=== PATIENT | female | born 1985 | race Caucasian/White ===

== ENCOUNTER 2024-05-14 20:01 | Outpatient (REF) | payer OTHER, SELFPAY | END 2024-05-14 20:02 | disposition home or self-care (01) | LOC: LAB 20:01 | PROVIDERS: Visit Provider Physician Assistant | DX: Z01.419 Encounter for gynecological examination (general) (routine) without abnormal findings (principal) | CPT/HCPCS: 87624; 88175 ==

== ENCOUNTER 2024-12-02 14:59 | Outpatient (REF) | payer OTHER, SELFPAY ==
[2024-12-04 11:08] LABS: HPV Aptima Negative (Negative); Pap IG (Image Guided) Note (.)
== END 2024-12-02 15:00 | disposition home or self-care (01) ==
LOC: LAB 14:59
PROVIDERS: Visit Provider Obstetrics & Gynecology
DX: R87.622 Low grade squamous intraepithelial lesion on cytologic smear of vagina (LGSIL) (principal)
CPT/HCPCS: 87624; 88175

== ENCOUNTER 2024-12-09 13:02 | Outpatient (OUT) | payer OTHER, SELFPAY ==
--- NOTE | 2024-12-09 13:13 | MM_ITS ---
Patient Name: CHELITA PAEZ MR#: [id number] : 1985 Exam Date: 12/09/2024 Ordering Doctor: DR YANCI DE ANDA . RADIOLOGY REPORT PROCEDURE: MM TOMOSYNTHESIS SCREENING BI COMPARISON: None. INDICATIONS: breast cancer screening by mammogram Z12.31 Calculator Name NCI Breast Cancer Risk Assessment Tool 5 Year Breast Cancer Risk 0.80% Lifetime Breast Cancer Risk 13.60% Personal Breast Cancer No Personal Ovarian Cancer No Treatments None Family Cancers None LOCATION: [facility] BREAST COMPOSITION: The breasts are heterogeneously dense,which may obscure small masses. FINDINGS: DIAGNOSTIC CATEGORY 1--NEGATIVE. RIGHT BREAST: No significant suspicious finding. LEFT BREAST: No significant suspicious finding. RECOMMENDATIONS: ROUTINE MAMMOGRAM AND CLINICAL EVALUATION IN 12 MONTHS. PLEASE NOTE: A NORMAL MAMMOGRAM DOES NOT EXCLUDE THE POSSIBILITY OF BREAST CANCER. A CLINICALLY SUSPICIOUS PALPABLE LUMP SHOULD BE BIOPSIED. Dictated by: Addison Gee DO on 12/09/2024 at 14:36 Approved by: Addison Gee DO on 12/09/2024 at 14:42
== END 2024-12-09 13:03 | disposition home or self-care (01) ==
LOC: MAMMO 13:07
PROVIDERS: Visit Provider Obstetrics & Gynecology
DX: Z12.31 Encounter for screening mammogram for malignant neoplasm of breast (principal)
CPT/HCPCS: 77063; 77067

== ENCOUNTER 2025-06-09 12:10 | Outpatient (REF) | payer OTHER, SELFPAY ==
--- OUTSIDE RECORDS SUMMARY | 2025-06-09 09:00 | XMS_ITS | Encounter Summary ---
Demographics Address [address] [place] [address] Home Phone Mobile Phone Work Phone Email Address Preferred Language en Marital Status Unmarried Evangelical Affiliation Unknown Race White Ethnic Group Unknown Author Organization [facility] Address [address] [place] [address] Care Team Providers Care Chief Talent Officer Name Role Phone Mello López MD Primary Care Provider [phone] Daniel Sandoval MD Unavailable [phone] Reason for Visit * Reason Comments Gynecologic Exam Encounter Details Date Type Department Care Team ([facility] Contact Info) Description 06/09/2025 9:00 AM EDT Office Visit [facility] [address] [place] [phone] Guerrero Black DO [address] [place] [address] Well woman exam with routine gynecological exam; Encounter for screening mammogram for malignant neoplasm of breast Social History Tobacco Use Types Packs/Day Years Used Date Smoking Tobacco: Every Day Cigarettes Smokeless Tobacco: Never Comments:Vaping Comments Unknown Sex and Gender Information Value Date Recorded Sex Assigned at Not on file Legal Sex Female 8:34 PM EDT Gender Identity Not on file Sexual Orientation Not on file documented as of this encounter Last Filed Vital Signs Vital Sign Reading Time Taken Comments Blood Pressure 126/70 06/09/2025 9:12 AM EDT Pulse - - Temperature - - Respiratory Rate - - Oxygen Saturation - - Inhaled Oxygen Concentration - - Weight 53.5 kg (118 lb) 06/09/2025 9:12 AM EDT Height - - Body Mass Index 19.64 08/25/2024 9:26 AM EST documented in this encounter Progress Notes * Dannielle Durant, BUCKSHOT SWAGE OPERATOR - 06/09/2025 9:00 AM EDT Reason for Appointment: Patient ID: Radha Rocha is a 39 y.o. female who presents for Gynecologic Exam Patient presents today for Annual Exam. MEDICATIONS Current Outpatient Medications Medication Instructions cholecalciferol (Vitamin D-3) 1.25 MG (49843 UT) capsule Oral, Every 7 days hydrOXYzine HCl (ATARAX) 25 mg, Oral, Nightly PRN topiramate (TOPAMAX) 50 mg, Oral, Daily ALLERGIES Allergies Allergen Reactions Amitriptyline Other Reaction(s): Throat tightness Cephalexin Unknown Egg-Derived Products GI intolerance Latex Unknown Penicillin G Sodium Hives Penicillins Other Reaction(s): Hives Pollen Extract Other Reaction(s): Unknown Sulfa Antibiotics Unknown Sulfamethoxazole-Trimethoprim Unknown Sumatriptan Other Reaction(s): Sore throat symptom PROBLEMS Active Ambulatory Problems Diagnosis Date Noted Migraine 09/02/2020 Complicated migraine 09/02/2020 Facial numbness 10/21/2020 Cerebral embolism with transient symptoms 10/24/2020 Resolved Ambulatory Problems Diagnosis Date Noted No Resolved Ambulatory Problems Past Medical History: Diagnosis Date Anxiety Endometriosis ETD (Eustachian tube dysfunction), right Kidney stone Sinusitis, acute maxillary HISTORY PAST MEDICAL HISTORY SOCIAL HISTORY Past Medical History: Diagnosis Date Anxiety Endometriosis ETD (Eustachian tube dysfunction), right Kidney stone Sinusitis, acute maxillary Social History Tobacco Use Smoking status: Every Day Types: Cigarettes Smokeless tobacco: Never Tobacco comments: Vaping Substance Use Topics Alcohol use: Not on file Drug use: Not on file FAMILY HISTORY Family History Problem Relation Name Age of Onset Migraines Mother Hypertension Father Hypertension Maternal Grandmother Stroke Maternal Grandmother Hypertension Paternal Grandmother Stroke Paternal Grandmother SURGICAL HISTORY Past Surgical History: Procedure Laterality Date DILATION AND CURETTAGE OF UTERUS HYSTERECTOMY 2018 PELVIC LAPAROSCOPY x2 REVIEW OF SYSTEMS Review of Systems: Review of Systems Constitutional: Negative. HENT: Negative. Eyes: Negative. Respiratory: Negative. Cardiovascular: Negative. Gastrointestinal: Negative. Genitourinary: Negative. Musculoskeletal: Negative. Skin: Negative. Neurological: Negative. All other systems reviewed and are negative. Hematological: Negative. Endocrine: Negative. Allergic/Immunologic: Negative. OBJECTIVE Objective: Physical Exam Constitutional: Appearance: Normal appearance. She is well-developed. Genitourinary: Vulva normal. Vaginal cuff intact. Cervix is absent. Uterus is absent. Breasts: Breasts are soft. Right: Normal. Left: Normal. Cardiovascular: Rate and Rhythm: Normal rate and regular rhythm. Abdominal: General: Bowel sounds are normal. There is no distension. Palpations: Abdomen is soft. Tenderness: There is no abdominal tenderness. There is no guarding or rebound. Musculoskeletal: General: No swelling. Normal range of motion. Right lower leg: No edema. Left lower leg: No edema. Neurological: Mental Status: She is alert and oriented to person, place, and time. Skin: General: Skin is warm and dry. Psychiatric: Mood and Affect: Mood normal. Behavior: Behavior normal. Vitals and nursing note reviewed. Exam conducted with a line erector present. Vitals: Estimated body mass index is 19.64 kg/m?? as calculated from the following: Height as of 08/25/24: 5' 5 . Weight as of this encounter: 118 lb. BP: 126/70 No LMP recorded. Patient has had a hysterectomy. ASSESSMENT & PLAN ICD-10-CM 1. Well woman exam with routine gynecological exam Z01.419 Bilateral screening mammogram THIN PREP TIS PAP AND HR HPV DNA Bilateral screening mammogram 2. Encounter for screening mammogram for malignant neoplasm of breast Z12.31 Bilateral screening mammogram Bilateral screening mammogram Orders Placed This Encounter Procedures Bilateral screening mammogram Annual Wellness Exam (Post Hysterectomy): Patient presents today for routine annual exam. Patient states she has no current complaints. Patients vitals were reviewed and within normal limits. Growth and development is noted to be appropriate for age. Menstrual history is noted to be obsolete due to patients history of hysterectomy. No mental health concerns was expressed. Pap Smear: Speculum was inserted into the vagina and pap was obtained without difficulty. HPV testing was performed per guidelines. Patient was advised that pap results could take anywhere from 7 to 10 days to receive and our office will reach out to the patient with those once we have them. Patient can also view results via [employer]. I reinforced importance of condom use for STI prevention. Patient declined cultures to be performed with today's visit. Breast Exam: Upon examination, clinical breast exam was noted to be normal. Patient was counseled on breast self-awareness, including the importance of knowing what is normal for her own breasts and promptly reporting any changes such as new lumps, skin dimpling, nipple discharge, or pain. Screening mammogram recommended annually beginning at age 40 or earlier if risk factors are present. Discussed signs and symptoms of breast cancer and when to seek medical attention. Answered all patient questions. Follow Up: Patient is to return to our office in one year for annual exam unless needed otherwise. Documented by Dannielle Durant LPN on behalf of: Guerrero Black DO, Amy Ramey-PA-C documented in this encounter Plan of Treatment Upcoming Encounters Date Type Department Care Team (Late st Contact Info) Description 06/15/2026 9:00 AM EDT Procedure Visit [facility] [address] [place] [phone] Guerrero Black DO [address] [place] [address] Scheduled Orders Name Type Priority Associated Diagnoses Orde r Schedule Bilateral screening mammogram Imaging Routine Well woman exam with routine gynecological exam Encounter for screening mammogram for malignant neoplasm of breast Expected: 06/09/2025 (Approximate), Expires: 08/09/2026 THIN PREP TIS PAP AND HR HPV DNA Pathology and Cytology Routine Well woman exam with routine gynecological exam Ordered: 06/09/2025 documented as of this encounter Visit Diagnoses Diagnosis Well woman exam with routine gynecological exam Routine gynecological examination Encounter for screening mammogram for malignant neoplasm of breast documented in this encounter Care Teams Chief Talent Officer Relationship Specialty Start Date End Date Mello López MD [address] [place] [address] PCP - General Family Medicine 01/28/24 Daniel Sandoval MD [address] [place] [address] Referring Physician Neurology 08/25/24 documented as of this encounter
--- OUTSIDE RECORDS SUMMARY | 2025-06-09 12:13 | XMS_ITS | Encounter Summary ---
Demographics Address [address] [place] [address] Home Phone Mobile Phone Work Phone Email Address Preferred Language en Marital Status Unmarried Pentecostal Affiliation Unknown Race White Ethnic Group Unknown Author Organization [facility] Address [address] [place] [address] Care Team Providers Care Interactive Multimedia Designer Name Role Phone Mello López MD Primary Care Provider Daniel Sandoval MD Unavailable [phone] Encounter Details Date Type Department Care Team (Late Contact Info) Description 06/03/2024 Abstract [facility] [address] [place] [phone] Guerrero Black DO [address] [place], [facility] Social History Tobacco Use Types Packs/Day Years Used Date Smoking Tobacco: Every Day Cigarettes Smokeless Tobacco: Never Comments Unknown Sex and Gender Information Value Date Recorded Sex Assigned at Not on file Legal Sex Female 8:34 PM EDT Gender Identity Not on file Sexual Orientation Not on file documented as of this encounter Plan of Treatment Upcoming Encounters Date Type Department Care Team (Late Contact Info) Description 06/15/2026 9:00 AM EDT Procedure Visit [facility] [place] [phone] Guerrero Black DO [address] [place], [place] [id number] documented as of this encounter Visit Diagnoses Not on filedocumented in this encounter Care Teams Interactive Multimedia Designer Relationship Specialty Start Date End Date Mello López MD [address] [place] [address] PCP - General Family Medicine 01/28/24 Daniel Sandoval MD [address] [place] [address] Referring Physician Neurology 08/25/24 documented as of this encounter
--- OUTSIDE RECORDS SUMMARY | 2025-06-09 12:13 | XMS_ITS | Encounter Summary ---
Demographics Address [address] [place] [address] Home Phone Mobile Phone Work Phone Email Address Preferred Language en Marital Status Unmarried Jew Affiliation Unknown Race White Ethnic Group Unknown Author Organization [facility] Address [address] [place] [address] Care Team Providers Care Tie Presser Name Role Phone eMllo López MD Primary Care Provider [phone] Daniel Sandoval MD Unavailable [phone] Encounter Details Date Type Department Care Team (Late Contact Info) Description 05/26/2024 Orders Only [facility] [address] [place] [phone] Melissa Dominguez LPN [facility] [place] [address] Social History Tobacco Use Types Packs/Day Years [...] 9:00 AM EDT Procedure Visit [facility] [address] [facility] [place] [phone] Guerrero Black DO [address] [facility] [place] [address] documented as of this encounter Procedures Procedure Name Priority Date/Time Associated Diagnosis Comments PAP SMEAR Routine 05/14/2024 12:00 AM EDT documented in this encounter Results * Pap Smear (05/14/2024 12:00 AM EDT) Swab Cervical swab / Unknown Sofia [facility] LAB CYTOLOGY ORDERABLES Final Result EXTERNAL LAB documented in this encounter Visit Diagnoses Not on filedocumented in this encounter Care Teams Tie Presser Relationship Specialty Start Date End Date Mello López MD [address] [place] [address] PCP - General Family Medicine 01/28/24 Daniel Sandoval MD [address] [place] [address] Referring Physician Neurology 08/25/24 documented as of this encounter
--- OUTSIDE RECORDS SUMMARY | 2025-06-09 12:13 | XMS_ITS | Clinical Summary ---
Demographics Address [address] [place] [address] Home Phone Mobile Phone Work Phone Email Address Preferred Language en Marital Status Unmarried Baptism Affiliation Unknown Race White Ethnic Group Unknown Author Organization [facility] Address [address] [place] [address] Care Team Providers Care Offset Press Operator Name Role Phone Mello López MD Primary Care Provider [phone] Daniel Sandoval MD Unavailable [phone] Allergies Active Allergy Reactions Criticality Noted Date Comments Amitriptyline 05/14/2024 Other Reaction(s): Throat tightness Cephalexin Unknown 06/09/2025 Egg-Derived Products GI intolerance 02/27/2024 Latex Unknown 02/27/2024 Penicillin G Sodium Hives 02/27/2024 Penicillins 05/14/2024 Other Reaction(s): Hives Pollen Extract 05/14/2024 Other Reaction(s): Unknown Sulfa Antibiotics Unknown 02/27/2024 Sulfamethoxazole-Trimethop rim Unknown 02/27/2024 Sumatriptan 05/14/2024 Other Reaction(s): Sore throat symptom Medications hydrOXYzine HCl (Atarax) 25 MG tablet Take 25 mg by mouth as needed at bedtime for anxiety 12/10/2023 Active cholecalciferol (Vitamin D-3) 1.25 MG (35974 UT) capsule Take by mouth every 7 (seven) days Active topiramate (Topamax) 50 MG tabletIndication s:Migraine without aura and without status migrainosus, not intractable Take 50 mg by mouth Daily 90 tablet 4 08/25/2024 Active Active Problems Problem Noted Date Diagnosed Date Cerebral embolism with transient symptoms 2020 Facial numbness 10/21/2020 Migraine 09/02/2020 Assessment & Plan (02/27/2024 11:29 AM EDT): *08/22/2023 Ana Luisa Leos Headaches that have been occurring since she was a teenager, with recent worsening in duration and frequency, with her most recent headaches associated with numbness in the face and neck on the left side most consistent with a complicated migraine headache. The patient does have history of migraine headache without aura. The patient does have difficulty with maintaining sleep, does not feel rested in the mornings, and is fatigued throughout the day making the possibility of a sleep disorder contributing to her headaches a consideration. Given the complicated component to her headaches TCD and carotid 10/01/20 were normal. She has failed Imitrex in the past. She did not tolerate Zanaflex or amitriptyline due to side effects. She has responded well to Trileptal but is having increase in anxiety which improved after this was stopped. Cambia aborts her migraines. MRI of the brain without contrast (she did not tolerate length of study for contrast portion) 04/17/22 was negative. She trialed to lower Topamax but had increase in symptoms and is stable after returning to 50mg PO QHS dosing. She is doing well. Complicated migraine 09/02/2020 Encounters Date Type Department Care Team Description 06/09/2025 9:00 AM EDT Office Visit [facility] [address] [place] [address] Yanci Black, Well woman exam with routine gynecological exam; Encounter for screening mammogram for malignant neoplasm of breast 06/09/2025 Bamboo flowsheet [facility] [address] [place] [address] Yanci Black DO 06/03/2025 Travel from Last 3 Months Immunizations Immunization Administration Dates Next Due Tdap 06/19/2019 Family History Medical History Relation Name Comments Hypertension Father Hypertension Maternal Grandmother Stroke Maternal Grandmother Migraines Mother Hypertension Paternal Grandmother Stroke Paternal Grandmother Relation Name Status Comments Father Alive Maternal Grandmother Mother Alive Paternal Grandmother Social History Tobacco Use Types Packs/Day Years Used Date Smoking Tobacco: Every Day Cigarettes Smokeless Tobacco: Never Tobacco Cessation:Ready to Q uit: Not Asked; Counseling Given: Not Answered Comments:Vaping Comments Unknown Sex and Gender Information Value Date Recorded Sex Assigned at Not on file Legal Sex Female 8:34 PM EDT Gender Identity Not on file Sexual Orientation Not on file Last Filed Vital Signs Vital Sign Reading Time Taken Comments Blood Pressure 126/70 06/09/2025 9:12 AM EDT Pulse - - Temperature - - Respiratory Rate - - Oxygen Saturation - - Inhaled Oxygen Concentration - - Weight 53.5 kg (118 lb) 06/09/2025 9:12 AM EDT Height 165.1 cm (5' 5 ) 08/25/2024 9:26 AM EST Body Mass Index 19.64 08/25/2024 9:26 AM EST Plan of Treatment Upcoming Encounters Date Type Department Care Team (Late st Contact Info) Description 06/15/2026 9:00 AM EDT Procedure Visit [facility] [address] [place] [phone] Yanci Black DO [address] [place] [address] Health Maintenance Due Date Last Done Comments HPV/Cotest 2014 Influenza Vaccine (#1) 2025 Mammogram 12/09/2025 12/09/2024 Cervical Cancer Screening 12/03/2027 Pap Smear 12/03/2027 12/02/2024, 05/14/2024, 11/16 Procedures Procedure Name Priority Date/Time Associated Diagnosis Comments MM TOMOSYNTHESIS SCREENING BI 12/09/2024 2:42 PM EDT PAP SMEAR Routine 12/02/2024 12:00 AM EDT from Last 3 Months or Most Recently Relevant to Health Maintenance Results * MM TOMOSYNTHESIS SCREENING BI (12/09/2024 2:42 PM EDT) Anatomical Region Laterality Modality Other 12/09/2024 2:42 PM EDT Narrative 12/09/2024 2:43 PM EDT The [address] [address] Mammography Report Signed Patient: RADHA PAEZ MR#: [id number] : 1985 Acct:[id number] Age/Sex: 39 / F ADM Date: 12/09/24 Loc: MAMMO Attending Dr: Yanci Black D.O. Ordering Physician: Yanci Black D.O. Results: Date of Service: 12/09/24 Follow Up: Procedure(s): MM tomosynthesis screening BI Accession Number(s): [id number] cc: Yanci Black D.O.; Physician,Non-Staff Lon Patient Name: RADHA PAEZ MR#: [id number] : 1985 Exam Date: 12/09/2024 Ordering Doctor: DR YANCI BLACK . RADIOLOGY REPORT PROCEDURE: MM TOMOSYNTHESIS SCREENING BI COMPARISON: None. INDICATIONS: breast cancer screening by mammogram Z12.31 Calculator Name NCI Breast Cancer Risk Assessment Tool 5 Year Breast Cancer Risk 0.80% Lifetime Breast Cancer Risk 13.60% Personal Breast Cancer No Personal Ovarian Cancer No Treatments None Family Cancers None LOCATION: The [facility] BREAST COMPOSITION: The breasts are heterogeneously dense,which may obscure small masses. FINDINGS: DIAGNOSTIC CATEGORY 1--NEGATIVE. RIGHT BREAST: No significant suspicious finding. LEFT BREAST: No significant suspicious finding. RECOMMENDATIONS: ROUTINE MAMMOGRAM AND CLINICAL EVALUATION IN 12 MONTHS. PLEASE NOTE: A NORMAL MAMMOGRAM DOES NOT EXCLUDE THE POSSIBILITY OF BREAST CANCER. A CLINICALLY SUSPICIOUS PALPABLE LUMP SHOULD BE BIOPSIED. Dictated by: Addison Gee DO on 12/09/2024 at 14:36 Approved by: Addison Gee DO on 12/09/2024 at 14:42 Dictated By: Addison Gee D.O. Signed By: 12/09/24 1443 DD/ 1442 TD/TT: Casting Sorter: Procedure Note Radiology, Radiologist, MD - 12/09/[address] [address] Mammography Report Signed Patient: RADHA PAEZ EMR#: [id number] : 1985Acct:[id number] Age/Sex: 39 / FADM Date: 12/09/24 Loc: MAMMO Attending Dr: Yanci Black D.O. Ordering Physician: Yanci Black D.O.Results: Date of Service: 12/09/24Follow Up: Procedure(s): MM tomosynthesis screening BI Accession Number(s): [id number] cc: Yanci Black D.O.; Physician,Non-Staff M.Alfredo Patient Name: RADHA PAEZ MR#: [id number] : 1985 Exam Date: 12/09/2024 Ordering Doctor: DR YANCI BLACK . RADIOLOGY REPORT PROCEDURE: MM TOMOSYNTHESIS SCREENING BI COMPARISON: None. INDICATIONS: breast cancer screening by mammogram Z12.31 Calculator Name NCI Breast Cancer Risk Assessment Tool 5 Year Breast Cancer Risk 0.80% Lifetime Breast Cancer Risk 13.60% Personal Breast Cancer No Personal Ovarian Cancer No Treatments None Family Cancers None LOCATION: [facility] BREAST COMPOSITION: The breasts are heterogeneously dense,which may obscure small masses. FINDINGS: DIAGNOSTIC CATEGORY 1--NEGATIVE. RIGHT BREAST: No significant suspicious finding. LEFT BREAST: No significant suspicious finding. RECOMMENDATIONS: ROUTINE MAMMOGRAM AND CLINICAL EVALUATION IN 12 MONTHS. PLEASE NOTE: A NORMAL MAMMOGRAM DOES NOT EXCLUDE THE POSSIBILITY OFBREAST CANCER. A CLINICALLY SUSPICIOUS PALPABLE LUMP SHOULD BE BIOPSIED. Dictated by: Addison Gee DO on 12/09/2024 at 14:36 Approved by: Addison Gee DO on 12/09/2024 at 14:42 Dictated By: Addison Gee D.O. Signed By:12/09/24 1443 DD/ 1442 TD/TT: Casting Sorter: us Yanci Black DO [facility] Final Result * Pap Smear (12/02/2024 12:00 AM EDT) Swab Cervical swab / Unknown us Yanci Black DO LAB CYTOLOGY ORDERABLES Final Re sult EXTERNAL LAB from Last 3 Months or Most Recently Relevant to Health Maintenance Insurance * Guarantor: Radha Paez Account Type Relation to Patient Date of Phone Billing Address Personal/Family Self 1985 [address] [place] [address] [employer] Care Teams Offset Press Operator Relationship Specialty Start Date End Date Mello López MD [address] [place] [address] PCP - General Family Medicine 01/28/24 Daniel Sandoval MD [address] [place] [address] Referring Physician Neurology 08/25/24
--- OUTSIDE RECORDS SUMMARY | 2025-06-09 12:13 | XMS_ITS | Encounter Summary ---
Demographics Address [address] [place] [address] Home Phone Mobile Phone Work Phone Email Address Preferred Language en Marital Status Unmarried Jainism Affiliation Unknown Race White Ethnic Group Unknown Author Organization [facility] Address [address] [place] [address] Care Team Providers Care Can Vacuum Tester Name Role Phone Mello López MD Primary Care Provider [phone] Daniel Sandoval MD Unavailable Encounter Details Date Type Department Care Team (Late Contact Info) Description 06/09/2025 Bamboo flowsheet [facility] [place] [phone] Guerrero Black DO [address] [place], [facility] Social History Tobacco Use Types Packs/Day [...] Visit [facility] [place] [address] Guerrero Black DO [address] [place], [place] [phone] documented as of this encounter Visit Diagnoses Not on filedocumented in this encounter Care Teams Can Vacuum Tester Relationship Specialty Start Date End Date Mello López MD [address] [place] [address] PCP - General Family Medicine 01/28/24 Daniel Sandoval MD [address] [place] [address] Referring Physician Neurology 08/25/24 documented as of this encounter
--- OUTSIDE RECORDS SUMMARY | 2025-06-09 12:14 | XMS_ITS | Clinical Summary ---
Author Organization [facility] Address [address] [place] [address] Phone Care Team Providers Care Podiatric Aide Name Role Phone Unavailable Primary Care Provider Unavailabl e Encounters Date Type Department Care Team Description 04/26/2025 Orders Only [facility] [address] [place] [address] Joe Ross DO from Last 3 Months Social History Tobacco Use Types Packs/Day Years Used Date Smoking Tobacco: Never Assessed Comments Unknown Sex and Gender Information Value Date Recorded Sex Assigned at Not on file Legal Sex Female 4:36 AM EST Gender Identity Not on file Sexual Orientation Not on file Plan of Treatment Not on file Procedures Procedure Name Priority Date/Time Associated Diagnosis Comments NON-[facility] HIE C URINE Routine 04/26/2025 5: 10 PM EDT [facility] UA WITH CULT RFLX Routine 04/26/2025 5:10 PM EDT NON-[facility] HIE U BETAHCG QUAL Routine 04/26/2025 5:10 PM EDT from Last 3 Months Results * (ABNORMAL) [facility] UA WITH CULT RFLX (04/26/2025 5:10 PM EDT) [facility] H[facility] UA Spec Desc Clean Catch [facility] NON-[facility] HIE UA Color Light-Yellow Yellow [facility] Comment:Microscopic readings are only performed on those samples that meet specific criteria set forth by [facility]. NON-[facility] HIE UA Clarity Turbid(A) Clear [facility] NON-[facility] HIE UA Spec Grav 1.017 1.005 - 1.[address] [facility] NON-[facility] HIE UA pH 7.5 5.0 - 9.0 [facility] NON-[facility] HIE UA Protein 1+(A) Negative mg/dL [facility] NON-[facility] HIE UA Glucose Negative Negative mg/dL [facility] NON-[facility] HIE UA Ketones Negative Negative mg/dL [facility] NON-[facility] HIE UA Bili Negative Negative mg/dL [facility] NON-[facility] HIE UA Blood Trace(A) Negative mg/dL [facility] NON-[facility] HIE UA Nitrite Negative Negative mg/dL [facility] NON-[facility] HIE UA Urobilinogen Negative Negative mg/dL [facility] NON-[facility] HIE UA Leuk Est 500 Andrew/uL(A) Negative CD:[id number] [facility] NON-[facility] HIE UA WBC >75(A) 0 - 5 CD:[id number] [address] [facility] NON-[facility] HIE UA RBC 31-75(A) 0 - 3 CD:[id number] [address] [facility] NON-[facility] HIE UA Squam Epithelial 0-2 CD:[id number] [address] [facility] NON-[facility] HIE UA Bacteria Trace Trace /HPF [facility] NON-[facility] HIE UA MUCOUS Negative Negative CD:[id number] [address] [facility] Lab- Urine 04/26/2025 5 :10 PM EDT [facility]OD ORDER[facility]LES Final Result Performing Organization Address City/[facility]/ZIP Co de Phone Number [facility] [address] [place] [address], [place] * NON-[facility] HIE U BetaHcg Qual (04/26/2025 5:10 PM EDT) [facility] HIE U BETA HCG QL Negative [facility] Lab- Urine 04/26/2025 5 :10 PM EDT Joe [facility] BLOOD ORDERABLES Final Result Performing Organization Address City/[facility]/ZIP Co de Phone Number [facility] [address] [place] [address], [place] * NON-[facility] HIE C Urine (04/26/2025 5:10 PM EDT) [facility] U CleanCatch 04/26/2025 5:10 PM EDT us Joe Ross DO LAB BLOOD ORDERABLES Final Result [facility] [address] [place] [address], [place] from Last 3 Months
--- OUTSIDE RECORDS SUMMARY | 2025-06-09 12:14 | XMS_ITS | Encounter Summary ---
Demographics Address [address] [place] [address] Home Phone Mobile Phone Work Phone Email Address Preferred Language en Marital Status Unmarried Uatsdin Affiliation Unknown Race White Ethnic Group Unknown Author Organization [facility] Address [address] [place] [address] Care Team Providers Care Auto Clutch Specialist Name Role Phone Mello López MD Primary Care Provider [phone] Daniel Sandoval MD Unavailable [phone] Encounter Details Date Type Department Care Team (Latest Contact Info) Description 06/03/2025 Travel Social History Tobacco Use Types Packs/Day Years [...] 06/15/2026 9:00 AM EDT Procedure Visit [facility] [address] [place] [address] Guerrero Black DO [address] [place] [address] documented as of this encounter Visit Diagnoses Not on filedocumented in this encounter Care Teams Auto Clutch Specialist Relationship Specialty Start Date End Date Mello López MD [address] [place] [address] PCP - General Family Medicine 01/28/24 Daniel Sandoval MD [address] [place] [address] Referring Physician Neurology 08/25/24 documented as of this encounter
--- OUTSIDE RECORDS SUMMARY | 2025-06-09 12:14 | XMS_ITS | Encounter Summary ---
Demographics Address [address] [place] [address] Home Phone Mobile Phone Work Phone Email Address Preferred Language en Marital Status Unmarried Latter-Day Affiliation Unknown Race White Ethnic Group Unknown Author Organization [facility] Address [address] [place] [address] Care Team Providers Care Industrial Engineering Technologist Name Role Phone Mello López MD Primary Care Provider [phone] Daniel Sandoval MD Unavailable [phone] Encounter Details Date Type Department Care Team (Late Contact Info) Description 05/07/2024 Orders Only [facility] [address] [place] [phone] Melissa Dominguez LPN [address] [facility] [address] [place] [address] Social History Tobacco Use Types Packs/Day Years [...] EDT Procedure Visit [facility] [address] [place] [phone] Guerrero Black DO [address] [facility] [place] [address] documented as of this encounter Procedures Procedure Name Priority Date/Time Associated Diagnosis Comments PAP SMEAR Routine 12/05/2022 12:00 AM EDT documented in this encounter Results * Pap Smear (12/05/2022 12:00 AM EDT) Swab Cervical swab / Unknown Sofia [facility] LAB CYTOLOGY ORDERABLES Final Result EXTERNAL LAB documented in this encounter Visit Diagnoses Not on filedocumented in this encounter Care Teams Industrial Engineering Technologist Relationship Specialty Start Date End Date Mello López MD [address] [place] [address] PCP - General Family Medicine 01/28/24 Daniel Sandoval MD [address] [place] [address] Referring Physician Neurology 08/25/24 documented as of this encounter
--- OUTSIDE RECORDS SUMMARY | 2025-06-09 12:14 | XMS_ITS | Encounter Summary ---
Demographics Address [address] [place] [address] Home Phone Mobile Phone Work Phone Email Address Preferred Language en Marital Status Unmarried Mandaeism Affiliation Unknown Race White Ethnic Group Unknown Author Organization [facility] Address [address] [place] [address] Care Team Providers Care Base Brander Name Role Phone Mello López MD Primary Care Provider Daniel Sandoval MD Unavailable Encounter Details Date Type Department Care Team (Late Contact Info) Description 12/18/2024 Orders Only [facility] [address] [place] [phone] Francia Garcia LPN [address] [place] [id number] Social History Tobacco Use Types Packs/Day Years [...] Description 06/15/2026 9:00 AM EDT Procedure Visit [facility] [address] [place] [phone] Guerrero Black DO [address] [place], [place] [id number] documented as of this encounter Procedures Procedure Name Priority Date/Time Associated Diagnosis Comments PAP SMEAR Routine 12/02/2024 12:00 AM EDT documented in this encounter Results * Pap Smear (12/02/2024 12:00 AM EDT) Swab Cervical swab / Unknown us Guerrero Sofia DO LAB CYTOLOGY ORDERABLES Final Re sult EXTERNAL LAB documented in this encounter Visit Diagnoses Not on filedocumented in this encounter Care Teams Base Brander Relationship Specialty Start Date End Date Mello López MD [address] [place] [address] PCP - General Family Medicine 01/28/24 Daniel Sandoval MD [address] [place] [address] Referring Physician Neurology 08/25/24 documented as of this encounter
--- OUTSIDE RECORDS SUMMARY | 2025-06-09 12:16 | XMS_ITS | CCD ---
Author Organization [facility] Care Team Providers Care Sales Representative Leather Goods Name Role Phone Mello LÓPEZ Primary Care Physician LEW ., DR AGUIRRE Attending Unavailabl e LEW ., DR AGUIRRE Consulting Unavailabl e LEW Varela, DR AGUIRRE Admitting Unavailabl ALBERTINA Barker Primary Care Unavailable Candice Lee Primary Care Physician Mello López MD Primary Care Provider Daniel Sandoval MD Unavailable [phone] Heather Hammer Attending Unavailable Heather Hammer Admitting Unavailable Heather Hammer Attending Unavailable Mello LÓPEZ Admitting Unavailable Mello LÓPEZ Attending Unavailable RAUL GUEVARA Admitting Unavailabl RAUL Dubose Attending UnavailRAUL Padilla Attending UnavailCandice Matson Admitting Unavailab Candice Tamez Attending Unavailab Mello Edwards Admitting Unavailable Mello LÓPEZ Attending Unavailable Kiesha Tomlin Attending Unavailable Ruth Chaparro Attending Unavailable Mello LÓPEZ Attending Unavailable Candice Lee Attending Unavailab Candice Tamez Attending Unavailab Mello Edwards Attending Unavailable Mello LÓPEZ Admitting Unavailable GUERRERO LBACK Attending Unavailable ANA LUISA LEOS Attending Unavailable JANA RICHARDSON Attending Unavailable GUERRERO BLACK Attending Unavailable ANA LUISA LEOS Attending Unavailable Joe Ross Attending Unavailabl e Mikayla Astrit H Attending Unavailable Mikayla Brody H Attending Unavailable Ruth Chaparro Attending Unavailable Nannette Bell Attending Unavailable JesusVIKTORIYA Attending Renata vailable JesusVIKTORIYA Admitting Renata vailable Jesus, VIKTORIYA Donaldson Attending Renata vailable RAUL GUEVARA Admitting Unavailabl e CIERSEZRICKIE, RAUL R Attending Unavailabl e RAUL GUEVARA R Referring Unavailabl e CIERSEZKELLIEKIRAUL R Admitting Unavailabl e CIERSRAUL DAN Attending Unavailabl e RAUL GUEVARA R Referring Unavailabl e Renetta Nam Admitting Unavailable Renetta Nam Attending Unavailable Renetta Nam Attending Unavailable Nannette Bell Attending Unavailable Nannette Bell Referring Unavailable Nannette Bell Admitting Unavailable Candice Lee Admitting Unavailab le Candice packer Attending Unavailab le Nannette Bell Attending Unavailable Candice packer Attending Unavailab le Nannette Bell Attending Unavailable Nannette Bell ANichole Referring Unavailable Nannette Bell Admitting Unavailable Kael Main Attending Unavailable Ruth Chaparro Attending Unavailable Ruth Chaparro Admitting Unavailable Ruth Chaparro Attending Unavailable Daniel Sandoval MD Unavailable [phone] Allergies Allergy Classification Reported Allergen(s) Allergy Type Date of Onset Reaction(s) Facility (20 sources) Amitriptyline; Translations: [amitriptyline] Drug Allergy 05-14-20 24 Tightness in throat (finding) [facility] (20 sources) Penicillins; Translations: [penicillins] Drug allergy 05-14-20 24 Weal (disorder) [facility] (20 sources) Sulfonamides (Antibiotic); Translations: [sulfa drugs] Drug allergy [facility] (20 sources) SUMAtriptan; Translations: [sumatriptan] Drug Allergy 05-14-20 24 Sore throat symptom (finding) [facility] (1 source) Penicillin Drug Allergy 09-17-18 86 [facility] Rep[facility] (1 source) Sulfonamides (Antibiotic) Drug allergy (disorder) 09-17-19 10 [facility] Repository (11 sources) Latex Allergy to substance 02-27-20 24 Unknown [facility] (11 sources) Penicillin G sodium Allergy to substance 02-27-20 24 Hives [facility] (10 sources) Pollen Allergy to substance 05-14-20 24 [facility] (11 sources) Sulfamethoxazole / Trimethoprim Drug Allergy 02-27-20 24 Unknown [facility] (11 sources) Sulfonamides (Antibiotic) Drug Allergy 02-27-20 24 Unknown [facility] (11 sources) Egg-Derived Products Drug Allergy 02-27-20 24 GI intolerance [facility] (12 sources) Cephalexin; Translations: [cephalexin] Drug Allergy 06-09-20 25 Unknown (qualifier value), Unknown [facility] Repository Medications Current Medications Medication Drug Class(es) Dates Sig (Normalized) Sig (Original) Capmist DM 15 mg-400 mg-60 mg oral tablet (1 source) Start: 12-11-2022 End: 12-18-2022 Capmist DM 15 mg-400 mg-60 mg oral tablet 1 tab(s), Oral, QID Cough and Congestion for 7 day(s), 28 tab(s), Refill(s) 0, [facility] #[id number], 165, cm, 12/11/22 15:52:00 EDT, Height/Length Dosing, 52, kg, 12/11/22 15:52:00 EDT, Weight Dosing Start Date: 12/11/22 Stop Date: 12/18/22 Status: Ordered cholecalciferol 1.25 mg oral capsule (20 sources) Vitamin D Start: 04-10-2024 cholecalciferol 50,000 intl units oral capsule 1,250 mcg = 1 cap(s), Oral, q7day, # 12 cap(s), Refills(s) 1, Pharmacy: [facility], 165, cm, 05/27/25 11:25:00 EDT, Height/Length Dosing, 54.5, kg, 05/27/25 11:25:00 EDT, Weight Dosing Start Date: 05/27/25 Status: Ordered Quantity: 12.0 Unit: cap(s) Repeat number: 2 Indications: Vitamin D deficiency, unspecified; Other fatigue; ciprofloxacin 500 mg oral tablet (1 source) Quinolone Antimicrobial Start: 05-01-2025 take 1 tablet by mouth twice daily ciprofloxacin 500 mg Tab 500 mg = 1 tab(s), Oral, BID, # 20 tab(s), Refills(s) 0, Pharmacy: [facility], 165, cm, 05/01/25 16:07:00 EDT, Height/Length Dosing, 54.1, kg, 05/01/25 16:07:00 EDT, Weight Dosing Start Date: 05/01/25 Status: Ordered Quantity: 20.0 Unit: tab(s) Repeat number: 1 ciprofloxacin 3 mg/ml / dexamethasone 1 mg/ml otic suspension (1 source) Corticosteroid, Quinolone Antimicrobial Start: 10-03-2022 End: 10-10-2022 Ciprodex 0.3%-0.1% Susp-Otic 4 drop(s), Otic, BID for 7 day(s), 7.5 mL, Refill(s) 0, [facility] #[id number], 165, cm, 10/03/22 10:26:00 EST, Height/Length Dosing, 50.1, kg, 10/03/22 10:26:00 EST, Weight Dosing Start Date: 10/03/22 Stop Date: 10/10/22 Status: Ordered citalopram 20 mg oral tablet (2 sources) Serotonin Reuptake Inhibitor Start: 01-23-2023 take 1 tablet by mouth once daily citalopram 20 mg Tab 20 mg = 1 tab(s), Oral, Daily, # 30 tab(s), Refills(s) 1, Pharmacy: [facility] #[id number], 165, cm, 01/10/23 16:19:00 EDT, Height/Length Dosing, 55.8, kg, 01/10/23 16:19:00 EDT, Weight Dosing Start Date: 01/23/23 Status: Ordered diclofenac potassium 50 mg powder for oral solution (10 sources) Nonsteroidal Anti-inflammatory Drug Start: 07-12-2021 Cambia 50 mg oral powder for reconstitution = 1 packet(s), Oral, Once, PRN for migraine headache, # 9 EA, Refills(s) 0 Start Date: 07/12/21 Status: Ordered Diclofenac [place] sium,Migraine, (Cambia) 50 MG pack Take by mouth Active famotidine 20 mg oral tablet (2 sources) Histamine-2 Receptor Antagonist Start: 01-03-2023 take 1 tablet by mouth twice daily Pepcid 20 mg Tab 20 mg = 1 tab(s), Oral, BID, # 30 tab(s), Refills(s) 0, Pharmacy: [facility] #[id number], 165, cm, 01/03/23 9:28:00 EDT, Height/Length Dosing, 54, kg, 01/03/23 9:28:00 EDT, Weight Dosing Start Date: 01/03/23 Status: Ordered fluconazole 150 mg oral tablet (7 sources) Azole Antifungal Start: 05-01-2025 take 1 tablet by mouth once fluconazole 150 mg Tab 150 mg = 1 tab(s), Oral, Once, # 2 tab(s), Refills(s) 0, Pharmacy: [facility], 165, cm, 05/01/25 16:07:00 EDT, Height/Length Dosing, 54.1, kg, 05/01/25 16:07:00 EDT, Weight Dosing Start Date: 05/01/25 Status: Ordered Quantity: 2.0 Unit: tab(s) Repeat number: 1 Start: 07-14-2024 fluconazole 15 0 mg Tab See Instructions, Take one now, take 2nd tab in 72 hours of symptoms persist, # 2 tab(s), Refills(s) 0, Pharmacy: [facility], 165, cm, 07/14/24 8:52:00 EDT, Height/Length Dosing, 52.8, kg, 07/14/24 9:02:00 EDT, Weight Dosing Start Date: 07/14/24 Status: Ordered fluticasone propionate 0.05 mg/actuat metered dose nasal spray (20 sources) Corticosteroid Start: 05-27-2025 Flonase 0.05 m g/inh [place] 2 spray(s), Nasal, Daily, 16 gram, Refill(s) 1, each nostril, [facility], 165, cm, 05/27/25 11:25:00 EDT, Height/Length Dosing, 54.5, kg, 05/27/25 11:25:00 EDT, Weight Dosing Start Date: 05/27/25 Status: Ordered Quantity: 16.0 Unit: g Repeat number: 2 Indications: Other seasonal allergic rhinitis; Start: 04-10-2024 Flonase 0.05 m g/inh [place] 2 spray(s), Nasal, Daily, 16 gram, Refill(s) 0, each nostril, [facility] #[id number], 165, cm, 04/10/24 7:07:00 EDT, Height/Length Dosing, 53.1, kg, 04/10/24 7:07:00 EDT, Weight Dosing Start Date: 04/10/24 Status: Ordered Quantity: 16.0 Unit: g Repeat number: 1 Indications: Other seasonal allergic rhinitis; Start: 06-25-2023 Flonase 0.05 m g/inh [place] 2 spray(s), Nasal, Daily, 16 gram, Refill(s) 0, each nostril, [facility] #[id number], 165, cm, 06/25/23 9:49:00 EDT, Height/Length Dosing, 57.2, kg, 06/25/23 9:49:00 EDT, Weight Dosing Start Date: 06/25/23 Status: Ordered hydrocortisone acetate 25 mg rectal suppository (5 sources) Corticosteroid Start: 05-27-2025 hydrocortisone 25 mg Supp = 1 supp, Rectal, BID, Refills(s) 0 Start Date: 05/27/25 Status: Ordered Repeat number: 1 Start: 05-19-2025 hydrocortisone 25 mg Supp = 1 supp, Rectal, BID, Refills(s) 0 Start Date: 05/19/25 Status: Ordered Repeat number: 1 Start: 05-01-2025 End: 05-11-2025 take 25 mg rectal route twice daily hydrocortisone 25 mg Supp 25 mg = 1 supp, Rectal, BID, X 10 day(s), # 20 supp, Refills(s) 0, Pharmacy: [facility], 165, cm, 05/01/25 16:07:00 EDT, Height/Length Dosing, 54.1, kg, 05/01/25 16:07:00 EDT, Weight Dosing Start Date: 05/01/25 Stop Date: 05/11/25 Status: Ordered Quantity: 20.0 Unit: supp Repeat number: 1 hydrOXYzine hydrochloride 25 mg oral tablet (20 sources) Antihistamine Start: 12-10-2023 hydrOXYzine HC l (Atarax) 25 MG tablet Take 25 mg by mouth as needed at bedtime for anxiety 12/10/2023 Active Start: 06-11-2023 hydrOXYzine hy drochloride 25 mg Tab 25 mg = 1 tab(s), Oral, QID, PRN for anxiety, Can cut tab in half if needed., # 40 tab(s), Refills(s) 3, Pharmacy: [facility] #[id number], 165, cm, 06/11/23 10:43:00 EDT, Height/Length Dosing, 58.2, kg, 06/11/23 10:43:00 EDT, Weight Dosing Start Date: 06/11/23 Status: Ordered Start: 03-16-2023 hydrOXYzine hy drochloride 25 mg Tab 25 mg = 1 tab(s), Oral, QID, PRN for anxiety, Can cut tab in half if needed., # 40 tab(s), Refills(s) 3, Pharmacy: [facility] #[id number], 165, cm, 03/16/23 16:43:00 EDT, Height/Length Dosing, 57.1, kg, 03/16/23 16:43:00 EDT, Weight Dosing Start Date: 03/16/23 Status: Ordered Start: 01-10-2023 End: 02-09-2023 take 3 tablets by mouth once daily as needed hydrOXYzine hydrochloride 25 mg Tab 25 mg = 1 tab(s), Oral, TID, PRN for anxiety, Start by taking 1 tab at bedtime. Can take up to 3 tabs per day as needed., X 30 day(s), # 90 tab(s), Refills(s) 0, Pharmacy: [facility] #[id number], 165, cm, 01/10/23 16:19:00 EDT, Height/Length Dosing, 55.8, k... Start Date: 01/10/23 Stop Date: 02/09/23 Status: Ordered loratadine 10 mg oral tablet (7 sources) loratadine (Claritin) 10 MG tablet 1 (one) time each day at the same time Active metroNIDAZOLE 500 mg oral tablet (1 source) Nitroimidazole Antimicrobial Start: 05-01-20 take 1 tablet by mouth every twelve hours MetroNIDAZOLE 500 mg Tab 500 mg = 1 tab(s), Oral, q12hr, # 20 tab(s), Refills(s) 0, Pharmacy: [facility], 165, cm, 05/01/25 16:07:00 EDT, Height/Length Dosing, 54.1, kg, 05/01/25 16:07:00 EDT, Weight Dosing Start Date: 05/01/25 Status: Ordered Quantity: 20.0 Unit: tab(s) Repeat number: 1 montelukast 10 mg oral tablet (3 sources) Leukotriene Receptor Antagonist Start: 05-27-20 take 1 tablet by mouth once daily in the evening montelukast 10 mg Tab 10 mg = 1 tab(s), Oral, qPM, # 30 tab(s), Refills(s) 3, Pharmacy: [facility], 165, cm, 05/27/25 11:25:00 EDT, Height/Length Dosing, 54.5, kg, 05/27/25 11:25:00 EDT, Weight Dosing Start Date: 05/27/25 Status: Ordered Quantity: 30.0 Unit: tab(s) Repeat number: 4 Indications: Other seasonal allergic rhinitis; nitrofurantoin, macrocrystals 25 mg / nitrofurantoin, monohydrate 75 mg oral capsule (6 sources) Nitrofuran Antibacterial Start: 05-31-20 End: 06-05-20 take 1 capsule by mouth every twelve hours Macrobid 100 mg Cap 100 mg = 1 cap(s), Oral, q12hr, X 5 day(s), # 10 cap(s), Refills(s) 0, Pharmacy: [facility], 165, cm, 05/31/25 10:34:00 EDT, Height/Length Dosing, 54.5, kg, 05/31/25 10:34:00 EDT, Weight Dosing Start Date: 05/31/25 Stop Date: 06/05/25 Status: Ordered Quantity: 10.0 Unit: cap(s) Repeat number: 1 Start: 10-29-2024 End: 11-03-2024 take 1 capsule by mouth twice daily at mealtime Macrobid 100 mg Cap 100 mg = 1 cap(s), Oral, BID, with food, X 5 day(s), # 10 cap(s), Refills(s) 0, Pharmacy: [facility], 165, cm, 10/29/24 10:20:00 EST, Height/Length Dosing, 53, kg, 10/29/24 10:20:00 EST, Weight Dosing Start Date: 10/29/24 Stop Date: 11/03/24 Status: Ordered Start: 08-04-2024 End: 08-11-2024 take 1 capsule by mouth twice daily Macrobid 100 mg Cap 100 mg = 1 cap(s), Oral, BID, X 7 day(s), # 14 cap(s), Refills(s) 0, Pharmacy: [facility], 165, cm, 08/04/24 17:38:00 EST, Height/Length Dosing, 52, kg, 08/04/24 17:38:00 EST, Weight Dosing Start Date: 08/04/24 Stop Date: 08/11/24 Status: Ordered pantoprazole 40 mg delayed release oral tablet (3 sources) Proton Pump Inhibitor Start: 05-26-2025 take 1 tablet by mouth once daily Pantoprazole [address] Tab 40 mg = 1 tab(s), Oral, Daily, # 90 tab(s), Refills(s) 0, Pharmacy: [facility], 165, cm, 05/19/25 10:19:00 EDT, Height/Length Dosing, 54.5, kg, 05/19/25 10:19:00 EDT, Weight Dosing Start Date: 05/26/25 Status: Ordered Quantity: 90.0 Unit: tab(s) Repeat number: 1 phenazopyridine hydrochloride 200 mg oral tablet (3 sources) Start: 05-31-2025 End: 06-03-2025 take 1 tablet by mouth three times daily Pyridium 200 mg Tab 200 mg = 1 tab(s), Oral, TID, X 3 day(s), # 9 tab(s), Refills(s) 0, Pharmacy: [facility], 165, cm, 05/31/25 10:34:00 EDT, Height/Length Dosing, 54.5, kg, 05/31/25 10:34:00 EDT, Weight Dosing Start Date: 05/31/25 Stop Date: 06/03/25 Status: Ordered Quantity: 9.0 Unit: tab(s) Repeat number: 1 Start: 10-29-2024 End: 10-31-2024 take 1 tablet by mouth at mealtime phenazopyridine 200 mg Tab 200 mg = 1 tab(s), Oral, TIDPC, with food, X 2 day(s), # 6 tab(s), Refills(s) 0, Pharmacy: [facility], 165, cm, 10/29/24 10:20:00 EST, Height/Length Dosing, 53, kg, 10/29/24 10:20:00 EST, Weight Dosing Start Date: 10/29/24 Stop Date: 10/31/24 Status: Ordered topiramate 50 mg oral tablet (20 sources) Start: 04-10-2024 End: 11-23-2024 take 1 tablet by mouth once daily topiramate (Topamax) 50 MG tablet Indications: Migraine without aura and without status migrainosus, not intractable Take 50 mg by mouth Daily 90 tablet 4 08/25/2024 Active Start: 06-23-2022 take 1 tablet by ricky th once daily topiramate 50 mg Tab 50 mg = 1 tab(s), Oral, Daily, # 180 tab(s), Refills(s) 0 Start Date: 06/23/22 Status: Ordered Start: 08-22-2021 take 1 tablet by ricky th twice daily Topamax 25 mg Tab 25 mg = 1 tab(s), Oral, BID, Refills(s) 0 Start Date: 08/22/21 Status: Ordered Completed/Discontinued Medications Medication Drug Class(es) Dates Sig (Normalized) Sig (Original) polyethylene glycol 3350 850773 mg / potassium chloride 1480 mg / sodium bicarbonate 5720 mg / sodium chloride 57195 mg powder for oral solution (1 source) Osmotic Laxative Start: 05-19-2025 take 1 dose by mouth once NuLYTELY [place] oral powder for reconstitution See Instructions, 1 EA, Refill(s) 0, Per physician instructions, prior to colonoscopy., [facility] #[facility], 165, cm, 05/19/25 10:19:00 EDT, Height/Length Dosing, 54.5, kg, 05/19/25 10:19:00 EDT, Weight Dosing Start Date: 05/19/25 Status: Ordered Quantity: 1.0 Unit: EA Repeat number: 1 Problems Active Problems Problem Classification Problem Date Documented Da te Episodic/Chronic Abdominal pain (7 sources) Abdominal pain; Translations: [Unspecified abdominal pain] Onset: 4 Episodic Acute bronchitis (20 sources) Acute infective bronchitis; Translations: [Viral bronchitis] 07-12-2021 Episodic Acute cerebrovascular disease (11 sources) Cerebral embolism; Translations: [Occlusion and stenosis of unspecified cerebral artery] Onset: 1 02-27-2024 Chronic Anxiety disorders (20 sources) Generalized anxiety disorder; Translations: [Generalized anxiety disorder] Onset: 3 Chronic Bacterial infection; unspecified site (2 sources) Infection due to Escherichia coli; Translations: [Unspecified Escherichia coli [E. coli] as the cause of diseases classified elsewhere] Onset: 5 Episodic Biliary tract disease (2 sources) Cholelithiasis without obstruction; Translations: [Calculus of gallbladder without cholecystitis without obstruction] Onset: 5 Episodic Cancer of other female genital organs (1 source) Low grade squamous intraepithelial lesion on vaginal Papanicolaou smear; Translations: [Low grade squamous intraepithelial lesion on cytologic smear of vagina (LGSIL)] 06-03-2024 Episodic Endometriosis (20 sources) Endometriosis of cervix 05-10-2021 Chronic Gastrointestinal hemorrhage (7 sources) Melena; Translations: [Melena] Onset: 5 Episodic Genitourinary symptoms and ill-defined conditions (2 sources) Genitourinary tract problem; Translations: [Unspecified symptoms and signs involving the genitourinary system] Onset: 4 Episodic Headache; including migraine (20 sources) Migraine without aura, not refractory ; Translations: [Migraine without aura, not intractable, without status migrainosus] Onset: 0 Chronic Hemorrhoids (6 sources) Hemorrhoids; Translations: [Other hemorrhoids] Onset: 5 Episodic Immunizations and screening for infectious disease (1 source) Encounter for screening for human papillomavirus (HPV); Translations: [ENC SCREENING HUMAN PAPILLOMAVIRUS] Onset: 3 Episodic Inflammation; infection of eye (except that caused by tuberculosis or sexually transmitteddisease) (20 sources) Hordeolum externum of lower eyelid; Translations: [Internal hordeolum of right lower eyelid] 05-10-2021 Episodic Malaise and fatigue (14 sources) Fatigue; Translations: [Other fatigue] Onset: 4 Episodic Nonspecific chest pain (9 sources) Chest pain; Translations: [Chest pain, unspecified] Onset: 3 Episodic Nutritional deficiencies (20 sources) Vitamin D deficiency; Translations: [Vitamin D deficiency, unspecified] Onset: 4 Chronic Other disorders of stomach and duodenum (4 sources) Indigestion 05-19-2025 Episodic Other ear and sense organ disorders (6 sources) Otitis externa; Translations: [Unspecified otitis externa, unspecified ear] Onset: 3 Chronic Other ear and sense organ disorders (1 source) Otalgia, left ear; Translations: [Otalgia of left ear] Onset: 3 Episodic Other female genital disorders (1 source) Disorder of female genital organs; Translations: [Other specified conditions associated with female genital organs and menstrual cycle] Onset: 4 Episodic Other female genital disorders (5 sources) History of gynecological disorder 05-01-2025 Episodic Other gastrointestinal disorders (7 sources) Diarrhea; Translations: [Diarrhea, unspecified] Onset: 5 Episodic Other gastrointestinal disorders (1 source) H/O: gastrointestinal disease; Translations: [Personal history of other diseases of the digestive system] Onset: 5 Episodic Other infections; including parasitic (1 source) H/O: infectious disease; Translations: [Personal history of other infectious and parasitic diseases] Onset: 5 Episodic Other lower respiratory disease (20 sources) H/O: respiratory disease 05-10-2021 Episodic Other lower respiratory disease (3 sources) Dyspnea; Translations: [Shortness of breath] Onset: 3 Episodic Other nervous system disorders (1 source) Impaired cognition; Translations: [Attention and concentration deficit] Onset: 3 Chronic Other nervous system disorders (20 sources) Disturbance of attention 06-11-2023 Chronic Other nutritional; endocrine; and metabolic disorders (2 sources) Abnormal weight loss; Translations: [Abnormal weight loss] Onset: 2 Episodic Other nutritional; endocrine; and metabolic disorders (4 sources) Body mass index less than 20; Translations: [Body mass index (BMI) 19.9 or less, adult] Onset: 2 Episodic Other nutritional; endocrine; and metabolic disorders (8 sources) Weight loss 04-06-2022 Episodic Other screening for suspected conditions (not mental disorders or infectious disease) (4 sources) Encounter for screening for malignant neoplasm of cervix; Translations: [ENC SCREENING MALIG NEOPLASM CERV] Onset: 3 Episodic Other upper respiratory disease (8 sources) Allergy to pollen 04-25-2019 Chronic Other upper respiratory disease (20 sources) Seasonal allergic rhinitis; Translations: [Other seasonal allergic rhinitis] Onset: 3 05-10-2021 Chronic Other upper respiratory disease (1 source) Disorder of the nose; Translations: [Other specified disorders of nose and nasal sinuses] Onset: 5 Episodic Other upper respiratory infections (20 sources) Acute maxillary sinusitis; Translations: [Acute sinusitis] Resolved: 9 06-19-2019 Episodic Otitis media and related conditions (20 sources) Dysfunction of eustachian tube; Translations: [Obstruction of Eustachian tube] Resolved: 9 05-10-2021 Episodic Residual codes; unclassified (3 sources) Patient encounter status; Translations: [Other specified health status] Onset: 2 Episodic Residual codes; unclassified (5 sources) Body mass index 20-24 - normal; Translations: [Body mass index (BMI) 20.0-20.9, adult] Onset: 3 Episodic Residual codes; unclassified (4 sources) Tobacco user; Translations: [Tobacco use] Onset: 3 Episodic Residual codes; unclassified (1 source) FH: Gastrointestinal disease; Translations: [Family history of other diseases of the digestive system] Onset: 5 Episodic Residual codes; unclassified (5 sources) Family history of diverticulitis of colon 05-01-2025 Episodic Residual codes; unclassified (1 source) Problem situation; Translations: [Other problems related to lifestyle] Onset: 5 Episodic Residual codes; unclassified (3 sources) Electronic cigarette user 05-27-2025 Episodic Screening and history of mental health and substance abuse codes (20 sources) Tobacco use and exposure - finding; Translations: [Tobacco smoking behavior - finding] 06-11-2023 Chronic Screening and history of mental health and substance abuse codes (7 sources) H/O: Disorder; Translations: [Personal history of nicotine dependence] Onset: 3 Episodic Spontaneous (20 sources) Complete miscarriage 04-14-2015 Episodic Sprains and strains (20 sources) Strain of neck muscle 05-10-2021 Episodic Substance-related disorders (20 sources) Nicotine dependence; Translations: [Nicotine dependence, cigarettes, with other nicotine-induced disorders] Onset: 2 Chronic Comment on above: Added secondary to d ocumentation in Social History. Substance-related disorders (8 sources) Caffeine user 05-10-2021 Episodic Unclassified (20 sources) History of SARS-CoV-2; Translations: [Personal history of COVID-19] Onset: 2 Unclassified (20 sources) Body mass index 20-24 - normal 04-06-2022 Unclassified (20 sources) Patient encounter status 06-19-2019 Unclassified (5 sources) Otalgia of left ear 10-03-2022 Unclassified (3 sources) Nasal sinus pressure sensation 10-07-2024 Urinary tract infections (11 sources) Acute hemorrhagic cystitis; Translations: [Acute cystitis with hematuria] Onset: 5 Episodic Past or Other Problems Problem Classification Problem Date Documented Da te Episodic/Chronic Other nervous system disorders (11 sources) Numbness of face; Translations: [Anesthesia of skin] Onset: 10-21-2020 02-27-2024 Episodic Unclassified (20 sources) Termination of 04-13-2015 Unclassified (20 sources) Decreased body mass index 07-14-2020 Viral infection (1 source) Disease caused by 2019-nCoV; Translations: [COVID-19] Onset: 12-11-2022 Results Test Name Value Interpretation Reference Range Facility C Urineon 06-04-2025 Bacteria identified Cx Nom (U) Microbiology PROCEDURE: Urine Culture [R1] SOURCE: U CleanCatch BODY SITE: COLLECTED DATE/TIME: 05/31/2025 10:40 EDT RECEIVED DATE/TIME: 06/01/2025 10:55 EDT START DATE/TIME: 06/01/2025 10:55 EDT FREE TEXT SOURCE: Ruth Huffman, Ruth Costa FINAL REPORTS Final Report [] Verified Date/Time: 06/04/2025 10:38 EDT >100,000 cfu/ml Escherichia coli 50,000 cfu/ml Escherichia coli #2 Different Biotype SUSCEPTIBILITY RESULTS __ LEGEND: S=Susceptible, N/R=Not Reported, Blank=Data not available, or drug not advisable or tested, I=Intermediate, ESBL=Extended spectrum beta-lactamase, R=Resistant, TFG=Thymidine-dependent strain, BENITO=Beta-lactamase positive, BHUMIKA=mcg/m;(mg/L), S*=Predicted susceptible interp, R*=Predicted resistant interp EC EC #2 Antibiotic BHUMIKA Dilutn BHUMIKA Interp BHUMIKA Dilutn BHUMIKA Interp Ampicillin >16 R >16 R Ampicillin/ >16/8 R >16/8 R Sulbactam Cefazolin 8 S 4 S Cefepime <=2 S <=2 S Ceftazidime/ <=8 S <=8 S Avibactam Ceftriaxone <=1 S <=1 S Cefuroxime 8 S 8 S Ciprofloxacin >2 R >2 R Ertapenem <=0.5 S <=0.5 S Gentamicin <=2 S <=2 S Levofloxacin >4 R >4 R Meropenem <=1 S <=1 S Nitrofurantoin <=32 S <=32 S Piperacillin/ <=8 S <=8 S Tazobactam Tetracycline <=4 S <=4 S Tobramycin <=2 S <=2 S Trimethoprim/ <=2/38 S <=2/38 S Sulfa Performing Locations R1: This test was performed at: [facility], [address] [place] [address], [facility] , , [facility] Comment on above: Performed By: #### [id number] #### [facility] [address] [place] [address] Ambulatory Visit Summaryon 0 05-31-2025 Ambulatory Visit Summary Ambulatory Visit Summary RADHA PAEZ :1985 Visit Date:05/31/2025 Ambulatory Visit Instructions Your Diagnosis UTI (urinary tract infection) Your Care Team Attending Physician - Ruth Huffman Primary Care Physician - Jesus SADLER, Candice Donaldson This Is Your Medications List cholecalciferol (cholecalciferol 50,000 intl units oral capsule) fluticasone nasal (Flonase 0.05 mg/inh [place]) hydrOXYzine (hydrOXYzine hydrochloride 25 mg Tab) hydrocortisone topical (hydrocortisone 25 mg Supp) montelukast (montelukast 10 mg Tab) nitrofurantoin (Macrobid 100 mg Cap) pantoprazole (Pantoprazole [address] Tab) phenazopyridine (Pyridium 200 mg Tab) topiramate (topiramate 50 mg Tab) Procedures Performed Colonoscopy (05/26/2025), Hysterectomy (2018), d and c, endometriosis surgery, Laparoscopy, Laparoscopy. Discharge Vitals Temperature (Tympanic) 36.7 ???C Heart Rate (Peripheral) 78 Blood Pressure 118/74 Height 165 cm Height 65 in Weight 54.5 kg Weight 120.152 lb BMI 20.02 What to do next Scheduled Follow-Up Appointments Sunday 2:15 PM EDT With: Arabella OTOOLE, Nannette Pichardo Where: [facility] [address] [facility] [address] [place] [address]- Sunday2025 11:00 AM EDT With: Jesus SADLER, Candice Donaldson Where: [facility] Primary [facility] [address] [facility], [place] [address]- Medications What How Much When Why Instructions New nitrofurantoin (Macrobid 100 mg Cap) 1 Capsules By Mouth Every 12 hours Duration: 5 Days Pickup at [facility] New phenazopyridine (Pyridium 200 mg Tab) 1 Tablets By Mouth 3 times a day Duration: 3 Days Pickup at [facility] Unchanged cholecalciferol (cholecalciferol 50,000 intl units oral capsule) 1 Capsules By Mouth Every 7 days Vitamin D deficiency Fatigue Unchanged fluticasone nasal (Flonase 0.05 mg/ inh [place]) 2 Sprays Nasal Inhalation Every day Allergic rhinitis, seasonal each nostril Unchanged hydrocortisone topical (hydrocortisone 25 mg Supp) 1 Suppositories By rectum 2 times a day Unchanged hydrOXYzine (hydrOXYzine hydrochloride 25 mg Tab) 1 Tablets By Mouth 4 times a day as needed for for anxiety Generalized anxiety disorder Can cut tab in half if needed. Unchanged montelukast (montelukast 10 mg Tab) 1 Tablets By Mouth Once a day (in the evening) Allergic rhinitis, seasonal Unchanged pantoprazole (Pantoprazole [address] Tab) 1 Tablets By Mouth Every day Unchanged topiramate (topiramate 50 mg Tab) 1 Tablets By Mouth Every day Pharmacy Information [facility]: [address] [place] [id number] [phone] Allergies Imitrex (Sore throat symptom) amitriptyline (Throat tightness) cephalexin (Unknown) penicillins (Hives) sulfa drugs Problems Ongoing - Any problem that you are currently receiving treatment for. Allergic rhinitis, seasonal Atypical migraine Blood in stool BMI 20.0-20.9, adult Concentration deficit Current every day vaping Diabetes mellitus screening Diarrhea Dyspepsia E. coli UTI (urinary tract infection) Family history of diverticulitis of colon Generalized abdominal pain Generalized anxiety disorder Hx of candidal vulvovaginitis Internal hemorrhoid Routine adult health maintenance Smoker Tobacco use UTI (urinary tract infection) Vitamin D deficiency Historical - Any problem that you are no longer receiving treatment for. Acute bronchitis due to other specified organisms Acute sinusitis Blocked eustachian tube Body mass index (BMI) 19.9 or less, adult Cervical endometriosis Cervical strain Cigarette smoker Common migraine Complete miscarriage Dysfunction of right eustachian tube Hx of allergic rhinitis Internal hordeolum Left otitis media Migraine headache Sinusitis, acute, maxillary Stye Subacute maxillary sinusitis Viral bronchitis Viral URI Patient Survey You may receive a survey via text or e-mail asking about your office visit. Please share your experience with us by completing your survey. We appreciate your feedback and thank you for choosing us for your care. Patient Portal You may access all of your results and other medical record information on our secure patient portal. If you are not signed up for this yet, please contact [employer] at [phone] to get signed up today. Language Information Language assistance services are available as needed. [facility] Family Medicine Office/Clini c Noteon 05-31-2025 Family Medicine Office/Clinic Note Family Medicine Office/Clinic Note Chief Complaint dysuria HPI Staff 39 year old female presents with uti symptoms for the past 2 days dysuria lower abdominal pressure/pain increased urgency/frequency History of Present Illness -I have reviewed and discussed the HPI (staff) with the patient today. -Information was verified and is correct. -Additional information provided if needed. RECENTLT UNDERWENT COLONOSCOPY - caused diarrhea- may have triggered a UTI Pt presents today for possible UTI Symptoms started: 2 days Pt reports: dysuria, suprapubic/abd pain, burning with urination, increased urinary frequency, urgency, hesitancy., + foul odor Pt denies fever, v/d, discharge, pruritus, hematuria Pt denies excessive intake of spicy foods, soft drinks, caffeine, douching, recent use of steroids or being immunocompromised at this time. Sexually active: YES NAUSEA+ RECENTLY TOOK A DIFLUCAN Contraceptives: POST Hysterectomy STD concerns: no Remedies trialed: AZO DAILY SUPPLEMENT Hx UTIs/kidney stones/BPH: no ATBs within last 30 days: no Review of Systems PHQ Score Initial Depression Screen Score: 0 SCORE Physical Exam Vitals & Measurements T: 36.7 ???C(Tympanic) HR: 78(Peripheral) BP: 118/74 SpO2: 100% HT: 165 cm HT: 65 in WT: 54.5 kg WT: 120.152 lb BMI: 20.02 General: alert, no acute distress, well appearing, _pleasant, middle aged female room 4 Skin: warm, dry, intact Head: no trauma, normocephalic Neck: Trachea midline, no adenopathy, no tenderness Eye: normal conjunctiva, sclera clear, _PERRLA ENMT: , oral mucosa moist, normal dentition Cardiovascular: regular rate and rhythm, normal peripheral perfusion, no edema Respiratory: Lungs CTA, respirations non labored Chest wall: no deformity, non tender Gastrointestinal: soft, non distended, no tenderness, no guarding. NEG CVA tenderness Back: No tenderness, Normal ROM, Normal alignment. Extremities: no deformity, no trauma Neurological: oriented x 4, LOC appropriate for age, CN II-XII intact, motor strength equal & normal bilaterally, sensation equal & normal bilaterally, speech normal Psychiatric: cooperative? , affect appropriate for age? , normal? judgement, normal? psychiatric thoughts. Assessment/Plan UA results show: + leuks, negative other components Based on these results and patient complaints, will start on antimicrobial: MACROBID 100 mg BID x 5 days Advised to take ATB as ordered, along with a probiotic. Will send urine for culture to confirm and will call with results in 3-4 days. Ensure adequate hydration. Reviewed appropriate hygiene practices. Recommended close follow up with PCP. Instructed to go to ER for worsening flank pain, uncontrolled fever, or vomiting, etc. Patient verbalized understanding of instructions. Macrobid- take with food To prevent UTIs, wipe front to back to prevent contamination, wear cotton underwear, avoid tight-fitting pants, avoid bubble baths/soaps with fragerance. After swimming, change into dry clothes. Avoid soft drinks, caffeinated drink, and chocolate, as can irritate the bladder. Recommend drinking cranberry juice as a home remedy for UTIs, as makes urine more acidic and prevent bacteria from spreading. Increase water intake to flush out the bladder. 1. UTI (urinary tract infection), (N39.0: Urinary tract infection, site not specified)E. coli UTI (urinary tract infection) Unspecified Escherichia coli [E. coli] as the cause of diseases classified elsewhere (B96.20: Unspecified Escherichia coli [E. coli] as the cause of diseases classified elsewhere) Orders: nitrofurantoin, 100 mg = 1 cap(s), Oral, q12hr, X 5 day(s), # 10 cap(s), Refills(s) 0, Pharmacy: [facility], 165, cm, 05/31/25 10:34:00 EDT, Height/Length Dosing, 54.5, kg, 05/31/25 10:34:00 EDT, Weight Dosing phenazopyridine, 200 mg = 1 tab(s), Oral, TID, X 3 day(s), # 9 tab(s), Refills(s) 0, Pharmacy: [facility], 165, cm, 05/31/25 10:34:00 EDT, Height/Length Dosing, 54.5, kg, 05/31/25 10:34:00 EDT, Weight Dosing Urine Culture Urnls Dip Stick Auto w/o Microscopy POC 42012 Total time spent preparing the chart, conducting of the encounter with the patient and family and time spent documenting, reviewing, and ordering tests was 25 minutes. Portions of this record may have been created with voice recognition artificial intelligence software, specifically [employer], [employer] and or [employer]. Substitutions may have occurred due to the inherent limitations of voice recognition and artificial intelligence software. Follow-up With When Contact Information Jesus SADLER, Candice Donaldson [address] [place] [address], [place] [address]- Additional Instructions: Patient Education E. Coli Infection Urinary Tract Infection, Adult Problem List/Past Medical History Ongoing Allergic rhinitis, seasonal Atypical migraine Blood in stool BMI 20.0-20.9, a (more content not included)... Normal [facility] Comment on above: Result Comment: Elec tronically Signed By: Ruth Huffman\.chandler\Date and Time Signed: 05/31/25 10:59 EDT US Abdomen, Limitedon 2024 US Abdomen, Limited Exam Date/Time: 05/28/2025 07:54 EDT Reason for Exam: Hemorrhage of anus and rectum;Abdominal pain Report IMPRESSION: CHOLELITHIASIS. CLINICAL HISTORY: Abdominal pain, Hemorrhage of anus and rectum COMPARISON: NONE. FINDINGS: Liver is normal in size, shape, and echogenicity. No intrahepatic, and no extrahepatic ductal dilatation. Common duct measures 2 mm. Color-flow without anomaly. Gallbladder contains shadowing echogenic mobile calculus within the gallbladder lumen. No pericholecystic fluid. No gallbladder wall thickening pancreas obscured by overlying bowel gas. Technical Comments: Ordering Provider: Nannette Bell FINAL REPORT Dictated: 05/29/2025 3:23 pm Farooq Santana MD Signed (Electronic Signature): 05/29/2025 3:23 pm Signed by: Farooq Santana MD Transcribed by: JOBY Technologist: RASTA [facility] Surgical Pathology Reporton 05-28-2025 Surgical Pathology Report [address] [address]- Surgical Pathology Report Collected Date/Time: 05/26/2025 10:28 EDT Pathologist: Sandra Fermin MD Received Date/Time: 05/26/2025 12:26 EDT Nannette Bell MD, MD, Mohamad A. 07 Surgical Pathology Report - 05/28/2025 17:27 EDT - Auth (Verified) Final Diagnosis COLON, RANDOM BIOPSY: -Colonic mucosa with lymphoid aggregates; no significant pathologic changes (Electronic Signature) Myrlande. Zander MD 05/28/2025 17:27 Clinical Information Rectal bleeding, diarrhea, hx diverticulitis Pre-Op Diagnosis: Rectal bleeding, diarrhea, hx diverticulitis Procedure: Colonoscopy Post-Op Diagnosis: 1. Lax anal tone 2. Internal hemorrhoids 3. Diverticulosis Specimen(s) Received Random colon biopsy Gross Description Received in formalin labeled with patient name, number, and random colon biopsy are multiple fragments of snell/pink tissue ranging from less than 0.1 cm up to 0.3 cm in greatest dimension. Specimen is entirely submitted in one cassette. (DC) DC:[facility] Microscopic Description Microscopic examination performed unless gross only specified. Quality was accessed and acceptable. This report was transcribed using voice recognition technology and might contain unintended computerized senior payroll specialist errors. [facility] Comment on above: Performed By: #### [id number] #### [facility] [address] [place] [address] Ambulatory Visit Summaryon 0 05-27-2025 Ambulatory Visit Summary Ambulatory Visit Summary RADHA PAEZ :1985 Visit Date:05/27/2025 Ambulatory Visit Instructions Your Diagnosis Routine adult health maintenance Breast cancer screening by mammogram Generalized anxiety disorder Vitamin D deficiency Tobacco use BMI 20.0-20.9, adult Current every day vaping Allergic rhinitis, seasonal Fatigue Your Care Team Attending Physician - Candice Kim Primary Care Physician - Candice Kim This Is Your Medications List cholecalciferol (cholecalciferol 50,000 intl units oral capsule) fluticasone nasal (Flonase 0.05 mg/inh [place]) hydrOXYzine (hydrOXYzine hydrochloride 25 mg Tab) hydrocortisone topical (hydrocortisone 25 mg Supp) montelukast (montelukast 10 mg Tab) pantoprazole (Pantoprazole [address] Tab) topiramate (topiramate 50 mg Tab) Procedures Performed Colonoscopy (05/26/2025), Hysterectomy (2017), d and c, endometriosis surgery, Laparoscopy, Laparoscopy. Discharge Vitals Heart Rate (Peripheral) 76 Blood Pressure 96/68 Height 165.0 cm Height 65 in Weight 54.5 kg Weight 120.152 lb BMI 20.02 What to do next Scheduled Follow-Up Appointments 2024 7:30 AM EDT Where: [facility] You Need to Schedule the Following Appointments Follow Up with Candice Kim When: In 1 year Comments: annual wellness Where: [address], [place] [address]- Medications What How Much When Why Instructions New hydrocortisone topical (hydrocortisone 25 mg Supp) 1 Suppositories By rectum 2 times a day New montelukast (montelukast 10 mg Tab) 1 Tablets By Mouth Once a day (in the evening) Allergic rhinitis, seasonal Refills: 3 Pickup at [facility] Unchanged cholecalciferol (cholecalciferol 50,000 intl units oral capsule) 1 Capsules By Mouth Every 7 days Vitamin D deficiency Fatigue Pickup at [facility] Unchanged fluticasone nasal (Flonase 0.05 mg/ inh [place]) 2 Sprays Nasal Inhalation Every day Allergic rhinitis, seasonal each nostril Pickup at [facility] Unchanged hydrOXYzine (hydrOXYzine hydrochloride 25 mg Tab) 1 Tablets By Mouth 4 times a day as needed for for anxiety Generalized anxiety disorder Can cut tab in half if needed. Unchanged pantoprazole (Pantoprazole [address] Tab) 1 Tablets By Mouth Every day Unchanged topiramate (topiramate 50 mg Tab) 1 Tablets By Mouth Every day Pharmacy Information [facility]: [address] [place], [place] [phone] Allergies Imitrex (Sore throat symptom) amitriptyline (Throat tightness) cephalexin (Unknown) penicillins (Hives) sulfa drugs Problems Ongoing - Any problem that you are currently receiving treatment for. Allergic rhinitis, seasonal Atypical migraine Blood in stool BMI 20.0-20.9, adult Breast cancer screening by mammogram Concentration deficit Current every day vaping Diabetes mellitus screening Diarrhea Dyspepsia E. coli UTI (urinary tract infection) Family history of diverticulitis of colon Generalized abdominal pain Generalized anxiety disorder Hx of candidal vulvovaginitis Internal hemorrhoid Routine adult health maintenance Smoker Tobacco use Vitamin D deficiency Historical - Any problem that you are no longer receiving treatment for. Acute bronchitis due to other specified organisms Acute sinusitis Blocked eustachian tube Body mass index (BMI) 19.9 or less, adult Cervical endometriosis Cervical strain Cigarette smoker Common migraine Complete miscarriage Dysfunction of right eustachian tube Hx of allergic rhinitis Internal hordeolum Left otitis media Migraine headache Sinusitis, acute, maxillary Stye Subacute maxillary sinusitis Viral bronchitis Viral URI Patient Survey You may receive a survey via text or e-mail asking about your office visit. Please share your experience with us by completing your survey. We appreciate your feedback and thank you for choosing us for your care. Education Materials Managing Anxiety, Adult After being diagnosed with anxiety, you may be relieved to know why you have felt or behaved a certain way. You may also feel overwhelmed about the treatment ahead and what it will mean for your life. With care and support, you can manage your anxiety. How to manage lifestyle changes Understanding the difference between stress and anxiety Although stress can play a role in anxiety, it is not the same as anxiety. Stress is your body's reaction to life changes and events, both good and bad. Stress is often caused by something external, such as a deadline, test, or competition. It normally goes away after the event has ended and will last just a few hours. But, stress can be ongoing and can lead to more than just stress. Anxiety is caused by something internal, such as imagining (more content not included)... [facility] Family Medicine Office/Clini c Noteon 05-27-2025 Family Medicine Office/Clinic Note Family Medicine Office/Clinic Note Chief Complaint Yearly HPI Staff Yearly GAD7 - Prev - 1 Today - 3 Refills - Vit D and Flonase Mamm - Managed by Dr. Black Pap -3.18.25 Neg/Neg Last routine labs - 8.8.25 History of Present Illness Radha is a 39 yo female presenting today for annual wellness Patient has concern of worsening seasonal allergies with fall temperature changes. Patient states migraines have been well-controlled but would like PCP to continue topiramate moving forward so she does not have to continue seeing neurology. Denies any recent changes in frequency or presentation of migraines. Well-controlled on topiramate Negative ROS review of labs 05/25/25: CBC - WNL CMP - WNL A1c - 5.2% WNL FLP - WNL TSH - 3.23 WNL Pt has anxiety (DWAYNE) Current medications: hydroxyzine 25mg QID PRN Was in therapy with Kiesha Tomlin at [facility] but stopped. Feels up and down with anxiety Biggest c/o is lack of focus/drive to study for an upcoming test and lack of motivation. Pt denies racing thoughts, insomnia, agitation, increased worrying, rapid heart rate, SOB at this time. Stress/DWAYNE related to caring for two sons with ADHD Patient reports she is not a very good and supportive relationship. Her boyfriend helps her a lot with her anxiety [facility] results showed Cymbalta and Pristiq were good options but pt declined to use these with her Topamax. Patient has chronic history of migraines Controlled with: Topamax as prescribed by [facility] but pt asked us to continue prescribing Patient denies any medication side effects. has flare-ups with the seasonal change during Fall. Flonase helps but she is out Concentration deficit Discussed option of Strattera, pt will hold off for right now but if changes mind can consider starting to help with concentration difficulty and DWAYNE. Review of Systems PHQ Score Initial Depression Screen Score: 0 SCORE Physical Exam Vitals & Measurements HR: 76(Peripheral) BP: 96/68 SpO2: 98% HT: 165.0 cm HT: 65 in WT: 54.5 kg WT: 120.152 lb BMI: 20.02 General: Well developed, well nourished, in no acute distress Eyes: Bilateral PERRLA, conjunctivae and sclerae wnl, EOMs intact, lids without stye, chalazion, ect/extropion, ptosis, xanthelasma, blepharitis. No discharge to inner canthi.Negative for corneal abrasion or foreign bodies. Ears: grossly normal hearing Nose: No deformity, discharge, inflammation, or lesions. No congestion, no erythema; pink & moist turbinates; clear rhinorrhea. Mouth: mucous membranes pink, moist and intact. [place] posterior oropharynx, no palatal inflammation, uvula midline, no cobble-stoning, no enlarged tonsils, no tonsillar exudate, no ulcers, no active post nasal drip. tongue midline and wnl. Good dentition. Neck: Neck supple. No lymphadenopathy. Trachea midline. No thyroid, masses, tenderness, or enlargement noted. No bruit. Lungs: Normal respiratory effort and clear to auscultation Cardio: Regular rate and rhythm, normal S1 and S2, no murmur, no rub Abdomen: not assessed Musculoskeletal: No deformity or scoliosis noted. No vertebral tenderness. Normal range of motion. No vertebral point tenderness. Joints normal. No erythema, edema, effusion, crepitus, or ecchymosis. Straight leg raise negative Extremity: No clubbing, cyanosis, edema, or deformity. Normal ROM with upper and lower extremities, bilaterally. Neurologic: Cranial nerves II-XII grossly intact. motor strength equal & normal bilaterally, sensation equal & normal bilaterally. Gait normal. Skin: No rashes, ulcerations, or suspicious lesions Mental Status: Alert and oriented x3. Normal mood and affect Assessment/Plan 1. Routine adult health maintenance (Z00.00: Encounter for general adult medical examination without abnormal findings) counseled pt on diet/exercise and staying UTD on routine screenings and vaccines - pt verbalized understanding complete routine labs - completed 05/25/25 - WN repeat annual skin cancer screening repeat vision exam every 2 years maintain regular dental appts 2. Allergic rhinitis, seasonal (J30.2: Other seasonal allergic rhinitis) Restart Flonase daily and will start montelukast 10 mg once daily to help with seasonal allergies. If no improvement patient may be candidate for Kenalog injection. The following were recommended for symptom management: - Identifying things that trigger your allergies, avoid them. - Avoid opening windows (house/vehicle) during pollen season, especially on dry/windy days when pollen counts are the highest. Shower after coming indoors. - common seasonal allergies: Tree pollen - early spring/November-January. Grass pollen - late spring/early summer/January-March. Dust - always. - Keep the house clean and dry to reduce dust mites and mold. - Avoid having pets and indoor plants/fitzgerald. It can take up to 20 weeks for dander to be gone once pet removed from house with vigorous cleaning. - Use hypoallergenic covers, wash sheets in hot water often (more content not included)... [facility] Comment on above: Result Comment: Elec tronically Signed By: Jesus SADLER, Candice Donaldson\.br\Date and Time Signed: 05/27/25 12:00 EDT Main OR Intraoperative Recor don 05-27-2025 Main OR Intraoperative Record Main OR Intraoperative Record IntraOp Document Type FT Summary Primary Physician: Nannette Bell MD Finalized Date/Time: 05/27/25 14:30:41 Pt. Name: RADHA PAEZ/Sex: 1985 Female Med Rec #: [id number] Physician: Nannette Bell MD Financial #: [id number] Pt. Type: O Room/Bed: / Admit/Disch: 05/26/25 08:55:59 - 05/26/25 23:59:59 Institution: Case Times FT Entry 1 Patient Times In Room 05/26/25 10:19:00 Out Room 05/26/25 10:38:00 Procedure Times Start 05/26/25 10:23:00 Stop 05/26/25 10:35:00 Anesthesia Times Start 05/26/25 10:19:00 Stop 05/26/25 10:38:00 Time at [facility] 05/26/25 10:28:00 Last Modified By: Luz Maria SHEPHERD, Nga Graham 05/26/25 10:38:44 Case Attendance FT Entry 1 Entry 2 Entry 3 Case Attendee Trudi DE DIOS, Kael Loera RN, Nga Goodman TRANSFER OPERATOR, Gissel Elizondo Role Performed Anesthesiologist Lead Printer - Primary Scrub - Primary Variety Lathe Operator Time In 05/26/25 10:19:00 05/26/25 10:19:00 05/26/25 10:19:00 Time Out 05/26/25 10:38:00 05/26/25 10:38:00 05/26/25 10:38:00 Procedure COLONOSCOPY(.) COLONOSCOPY(.) COLONOSCOPY(.) Comments Dr. Carter supervising procedure. Last Modified By: Luz Maria RN, Nga Loera RN, Nga Loera RN, Nga Graham 05/26/25 10:38:45 05/26/25 10:38:45 05/26/25 10:38:45 Entry 4 Case Attendee Arabella OTOOLE, Nannette Pichardo Role Performed Surgeon - Primary Time In 05/26/25 10:19:00 Time Out 05/26/25 10:38:00 Procedure COLONOSCOPY(.) Comments Last Modified By: Luz Maria SHEPHERD, Nga Graham 05/26/25 10:38:45 Perioperative Protocols FT Pre-Care Text: Implements protective measures prior to operative or invasive procedure, confirms identity before the operative or invasive procedure, verifies operative procedure, surgical site, and laterality Entry 1 Procedure(s) COLONOSCOPY(.) Patient Identity Birthday, ID Band Verified (select at Check, Patient least 2): Participation Consents / H and P Anesthesia Consent, Operative Site N/A Verified H&P, Surgery/Procedure Marking Verified Consent Surgical Site No Laterality Verified n/a Verified Procedure Verified Yes Correct Patient Yes Position Verified Availability Equipment, Medication Prep Dry n/a Verified (If Applicable) PreOp Antibiotic No Time Out Kael Cary, Given Participants Nga Loera RN, Maxine MACIAS, Arabella Aguilera MD, Nannette Pichardo Time Out Complete 05/26/25 10:21:00 Outcomes Met? Yes Last Modified By: Nga Loera RN 05/26/25 10:22:59 Post-Care Text: The patient is free from signs and symptoms of injury caused by extraneous objects Allergy Information FT Pre-Care Text: Verifies allergies Entry 1 Allergies Reviewed? Yes Allergies Reviewed Self/Patient With Outcomes Met? Yes Last Modified By: Nga Loera RN 05/26/25 10:22:27 Post-Care Text: The patient received appropriate medication(s) safely administered during the perioperative period Surgical Procedures FT Entry 1 Procedure Description Procedure COLONOSCOPY Modifiers . Surgeon Description Colonoscopy with random colon biopsy. Primary Procedure Yes Primary Surgeon Arabella OTOOLE, Nannette Pichardo Start 05/26/25 10:23:00 Stop 05/26/25 10:35:00 Anesthesia Type General Surgical Service Gastroenterology Wound Class 2 - Clean-Contaminated Last Modified By: Nga Loera RN 05/26/25 10:35:46 General Case Data FT Pre-Care Text: Classifies surgical wound, implements aseptic technique, initiates traffic control Entry 1 Case Information OR ENDO 1 FT Case Level Level 2 Wound Class 2 - Clean-Contaminated Specialty Gastroenterology ASA Class 2 Preop Diagnosis RECTAL BLEEDING, Postop Same As Preop No DIARRHEA, HX OF DIVERTICULITIS Postop Diagnosis Diverticulosis, Outcomes Met? Yes redundant colon and internal hemorrhoids Last Modified By: Nga Loera RN 05/26/25 10:35:56 Post-Care Text: The patient is free from signs and symptoms of infection Skin Assessment (Pre Procedure) FT Pre-Care Text: Implements protective measures to prevent skin/ tissue injury due to thermal or mechanical sources Evaluates for signs and symptoms of physical injury to skin and tissue Entry 1 Skin Integrity Intact, [place], Warm, & Skin Abnormality No Dry Outcomes Met? Yes Last Modified By: Nga Loera RN 05/26/25 10:23:31 Post-Care Text: The patient is free from signs and symptoms of injury caused by extraneous objects Patient Positioning FT Pre-Care Text: Identifies physical alterations that require additional precautions for procedure-specific positioning, verifies presence of prosthetics or corrective devices, positions the patient, evaluates the patient for signs and symptoms of injury as a result of positioning Entry 1 Procedure COLONOSCOPY(.) Body Position Lateral, right side up Feet Uncrossed? Yes Left Arm Position Resting at Side Right Arm Position Resting at Side Left Leg Position Extended Right Leg P (more content not included)... [facility] Discharge Instructionson Discharge Instructions Discharge Instructions RADHA PAEZ E :1985 Visit Date:05/26/2025 Inpatient Discharge Instructions Your Care Team Admitting Physician - Nannette Bell MD Referring Physician - Nannette Blel MD Reason for Your Visit RECTAL BLEEDING, DIARRHEA, HX OF DIVERTICULITIS, DYSPEPSIA Your Diagnosis Diverticulosis Hemorrhoids, internal Tests Performed Pathology Tissue Exam -- Results Pending -- Please visit your patient portal for your results or contact your primary care physician. This Is Your Medications List cholecalciferol (cholecalciferol 50,000 intl units oral capsule) fluticasone nasal (Flonase 0.05 mg/inh [place]) hydrOXYzine (hydrOXYzine hydrochloride 25 mg Tab) hydrocortisone topical (hydrocortisone 25 mg Supp) pantoprazole (Pantoprazole [address] Tab) topiramate (topiramate 50 mg Tab) Procedure History Colonoscopy (05/26/2025), Hysterectomy (2018), d and c, endometriosis surgery, Laparoscopy, Laparoscopy. Discharge Vitals Temperature (Temporal Artery) 36.7 ???C Heart Rate (Monitored) 58 Respiratory Rate 24 Respiratory Rate 15 Blood Pressure 131/86 Height 165 cm Weight 54.5 kg BMI 20.02 What to do next Instructions From Your Doctor No qualifying data available. Previously Scheduled Follow-Up Appointments Sunday 11:20 AM EDT With: Candice Kim Where: [facility] [address] [address] [address], [place] [address] 7:30 AM EDT With: Where: [facility] New Follow Up Appointments after Discharge Follow Up with Arabella OTOOLE, SOLANGE King, MED When: Comments: Call office for Date and Time of Follow-up Appt if needed. Where: [address], [address] [place] [phone] Medications What How Much When Why Instructions Next Dose Unchanged cholecalciferol (cholecalciferol 50,000 intl units oral capsule) 1 Capsules By Mouth Every 7 days Vitamin D deficiency Fatigue Unchanged fluticasone nasal (Flonase 0.05 mg/ inh [place]) 2 Sprays Nasal Inhalation Every day Allergic rhinitis, seasonal each nostril Unchanged hydrocortisone topical (hydrocortisone 25 mg Supp) 1 Suppositories By rectum 2 times a day Unchanged hydrOXYzine (hydrOXYzine hydrochloride 25 mg Tab) 1 Tablets By Mouth 4 times a day as needed for for anxiety Generalized anxiety disorder Can cut tab in half if needed. Unchanged pantoprazole (Pantoprazole [address] Tab) 1 Tablets By Mouth Every day Unchanged topiramate (topiramate 50 mg Tab) 1 Tablets By Mouth Every day Test Results No qualifying data available. Allergies Imitrex (Sore throat symptom) amitriptyline (Throat tightness) cephalexin (Unknown) penicillins (Hives) sulfa drugs Problems Ongoing - Any problem that you are currently receiving treatment for. Allergic rhinitis, seasonal Atypical migraine Blood in stool Breast cancer screening by mammogram Concentration deficit Diabetes mellitus screening Diarrhea Dyspepsia E. coli UTI (urinary tract infection) Family history of diverticulitis of colon Generalized abdominal pain Generalized anxiety disorder Hx of candidal vulvovaginitis Internal hemorrhoid Routine adult health maintenance Smoker Tobacco use Vitamin D deficiency Historical - Any problem that you are no longer receiving treatment for. Acute bronchitis due to other specified organisms Acute sinusitis Blocked eustachian tube BMI 20.0-20.9, adult Body mass index (BMI) 19.9 or less, adult Cervical endometriosis Cervical strain Cigarette smoker Common migraine Complete miscarriage Dysfunction of right eustachian tube Hx of allergic rhinitis Internal hordeolum Left otitis media Migraine headache Sinusitis, acute, maxillary Stye Subacute maxillary sinusitis Viral bronchitis Viral URI Education Materials Colonoscopy Care After Surgery Please read the instructions outlined below and refer to this sheet in the next few weeks. These discharge instructions provide you with general information on caring for yourself after you leave the hospital. Your doctor may also give you specific instructions. While your treatment has been planned according to the most current medical practices available, unavoidable complications occasionally occur. If you have any problems or questions after discharge, please call your doctor. ACTIVITY You may resume your regular activity, but move at a slower pace for the next 24 hours. Take frequent rest periods for the next 24 hours. Walking will help get rid of the air and reduce the bloated feeling in your abdomen (belly). No driving for 24 hours (because of the anesthesia (medicine) used during the test). You may shower. Do not sign any important legal documents or operate any machinery for 24 hours (because of the anesthesia used during the test). N (more content not included)... [facility] Comment on above: Result Comment: Elec tronically Signed By: Shakira SHEPHERD, Jing\.br\Date and Time Signed: 05/26/25 10:46 EDT H&P Updateon 05-26-2025 H&P Update H&P Update Patient: RADHA PAEZ Age: 39 years Sex: Female : 1985 Associated Diagnoses: None Author: Arabella OTOOLE, Nannette Pichardo Preoperative Information Chief compliant/Indication for procedure: Diarrhea Chief Complaint as above Review of Systems All systems reviewed, negative except as mentioned above Health Status Allergies: Allergic Reactions (Selected) Severity Not Documented Amitriptyline- Throat tightness. Cephalexin- Unknown. Imitrex- Sore throat symptom. Penicillins- Hives. Sulfa drugs- No reactions were documented. Current medications: (Selected) Inpatient Medications Ordered Lactated Ringers IV Analilia 1000 mL 1,000 mL: 1,000 mL, IV, 100 mL/hr, Routine, Start date 05/26/25 9:28:00 EDT, 10 hour(s), Total volume (mL): 1,000, 54.5 kg, 1.58, m2 Sodium Chloride 0.9% IV Analilia 1000 mL 1,000 mL: 1,000 mL, IV, 20 mL/hr, Routine, Start date 05/26/25 6:45:00 EDT, 50 hour(s), Total volume (mL): 1,000, 54.5 kg, 1.58, m2 Zofran 4 mg/2 mL Injection: 4 mg = 2 mL, Injection, IV Push, Once PRN Nausea/Vomiting, Routine, Start date 05/26/25 9:28:00 EDT, 05/26/25 9:28:00 EDT Prescriptions Prescribed Flonase 0.05 mg/inh [place]: 2 spray(s), Nasal, Daily, 16 gram, Refill(s) 0, each nostril, [facility] #[id number], 165, cm, 04/10/24 7:07:00 EDT, Height/Length Dosing, 53.1, kg, 04/10/24 7:07:00 EDT, Weight Dosing Pantoprazole [address] Tab: 40 mg = 1 tab(s), Oral, Daily, # 90 tab(s), Refills(s) 0, Pharmacy: [facility], 165, cm, 05/19/25 10:19:00 EDT, Height/Length Dosing, 54.5, kg, 05/19/25 10:19:00 EDT, Weight Dosing cholecalciferol 50,000 intl units oral capsule: 1,250 mcg = 1 cap(s), Oral, q7day, # 12 cap(s), Refills(s) 0, Pharmacy: [facility] #[id number], 165, cm, 04/10/24 7:07:00 EDT, Height/Length Dosing, 53.1, kg, 04/10/24 7:07:00 EDT, Weight Dosing hydrOXYzine hydrochloride 25 mg Tab: 25 mg = 1 tab(s), Oral, QID, PRN for anxiety, Can cut tab in half if needed., # 40 tab(s), Refills(s) 3, Pharmacy: [facility], 165, cm, 05/01/25 16:07:00 EDT, Height/Length Dosing, 54.1, kg, 05/01/25 16:07:00 EDT, Weight Dosing topiramate 50 mg Tab: 50 mg = 1 tab(s), Oral, Daily, # 90 tab(s), Refills(s) 3, Pharmacy: [facility] #[id number], 165, cm, 04/10/24 7:07:00 EDT, Height/Length Dosing, 53.1, kg, 04/10/24 7:07:00 EDT, Weight Dosing Documented Medications Documented hydrocortisone 25 mg Supp: = 1 supp, Rectal, BID, Refills(s) 0 Problem list: All Problems Allergic rhinitis, seasonal / SNOMED CT 536968552 / Confirmed Atypical migraine / SNOMED CT 60970148 / Confirmed Blood in stool / SNOMED CT 2106381563 / Confirmed Breast cancer screening by mammogram / SNOMED CT 967593600 / Confirmed Concentration deficit / SNOMED CT 568164048 / Confirmed Diabetes mellitus screening / SNOMED CT 369024002 / Confirmed Diarrhea / SNOMED CT 641646055 / Confirmed Dyspepsia / SNOMED CT 484802872 / Confirmed E. coli UTI (urinary tract infection) / SNOMED CT 1113580149 / Confirmed Family history of diverticulitis of colon / SNOMED CT 9871232554 / Confirmed Generalized abdominal pain / SNOMED CT 412665235 / Confirmed Generalized anxiety disorder / SNOMED CT 56384013 / Confirmed Hx of candidal vulvovaginitis / SNOMED CT 5779883015 / Confirmed Internal hemorrhoid / SNOMED CT 212720393 / Confirmed Routine adult health maintenance / SNOMED CT 069518425 / Confirmed Smoker / SNOMED CT 269573252 / Confirmed Added secondary to documentation in Social History. Tobacco use / SNOMED CT 0493741904 / Confirmed Vitamin D deficiency / SNOMED CT 65748802 / Confirmed Resolved: / SNOMED CT 9284176795 Resolved: Acute bronchitis due to other specified organisms / SNOMED CT 002948815 Resolved: Acute sinusitis / SNOMED CT 34487807 Resolved: Blocked eustachian tube / SNOMED CT 399811783 Resolved: BMI 20.0-20.9, adult / SNOMED CT 6116960375 Resolved: Body mass index (BMI) 19.9 or less, adult / SNOMED CT 86184403 Resolved: Cervical endometriosis / SNOMED CT [id number] Resolved: Cervical strain / SNOMED CT 845338103 Resolved: Cigarette smoker / SNOMED CT 258104826 Resolved: Common migraine / SNOMED CT 92424319 Resolved: Complete miscarriage / SNOMED CT 246956223 Resolved: Dysfunction of right eustachian tube / SNOMED CT 14993489 Resolved: Hx of allergic rhinitis / SNOMED CT 744325287 Resolved: Internal hordeolum / SNOMED CT 9245248543 Resolved: Left otitis media / SNOMED CT 918472580 Resolved: Migraine headache / SNOMED CT 35597142 Resolved: Sinusitis, acute, maxillary / SNOMED CT 529396732 Resolved: Stye / SNOMED CT 5236951692 Resolved: Subacute maxillary sinusitis / SNOMED CT 975496272 Resolved: Viral bronchitis / SNOMED CT 96474420 Resolved: Viral URI / SNOMED CT 986395770 Canceled: Allergy to pollen / SNOMED CT 800374170 Canceled: BMI 20.0-20.9, adult / SNOMED CT 3717998880 Canceled: BMI 21.0-21.9, adul (more content not included)... [facility] Comment on above: Result Comment: Elec tronically Signed By: Nannette Bell MD\.br\Date and Time Signed: 05/26/25 10:19 EDT Main OR PACU I Recordon Main OR PACU I Record Main OR PACU I Record PACU Phase I Document Type FT Summary Primary Physician: Nannette Bell MD Finalized Date/Time: 05/26/25 12:47:07 Pt. Name: RADHA PAEZ/Sex: 1985 Female Med Rec #: [id number] Physician: Nannette Bell MD Financial #: [id number] Pt. Type: O Room/Bed: / Admit/Disch: 05/26/25 08:55:59 - Institution: Case Times PACU I FT Pre-Care Text: Identifies barriers to communication and implements measures to provide psychological support Develops individualized plan of care, and ensures continuity of care Maintains patient's dignity and privacy, and maintains patient confidentiality Identifies and reports philosophical, cultural, and spiritual beliefs and values Identifies individual values and wishes concerning care Implements aseptic technique, and administers prescribed antibiotic therapy and immunizing agents as ordered Evaluates postoperative tissue perfusion Implements thermoregulation measures, and monitors body temperature Evaluates postoperative respiratory status Evaluates postoperative cardiac status Evaluates postoperative neurological status Assesses pain control, collaborated in initiating patient-controlled analgesia and implements alternative methods of pain control Verifies allergies, administers prescribed medications and solutions, evaluates response to medications Entry 1 In PACU I 05/26/25 10:42:00 Discharge from PACU 05/26/25 11:22:00 I Outcomes Met? Yes Last Modified By: Jing Rosenberg RN 05/26/25 12:46:54 Post-Care Text: The patient demonstrates knowledge of the expected response to the operative or invasive procedure The patient's care is consistent with the individualized perioperative plan of care The patient's right to privacy is maintained The patient's value system, lifestyle, ethnicity, and culture are considered, respected, and incorporated into the perioperative plan of care The patient participates in decisions affecting his or her perioperative plan of care The patient is free from signs and symptoms of infection The patient has wound/tissue perfusion consistent with or improved from baseline levels established preoperatively The patient is at or returning to normothermia at the conclusion of the immediate postoperative period The patient's respiratory function is consistent with or improved from baseline levels established preoperatively The patient's cardiovascular status is consistent with or improved from baseline levels established preoperatively The patient's cardiovascular status is consistent with or improved from baseline levels established preoperatively The patient demonstrates and/or reports adequate pain control throughout the perioperative period The patient received appropriate medication(s), safely administered during the perioperative period Acuity Level PACU I FT Entry 1 Start Time 05/26/25 10:42:00 Stop Time 05/26/25 11:22:00 Acuity Level Acuity Level I Last Modified By: Jing Rosenberg RN 05/26/25 12:47:05 Finalized By: Jing Rosenberg RN Document Signatures Signed By: Jing Rosenberg RN 05/26/25 12:47 [facility] Main OR Preoperative Recordo n 05-26-2025 Main OR Preoperative Record Main OR Preoperative Record Holding Area Document Type FT Summary Primary Physician: Nannette Bell MD Finalized Date/Time: 05/26/25 09:13:47 Pt. Name: RADHA PAEZ/Sex: 1985 Female Med Rec #: [id number] Physician: Nannette Bell MD Financial #: [id number] Pt. Type: O Room/Bed: / Admit/Disch: 05/26/25 08:55:59 - Institution: Case Times Holding FT Pre-Care Text: Verifies consent for planned procedure, identifies individual values and wishes concerning care, includes family members in perioperative teaching Secures patient's records' belongings, and valuables, maintains patient's dignity and privacy, and maintains patient confidentiality Entry 1 In Holding 05/26/25 09:05:00 Outcomes Met? Yes Last Modified By: Shaniqua Garcia RN 05/26/25 09:12:31 Post-Care Text: The patient participates in decisions affecting his or her perioperative plan of care The patient's right to privacy is maintained Surgery Checklist FT Entry 1 Patient Birthday, ID Band Procedure History and Physical, Identification: Check, Patient Verification: Surgical Consent, With Participation Patient NPO after Midnight: Yes Date/Time: 05/26/25 06:00:00 Personal Items: Glasses, Jewelry Personal Items glasses, clothes, Comment: shoes, earrings, belly button ring Limitations: n/a Complaints of Pain: No Pain Comment: denies Operative Site n/a Marking: Marked By: n/a Availability Equipment Verified: Does Patient Smoke Yes If Yes to Smoking. vapes Cigars or Cigarettes. How much per day? Patient states Yes Comment - Adult Guerrero postop adult Supervision supervision available Case Cancelled in No Holding Area see comments below for reason Last Modified By: Shaniqua Garcia RN 05/26/25 09:13:45 General Comments: Pt finished colon prep at 0600, states stool is clear liquid yellow, has been NPO since. Alina colon prep . /,RN Finalized By: Shaniqua Garcia RN Document Signatures Signed By: Shaniqua Garcia RN 05/26/25 09:13 [facility] Operative Reporton Operative Report Operative Report Patient: RADHA PAEZ Age: 39 years Sex: Female : 1985 Associated Diagnoses: None Author: Nannette Bell MD Pre-Procedure Procedure Date 05/26/2025 10:37:00 . Procedure Type: Colonoscopy with biopsy. Procedure provider Performed by Nannette Bell MD. Current history and physical Documented on chart. Hysterectomy (710224923) in 2018 at 32 Years. Laparoscopy. endometriosis surgery. d and c. Laparoscopy (919037055).. Past Medical History Resolved Cervical endometriosis ([id number]): Resolved. (1167085251): Resolved. Complete miscarriage (962509313): Resolved. Acute sinusitis (24847589): Resolved on 04/16/2019 at 33 years. Left otitis media (009053323): Resolved. Sinusitis, acute, maxillary (211136760): Resolved on 04/25/2019 at 33 years. Cigarette smoker (017364740): Resolved. Blocked eustachian tube (605611339): Resolved on 06/19/2019 at 33 years. Dysfunction of right eustachian tube (01454989): Resolved. Body mass index (BMI) 19.9 or less, adult (99587895): Resolved. Subacute maxillary sinusitis (844197665): Resolved. Migraine headache (31282324): Resolved. Common migraine (36748337): Resolved. Cervical strain (951262431): Resolved. Stye (3602950568): Resolved. Internal hordeolum (4239881871): Resolved. Viral URI (610019632): Resolved. Viral bronchitis (37570729): Resolved. Hx of allergic rhinitis (446382443): Resolved. Acute bronchitis due to other specified organisms (163206914): Resolved. BMI 20.0-20.9, adult (7322580280): Resolved.. Family History Hypertension Father . Procedure History Hysterectomy (090062111) in 2018 at 32 Years. Laparoscopy. endometriosis surgery. d and c. Laparoscopy (099737685).. Colorectal neoplasm risk assessment Average risk. Informed Consent After discussing the rationale, risks and benefits, and alternatives to this procedure, the patient provided signed consent for the procedure. Pre-procedure diagnosis: Diarrhea, clinically significant. Medications (Selected) Inpatient Medications Ordered Lactated Ringers IV Analilia 1000 mL 1,000 mL: 1,000 mL, IV, 100 mL/hr, Routine, Start date 05/26/25 9:28:00 EDT, 10 hour(s), Total volume (mL): 1,000, 54.5 kg, 1.58, m2 Sodium Chloride 0.9% IV Analilia 1000 mL 1,000 mL: 1,000 mL, IV, 20 mL/hr, Routine, Start date 05/26/25 6:45:00 EDT, 50 hour(s), Total volume (mL): 1,000, 54.5 kg, 1.58, m2 Zofran 4 mg/2 mL Injection: 4 mg = 2 mL, Injection, IV Push, Once PRN Nausea/Vomiting, Routine, Start date 05/26/25 9:28:00 EDT, 05/26/25 9:28:00 EDT Prescriptions Prescribed Flonase 0.05 mg/inh [place]: 2 spray(s), Nasal, Daily, 16 gram, Refill(s) 0, each nostril, [facility] #[id number], 165, cm, 04/10/24 7:07:00 EDT, Height/Length Dosing, 53.1, kg, 04/10/24 7:07:00 EDT, Weight Dosing Pantoprazole [address] Tab: 40 mg = 1 tab(s), Oral, Daily, # 90 tab(s), Refills(s) 0, Pharmacy: [facility], 165, cm, 05/19/25 10:19:00 EDT, Height/Length Dosing, 54.5, kg, 05/19/25 10:19:00 EDT, Weight Dosing cholecalciferol 50,000 intl units oral capsule: 1,250 mcg = 1 cap(s), Oral, q7day, # 12 cap(s), Refills(s) 0, Pharmacy: [facility] #[id number], 165, cm, 04/10/24 7:07:00 EDT, Height/Length Dosing, 53.1, kg, 04/10/24 7:07:00 EDT, Weight Dosing hydrOXYzine hydrochloride 25 mg Tab: 25 mg = 1 tab(s), Oral, QID, PRN for anxiety, Can cut tab in half if needed., # 40 tab(s), Refills(s) 3, Pharmacy: [facility], 165, cm, 05/01/25 16:07:00 EDT, Height/Length Dosing, 54.1, kg, 05/01/25 16:07:00 EDT, Weight Dosing topiramate 50 mg Tab: 50 mg = 1 tab(s), Oral, Daily, # 90 tab(s), Refills(s) 3, Pharmacy: [facility] #[id number], 165, cm, 04/10/24 7:07:00 EDT, Height/Length Dosing, 53.1, kg, 04/10/24 7:07:00 EDT, Weight Dosing Documented Medications Documented hydrocortisone 25 mg Supp: = 1 supp, Rectal, BID, Refills(s) 0 ASA Classification: Class II. . Monitoring: See anesthesia record. . Procedure The procedure was performed in the hospital. See anesthesia record for sedation given during procedure. The patient was positioned starting in the left lateral decubitus position. Endoscope type used was a pediatric-size. The endoscope was lubricated then introduced through the anus. The scope was advanced to the terminal ileum. No difficulties encountered during the procedure. The bowel preparation quality was good and was adequate (see polyps greater than or equal to 6 millimeters). The patient tolerated the procedure well. Last colonoscopy NA Time to cecum: 5 min Time of withdrawal:7 min Findings 1. Lax anal tone. Small internal hemorrhoids seen on retroflexion 2. Mild diverticulosis throughout the whole colon. Otherwise, normal colon, random biopsies were obtained to rule out microscopic colitis. Internal hemorrhoids 3. Normal Terminal ileum Images Procedure images: (Inserted Image. Unable (more content not included)... [facility] Comment on above: Result Comment: Elec tronically Signed By: Arabella OTOOLE, Nannette Pichardo\.br\Date and Time Signed: 05/26/25 10:39 EDT Other Comment: Kira [employer] Attachment - attachment storage system not supported [id number] Can be viewed in source system Missing Attachment - attachment storage system not supported [id number] Can be viewed in source system Missing Attachment - attachment storage system not supported [id number] Can be viewed in source system Missing Attachment - attachment storage system not supported [id number] Can be viewed in source system Missing Attachment - attachment storage system not supported [id number] Can be viewed in source system Missing Attachment - attachment storage system not supported [id number] Can be viewed in source system Missing Attachment - attachment storage system not supported [id number] Can be viewed in source system CBC w/ Auto Diffon 5 Basophil Absolute 0.1 E9/L Normal 0.0-0.2 [facility] Comment on above: Performed By: #### 2 [id number] #### [facility] [address] [place] [address] Basophils/100 WBC (Bld) 1.2 % Normal 0.0-2.0 [facility] Comment on above: Performed By: #### 2 [id number] #### [facility] [address] [place] [address] Eos Absolute 0.4 E9/L Normal 0.0-0.5 [facility] Comment on above: Performed By: #### 2 [id number] #### [facility] [address] [place] [address] Eosinophils/100 WBC (Bld) 9.3 % High 0.0-8.0 [facility] Comment on above: Performed By: #### 2 [id number] #### [facility] [address] [place] [address] Erythrocyte distribution width (RBC) [Ratio] 13.2 % Normal 10.9-14.2 [facility] Comment on above: Performed By: #### 2 [id number] #### [facility] [address] [place] [address] Hematocrit (Bld) [Volume fraction] 38.9 % Normal 34.0-46.0 [facility] Comment on above: Performed By: #### 2 [id number] #### [facility] [address] [place] [address] Hemoglobin (Bld) [Mass/Vol] 13.7 g/dL Normal 12.0-16.0 [facility] Comment on above: Performed By: #### 2 801259 #### [facility] [address] [place] [address] Lymph Absolute 1.2 E9/L Normal 1.0-4.0 [facility] Comment on above: Performed By: #### 2 474178 #### [facility] [address] [place] [address] Lymphocytes/100 WBC (Bld) 24.6 % Normal 14.0-50.0 [facility] Comment on above: Performed By: #### 2 [id number] #### [facility] [address] [place] [address] MCH (RBC) [Entitic mass] 30.7 pg Normal 27.0-34.0 [facility] Comment on above: Performed By: #### 2 608776 #### [facility] [address] [place] [address] MCHC (RBC) [Mass/Vol] 35.2 g/dL Normal 31.4-36.0 [facility] Comment on above: Performed By: #### 2 [id number] #### [facility] [address] [place] [address] MCV (RBC) [Entitic vol] 87.2 fL Normal 80.0-100.0 [facility] Comment on above: Performed By: #### 2 790924 #### [facility] [address] [place] [address] [place] Absolute 0.5 E9/L Normal 0.2-1.0 [facility] Comment on above: Performed By: #### 2 [id number] #### [facility] [address] [place] [address] Monocytes/100 WBC (Bld) 10.5 % Normal 4.0-14.0 [facility] Comment on above: Performed By: #### 2 599190 #### [facility] [address] [place] [address] Neutro Absolute 2.6 E9/L Normal 2.0-7.5 [facility] Comment on above: Performed By: #### 2 993668 #### [facility] [address] [place] [address] Neutro Auto 54.4 % Normal 36.0-75.0 [facility] Comment on above: Performed By: #### 2 992484 #### [facility] [address] [place] [address] Platelet 225.0 E9/L Normal 150.0-500.0 [facility] Comment on above: Performed By: #### 2 [id number] #### [facility] [address] [place] [address] Platelet mean volume (Bld) [Entitic vol] 8.0 fL Normal 6.4-10.8 [facility] Comment on above: Performed By: #### 2 751007 #### [facility] [address] [place] [address] RBC 4.5 E12/L Normal 4.3-5.9 [facility] Comment on above: Performed By: #### 2 650173 #### [facility] [address] [place] [address] WBC 4.7 E9/L Normal 4.0-11.0 [facility] Comment on above: Performed By: #### 2 488078 #### [facility] [address] [place] [address] CMPon 05-25-2025 Albumin [Mass/Vol] 4.6 g/dL Normal 3.3-5.0 [facility] Comment on above: Performed By: #### 2 885273 #### [facility] [address] [place] [address] Albumin/Globulin [Mass ratio] 1.6 {ratio} Normal 1.1-2.2 [facility] Comment on above: Performed By: #### 2 573301 #### [facility] [address] [place] [address] Alk Phos 52 Int._Unit/L Normal 21-98 [facility] Comment on above: Performed By: #### 2 [id number] #### [facility] [address] [place] [address] ALT 40 Int._Unit/L Normal 6-46 [facility] Comment on above: Performed By: #### 2 878693 #### [facility] [address] [place] [address] Anion gap [Moles/Vol] 10 mmol/L Normal 6-16 [facility] Comment on above: Performed By: #### 2 953708 #### [facility] [address] [place] [address] AST 26 Int._Unit/L Normal 5-43 [facility] Comment on above: Performed By: #### 2 [id number] #### [facility] [address] [place] [address] Bili Total 0.7 mg/dL Normal 0.0-1.1 [facility] Comment on above: Performed By: #### 2 642877 #### [facility] [address] [place] [address] BUN/Creat Ratio 16 No Units Normal 10-20 [facility] Comment on above: Performed By: #### 2 295960 #### [facility] [address] [place] [address] Calcium [Mass/Vol] 9.3 mg/dL Normal 8.9-11.1 [facility] Comment on above: Performed By: #### 2 568582 #### [facility] [address] [place] [address] Chloride [Moles/Vol] 106 mmol/L Normal 101-111 [facility] Comment on above: Performed By: #### 2 374301 #### [facility] [address] [place] [address] CO2 [Moles/Vol] 26 mmol/L Normal 21-31 [facility] Comment on above: Performed By: #### 2 082932 #### [facility] [address] [place] [address] Creatinine [Mass/Vol] 0.9 mg/dL Normal 0.5-1.3 [facility] Comment on above: Performed By: #### 2 734993 #### [facility] [address] [place] [address] Globulin (S) [Mass/Vol] 2.8 g/dL Normal 1.4-4.0 [facility] Comment on above: Performed By: #### 2 649721 #### [facility] [address] [place] [address] Glucose [Mass/Vol] 87 mg/dL Normal 55-199 [facility] Comment on above: Performed By: #### 2 006663 #### [facility] [address] [place] [address] Potassium [Moles/Vol] 3.8 mmol/L Normal 3.5-5.3 [facility] Comment on above: Performed By: #### 2 003429 #### [facility] [address] [place] [address] Protein [Mass/Vol] 7.4 g/dL Normal 6.0-7.8 [facility] Comment on above: Performed By: #### 2 497279 #### [facility] [address] [place] [address] Sodium [Moles/Vol] 138 mmol/L Normal 135-145 [facility] Comment on above: Performed By: #### 2 587226 #### [facility] [address] [place] [address] Urea nitrogen [Mass/Vol] 14 mg/dL Normal 5-21 [facility] Comment on above: Performed By: #### 2 322604 #### [facility] [address] [place] [address] [id number] 05-25-2025 HbA1c (Bld) [Mass fraction] 5.2 % Normal <=5.9 [facility] Comment on above: Performed By: #### 7 [id number] #### [facility] [address] [place] [address] Lipid Panelon 05-25-2025 Cholesterol [Mass/Vol] 155 mg/dL Normal 120-200 [facility] Comment on above: Performed By: #### 2 307416 #### [facility] [address] [place] [address] Cholesterol in HDL [Mass/Vol] 53 mg/dL Invalid Interpretation Code [facility] Comment on above: Result Comment: '>= 60 LOW RISK' '<= 40 HIGH RISK' Performed By: #### 2 479349 #### [facility] [address] [place] [address] Cholesterol in LDL [Mass/Vol] 99 mg/dL Normal <=129 [facility] Comment on above: Performed By: #### 2 653582 #### [facility] [address] [place] [address] Cholesterol in VLDL [Mass/Vol] 14 mg/dL Normal 7-40 [facility] Comment on above: Performed By: #### 2 532395 #### [facility] [address] [place] [address] Triglyceride [Mass/Vol] 68 mg/dL Normal <=149 [facility] Comment on above: Performed By: #### 2 238554 #### [facility] [address] [place] [address] TSH With T4fr Reflexon 05-25 TSH Qn 3.23 m[IU]/L Normal 0.34-5.60 [facility] Comment on above: Performed By: #### 1 [id number] #### [facility] [address] [place] [address] Vitamin D 25 Hydroxyon 05-25 Vitamin D 25 Hydroxy 30.8 ng/mL Normal 30.0-100.0 [facility] Comment on above: Performed By: #### 5 [id number] #### [facility] [address] [place] [address] eGFRon 05-25-2025 eGFR 83 mL/min/1.73 m2 Normal >=59 [facility] Comment on above: Performed By: #### 1 [id number] #### [facility] [address] [place] [address] Ambulatory Visit Summaryon 0 05-19-2025 Ambulatory Visit Summary Ambulatory Visit Summary RADHA PAEZ :1985 Visit Date:05/19/2025 Ambulatory Visit Instructions Your Diagnosis Rectal bleeding Diarrhea History of diverticulitis Dyspepsia Generalized abdominal pain Your Care Team Attending Physician - Arabella OTOOLE, Nannette Pichardo Primary Care Physician - Candice Kim This Is Your Medications List Contact prescribing physician if questions or concerns cholecalciferol (cholecalciferol 50,000 intl units oral capsule) fluticasone nasal (Flonase 0.05 mg/inh [place]) hydrOXYzine (hydrOXYzine hydrochloride 25 mg Tab) hydrocortisone topical (hydrocortisone 25 mg Supp) topiramate (topiramate 50 mg Tab) Procedures Performed Hysterectomy (2017), d and c, endometriosis surgery, Laparoscopy, Laparoscopy. Discharge Vitals Respiratory Rate 12 Blood Pressure 109/77 Height 165 cm Height 65 in Weight 54.5 kg Weight 120.152 lb BMI 20.02 What to do next Scheduled Follow-Up Appointments Sunday 11:20 AM EDT With: Candice Kim Where: [facility] Primary Care [address] [facility], [place] [address]- You Need to Complete the Following US Abdomen, Limited, 05/19/25, Routine, Order for future visit, Transport Mode: Cart, Reason: Abdominal pain, No, Rectal bleeding Diarrhea History of diverticulitis Dyspepsia, [facility] Medications What How Much When Why Instructions Unchanged cholecalciferol (cholecalciferol 50,000 intl units oral capsule) 1 Capsules By Mouth Every 7 days Vitamin D deficiency Fatigue Contact prescribing physician if questions or concerns Unchanged fluticasone nasal (Flonase 0.05 mg/ inh [place]) 2 Sprays Nasal Inhalation Every day Allergic rhinitis, seasonal each nostril Contact prescribing physician if questions or concerns Unchanged hydrocortisone topical (hydrocortisone 25 mg Supp) 1 Suppositories By rectum 2 times a day Contact prescribing physician if questions or concerns Unchanged hydrOXYzine (hydrOXYzine hydrochloride 25 mg Tab) 1 Tablets By Mouth 4 times a day as needed for for anxiety Generalized anxiety disorder Can cut tab in half if needed. Contact prescribing physician if questions or concerns Unchanged topiramate (topiramate 50 mg Tab) 1 Tablets By Mouth Every day Contact prescribing physician if questions or concerns Allergies Imitrex (Sore throat symptom) amitriptyline (Throat tightness) cephalexin (Unknown) penicillins (Hives) sulfa drugs Problems Ongoing - Any problem that you are currently receiving treatment for. Allergic rhinitis, seasonal Atypical migraine Blood in stool Breast cancer screening by mammogram Concentration deficit Diabetes mellitus screening Diarrhea Dyspepsia E. coli UTI (urinary tract infection) Family history of diverticulitis of colon Generalized abdominal pain Generalized anxiety disorder Hx of candidal vulvovaginitis Internal hemorrhoid Routine adult health maintenance Smoker Tobacco use Vitamin D deficiency Historical - Any problem that you are no longer receiving treatment for. Acute bronchitis due to other specified organisms Acute sinusitis Blocked eustachian tube BMI 20.0-20.9, adult Body mass index (BMI) 19.9 or less, adult Cervical endometriosis Cervical strain Cigarette smoker Common migraine Complete miscarriage Dysfunction of right eustachian tube Hx of allergic rhinitis Internal hordeolum Left otitis media Migraine headache Sinusitis, acute, maxillary Stye Subacute maxillary sinusitis Viral bronchitis Viral URI Patient Survey You may receive a survey via text or e-mail asking about your office visit. Please share your experience with us by completing your survey. We appreciate your feedback and thank you for choosing us for your care. Patient Portal You may access all of your results and other medical record information on our secure patient portal. If you are not signed up for this yet, please contact [employer] at [phone] to get signed up today. Language Information Language assistance services are available as needed. Normal [facility] Gastroenterology Office/Clin ic Noteon 05-19-2025 Gastroenterology Office/Clinic Note Gastroenterology Office/Clinic Note Chief Complaint blood in stool and diarrhea HPI Staff NEW, 39 year old female who presents today for a referral by Shankar for complaints of blood in stools and diarrhea. Denies Blood Thinners Denies GLP-1 Agonists Denies any family history of colon cancer/polyps or IBD Denies Dysphagia, abdominal pain or constipation Denies any previous EGD/Colonoscopy Denies any recent imaging Rectal bleeding: given a course of Cipro/Flagyl for diverticulitis. Onset of symptoms: About 3 weeks Bright red or dark red? BRBPR Every BM or less often? Lasted for a few days Hx hemorrhoids? yes, given hydrocortisone suppositories Associated symptoms: none Improving/worsening factors: hydrocortisone supp helped Diarrhea: describes episodes of diarrhea following a hard stool How many BM a day (normal <4): once when having the diarrhea, loose stools When did it start: chronic Constant? Or alternate with normal BM or constipation: C/o constipation Laboratory Results CBC CMP PT PTT Basophil Absolute: 0 E9/L (04/29/25) A/G Ratio: 1.6 (06/19/24) INR: 0.95 (04/29/25) PTT: 34.4 second(s) (04/29/25) Basophil Auto: 0.2 % (04/29/25) AGAP: 10 mEq/L (04/29/25) PT: 10.6 second(s) (04/29/25) Eos Absolute: 0.3 E9/L (04/29/25) Albumin Lvl: 4.4 gm/dL (06/19/24) Eos Auto: 6.5 % (04/29/25) Alk Phos: 53 Int._Unit/L (06/19/24) Hct: 40.3 % (04/29/25) ALT: 9 Int._Unit/L (06/19/24) HGB: 13.8 gm/dL (04/29/25) AST: 12 Int._Unit/L (06/19/24) Lymph Absolute: 0.5 E9/L Low (04/29/25) Bili Total: 0.8 mg/dL (06/19/24) Lymph Auto: 10.6 % Low (04/29/25) BUN: 11 mg/dL (04/29/25) MCH: 29.6 pg (04/29/25) BUN/Creat Ratio: 12 (04/29/25) MCHC: 34.3 gm/dL (04/29/25) Calcium Lvl: 9.3 mg/dL (04/29/25) MCV: 86.4 fL (04/29/25) Chloride: 107 mmol/L (04/29/25) [place] Absolute: 0.5 E9/L (04/29/25) CO2: 26 mmol/L (04/29/25) [place] Auto: 11.2 % (04/29/25) Creatinine: 0.9 mg/dL (04/29/25) MPV: 8.4 fL (04/29/25) Globulin: 2.7 gm/dL (06/19/24) Neutro Absolute: 3.2 E9/L (04/29/25) Glucose Lvl: 104 mg/dL (04/29/25) Neutro Auto: 71.5 % (04/29/25) Potassium Lvl: 3.8 mmol/L (04/29/25) Platelet: 201 E9/L (04/29/25) Sodium Lvl: 139 mmol/L (04/29/25) RBC: 4.7 E12/L (04/29/25) Total Protein: 7.1 gm/dL (06/19/24) RDW: 13.2 % (04/29/25) WBC: 4.5 E9/L (04/29/25) Liver Studies Iron: 96 mcg/dL (12/14/23) TIBC: 330 mcg/dL (12/14/23) History of Present Illness I have reviewed HPI staff note, most recent labs and imaging, I agree with the above documentation with the following additions/exceptions : Pt with diarrhea and blood in stool blood started 3 weeks ago diarrhea described as loose and frequent stool pt with hemorrhoids and recent treatment for diverticulitis blood in stool resolved pt with solid stool followed by diarrhea no pain in the abd acid reflux that comes and goes was given suppositories for hemorrhoids never had a colonoscopy some discomfort to certain food such as eggs Review of Systems PHQ Score Initial Depression Screen Score: 0 SCORE All systems reviewed, negative except as mentioned above Physical Exam Vitals & Measurements RR: 12 BP: 109/77 HT: 65 in HT: 165 cm WT: 54.5 kg WT: 120.152 lb BMI: 20.02 General: alert, no acute distress HEENT: atraumatic normocephalic Cardiovascular: regular rate and rhythm, normal peripheral perfusion Respiratory: Lungs CTA, respirations non labored Extremities: no deformity, no trauma Abdomen: Benign, soft, tender (worse in the right upper quadrant) , nondistended Assessment/Plan 1. Rectal bleeding (K62.5: Hemorrhage of anus and rectum) Ordered: Colonoscopy (Hospital Procedure) EGD Endoscopy (Hospital Procedure) US Abdomen, Limited 2. Diarrhea (R19.7: Diarrhea, unspecified) Ordered: Colonoscopy (Hospital Procedure) EGD Endoscopy (Hospital Procedure) US Abdomen, Limited 3. History of diverticulitis (Z87.19: Personal history of other diseases of the digestive system) Ordered: Colonoscopy (Hospital Procedure) EGD Endoscopy (Hospital Procedure) US Abdomen, Limited 4. Dyspepsia (R10.13: Epigastric pain) Ordered: Colonoscopy (Hospital Procedure) EGD Endoscopy (Hospital Procedure) US Abdomen, Limited 5. Generalized abdominal pain (R10.84: Generalized abdominal pain) Schedule upper endoscopy small bowel biopsies and possible stomach biopsies to evaluate abdominal pain and diarrhea Schedule colonoscopy with random colon biopsies and TI evaluation to rule out Crohn's disease or ulcerative colitis Obtain right upper quadrant ultrasound to rule out gallbladder disease Follow-up No qualifying data available Problem List/Past Medical History Ongoing Allergic rhinitis, seasonal Atypical migraine Blood in stool Breast cancer screening by mammogram Concentration deficit Diabetes mellitus screening Diarrhea Dyspepsia E. coli UTI (urinary tract infection) Fam (more content not included)... Normal [facility] Comment on above: Result Comment: Elec tronically Signed By: Arabella OTOOLE, Nannette Pichardo\.br\Date and Time Signed: 05/19/25 10:39 EDT Ambulatory Visit Summaryon 0 05-01-2025 Ambulatory Visit Summary Ambulatory Visit Summary RADHA PAEZ :1985 Visit Date:05/01/2025 Ambulatory Visit Instructions Your Diagnosis Blood in stool Family history of diverticulitis of colon Diarrhea E. coli UTI (urinary tract infection) Hx of candidal vulvovaginitis Internal hemorrhoid Unspecified Escherichia coli [E. coli] as the cause of diseases classified elsewhere Your Care Team Attending Physician - Ruth Huffman Primary Care Physician - Jesus SADLER, Candice Donaldson This Is Your Medications List cholecalciferol (cholecalciferol 50,000 intl units oral capsule) ciprofloxacin (ciprofloxacin 500 mg Tab) fluconazole (fluconazole 150 mg Tab) fluticasone nasal (Flonase 0.05 mg/inh [place]) hydrOXYzine (hydrOXYzine hydrochloride 25 mg Tab) hydrocortisone topical (hydrocortisone 25 mg Supp) metronidazole (MetroNIDAZOLE 500 mg Tab) topiramate (topiramate 50 mg Tab) Procedures Performed Hysterectomy (2018), d and c, endometriosis surgery, Laparoscopy, Laparoscopy. Discharge Vitals Temperature (Tympanic) 36.7 ???C Heart Rate (Peripheral) 84 Blood Pressure 108/70 Height 165 cm Height 65 in Weight 54.1 kg Weight 119.27 lb BMI 19.87 What to do next Scheduled Follow-Up Appointments Sunday 11:20 AM EDT With: Candice Kim Where: [facility] Primary Care [address], [facility] [place] [address]- You Need to Schedule the Following Appointments Follow Up with Candice Kim When: Where: [address], [facility] [place], [place] [id number]- Medications What How Much When Why Instructions New ciprofloxacin (ciprofloxacin 500 mg Tab) 1 Tablets By Mouth 2 times a day Pickup at [facility] New fluconazole (fluconazole 150 mg Tab) 1 Tablets By Mouth Once Pickup at [facility] New hydrocortisone topical (hydrocortisone 25 mg Supp) 1 Suppositories By rectum 2 times a day Duration: 10 Days Pickup at [facility] New metronidazole (MetroNIDAZOLE 500 mg Tab) 1 Tablets By Mouth Every 12 hours Pickup at [facility] Unchanged cholecalciferol (cholecalciferol 50,000 intl units oral capsule) 1 Capsules By Mouth Every 7 days Vitamin D deficiency Fatigue Unchanged fluticasone nasal (Flonase 0.05 mg/ inh [place]) 2 Sprays Nasal Inhalation Every day Allergic rhinitis, seasonal each nostril Unchanged hydrOXYzine (hydrOXYzine hydrochloride 25 mg Tab) 1 Tablets By Mouth 4 times a day as needed for for anxiety Generalized anxiety disorder Can cut tab in half if needed. Unchanged topiramate (topiramate 50 mg Tab) 1 Tablets By Mouth Every day Pharmacy Information [facility]: [address] [place], [place] [id number] [phone] Allergies Imitrex (Sore throat symptom) amitriptyline (Throat tightness) cephalexin (Unknown) penicillins (Hives) sulfa drugs Problems Ongoing - Any problem that you are currently receiving treatment for. Allergic rhinitis, seasonal Atypical migraine Blood in stool Breast cancer screening by mammogram Concentration deficit Diarrhea E. coli UTI (urinary tract infection) Family history of diverticulitis of colon Generalized anxiety disorder Hx of candidal vulvovaginitis Internal hemorrhoid Routine adult health maintenance Smoker Tobacco use Vitamin D deficiency Historical - Any problem that you are no longer receiving treatment for. Acute bronchitis due to other specified organisms Acute sinusitis Blocked eustachian tube BMI 20.0-20.9, adult Body mass index (BMI) 19.9 or less, adult Cervical endometriosis Cervical strain Cigarette smoker Common migraine Complete miscarriage Dysfunction of right eustachian tube Hx of allergic rhinitis Internal hordeolum Left otitis media Migraine headache Sinusitis, acute, maxillary Stye Subacute maxillary sinusitis Viral bronchitis Viral URI Patient Survey You may receive a survey via text or e-mail asking about your office visit. Please share your experience with us by completing your survey. We appreciate your feedback and thank you for choosing us for your care. Education Materials E. Coli Infection E. coli (Escherichia coli) are bacteria that can cause an infection in different parts of your body, including your intestines. E. coli bacteria normally live in the intestines of people and animals. Most types of E. coli do not cause infections, but some produce a poison (toxin) that can cause diarrhea. Depending on the toxin, this can cause mild or severe diarrhea. This condition is contagious. This means that it can spread from person to person. It can also spread from animals to humans. Most cases of E. coli infection come from cows (cattle). In some cases, this infection can cause a dangerous complication called hemolytic uremic syndrome (HUS). HUS lead (more content not included)... Normal [facility] Family Medicine Office/Clini c Noteon 05-01-2025 Family Medicine Office/Clinic Note Family Medicine Office/Clinic Note Chief Complaint bloody stools The patient presents with blood in stool and diarrhea. HPI Staff 39 year old female presents with diarrhea and bright red blood in stools since yesterday prescribed Macrobid on Sunday, stopped taking yesterday per ER advisement last bm 5pm yesterday History of Present Illness - The patient is a 39-year-old female presenting with blood in stool and diarrhea. - Blood in stool: The patient reports noticing blood in her stool, which was bright red and mixed with diarrhea. She has not experienced this before and is concerned about the cause. - Diarrhea: The patient describes episodes of diarrhea following a hard stool, with the last bowel movement occurring the previous evening. She does not have daily bowel movements typically. - E. coli UTI: The patient had a urinary tract infection confirmed by culture, treated initially with Macrobid due to an allergy to Keflex. Symptoms have improved but not completely resolved. - Internal hemorrhoid: A small internal hemorrhoid was identified during the examination, which may contribute to the blood in the stool. - Family history of diverticulitis: The patient reports a family history of diverticulitis, which may be relevant to her current symptoms. - Hx of candidal vulvovaginitis: The patient has a history of candidal vulvovaginitis, which she initially suspected at the onset of her symptoms. Review of Systems PHQ Score Initial Depression Screen Score: 0 SCORE - Gastrointestinal: Reports blood in stool, diarrhea, and occasional cramping. Denies abdominal pain. - Genitourinary: Reports urinary symptoms associated with UTI. Denies blood in urine. - Constitutional: Reports feeling hot without fever. Denies nausea or vomiting. Physical Exam Vitals & Measurements T: 36.7 ???C(Tympanic) HR: 84(Peripheral) BP: 108/70 SpO2: 99% HT: 165 cm HT: 65 in WT: 54.1 kg WT: 119.27 lb BMI: 19.87 General: alert, no acute distress, well appearing, pleasant Skin: warm, dry, intact Head: no trauma, normocephalic Neck: Trachea midline, no adenopathy, no tenderness Eye: normal conjunctiva, sclera clear, PERRLA Ear, Nose, Mouth, Throat: , oral mucosa moist, normal dentition Cardiovascular: regular rate and rhythm, normal peripheral perfusion, no edema Respiratory: Lungs CTA, respirations non labored Chest wall: no deformity, non tender Gastrointestinal: soft, non distended, no tenderness, no guarding, pressure over bladder noted, neg CVA tendernerss Back: No tenderness, Normal range of motion, Normal alignment, slight soreness in lower back Neurological: oriented x 4, LOC appropriate for age, Cranial nerves 2-12 intact, motor strength equal and normal bilaterally, sensation equal & normal bilaterally, speech normal Psychiatric: cooperative, affect appropriate for age, normal judgement, normal psychiatric thoughts Assessment/Plan 1. Blood in stool (K92.1: Melena) - Plan to treat with Cipro and Flagyl for 10 days, which covers potential diverticulitis and UTI. - Referral to Digestive Health team for possible colonoscopy due to family history of diverticulitis. Ordered: [facility] Internal Ambulatory Referral 2. Family history of diverticulitis of colon (Z83.79: Family history of other diseases of the digestive system) - Referral for colonoscopy due to family history and current symptoms. Ordered: [facility] Internal Ambulatory Referral 3. Diarrhea (R19.7: Diarrhea, unspecified) - Advised BRAT diet to manage diarrhea symptoms. - Recommended stool softeners to avoid constipation. Ordered: [facility] Internal Ambulatory Referral 4. E. coli UTI (urinary tract infection) (N39.0: Urinary tract infection, site not specified) - Treatment with ciprofloxacin and metronidazole to address UTI and potential gut infection. 5. Hx of candidal vulvovaginitis (Z86.19: Personal history of other infectious and parasitic diseases) - Provided Diflucan to prevent potential yeast infection during antibiotic treatment. 6. Internal hemorrhoid (K64.8: Other hemorrhoids) - Prescribed hydrocortisone suppository to reduce inflammation. Keep stool soft consistency, avoid straining Unspecified Escherichia coli [E. coli] as the cause of diseases classified elsewhere (B96.20: Unspecified Escherichia coli [E. coli] as the cause of diseases classified elsewhere) Orders: ciprofloxacin, 500 mg = 1 tab(s), Oral, BID, # 20 tab(s), Refills(s) 0, Pharmacy: [facility], 165, cm, 05/01/25 16:07:00 EDT, Height/Length Dosing, 54.1, kg, 05/01/25 16:07:00 EDT, Weight Dosing fluconazole, 150 mg = 1 tab(s), Oral, Once, # 2 tab(s), Refills(s) 0, Pharmacy: [facility], 165, cm, 05/01/25 16:07:00 EDT, Height/Length Dosing, 54.1, kg, 05/01/25 16:07:00 EDT, Weight Dosing hydrocortisone topical, 25 mg = 1 supp, Rectal, BID, X 10 day(s), # 20 supp, Refills(s) 0, Pharmacy: [facility], 165, cm, 05/01/25 16:07:00 EDT, Height/Le (more content not included)... Normal [facility] Comment on above: Result Comment: Elec tronically Signed By: Ruth Huffman\grabiel\Date and Time Signed: 05/01/25 17:05 EDT BMPon 04-29-2025 Anion gap [Moles/Vol] 10 mmol/L Normal 6-16 [facility] Comment on above: Performed By: #### 2 [id number] #### [facility] [address] [place] [address] BUN/Creat Ratio 12 No Units Normal 10-20 [facility] Comment on above: Performed By: #### 2 [id number] #### [facility] [address] [place] [address] Calcium [Mass/Vol] 9.3 mg/dL Normal 8.9-11.1 [facility] Comment on above: Performed By: #### 2 [id number] #### [facility] [address] [place] [address] Chloride [Moles/Vol] 107 mmol/L Normal 101-111 [facility] Comment on above: Performed By: #### 2 [id number] #### [facility] [address] [place] [address] CO2 [Moles/Vol] 26 mmol/L Normal 21-31 [facility] Comment on above: Performed By: #### 2 [id number] #### [facility] [address] [place] [address] Creatinine [Mass/Vol] 0.9 mg/dL Normal 0.5-1.3 [facility] Comment on above: Performed By: #### 2 [id number] #### [facility] [address] [place] [address] Glucose [Mass/Vol] 104 mg/dL Normal 55-199 [facility] Comment on above: Performed By: #### 2 [id number] #### [facility] [address] [place] [address] Potassium [Moles/Vol] 3.8 mmol/L Normal 3.5-5.3 [facility] Comment on above: Performed By: #### 2 [id number] #### [facility] [address] [place] [address] Sodium [Moles/Vol] 139 mmol/L Normal 135-145 [facility] Comment on above: Performed By: #### 2 [id number] #### [facility] [address] [place] [address] Urea nitrogen [Mass/Vol] 11 mg/dL Normal 5-21 [facility] Comment on above: Performed By: #### 2 [id number] #### [facility] [address] [place] [address] CBC w/ Auto Diffon 5 Basophil Absolute 0.0 E9/L Normal 0.0-0.2 [facility] Comment on above: Performed By: #### 2 [id number] #### [facility] [address] [place] [address] Basophils/100 WBC (Bld) 0.2 % Normal 0.0-2.0 [facility] Comment on above: Performed By: #### 2 [id number] #### [facility] [address] [place] [address] Eos Absolute 0.3 E9/L Normal 0.0-0.5 [facility] Comment on above: Performed By: #### 2 [id number] #### [facility] [address] [place] [address] Eosinophils/100 WBC (Bld) 6.5 % Normal 0.0-8.0 [facility] Comment on above: Performed By: #### 2 [id number] #### [facility] [address] [place] [address] Erythrocyte distribution width (RBC) [Ratio] 13.2 % Normal 10.9-14.2 [facility] Comment on above: Performed By: #### 2 [id number] #### [facility] [address] [place] [address] [place] [address] Hematocrit (Bld) [Volume fraction] 40.3 % Normal 34.0-46.0 [facility] Comment on above: Performed By: #### 2 [id number] #### [facility] [address] [place] [address] Hemoglobin (Bld) [Mass/Vol] 13.8 g/dL Normal 12.0-16.0 [facility] Comment on above: Performed By: #### 2 [id number] #### [facility] [address] [place] [address] Lymph Absolute 0.5 E9/L Low 1.0-4.0 [facility] Comment on above: Performed By: #### 2 [id number] #### [facility] [address] [place] [address] Lymphocytes/100 WBC (Bld) 10.6 % Low 14.0-50.0 [facility] Comment on above: Performed By: #### 2 [id number] #### [facility] [address] [place] [address] MCH (RBC) [Entitic mass] 29.6 pg Normal 27.0-34.0 [facility] Comment on above: Performed By: #### 2 239016 #### [facility] [address] [place] [address] MCHC (RBC) [Mass/Vol] 34.3 g/dL Normal 31.4-36.0 [facility] Comment on above: Performed By: #### 2 575243 #### [facility] [address] [place] [address] MCV (RBC) [Entitic vol] 86.4 fL Normal 80.0-100.0 [facility] Comment on above: Performed By: #### 2 277426 #### [facility] [address] [place] [address] [place] Absolute 0.5 E9/L Normal 0.2-1.0 [facility] Comment on above: Performed By: #### 2 [id number] #### [facility] [address] [place] [address] Monocytes/100 WBC (Bld) 11.2 % Normal 4.0-14.0 [facility] Comment on above: Performed By: #### 2 [id number] #### [facility] [address] [place] [address] Neutro Absolute 3.2 E9/L Normal 2.0-7.5 [facility] Comment on above: Performed By: #### 2 [id number] #### [facility] [address] [place] [address] Neutro Auto 71.5 % Normal 36.0-75.0 [facility] Comment on above: Performed By: #### 2 [id number] #### [facility] [address] [place] [address] Platelet 201.0 E9/L Normal 150.0-500.0 [facility] Comment on above: Performed By: #### 2 415608 #### [facility] [address] [place] [address] Platelet mean volume (Bld) [Entitic vol] 8.4 fL Normal 6.4-10.8 [facility] Comment on above: Performed By: #### 2 [id number] #### [facility] [address] [place] [address] RBC 4.7 E12/L Normal 4.3-5.9 [facility] Comment on above: Performed By: #### 2 [id number] #### [facility] [address] [place] [address] WBC 4.5 E9/L Normal 4.0-11.0 [facility] Comment on above: Performed By: #### 2 [id number] #### [facility] [address] [place] [address] ED Clinical Summaryon 2024 ED Clinical Summary ED Clinical Summary [address] [address] ED Clinical Summary Person Information Name: PAPAI, RADHA E [place] Age: 39 Years : 1985 Sex: Female Language: Angolan PCP: Candice Kim Marital Status: Single Phone: [phone] Visit Id: Visit Reason: Arm pain-swelling; Headache; Jaw pain; Anxiety; CHEST PAINS MEKHI UP TO JAWS Speciality: Acuity: 3 Enc Type: Emergency Med Service: Emergency Arrival: 04/29/2025 08:38:40 Discharge: 04/29/2025 10:06:24 LOS: 000 01:28 Checkin: 04/29/2025 08:38:40 Checkout: 04/29/2025 10:06:24 Dispo Type: Home (Routine DC) EVENTS: Event Name Event Status Request Date/Time Start Date/Time Complete Date/Time Arrive Complete 04/29/2025 08:38:40 04/29/2025 08:38:40 04/29/2025 08:38:40 Document Home Meds Request 04/29/2025 08:38:40 Triage Complete 04/29/2025 08:38:40 04/29/2025 08:45:03 04/29/2025 08:45:03 Bed Assign Complete 04/29/2025 08:41:39 04/29/2025 08:41:39 04/29/2025 08:41:39 Dr Exam Complete 04/29/2025 08:41:39 04/29/2025 08:42:16 04/29/2025 08:42:16 RN Exam Complete 04/29/2025 08:41:39 04/29/2025 08:55:14 04/29/2025 08:55:14 Registration Complete 04/29/2025 08:42:16 04/29/2025 08:43:17 04/29/2025 08:43:17 Dr Exam Complete 04/29/2025 08:42:36 04/29/2025 08:42:36 04/29/2025 08:42:36 EKG Complete 04/29/2025 08:42:38 04/29/2025 08:47:42 Reg Complete Request 04/29/2025 08:43:17 Reg Bed Request Complete 04/29/2025 08:43:17 04/29/2025 08:43:17 04/29/2025 08:43:17 Meds Admin Complete 04/29/2025 08:56:46 04/29/2025 09:02:41 Pending Labs Complete 04/29/2025 08:56:46 04/29/2025 09:23:42 Lab Complete 04/29/2025 08:56:46 04/29/2025 09:14:49 Patient Care Request 04/29/2025 08:56:46 X-Ray Complete 04/29/2025 08:56:46 04/29/2025 09:07:14 04/29/2025 09:23:17 Pending Labs Complete 04/29/2025 08:58:03 04/29/2025 08:58:03 04/29/2025 09:14:49 Lab Complete 04/29/2025 08:58:03 04/29/2025 08:58:03 04/29/2025 09:14:49 Wet Read Request 04/29/2025 09:23:17 Meds Admin Complete 04/29/2025 09:23:42 04/29/2025 09:27:08 Pending Labs Complete 04/29/2025 09:46:54 04/29/2025 09:46:54 04/29/2025 09:46:54 Discharge Complete 04/29/2025 10:02:44 04/29/2025 10:06:28 04/29/2025 10:06:28 Transfer Complete 04/29/2025 10:06:28 04/29/2025 10:06:28 04/29/2025 10:06:28 ADDRESS: [address] [facility] [phone] PHYS DOC NOTES: MEDICAL INFORMATION: Prescriptions Given: Medications to Continue with No Changes Other Medications cephalexin (Keflex 500 mg Cap) 1 Capsules By Mouth every 6 hours for 7 Days. Refills: 0. cholecalciferol (cholecalciferol 50,000 intl units oral capsule) 1 Capsules By Mouth every 7 days. Refills: 0. fluticasone nasal (Flonase 0.05 mg/inh [place]) 2 Sprays Nasal Inhalation every day. each nostril. Refills: 0. hydrOXYzine (hydrOXYzine hydrochloride 25 mg Tab) 1 Tablets By Mouth 4 times a day as needed for anxiety. Can cut tab in half if needed.. Refills: 3. topiramate (topiramate 50 mg Tab) 1 Tablets By Mouth every day. Refills: 3. PATIENT EDUCATION INFORMATION: Instructions: Nonspecific Chest Pain, Adult, [id number] Follow up: With: Address: When: Candice Monk [facility], [place] [address] [employer] In 3 days 05/02/2025 Comments: Call Dr for diagnosis based follow up DIAGNOSIS: Non-cardiac chest pain Normal [facility] ED Note-Physicianon 04-29-20 ED Note-Physician ED Note-Physician Basic Information Time Seen: Jacinto NAPOLES, Brenden Johnson 04/29/2025 08:42 Chief Complaint pt states hedache, jaw pain, arm pain and a pressure in her chest. has hx of anxiety attacks. History of Present Illness 39-year-old female reports to the emergency department with concerns of some chest tightness, jaw pain, radiation to her shoulders. Reports that she does have a history of anxiety attacks but this feels somewhat different. She reports no shortness of breath. Reports no fevers or cough. Reports headache with this as well. She reports that she did not take her anxiety medication today. She reports no cardiac history for herself. Reports only on Topamax as well as antibiotic for UTI. Reports that is improving. Denies any fevers. Review of Systems No other aggravating or relieving factors no other associated symptoms no other prior treatments or complaints. Family: Reviewed and noncontributory Social: lives at home Review of systems negative unless otherwise specified in the HPI. Physical Exam Vitals & Measurements T: 37 ???C(Tympanic) HR: 83(Peripheral) RR: 14 BP: 125/96 SpO2: 99% HT: 165 cm WT: 53.5 kg BMI: 19.65 General: The patient appears well and in no apparent distress. Patient is resting comfortably on bed. Afebrile. Skin: Warm, dry, no pallor noted. Head: Normocephalic, atraumatic Neck: No JVD Eye: PERRLA, EOMI ENT: Moist mucus membranes Cardiovascular: Regular rate. normal peripheral perfusion. Radial pulses +2 bilaterally Respiratory: No respiratory distress. no accessory muscle use. no obvious audible wheezing. Lung sounds clear to auscultation Chest Wall: no deformity. Mild wall chest wall tenderness on palpation. Musculoskeletal: normal ROM, no deformity, no swelling GI: No obvious distention Neurological: A&O. moves all extremities equal strength and symmetry Psychiatric: Cooperative and appropriate Medical Decision Making Heart Score for Major Cardiac Event History: Example factors for history - pattern of chest pain, onset, duration, relation with exercise, stress or cold, localization, concominant symptoms. reaction to sublingual nitrates, [] Highly suspicious +2 [] Moderately suspicious +1 [x] Slightly suspicious 0 EKG: [] Significant ST-Depression +2 [] Non specific repolarization disturbance +1 [x] Normal 0 Age: [] >= 65 +2 [] 45-65 + 1 [x] <45 0 Risk Factors: (HLD, HTN, DM, Cigarette Smoking, Pos Family Hx, Obesity) [] >3 risk factors or hx of atheroslerotic disease + 2 [x] 1-2 risk factors + 1 [] No risk factors known 0 Troponin: [] >= 3X normal + 2 [] 1-3X normal + 1 [x] <= Normal 0 -------- [x] 0-3 Points 0.9 - 1.7% risk of major adverse cardiac event in 6 weeks [] 4-6 Points 12-16.6% risk of major adverse cardiac event in 6 weeks [] 7-10 Points 50-65% risk of major adverse cardiac event in 6 weeks 39-year-old female reports to the ED with concerns of some chest tightness, radiation up into her arms and neck region, with headache. Reports that this started this morning. She states no cardiac history. Reports history of anxiety but this feels slightly different. She reports is not taking any of her medications for anxiety today. She denies any shortness of breath. No fevers or cough. No cardiac history. Due to concerns, we did do a cardiac workup on the patient. Cardiac workup was benign. The patient was PERC negative and PE/DVT was essentially ruled out at this low risk patient. Initial troponin was negative. Chest x-ray negative as well. EKG reviewed noted with no ST changes. Patient had a heart score of 1 with negative troponin. Does not appear to be any acute cardiac cause. She did have a reasonable chest plan as well. Discussed alternate causes of chest tightness to the patient. She was understanding. Follow-up with your primary care provider in 3 to 5 days. If symptoms worsen, do not improve, or new symptoms arise please report back to emergency department for further evaluation. The patient was understanding and agreeable to plan moving forward. Assessment/Plan Non-cardiac chest pain (R07.89: Other chest pain) Orders: ketorolac, 30 mg = 1 mL, Injection, IV Push, Once, Stop date 04/29/25 9:23:00 EDT, STAT, Start date 04/29/25 9:23:00 EDT, 04/29/25 9:23:00 EDT Sodium Chloride 0.9% intravenous solution, 1,000 mL, Soln-IV, IV, Once, Stop date 04/29/25 8:56:00 EDT, STAT, Start date 04/29/25 8:56:00 EDT, Infuse over 61, minute(s) Basic Metabolic Panel CBC w/ Auto Diff ECG 12 Lead Adult ED Cardiac Monitoring eGFR Extra SST Tube Oxygen Saturation PT & PTT Saline Lock Insert Troponin 0 Hr. XR Chest Single View Medications Administered Given ketorolac 30 mg/mL Inj 1 mL, 30 mg, IV Push NS 1000 ml Bolus, 1000 mL, IV Disposition Plan Patient Discharge Condition stable Discharge Disposition to home Discharge Prescription List Prescriptions No active prescri (more content not included)... Normal [facility] Comment on above: Result Comment: Elec tronically Signed By: Brenden Casey PA-C\.br\Date and Time Signed: 04/29/25 10:11 EDT\.br\Electronically Co-Signed By: Brody Degroot M.D.\.br\Date and Time Co-Signed: 04/29/25 10:39 EDT ED Patient Summaryon 025 ED Patient Summary ED Patient Summary [place] [address] Patient Discharge Instructions Person Information Name: RADHA PAEZ Age: 39 Years Arrival Date: 04/29/2025 08:38:40 Discharge Diagnosis: Non-cardiac chest pain Primary Care Physician: Jesus SADLER, Candice Donaldson Provider Information Primary Provider: Brody Degroot M.D. [facility] Supervisor:Brenden Casey PA-C The exam and treatment you received in the Emergency Department were for an urgent problem and are not intended as complete care. It is important that you follow up with a doctor, nurse practitioner, or physician???s dietary assistant for ongoing care. If your symptoms become worse or you do not improve as expected and you are unable to reach your usual health care provider, you should return to the Emergency Department. We are available 24 hours a day. RADHA PAEZ has been given the following list of patient education materials, prescriptions and follow-up instructions: Follow-up Instructions: With: Address: When: Candice Lee [address] [place] [address], [address] [place] [phone] Business (1) In 3 days 05/02/2025 Comments: Call Dr for diagnosis based follow up In the event that this physician does not participate in your insurance network, please consult with your insurance company to find a nearby participating provider. Patient Education Materials: Nonspecific Chest Pain, Adult, Pioz-oh-Lpsz A MESSAGE TO ALL PATIENTS REGARDING OPIOIDS PRESCRIPTION OPIOIDS: WHAT YOU NEED TO KNOW Prescription opioids can be used to help relieve pzjndzjm-wn-pcwtxi pain and are often prescribed following a surgery or injury, or for certain health conditions. These medications can be an important part of the treatment but also come with serious risks. It is important to work with your healthcare provider to make sure you are getting the safest, most effective care. WHAT ARE THE RISKS AND SIDE EFFECTS OF OPIOID USE? Prescription opioids carry serious risks of addiction and overdose, especially with prolonged use. An opioid overdose, often marked by slowed breathing, can cause sudden . The use of prescription opioids can have a number of side effects as well, even when taken as directed: ??? Tolerance???meaning you might need to take more of the medication for the same pain relief ??? Physical dependence???meaning you have symptoms of withdrawal when a medication is stopped ??? Increased sensitivity to pain ??? Constipation ??? Nausea, vomiting, and dry mouth ??? Sleepiness and dizziness ??? Confusion ??? Depression ??? Low levels of testosterone that can result in lower sex drive, energy, and strength ??? Itching and sweating RISKS ARE GREATER WITH: ??? History of drug misuse, substance use disorder, or overdose ??? Mental health conditions (such as depression or anxiety) ??? Sleep apnea ??? Older age (65 years and older) ??? Avoid alcohol while taking prescription opioids. Also, unless specifically advised by your health care provider, medications to avoid include: ??? Benzodiazepines (such as Xanax or Valium) ??? Muscle relaxants (such as Soma or Flexeril) ??? Hypnotics (such as Ambien or Lunesta) ??? Other prescription opioids KNOW YOUR OPTIONS Talk to your health care provider about ways to manage your pain that don???t involve prescription opioids. Some of these options may actually work better and have fewer risks and side effects. Options may include: ??? Pain relievers such as acetaminophen, ibuprofen, and naproxen ??? Some medication that are also used for depression or seizures ??? Physical therapy and exercise ??? Cognitive behavioral therapy, a psychological, goal-directed approach, in which patients learn how to modify physical, behavioral, and emotional triggers of pain and stress. IF YOU ARE PRESCRIBED OPIOIDS FOR PAIN: ??? Never take opioids in greater amounts or more often than prescribed. ??? Follow up with your primary health care provider. o Work together to create a plan on how to manage your pain. o Talk about ways to help manage your pain that don???t involve prescription opioids. o Talk about any and all concerns and side effects. ??? Help prevent misuse and abuse o Never sell or share prescription opioids. o Never use another person???s prescription opioids. ??? Store prescription opioids in a secure place and out of reach of others (this may include visitors, children, friends, and family). ??? Safely dispose of unused prescription opioids: Find your community drug take-back program or your pharmacy mail-back program, or flush them down the toilet, following guidance from the Food and Drug Administration (www.fda.gov/Drugs/Resour cesForYou). ??? Visit www.cdc.gov/drugoverdose to learn about the risks of opioids abuse and overdose. (more content not included)... Normal [facility] PT & PTTon 04-29-2025 INR Coag (PPP) [Relative time] 0.95 {INR} Invalid Interpretation Code [facility] Comment on above: Result Comment: INR results are specifically intended to assess patients stabilized on long-term Anticoagulation therapy suggested INR???s ???Less Intensive Anticoagulation??? 2.0 ??? 3.0 Conventional Range 3.0 ??? 4.5 Performed By: #### 1 [id number] #### [facility] Laboratory [address] [place] [address] PT 10.6 second(s) Normal 9.4-12.5 [facility] Comment on above: Result Comment: 15 d ays - 4 weeks 1 - 5 months 6 -11 months 1- 5 years 6-10 years 11 -17 years Mean: 11.2 (9.5-12.6) Mean: 11.0 (9.7-12.8) Mean: 11.0 (9.8-13.0) Mean: 11.3 (9.9-13.4) Mean: 11.7 (10.0-14.6) Mean: 11.8 (10.0 - 14.1) Pediatric Reference ranges were obtained from a study by Shawn Araujo et al. prepared from 1437 samples obtained at 7 different centers using the same coagulation reagent and instrumentation as [facility]. Currently there are no coagulation studies available worldwide for children to 14 days, and no normal ranges. Performed By: #### 1 [id number] #### [facility] [address] [place] [address] PTT 34.4 second(s) Normal 25.1-36.5 [facility] Comment on above: Result Comment: Para meter 15 days - 4 weeks 1 - 5 months 6 - 11 months 1 - 5 years 6 - 10 years 11 - 17 years PTT Mean: 35.4 (27.6-45.6) Mean: 33.5 (24.8-40.7) Mean: 32.4 (25.1-40.7) Mean: 31.6 (24.0-39.2) Mean: 31.6 (26.9-38.7) Mean: 31.0 (24.6-38.4) Pediatric Reference ranges were obtained from a study by Shawn Araujo et al. prepared from 1437 samples obtained at 7 different centers using the same coagulation reagent and instrumentation as [facility]. Currently there are no coagulation studies available worldwide for children to 14 days, and no normal ranges. Heparin therapeutic range (represented by Anti-Factor Xa activity of 0.2 - 0.4 U/mL) corresponds to PTT of 56.6 - 109.0 sec. Performed By: #### 1 [id number] #### [facility] [address] [place] [address] Troponin 0 Hr.on 04-29-2025 Troponin HS 2.90 pg/mL Low 10.10-27.10 [facility] Comment on above: Result Comment: The 95% CI (Confidence Interval) PPV (Positive Predictive Value) for myocardial infarction in females is 38 pg/mL, in males 51 pg/mL. The results should be used in conjunction with clinical conditions of myocardial infarction. (Access High Sensitivity Troponin I Instructions For Use, Nikhil Swati, April 2018) Performed By: #### 1 [id number] #### [facility] [address] [place] [address] XR Chest Single Viewon 04-29 XR Chest Single View Exam Date/Time: 04/29/2025 09:23 EDT Reason for Exam: Chest pain Report IMPRESSION: No acute findings by portable radiography. EXAMINATION/TECHNIQUE: XR Chest Single View HISTORY: Chest pain. COMPARISON: 01/03/2023. RESULT: No consolidation. Hyperinflated lungs. No pleural effusion. No pneumothorax. Normal cardiomediastinal silhouette. No acute osseous findings. Ordering Provider: Brenden Casey FINAL REPORT Dictated: 04/29/2025 9:28 am Kevin Griffiths MD Signed (Electronic Signature): 04/29/2025 9:28 am Signed by: Kevin Griffiths MD Transcribed by: JOBY Technologist: POLI Echols [facility] eGFRon 04-29-2025 eGFR 83 mL/min/1.73 m2 Normal >=59 [facility] Comment on above: Performed By: #### 1 [id number] #### [facility] [address] [place] [address] C Urineon 04-28-2025 Bacteria identified Cx Nom (U) Microbiology PROCEDURE: Urine Culture [R1] SOURCE: U CleanCatch BODY SITE: COLLECTED DATE/TIME: 04/26/2025 17:10 EDT RECEIVED DATE/TIME: 04/26/2025 22:27 EDT START DATE/TIME: 04/26/2025 22:27 EDT FREE TEXT SOURCE: Vandana BRAND, Joe Ross DO, Joe Bilss FINAL REPORTS Final Report [] Verified Date/Time: 04/28/2025 08:11 EDT >100,000 cfu/ml Escherichia coli SUSCEPTIBILITY RESULTS __ LEGEND: S=Susceptible, N/R=Not Reported, Blank=Data not available, or drug not advisable or tested, I=Intermediate, ESBL=Extended spectrum beta-lactamase, R=Resistant, TFG=Thymidine-dependent strain, BENITO=Beta-lactamase positive, BHUMIKA=mcg/m;(mg/L), S*=Predicted susceptible interp, R*=Predicted resistant interp EC Antibiotic BHUMIKA Dilutn BHUMIKA Interp Ampicillin >16 R Ampicillin/ >16/8 R Sulbactam Cefazolin <=2 S Cefepime <=2 S Ceftazidime/ <=8 S Avibactam Ceftriaxone <=1 S Cefuroxime <=4 S Ciprofloxacin <=0.25 S Ertapenem <=0.5 S Gentamicin <=2 S Levofloxacin <=0.5 S Meropenem <=1 S Nitrofurantoin <=32 S Piperacillin/ <=8 S Tazobactam Tetracycline <=4 S Tobramycin <=2 S Trimethoprim/ <=2/38 S Sulfa Performing Locations R1: This test was performed at: [facility], [address] [place] [address], [id number] , , Normal [facility] Comment on above: Performed By: #### 2 [id number] #### [facility] [address] [place] [id number] ED Note-Physicianon 04-27-20 ED Note-Physician ED Note-Physician Basic Information Time Seen: Joe Ross DO 04/26/2025 17:09 Chief Complaint pt reports she has had pain with urination/bladder pain since sunday. concern for uti. states took azos and did not get better. History of Present Illness HPI: The patient is a 39-year-old female who presents to the emergency department with herself for 2 days of suprapubic discomfort as well as dysuria. She denies any flank pain fevers chills nausea or vomiting. She has had urinary tract infections in the past and this does feel quite similar. She denies any vaginal discharge or bleeding. Denies any concern for . Has been taking Azo at home with some symptomatic relief. Due to persistent symptoms she is presenting today for further evaluation. Review of Systems Review of systems: CONSTITUTIONAL: Denies fever, sweats, chills. NEURO: Denies difficulty walking, numbness, weakness, tingling, headache. HEENT: Denies sore throat, rhinorrhea, changes in vision. CARDIO: Denies chest pain, palpitations. PULM: Denies shortness of breath, cough. GI: Denies abdominal pain, nausea, vomiting, diarrhea, constipation, melena, hematochezia. : Endorses dysuria. Denies frequency, hematuria. MSK: Denies recent trauma. SKIN: Denies rash, lesions. ENDOCRINE: Denies unexpected weight-loss. HEME: Denies bleeding disorder. Physical Exam Vitals & Measurements T: 36.9 ???C(Oral) HR: 94(Peripheral) RR: 17 BP: 132/85 SpO2: 99% HT: 165 cm WT: 53 kg BMI: 19.47 Physical exam: VS: As documented in the triage note from today's date and EMR flowsheet were reviewed. Gen: Well developed. No acute distress. Seated in bed. Appears nontoxic. Skin: Warm. Dry. Intact. No rashes or lesions. Eyes: Pupils equally round and reactive to light. Clear sclera. HENT: Atraumatic appearance. Mucosal membranes moist. No oral lesions, uvula midline, airway patent. CV: Regular rate and regular rhythm. S1, S2. No pedal edema. Warm extremities. Resp: Nonlabored breathing Clear to auscultation bilaterally. No increased work of breathing. GI: Soft and nontender. No rebound or guarding. Bowel sounds x4 present. Magaña sign McBurney's point tenderness is negative no CVA tenderness. MSK: Symmetric muscle bulk. No joint swelling in the extremities. Compartments are soft. Neurovascularly intact x4 extremities. Radial pulses +2 equal bilaterally. Neuro: Alert. Speech fluent. Moving all extremities. No focal deficits. Gait normal. Psych: Appropriate. [place]. Medical Decision Making Hospital Course / Medical Decision Making: I reviewed the patient's triage vitals and they are hypertensive recommend follow-up with primary physician for repeat checks. Due to the above findings the following was ordered urinalysis and test. Patient is not . Urinalysis consistent with UTI. Patient shows no signs of pyelonephritis at this time she is overall well-appearing she is agreeable with discharge with ongoing oral antibiotics. She was prescribed initially Keflex as she did not report a cephalosporin allergy. She was agreeable to this plan and appreciative of care. She is agreeable with close outpatient follow-up. Discharged with ongoing Keflex prescription. She later did call back from the pharmacy stating that she did have a Keflex allergy. Antibiotic was subsequently changed to Macrobid as she has had good effective treatment in the past with this medication. This was changed to 100 mg twice daily 5 days. The patient was counseled regarding labs, imaging, likely diagnosis, and plan. All questions were answered. Information provided by the patient Past medical history complicating workup recurrent UTIs Considered CT imaging although medication at this time based on clinical presentation and history Shared medical decision making patient agreeable with close outpatient follow-up and home-going oral antibiotic. Assessment/Plan Urinary tract infection (N39.0: Urinary tract infection, site not specified) Orders: cephalexin, 500 mg = 1 cap(s), Oral, q6hr, X 7 day(s), # 28 cap(s), Refills(s) 0, Pharmacy: [facility], 165, cm, 04/26/25 17:04:00 EDT, Height/Length Dosing, 53, kg, 04/26/25 17:04:00 EDT, Weight Dosing U Beta Hcg Qual UA with Cult Rflx Urine Culture Disposition Plan Patient Discharge Condition Stable Discharge Disposition Discharge home Discharge Prescription List Prescriptions Keflex 500 mg Cap, 500 mg= 1 cap(s), Oral, q6hr Follow-up With When Contact Information Candice Lee In 3 days 04/29/[address] [facility], [place] [address] Business (1) Additional Instructions: You were diagnosed with a urinary tract infection please take the antibiotics as directed until completion should you been experiencing pain out of proportion fevers chills symptoms conc (more content not included)... Normal [facility] Comment on above: Result Comment: Elec tronically Signed By: Joe Ross DO.br\Date and Time Signed: 04/27/25 00:22 EDT ED Clinical Summaryon 2024 ED Clinical Summary ED Clinical Summary [address] [address] ED Clinical Summary Person Information Name: RADHA PAEZ/New_Bryan Age: 39 Years : 1985 Sex: Female Language: Angolan PCP: Candice Kim Marital Status: Single Phone: [phone] Visit Id: Visit Reason: Medical problem - minor; Dysuria; Genitourinary problem; UTI SYMPTOMS Speciality: Acuity: 4 Enc Type: Emergency Med Service: Emergency Arrival: 04/26/2025 17:00:12 Discharge: 04/26/2025 17:34:55 LOS: 000 00:34 Checkin: 04/26/2025 17:00:12 Checkout: 04/26/2025 17:34:55 Dispo Type: Home (Routine DC) EVENTS: Event Name Event Status Request Date/Time Start Date/Time Complete Date/Time Arrive Complete 04/26/2025 17:00:12 04/26/2025 17:00:12 04/26/2025 17:00:12 Document Home Meds Request 04/26/2025 17:00:12 Triage Complete 04/26/2025 17:00:12 04/26/2025 17:04:31 04/26/2025 17:04:31 Bed Assign Complete 04/26/2025 17:02:11 04/26/2025 17:02:11 04/26/2025 17:02:11 Dr Exam Complete 04/26/2025 17:02:11 04/26/2025 17:09:26 04/26/2025 17:09:26 RN Exam Complete 04/26/2025 17:02:11 04/26/2025 17:06:16 04/26/2025 17:06:16 Pending Labs Complete 04/26/2025 17:09:06 04/26/2025 17:24:39 Lab Complete 04/26/2025 17:09:06 04/26/2025 17:21:47 Urine Collect Complete 04/26/2025 17:09:06 04/26/2025 17:21:47 Registration Complete 04/26/2025 17:09:26 04/26/2025 17:25:05 04/26/2025 17:25:05 Pending Labs Collected 04/26/2025 17:24:40 04/26/2025 17:24:40 Lab Collected 04/26/2025 17:24:40 04/26/2025 17:24:40 Reg Complete Request 04/26/2025 17:25:05 Reg Bed Request Complete 04/26/2025 17:25:05 04/26/2025 17:25:05 04/26/2025 17:25:05 Discharge Complete 04/26/2025 17:32:58 04/26/2025 17:35:00 04/26/2025 17:35:00 Transfer Complete 04/26/2025 17:35:00 04/26/2025 17:35:00 04/26/2025 17:35:00 ADDRESS: [address]/18 [facility] [id number] PHYS DOC NOTES: MEDICAL INFORMATION: Prescriptions Given: New Medications [facility], [address] [place], [place] [id number], [phone] cephalexin (Keflex 500 mg Cap) 1 Capsules By Mouth every 6 hours for 7 Days. Refills: 0. Medications to Continue with No Changes Other Medications cholecalciferol (cholecalciferol 50,000 intl units oral capsule) 1 Capsules By Mouth every 7 days. Refills: 0. fluticasone nasal (Flonase 0.05 mg/inh [place]) 2 Sprays Nasal Inhalation every day. each nostril. Refills: 0. hydrOXYzine (hydrOXYzine hydrochloride 25 mg Tab) 1 Tablets By Mouth 4 times a day as needed for anxiety. Can cut tab in half if needed.. Refills: 3. topiramate (topiramate 50 mg Tab) 1 Tablets By Mouth every day. Refills: 3. PATIENT EDUCATION INFORMATION: Instructions: Urinary Tract Infection, Adult Follow up: With: Address: When: Candice Lee [address] [place] [address], [facility] [place] [address] Business (1) In 3 days 04/29/2025 Comments: You were diagnosed with a urinary tract infection please take the antibiotics as directed until completion should you been experiencing pain out of proportion fevers chills symptoms concerning to call 911 or return to the nearest emergency department immediately otherwise follow-up with your primary provider in the coming days for repeat evaluation. DIAGNOSIS: Urinary tract infection Normal [facility] ED Patient Summaryon 025 ED Patient Summary ED Patient Summary [address] [address] Patient Discharge Instructions Person Information Name: RADHA PAEZ Age: 39 Years Arrival Date: 04/26/2025 17:00:12 Discharge Diagnosis: Urinary tract infection Primary Care Physician: Candice Kim Provider Information Primary Provider: Joe Ross DO Advanced Medical Transcription Supervisor:None The exam and treatment you received in the Emergency Department were for an urgent problem and are not intended as complete care. It is important that you follow up with a doctor, nurse practitioner, or physician???s dietary assistant for ongoing care. If your symptoms become worse or you do not improve as expected and you are unable to reach your usual health care provider, you should return to the Emergency Department. We are available 24 hours a day. RADHA PAEZ has been given the following list of patient education materials, prescriptions and follow-up instructions: Follow-up Instructions: With: Address: When: Candice Lee [address] [place] [address] [place] [address] [facility] (1) In 3 days 04/29/2025 Comments: You were diagnosed with a urinary tract infection please take the antibiotics as directed until completion should you been experiencing pain out of proportion fevers chills symptoms concerning to call 911 or return to the nearest emergency department immediately otherwise follow-up with your primary provider in the coming days for repeat evaluation. In the event that this physician does not participate in your insurance network, please consult with your insurance company to find a nearby participating provider. Patient Education Materials: Urinary Tract Infection, Adult A MESSAGE TO ALL PATIENTS REGARDING OPIOIDS PRESCRIPTION OPIOIDS: WHAT YOU NEED TO KNOW Prescription opioids can be used to help relieve phxgkdzj-vq-wbekpy pain and are often prescribed following a surgery or injury, or for certain health conditions. These medications can be an important part of the treatment but also come with serious risks. It is important to work with your healthcare provider to make sure you are getting the safest, most effective care. WHAT ARE THE RISKS AND SIDE EFFECTS OF OPIOID USE? Prescription opioids carry serious risks of addiction and overdose, especially with prolonged use. An opioid overdose, often marked by slowed breathing, can cause sudden . The use of prescription opioids can have a number of side effects as well, even when taken as directed: ??? Tolerance???meaning you might need to take more of the medication for the same pain relief ??? Physical dependence???meaning you have symptoms of withdrawal when a medication is stopped ??? Increased sensitivity to pain ??? Constipation ??? Nausea, vomiting, and dry mouth ??? Sleepiness and dizziness ??? Confusion ??? Depression ??? Low levels of testosterone that can result in lower sex drive, energy, and strength ??? Itching and sweating RISKS ARE GREATER WITH: ??? History of drug misuse, substance use disorder, or overdose ??? Mental health conditions (such as depression or anxiety) ??? Sleep apnea ??? Older age (65 years and older) ??? Avoid alcohol while taking prescription opioids. Also, unless specifically advised by your health care provider, medications to avoid include: ??? Benzodiazepines (such as Xanax or Valium) ??? Muscle relaxants (such as Soma or Flexeril) ??? Hypnotics (such as Ambien or Lunesta) ??? Other prescription opioids KNOW YOUR OPTIONS Talk to your health care provider about ways to manage your pain that don???t involve prescription opioids. Some of these options may actually work better and have fewer risks and side effects. Options may include: ??? Pain relievers such as acetaminophen, ibuprofen, and naproxen ??? Some medication that are also used for depression or seizures ??? Physical therapy and exercise ??? Cognitive behavioral therapy, a psychological, goal-directed approach, in which patients learn how to modify physical, behavioral, and emotional triggers of pain and stress. IF YOU ARE PRESCRIBED OPIOIDS FOR PAIN: ??? Never take opioids in greater amounts or more often than prescribed. ??? Follow up with your primary health care provider. o Work together to create a plan on how to manage your pain. o Talk about ways to help manage your pain that don???t involve prescription opioids. o Talk about any and all concerns and side effects. ??? Help prevent misuse and abuse o Never sell or share prescription opioids. o Never use another person???s prescription opioids. ??? Store prescription opioids in a secure place and out of reach of others (this may include visitors, children, friends, and family). ??? Safely dispose of unused prescription opioids: Find your (more content not included)... Normal [facility] U BetaHcg Qualon 04-26-2025 U beta hCG Ql Negative Normal [facility] Comment on above: Performed By: #### 2 [id number] #### [facility] [address] [place] [address] UA with Cult Rflxon 04-26-20 25 Color (U) Light-Yellow Normal Yellow [facility] Comment on above: Result Comment: Micr oscopic readings are only performed on those samples that meet specific criteria set forth by [facility]. Performed By: #### 4 [id number] #### [facility] [address] [place] [address] Glucose (U) [Mass/Vol] Negative Normal Negative [facility] Comment on above: Performed By: #### 4 [id number] #### [facility] [address] [place] [address] Ketones Ql (U) Negative Normal Negative [facility] Comment on above: Performed By: #### 4 [id number] #### [facility] [address] [place] [address] UA Blood Trace Abnormal Negative [facility] Comment on above: Performed By: #### 4 [id number] #### [facility] [address] [place] [address] UA Bacteria Trace Normal Trace [facility] Comment on above: Performed By: #### 4 [id number] #### [facility] [address] [place] [address] UA Clarity Turbid Abnormal Clear [facility] Comment on above: Performed By: #### 4 [id number] #### [facility] [address] [place] [address] UA Leuk Est 500 Andrew/uL Abnormal Negative [facility] Comment on above: Performed By: #### 4 [id number] #### [facility] [address] [place] [address] UA Mucous Negative Normal Negative [facility] Comment on above: Performed By: #### 4 [id number] #### [facility] [address] [place] [address] UA Nitrite Negative Normal Negative [facility] Comment on above: Performed By: #### 4 [id number] #### [facility] [address] [place] [address] UA pH 7.5 Invalid Interpretation Code 5.0-9.0 [facility] Comment on above: Performed By: #### 4 [id number] #### [facility] [address] [place] [address] UA Protein 1+ mg/dL Abnormal Negative [facility] Comment on above: Performed By: #### 4 [id number] #### [facility] [address] [place] [address] UA RBC 31-75 Abnormal 0-3 [facility] Comment on above: Performed By: #### 4 [id number] #### [facility] [address] [place] [address] UA Spec Grav 1.017 Invalid Interpretation Code 1.005-1.030 [facility] Comment on above: Performed By: #### 4 [id number] #### [facility] [address] [place] [address] UA Squam Epithelial 0-2 Invalid Interpretation Code [facility] Comment on above: Performed By: #### 4 [id number] #### [facility] [address] [place] [address] UA Urobilinogen Negative Normal Negative [facility] Comment on above: Performed By: #### 4 [id number] #### [facility] [address] [facility] [place] [address] UA WBC >75 Abnormal 0-5 [facility] Comment on above: Performed By: #### 4 [id number] #### [facility] [address] [facility] [place] [address] Urobilinogen (U) [Mass/Vol] Negative Normal Negative [facility] Comment on above: Performed By: #### 4 [id number] #### [facility] [address] [facility] [place] [address] UA Spec Desc Clean Catch Normal [facility] Comment on above: Performed By: #### 4 [id number] #### [facility] [address] [facility] [place] [address] C Urineon 10-31-2024 Bacteria identified Cx Nom (U) Microbiology PROCEDURE: Urine Culture [R1] SOURCE: U CleanCatch BODY SITE: COLLECTED DATE/TIME: 10/29/2024 10:29 EST RECEIVED DATE/TIME: 10/29/2024 16:04 EST START DATE/TIME: 10/29/2024 16:04 EST FREE TEXT SOURCE: Marylin Chung, Marylin FINAL REPORTS Final Report [] Verified Date/Time: 10/31/2024 08:44 EST 70,000 cfu/ml Escherichia coli SUSCEPTIBILITY RESULTS __ LEGEND: S=Susceptible, N/R=Not Reported, Blank=Data not available, or drug not advisable or tested, I=Intermediate, ESBL=Extended spectrum beta-lactamase, R=Resistant, TFG=Thymidine-dependent strain, BENITO=Beta-lactamase positive, BHUMIKA=mcg/m;(mg/L), S*=Predicted susceptible interp, R*=Predicted resistant interp EC Antibiotic BHUMIKA Dilutn BHUMIKA Interp Ampicillin >16 R Ampicillin/ 16/8 I Sulbactam Aztreonam <=4 S Cefazolin 4 S Cefepime <=2 S Ceftazidime <=1 S Ceftazidime/ <=8 S Avibactam Ceftriaxone <=1 S Cefuroxime <=4 S Ciprofloxacin <=0.25 S Ertapenem <=0.5 S Gentamicin <=2 S Levofloxacin <=0.5 S Meropenem <=1 S Nitrofurantoin <=32 S Piperacillin/ <=8 S Tazobactam Tetracycline <=4 S Tobramycin <=2 S Trimethoprim/ <=2/38 S Sulfa Performing Locations R1: This test was performed at: [facility], [address] [place] [address], [facility]- , , [facility] Comment on above: Performed By: #### 2 [id number] #### [facility] [address] [place] [address] Ambulatory Visit Summaryon 0 10-29-2024 Ambulatory Visit Summary Ambulatory Visit Summary RADHA PAEZ :1985 Visit Date:10/29/2024 Ambulatory Visit Instructions Your Diagnosis Dysuria Acute cystitis with hematuria Your Care Team Attending Physician - Viv SADLER, Marylin Primary Care Physician - Jesus SADLER, Candice Donaldson This Is Your Medications List cholecalciferol (cholecalciferol 50,000 intl units oral capsule) fluticasone nasal (Flonase 0.05 mg/inh [place]) hydrOXYzine (hydrOXYzine hydrochloride 25 mg Tab) nitrofurantoin (Macrobid 100 mg Cap) phenazopyridine (phenazopyridine 200 mg Tab) topiramate (topiramate 50 mg Tab) Procedures Performed Hysterectomy (2018), d and c, endometriosis surgery, Laparoscopy, Laparoscopy. Discharge Vitals Temperature (Oral) 36.4 ???C Blood Pressure 112/74 Height 165 cm Height 65 in Weight 53 kg Weight 116.845 lb BMI 19.47 What to do next Scheduled Follow-Up Appointments Sunday 8:00 AM EDT With: Jesus SADLER, Candice Donaldson Where: [facility] Primary Care [address] [facility], [place] [address]- Medications What How Much When Why Instructions New nitrofurantoin (Macrobid 100 mg Cap) 1 Capsules By Mouth 2 times a day Dysuria Acute cystitis with hematuria Duration: 5 Days with food Pickup at [facility] New phenazopyridine (phenazopyridine 200 mg Tab) 1 Tablets By Mouth After meals Dysuria Acute cystitis with hematuria Duration: 2 Days with food Pickup at [facility] Unchanged cholecalciferol (cholecalciferol 50,000 intl units oral capsule) 1 Capsules By Mouth Every 7 days Vitamin D deficiency Fatigue Unchanged fluticasone nasal (Flonase 0.05 mg/ inh [place]) 2 Sprays Nasal Inhalation Every day Allergic rhinitis, seasonal each nostril Unchanged hydrOXYzine (hydrOXYzine hydrochloride 25 mg Tab) 1 Tablets By Mouth 4 times a day as needed for for anxiety Generalized anxiety disorder Can cut tab in half if needed. Unchanged topiramate (topiramate 50 mg Tab) 1 Tablets By Mouth Every day Pharmacy Information [facility]: [address] [place], [place] [id number] [phone] Medications and Immunizations Administered Not Given influenza virus vaccine, inactivated, Patient Refuses Allergies Imitrex (Sore throat symptom) amitriptyline (Throat tightness) penicillins (Hives) sulfa drugs Problems Ongoing - Any problem that you are currently receiving treatment for. Allergic rhinitis, seasonal Atypical migraine Concentration deficit Generalized anxiety disorder Sinus pressure Tobacco use Vitamin D deficiency Historical - Any problem that you are no longer receiving treatment for. Acute bronchitis due to other specified organisms Acute sinusitis Blocked eustachian tube BMI 20.0-20.9, adult Body mass index (BMI) 19.9 or less, adult Cervical endometriosis Cervical strain Cigarette smoker Common migraine Complete miscarriage Dysfunction of right eustachian tube Hx of allergic rhinitis Internal hordeolum Left otitis media Migraine headache Sinusitis, acute, maxillary Stye Subacute maxillary sinusitis Viral bronchitis Viral URI Patient Survey You may receive a survey via text or e-mail asking about your office visit. Please share your experience with us by completing your survey. We appreciate your feedback and thank you for choosing us for your care. Normal [facility] Family Medicine Office/Clini c Noteon 10-29-2024 Family Medicine Office/Clinic Note Family Medicine Office/Clinic Note Chief Complaint uti HPI Staff 38 year old female presents for uti symptoms for a few days lower abdominal pain Frequency- yes Urgency- yes Small volume void- yes Dysuria- yes Pressure- denies Back pain- denies Nocturia- yes Fever/chills- denies Nausea/vomiting- denies UTI or other reason for antbx's last 30 days- denies unable to get HR and O2 due to pt's nails History of Present Illness I have reviewed and verified the staff HPI to be accurate for this encounter. Portions of this record have been created with voice recognition software. Occasional wrong-word or ???[id number]??? substitutions may have occurred due to the inherent limitations of voice recognition software. 38-year-old female presents with 2 days complaint of lower abdominal discomfort, frequency, urgency burning with urination. Patient states she has had UTIs in the past but is been few years. She denies any fever or chills. She denies any nausea vomiting. No flank pain. Patient has had kidney stones in the past but it has been a while back like she thinks in her 20s. Patient has been using Azo for her symptoms and trying to drink more water. Review of Systems PHQ Score Initial Depression Screen Score: 0 SCORE ROS negative unless otherwise stated in HPI. Physical Exam Vitals & Measurements T: 36.4 ???C(Oral) BP: 112/74 HT: 65 in HT: 165 cm WT: 53 kg WT: 116.845 lb BMI: 19.47 General: Well developed, well nourished, in no acute distress Eyes: not assessed Ears: not assessed Nose: not addressed Mouth: not assessed Neck: not assessed Lungs: clear to auscultation throughout, no wheezing, no rales. No respiratory distress respiratory rate 14 Cardio: regular rate and rhythm, no murmur heart rate 78 Abdomen: Suprapubic tenderness Musculoskeletal: No flank pain Extremity: not assessed Neurologic: Grossly normal Skin: not assessed Mental Status: Alert and oriented x3. Normal mood and affect Assessment/Plan Urinalysis completed and does show trace blood in the urine moderate leukocytes cloudy and yellow in appearance. Based on these findings we will treat her cystitis with Macrobid 100 mg twice daily for 5 days we will send urine for culture and call her with those results when available. She is to complete her course of antibiotics unless we call until her otherwise. 1. Acute cystitis with hematuria (N30.01: Acute cystitis with hematuria) UA with trace blood and leukocytes. Will treat with COVID 100 mg twice daily x 5 days. Pyridium 200 mg 3 times a day with food for the next 2 days for bladder discomfort. Medication may stay in urine. Finish course of ATB. Fluids/rest. Will cx urine and notify of results in 3-5 days. Fu with PCP if not improving over next 3-4 days with ATB or worsening. Patient and/or parent verbalized understanding of tx plan. Ordered: nitrofurantoin, 100 mg = 1 cap(s), Oral, BID, with food, X 5 day(s), # 10 cap(s), Refills(s) 0, Pharmacy: [facility], 165, cm, 10/29/24 10:20:00 EST, Height/Length Dosing, 53, kg, 10/29/24 10:20:00 EST, Weight Dosing phenazopyridine, 200 mg = 1 tab(s), Oral, TIDPC, with food, X 2 day(s), # 6 tab(s), Refills(s) 0, Pharmacy: [facility], 165, cm, 10/29/24 10:20:00 EST, Height/Length Dosing, 53, kg, 10/29/24 10:20:00 EST, Weight Dosing Dysuria (R30.0: Dysuria) Ordered: nitrofurantoin, 100 mg = 1 cap(s), Oral, BID, with food, X 5 day(s), # 10 cap(s), Refills(s) 0, Pharmacy: [facility], 165, cm, 10/29/24 10:20:00 EST, Height/Length Dosing, 53, kg, 10/29/24 10:20:00 EST, Weight Dosing phenazopyridine, 200 mg = 1 tab(s), Oral, TIDPC, with food, X 2 day(s), # 6 tab(s), Refills(s) 0, Pharmacy: [facility], 165, cm, 10/29/24 10:20:00 EST, Height/Length Dosing, 53, kg, 10/29/24 10:20:00 EST, Weight Dosing Urine Culture Urnls Dip Stick Auto w/o Microscopy POC [id number] Follow-up With When Contact Information Jesus SADLER, Candice Donaldson [address] [place] [address], [place] [address]- Additional Instructions: Patient Education Urinary Tract Infection, Adult Problem List/Past Medical History Ongoing Allergic rhinitis, seasonal Atypical migraine Concentration deficit Generalized anxiety disorder Sinus pressure Tobacco use Vitamin D deficiency Historical Acute bronchitis due to other specified organisms Acute sinusitis Blocked eustachian tube BMI 20.0-20.9, adult Body mass index (BMI) 19.9 or less, adult Cervical endometriosis Cervical strain Cigarette smoker Common migraine Complete miscarriage Dysfunction of right eustachian tube Hx of allergic rhinitis Internal hordeolum Left otitis media Migraine headache Sinusitis, acute, maxillary Stye Subacute maxillary sinusitis Viral bronchitis Viral URI Procedure/Surgical History Hysterectomy (2018), d and c, endometriosis surgery, Laparoscopy, Laparoscopy. (more content not included)... Normal [facility] Comment on above: Result Comment: Elec tronically Signed By: Marylin Chung\.br\Date and Time Signed: 10/29/24 22:39 EST Ambulatory Visit Summaryon 0 10-07-2024 Ambulatory Visit Summary Ambulatory Visit Summary RADHA PAEZ :1985 Visit Date:10/07/2024 Ambulatory Visit Instructions Your Diagnosis Sinus pressure Generalized anxiety disorder Vitamin D deficiency Tobacco use Your Care Team Attending Physician - Candice Kim Primary Care Physician - Candice Kim This Is Your Medications List cholecalciferol (cholecalciferol 50,000 intl units oral capsule) fluticasone nasal (Flonase 0.05 mg/inh [place]) hydrOXYzine (hydrOXYzine hydrochloride 25 mg Tab) topiramate (topiramate 50 mg Tab) Procedures Performed Hysterectomy (2017), d and c, endometriosis surgery, Laparoscopy, Laparoscopy. Discharge Vitals Temperature (Oral) 36.1 ???C Heart Rate (Peripheral) 66 Blood Pressure 112/60 Height 165 cm Height 65 in Weight 55.0 kg Weight 121.254 lb BMI 20.2 What to do next Scheduled Follow-Up Appointments Sunday 8:00 AM EDT With: Candice Kim Where: [facility] [email or web address], [place] [address]- You Need to Schedule the Following Appointments Follow Up with Candice Kim When: In 1 year Comments: annual wellness Where: [address], [place] [address]- You Need to Complete the Following Vitamin D 25 Hydroxy, Blood, Routine collect, 10/07/24, Order for future visit, Lab Collect, Vitamin D deficiency, Print Label By Order Location Medications What How Much When Why Instructions Unchanged cholecalciferol (cholecalciferol 50,000 intl units oral capsule) 1 Capsules By Mouth Every 7 days Vitamin D deficiency Fatigue Unchanged fluticasone nasal (Flonase 0.05 mg/ inh [place]) 2 Sprays Nasal Inhalation Every day Allergic rhinitis, seasonal each nostril Unchanged hydrOXYzine (hydrOXYzine hydrochloride 25 mg Tab) 1 Tablets By Mouth 4 times a day as needed for for anxiety Generalized anxiety disorder Can cut tab in half if needed. Unchanged topiramate (topiramate 50 mg Tab) 1 Tablets By Mouth Every day Allergies Imitrex (Sore throat symptom) amitriptyline (Throat tightness) penicillins (Hives) sulfa drugs Problems Ongoing - Any problem that you are currently receiving treatment for. Allergic rhinitis, seasonal Atypical migraine Concentration deficit Generalized anxiety disorder Sinus pressure Tobacco use Vitamin D deficiency Historical - Any problem that you are no longer receiving treatment for. Acute bronchitis due to other specified organisms Acute sinusitis Blocked eustachian tube BMI 20.0-20.9, adult Body mass index (BMI) 19.9 or less, adult Cervical endometriosis Cervical strain Cigarette smoker Common migraine Complete miscarriage Dysfunction of right eustachian tube Hx of allergic rhinitis Internal hordeolum Left otitis media Migraine headache Sinusitis, acute, maxillary Stye Subacute maxillary sinusitis Viral bronchitis Viral URI Patient Survey You may receive a survey via text or e-mail asking about your office visit. Please share your experience with us by completing your survey. We appreciate your feedback and thank you for choosing us for your care. Education Materials Managing Anxiety, Adult After being diagnosed with anxiety, you may be relieved to know why you have felt or behaved a certain way. You may also feel overwhelmed about the treatment ahead and what it will mean for your life. With care and support, you can manage your anxiety. How to manage lifestyle changes Understanding the difference between stress and anxiety Although stress can play a role in anxiety, it is not the same as anxiety. Stress is your body's reaction to life changes and events, both good and bad. Stress is often caused by something external, such as a deadline, test, or competition. It normally goes away after the event has ended and will last just a few hours. But, stress can be ongoing and can lead to more than just stress. Anxiety is caused by something internal, such as imagining a terrible outcome or worrying that something will go wrong that will greatly upset you. Anxiety often does not go away even after the event is over, and it can become a long-term (chronic) worry. Lowering stress and anxiety Talk with your health care provider or a counselor to learn more about lowering anxiety and stress. They may suggest tension-reduction techniques, such as: ??? Music. Spend time creating or listening to music that you enjoy and that inspires you. ??? Mindfulness-based meditation. Practice being aware of your normal breaths while not trying to control your breathing. It can be done while sitting or walking. ??? Centering prayer. Focus on a word, phrase, or sacred image that means something to you and brings you peace. ??? Deep breathing. Expand your stomach and inhale slowly through (more content not included)... Normal [facility] Family Medicine Office/Clini c Noteon 10-07-2024 Family Medicine Office/Clinic Note Family Medicine Office/Clinic Note Chief Complaint pt here for 6 month f/u HPI Staff Last routine labs: 06/19/24 smoker status: 10 or more flu vaccine status: due dwayne- 1 last- 0 History of Present Illness Radha is a 38 yo female presenting today for [facility] Pt reports having a migraine right now d/t sinus pressure and ear pain bilaterally. She reports her sinus-associated headaches always start with this. In the past her fluticasone spray helps after 3 days but right now it's not doing much. Pt denies CP, SOB, wheezing, chest tightness, fever, chills, body aches, cough, congestion, runny nose, sinus pressure, sore throat, changes in taste/smell/appetite, n/v/d, abd pain, GENTILE, fatigue, urinary changes, or dizziness at this time. Pt has anxiety (DWAYNE) Current medications: hydroxyzine 25mg QID PRN In therapy at [facility] Pt reports feeling well controlled and denies racing thoughts, insomnia, agitation, increased worrying, rapid heart rate, SOB at this time. Stress/DWAYNE related to caring for two sons with ADHD and recent bad relationship genesight results showed Cymbalta and Pristiq were good options but pt declined to use these with her topamax. Last DWAYNE score: 0 Patient has chronic history of migraines Controlled with: Topamax followed by Neurology Patient denies any medication side effects. Review of Systems PHQ Score Initial Depression Screen Score: 0 SCORE Physical Exam Vitals & Measurements T: 36.1 ???C(Oral) HR: 66(Peripheral) BP: 112/60 SpO2: 99% HT: 65 in HT: 165 cm WT: 55.0 kg WT: 121.254 lb BMI: 20.2 General: Well developed, well nourished, in no acute distress Eyes: Bilateral PERRLA, conjunctivae and sclerae wnl, EOMs intact, lids without stye, chalazion, ect/extropion, ptosis, xanthelasma, blepharitis. No discharge to inner canthi.Negative for corneal abrasion or foreign bodies. Ears: grossly normal hearing Nose: No deformity, discharge, inflammation, or lesions. No congestion, no erythema; pink & moist turbinates; clear rhinorrhea. Mouth: mucous membranes pink, moist and intact. [place] posterior oropharynx, no palatal inflammation, uvula midline, no cobble-stoning, no enlarged tonsils, no tonsillar exudate, no ulcers, no active post nasal drip. tongue midline and wnl. Good dentition. Neck: Neck supple. No lymphadenopathy. Trachea midline. No thyroid, masses, tenderness, or enlargement noted. No bruit. Lungs: Normal respiratory effort and clear to auscultation Cardio: Regular rate and rhythm, normal S1 and S2, no murmur, no rub Abdomen: not assessed Musculoskeletal: No deformity or scoliosis noted. No vertebral tenderness. Normal range of motion. No vertebral point tenderness. Joints normal. No erythema, edema, effusion, crepitus, or ecchymosis. Straight leg raise negative Extremity: No clubbing, cyanosis, edema, or deformity. Normal ROM with upper and lower extremities, bilaterally. Neurologic: Cranial nerves II-XII grossly intact. motor strength equal & normal bilaterally, sensation equal & normal bilaterally. Gait normal. Skin: No rashes, ulcerations, or suspicious lesions Mental Status: Alert and oriented x3. Normal mood and affect Assessment/Plan 1. Sinus pressure (J34.89: Other specified disorders of nose and nasal sinuses) PE WNL - length of sx too short to warrant antibiotic at this time likely d/t recent weather changes pt given NS lavage kit to use once daily x 1 week at home use OTC sudafed prn for sx and NSAID OTC PRN continue flonase and topiramate as prescribed Discussed red flags/when to report to ED - pt verbalized understanding 2. Generalized anxiety disorder (F41.1: Generalized anxiety disorder) DWAYNE score: 1 - stable continue hydroxyzine 25mg QID PRN Discussed red flags/when to seek emergency care and mental health support hotlines. Pt verbalized understanding of resources and when to seek emergency care and denies SI/HI at this time. f/u anually and PRN 3. Vitamin D deficiency (E55.9: Vitamin D deficiency, unspecified) Vitamin D 25 Hydroxy: 17.5 ng/mL Low (12/14/23 07:45:00) recheck level continue D3 50,000iu/week Ordered: Vitamin D 25 Hydroxy 4. Tobacco use (Z72.0: Tobacco use) Strongly recommended tobacco cessation. Tobacco use in any form harms nearly every organ of the body, causes many diseases, and reduces the health of smokers in general. Quitting tobacco lowers your risk for smoking-related diseases and can add years to your life. Visit www.smokefree.gov for helpful resources including free telephone support. If you decide on prescription treatment to help you quit, we would be happy to provide these. Follow-up With When Contact Information Candice Kim In [address] [facility], [place] [address]- Additional Instructions: annual wellness Patient Education Managing Anxiety, Adult Health Risks of Smoking Problem List/Past Medical History Ongoing Allergic rhinitis, seasonal Atypical migra (more content not included)... Normal [facility] Comment on above: Result Comment: Elec tronically Signed By: Candice Kim\.br\Date and Time Signed: 10/07/24 13:[address] Abdomen/Pelvis w/ Contras ton 08-20-2024 CT Abdomen/Pelvis w/ Contrast Exam Date/Time: 08/18/2024 15:14 EST Reason for Exam: R10.9;Pain Report IMPRESSION: NO EVIDENCE OF ACUTE ABDOMINAL OR PELVIC PATHOLOGY. CHOLELITHIASIS. RIGHT PERINEAL CYSTIC STRUCTURE. CLINICAL HISTORY: Pain, R10.9. COMMENT: Images were obtained following the administration of oral and intravenous contrast. There is a 7 mm calcified gallstone in the dependent portion of the gallbladder. The gallbladder is otherwise unremarkable, and no gallbladder wall thickening nor pericholecystic inflammatory reaction is evident. There is no biliary ductal dilatation. The liver is elongated, with Deborah's lobe like configuration. The liver is otherwise unremarkable. No focal liver lesion is evident. The spleen, pancreas, adrenal glands, and kidneys are normal in appearance. The renal collecting systems are not dilated. No retroperitoneal lymphadenopathy is evident. Venous structures are contrast opacified and unremarkable in appearance. The abdominal aorta is normal. No aneurysm is noted. There is orally administered contrast in stomach, much of the small bowel, and in the colon, scattered from the cecum to the rectum. The bowel loops are not dilated, and there is no evidence of bowel obstruction. The appendix is normal. Fecal material in the colon limits evaluation. There is no evidence of diverticulitis. No abdominal inflammatory complex nor free air nor free fluid is noted. The patient has had prior hysterectomy. The urinary bladder is unremarkable. No pelvic mass nor pelvic lymphadenopathy is evident. There is an ovoid low-attenuation noncontrast enhancing structure, with greatest diameter of 1.8 cm, in the right perineal area, and the appearance is consistent with a cystic structure. Bony structures are unremarkable. All CT scans at this facility use dose modulation, iterative reconstruction, and/or weight based dosing when appropriate to reduce radiation dose to as low as reasonably achievable. Unless otherwise stated, incidental findings identified in this report do not require routine follow-up imaging. Report Ordering Provider: RAUL GUEVARA FINAL REPORT Dictated: 08/20/2024 4:50 pm Дмитрий Fuller M.D. Signed (Electronic Signature): 08/20/2024 4:50 pm Signed by: Дмитрйи Fuller M.D. Transcribed by: JOBY Technologist: GISELLE Technical Comments GFR (mL/min/1/73m2) . Contrast: Isovue 300 Contrast amount in ml's: 100 Rectal Contrast Given? No Oral contrast amount in ml's: 900 Normal [facility] US Bladderon 08-12-2024 US Bladder Exam Date/Time: 08/07/2024 13:42 EST Reason for Exam: R10.9;Pain Report IMPRESSION: SMALL POSTVOID RESIDUAL URINARY BLADDER VOLUME. OTHERWISE, NEGATIVE BLADDER ULTRASOUND. EXAM: US Bladder DATE: 08/07/2024 12:58 PM CLINICAL HISTORY: Pain, R10.9. COMPARISON: [facility] 07/14/2024. TECHNIQUE: Transabdominal ultrasound of the urinary bladder was performed. FINDINGS: The urinary bladder is unremarkable in appearance containing approximately 180 mL of urine, with an approximately 45 mL postvoid residual volume (25%). Both ureteral jets are identified on color Doppler analysis. The uterus has been removed. Neither ovary is confidently identified. There are no abnormal masses, free fluid, or other findings of concern identified. Ordering Provider: RAUL GUEVARA FINAL REPORT Dictated: 08/12/2024 12:15 pm Rafael Brito MD Signed (Electronic Signature): 08/12/2024 12:15 pm Signed by: Rafael Brito MD Transcribed by: JOBY Technologist: PRETTY Normal [facility] Chlamydia/Gonococcus, NAAon 08-07-2024 C. trachomatis rRNA FREDDY+probe Ql (Unsp spec) Negative Invalid Interpretation Code Negative [facility] Comment on above: Performed By: #### 1 [id number] #### [facility] [address] [place] [address] N. gonorrhoeae rRNA FREDDY+probe Ql (Unsp spec) Negative Invalid Interpretation Code Negative [facility] Comment on above: Result Comment: Perf ormed at: =G [facility] [address] [id number] MD Danette Baca Performed By: #### 1 [id number] #### [facility] [address] [place] [address] Ambulatory Visit Summaryon 1 10-04-2023 Ambulatory Visit Summary Ambulatory Visit Summary RADHA PAEZ :1985 Visit Date:08/04/2024 Ambulatory Visit Instructions Your Diagnosis Abdominal pain UTI (urinary tract infection) Your Care Team Attending Physician - PINEDA NEWELL Primary Care Physician - Candice Kim This Is Your Medications List cholecalciferol (cholecalciferol 50,000 intl units oral capsule) fluconazole (fluconazole 150 mg Tab) fluticasone nasal (Flonase 0.05 mg/inh [place]) hydrOXYzine (hydrOXYzine hydrochloride 25 mg Tab) nitrofurantoin (Macrobid 100 mg Cap) topiramate (topiramate 50 mg Tab) Procedures Performed Hysterectomy (2018), d and c, endometriosis surgery, Laparoscopy, Laparoscopy. Discharge Vitals Heart Rate (Peripheral) 74 Respiratory Rate 16 Blood Pressure 102/62 Height 165 cm Height 65 in Weight 52 kg Weight 114.64 lb BMI 19.1 What to do next Scheduled Follow-Up Appointments Sunday 1:00 PM EST With: Candice Kim Where: [facility] [address], [place] [address]- You Need to Complete the Following Chlamydia trachomatis, FREDDY, Urine, Routine collect, 08/04/24, Order for future visit, Nurse collect, Abdominal pain, Print Label By Order Location Chlamydia/Gonococcus, FREDDY, Urine, Routine collect, 08/04/24, Order for future visit, Nurse collect, Abdominal pain, Print Label By Order Location Neisseria gonorrhoeae, FREDDY, Urine, Routine collect, 08/04/24, Order for future visit, Nurse collect, Abdominal pain, Print Label By Order Location CT Abdomen/Pelvis w/ Contrast, 08/04/24, Routine, Order for future visit, Transport Mode: Cart, Reason: Pain, No, No, Abdominal pain, pp_set_radiology_subspeci maty [facility] US Bladder, 08/04/24, Routine, Order for future visit, Transport Mode: Cart, Reason: Pain, No, Abdominal pain, pp_set_radiology_subspeci maty, [facility] Medications What How Much When Why Instructions New nitrofurantoin (Macrobid 100 mg Cap) 1 Capsules By Mouth 2 times a day UTI (urinary tract infection) Duration: 7 Days Pickup at [facility] Unchanged cholecalciferol (cholecalciferol 50,000 intl units oral capsule) 1 Capsules By Mouth Every 7 days Vitamin D deficiency Fatigue Unchanged fluconazole (fluconazole 150 mg Tab) See instructions Vaginal burning Take one now, take 2nd tab in 72 hours of symptoms persist Unchanged fluticasone nasal (Flonase 0.05 mg/ inh [place]) 2 Sprays Nasal Inhalation Every day Allergic rhinitis, seasonal each nostril Unchanged hydrOXYzine (hydrOXYzine hydrochloride 25 mg Tab) 1 Tablets By Mouth 4 times a day as needed for for anxiety Generalized anxiety disorder Can cut tab in half if needed. Unchanged topiramate (topiramate 50 mg Tab) 1 Tablets By Mouth Every day Pharmacy Information [facility]: [address] [place], [place] [id number] [phone] Allergies Imitrex (Sore throat symptom) amitriptyline (Throat tightness) penicillins (Hives) sulfa drugs Problems Ongoing - Any problem that you are currently receiving treatment for. Allergic rhinitis, seasonal Atypical migraine Concentration deficit Continuous dependence on cigarette smoking Fatigue Generalized anxiety disorder History of COVID-19 Tobacco use Vitamin D deficiency Well adult health check Historical - Any problem that you are no longer receiving treatment for. Acute bronchitis due to other specified organisms Acute sinusitis Blocked eustachian tube BMI 20.0-20.9, adult Body mass index (BMI) 19.9 or less, adult Cervical endometriosis Cervical strain Cigarette smoker Common migraine Complete miscarriage Dysfunction of right eustachian tube Hx of allergic rhinitis Internal hordeolum Left otitis media Migraine headache Sinusitis, acute, maxillary Stye Subacute maxillary sinusitis Viral bronchitis Viral URI Patient Survey You may receive a survey via text or e-mail asking about your office visit. Please share your experience with us by completing your survey. We appreciate your feedback and thank you for choosing us for your care. [facility] Family Medicine Office/Clini c Noteon 08-04-2024 Family Medicine Office/Clinic Note Family Medicine Office/Clinic Note HPI Staff complaints of _ lower center abdominal pain vaginal oh feel like they are Burning Onset: past 2 week no consistent Characteristics: sharp, pressure OTC tried: nothing FLU: decline History of Present Illness Radha is a 38 year old female who presents for an acute visit. She has been experiencing lower abdominal pain for a few weeks at this point. She has a history of a hysterectomy and they left the ovaries. I did review notes from an appointment she had a few weeks ago. Her recent testing was negative as well. However, she reports this pain is constant, in her low abdomen/pelvis area, and it's quite bothersome. I am going to continue the work up process, we did a UA in office which was + blood and leuks. I am going to treat for UTI, send for culture and STI's, and get some imaging. Staff HPI reviewed and accurate. Review of Systems PHQ Score Initial Depression Screen Score: 0 SCORE Physical Exam Vitals & Measurements HR: 74(Peripheral) RR: 16 BP: 102/62 SpO2: 97% HT: 65 in HT: 165 cm WT: 52 kg WT: 114.64 lb BMI: 19.1 midline lower abdomen: pain with palpation. no mass palpated Assessment/Plan 1. Abdominal pain (R10.9: Unspecified abdominal pain) UA CS STI testing CT abd US bladder Ordered: Chlamydia trachomatis, FREDDY Chlamydia/Gonococcus, FREDDY CT Abdomen/Pelvis w/ Contrast Neisseria gonorrhoeae, FREDDY Urnls Dip Stick Auto w/o Microscopy POC 08193 US Bladder UTI (urinary tract infection) (N39.0: Urinary tract infection, site not specified) Ordered: nitrofurantoin, 100 mg = 1 cap(s), Oral, BID, X 7 day(s), # 14 cap(s), Refills(s) 0, Pharmacy: [facility], 165, cm, 08/04/24 17:38:00 EST, Height/Length Dosing, 52, kg, 08/04/24 17:38:00 EST, Weight Dosing Follow-up No qualifying data available Problem List/Past Medical History Ongoing Allergic rhinitis, seasonal Atypical migraine Concentration deficit Continuous dependence on cigarette smoking Fatigue Generalized anxiety disorder History of COVID-19 Tobacco use Vitamin D deficiency Well adult health check Historical Acute bronchitis due to other specified organisms Acute sinusitis Blocked eustachian tube BMI 20.0-20.9, adult Body mass index (BMI) 19.9 or less, adult Cervical endometriosis Cervical strain Cigarette smoker Common migraine Complete miscarriage Dysfunction of right eustachian tube Hx of allergic rhinitis Internal hordeolum Left otitis media Migraine headache Sinusitis, acute, maxillary Stye Subacute maxillary sinusitis Viral bronchitis Viral URI Procedure/Surgical History Hysterectomy (2018), d and c, endometriosis surgery, Laparoscopy, Laparoscopy. Medications cholecalciferol 50,000 intl units oral capsule, 1250 mcg= 1 cap(s), Oral, q7day Flonase 0.05 mg/inh [place], 2 spray(s), Nasal, Daily fluconazole 150 mg Tab, See Instructions hydrOXYzine hydrochloride 25 mg Tab, 25 mg= 1 tab(s), Oral, QID, PRN, 3 refills Macrobid 100 mg Cap, 100 mg= 1 cap(s), Oral, BID topiramate 50 mg Tab, 50 mg= 1 tab(s), Oral, Daily, 3 refills Allergies Imitrex (Sore throat symptom) amitriptyline (Throat tightness) penicillins (Hives) sulfa drugs Social History Alcohol - Denies Alcohol Use, 04/16/2019 Never., 07/14/2024 Substance Abuse - Denies Substance Abuse, 04/16/2019 Never., 07/14/2024 Tobacco - High Risk, 04/16/2019 10 or more cigarettes (1/2 pack or more)/day in last 30 days Tobacco Use:. Cigarettes, Started age 16.0 Years. Previous treatment: None. Ready to change: Yes. Household tobacco concerns: No. Yes, 08/04/2024 Family History Hypertension: Father. Immunizations Vaccine Date Status Comments influenza virus vaccine, inactivated - Not Given Patient Refuses influenza virus vaccine, inactivated - Not Given Patient Refuses SARS-CoV-2 (COVID-19) mRNA BNT-162b2 vax 11/26/2021 Recorded SARS-CoV-2 (COVID-19) mRNA BNT-162b2 vax 11/05/2021 Recorded influenza virus vaccine, inactivated - Not Given Patient Refuses SARS-CoV-2 (COVID-19) Ad26 vaccine - Not Given Postpone due to refusal influenza virus vaccine, inactivated - Not Given Patient Refuses influenza virus vaccine, inactivated - Not Given Patient Refuses influenza virus vaccine, live, trivalent - Not Given Patient Refuses diphtheria/pertussis, acel/tetanus adult 06/19/2019 Given Lab Results Ambulatory Point of Care Results Bilirubin Urine Dipstick: Negative (08/04/24 17:51:00) Blood Urine Dipstick: Trace-intact (08/04/24 17:51:00) Glucose Urine Dipstick: Negative (08/04/24 17:51:00) Ketones Urine Dipstick: Negative (08/04/24 17:51:00) Leukocytes Urine Dipstick: Trace (08/04/24 17:51:00) Nitrite Urine Dipstick: Negative (08/04/24 17:51:00) Protein Urine Dipstick: Negative (08/04/24 17:51:00) Specific [place] Urine Dipstick: 1.015 (08/04/24 17:51:00) Urine Appearance Urine Dipstick: Clear (08/04/24 17:51:00) Urine Color (more content not included)... [facility] Comment on above: Result Comment: Elec tronically Signed By: PINEDA NEWELL\.br\Date and Time Signed: 08/04/24 18:08 EST XR Abdomen 1 Viewon 10-30-20 24 XR Abdomen 1 View Exam Date/Time: 07/14/2024 11:43 EDT Reason for Exam: KUB Report IMPRESSION: NONOBSTRUCTIVE BOWEL GAS PATTERN. NO URINARY TRACT CALCULI IDENTIFIED BY RADIOGRAPHY. EXAMINATION: XR Abdomen 1 View HISTORY: Pelvic pain TECHNIQUE: Frontal view of the abdomen and pelvis COMPARISON: Radiographs 02/23/2016 FINDINGS: No calcifications identified over the bilateral renal shadows or expected course of the ureters. Nonobstructive bowel gas pattern. No evidence of free air. No acute osseous abnormality. Ordering Provider: Heather Hammer FINAL REPORT Dictated: 07/16/2024 3:18 pm Hilario Duron DO Signed (Electronic Signature): 07/16/2024 3:18 pm Signed by: Hilario Duron DO Transcribed by: JOBY Technologist: DOROTHY Technical Comments Radiation Dose: Ka,r in mGy = 0 DAP = 0 [facility] Ambulatory Visit Summaryon 1 Ambulatory Visit Summary Ambulatory Visit Summary RADHA PAEZ :1985 Visit Date:07/14/2024 Ambulatory Visit Instructions Your Diagnosis UTI symptoms Vaginal burning Your Care Team Attending Physician - Heather Anderson Primary Care Physician - Candice Kim This Is Your Medications List cholecalciferol (cholecalciferol 50,000 intl units oral capsule) fluconazole (fluconazole 150 mg Tab) fluticasone nasal (Flonase 0.05 mg/inh [place]) hydrOXYzine (hydrOXYzine hydrochloride 25 mg Tab) topiramate (topiramate 50 mg Tab) Procedures Performed Hysterectomy (2017), d and c, endometriosis surgery, Laparoscopy, Laparoscopy. Discharge Vitals Temperature (Oral) 36.5 ???C Heart Rate (Peripheral) 62 Blood Pressure 116/70 Height 165 cm Height 65 in Weight 52.8 kg Weight 116.16 lb BMI 19.39 What to do next Scheduled Follow-Up Appointments Sunday 1:00 PM EST With: Candice Kim Where: [facility] [address] [place] [address], [place] [address]- You Need to Complete the Following XR Abdomen 1 View, 07/14/24, Routine, Order for future visit, Transport Mode: Cart, Reason: Abdominal pain, No, UTI symptoms, [email or web address]_subspeci Elijah rutledge [facility] Medications What How Much When Why Instructions New fluconazole (fluconazole 150 mg Tab) See instructions Vaginal burning Take one now, take 2nd tab in 72 hours of symptoms persist Pickup at [facility] Unchanged cholecalciferol (cholecalciferol 50,000 intl units oral capsule) 1 Capsules By Mouth Every 7 days Vitamin D deficiency Fatigue Unchanged fluticasone nasal (Flonase 0.05 mg/ inh [place]) 2 Sprays Nasal Inhalation Every day Allergic rhinitis, seasonal each nostril Unchanged hydrOXYzine (hydrOXYzine hydrochloride 25 mg Tab) 1 Tablets By Mouth 4 times a day as needed for for anxiety Generalized anxiety disorder Can cut tab in half if needed. Unchanged topiramate (topiramate 50 mg Tab) 1 Tablets By Mouth Every day Pharmacy Information [facility]: [address] [phone] Allergies Imitrex (Sore throat symptom) amitriptyline (Throat tightness) penicillins (Hives) sulfa drugs Problems Ongoing - Any problem that you are currently receiving treatment for. Allergic rhinitis, seasonal Atypical migraine Concentration deficit Continuous dependence on cigarette smoking Fatigue Generalized anxiety disorder History of COVID-19 Tobacco use Vitamin D deficiency Well adult health check Historical - Any problem that you are no longer receiving treatment for. Acute bronchitis due to other specified organisms Acute sinusitis Blocked eustachian tube BMI 20.0-20.9, adult Body mass index (BMI) 19.9 or less, adult Cervical endometriosis Cervical strain Cigarette smoker Common migraine Complete miscarriage Dysfunction of right eustachian tube Hx of allergic rhinitis Internal hordeolum Left otitis media Migraine headache Sinusitis, acute, maxillary Stye Subacute maxillary sinusitis Viral bronchitis Viral URI Patient Survey You may receive a survey via text or e-mail asking about your office visit. Please share your experience with us by completing your survey. We appreciate your feedback and thank you for choosing us for your care. [facility] Family Medicine Office/Clini c Noteon 10-28-2024 Family Medicine Office/Clinic Note Family Medicine Office/Clinic Note Chief Complaint UTI symptoms HPI Staff Patient here today with complaints of UTI sx. Had diarrhea a few days ago and then started having abdominal pain and radiating up back area. States she did pass a mucous bloody thing Frequency - no Urgency - no Small volume -no Dysuria -no Pressure -yes Back pain -yes Nocturia -no Fever/chills -no N&V -no UTI or other reason for atb the last 30 days -no History of Present Illness I have reviewed and discussed the HPI (staff) with the patient today. Information was verified and is correct. Additional information provided if needed. Pt of Candice [facility], reports to office today for acute visit with concern for burning and pain with urination along with lower abdominal pain. States she has had diarrhea since Sunday--multiple episodes of diarrhea sunday and sunday, has slowed down since then, no BM today. Pain in lower abdomen has been going on since Sunday. She feels that she passed a some mucus/blood in her urine last night but that it only occurred one time, nothing on tissue when wiping. She states she has been drinking plenty of water. She wonders if it could be a kidney stone as she thinks she has had those in the past. She denies concern for STI at this time, is sexually active. Is unsure whether it could be a yeast infection as she does have vaginal burning and always has vaginal discharge. Has had yeast infections in the past. Denies vaginal bleeding, reports hx hysterectomy. Declines pelvic exam today. She denies fever/chills, body aches, shortness of breath, chest pain, dizziness, headaches, heart palpitations. UA negative in office Review of Systems PHQ Score Initial Depression Screen Score: 0 SCORE ROS negative unless otherwise stated in HPI. Physical Exam Vitals & Measurements T: 36.5 ???C(Oral) HR: 62(Peripheral) BP: 116/70 SpO2: 100% HT: 65 in HT: 165 cm WT: 52.8 kg WT: 116.16 lb BMI: 19.39 PHYSICAL EXAM General: Well developed, well nourished, no apparent distress Head:Normocephalic, atraumatic Eyes:EOMI, sclera clear Mouth:Mucosa moist. Neck:No bruit, symmetric Lungs:Lungs clear to auscultation Cardio:Regular rate and rhythm with no murmur Pulses:Pulses present in all four extremities Abdomen:Normal bowel sounds, non tender, no masses : not evaluated Musculoskeletal:Normal ROM of extremities, self ambulating Neuro:grossly normal Mental Status: Alert and cooperative with appropriate mood and affect Assessment/Plan 1. UTI symptoms (R39.9: Unspecified symptoms and signs involving the genitourinary system) Acute, UA negative in office today. Will order KUB to assess for stone due to pt report of lower abd/pelvic pain. Encourage pt to stay well hydrated. Pt aware of red flags/when to seek emergency medical evaluation. Pt to follow up with pcp if symptoms persist or worsen. We will call with results. Ordered: Urnls Dip Stick Auto w/o Microscopy POC 00330 XR Abdomen 1 View 2. Vaginal burning (N94.89: Other specified conditions associated with female genital organs and menstrual cycle) See #1. Will order fluconazole for treatment of vaginal yeast infection per pt reported symptoms. Medication education provided. Pt to follow up if symptoms persist or worsen. Ordered: fluconazole, See Instructions, Take one now, take 2nd tab in 72 hours of symptoms persist, # 2 tab(s), Refills(s) 0, Pharmacy: [facility], 165, cm, 07/14/24 8:52:00 EDT, Height/Length Dosing, 52.8, kg, 07/14/24 9:02:00 EDT, Weight Dosing Follow-up With When Contact Information Jesus SADLER, Candice Donaldson [address] [facility], [place] [address]- Additional Instructions: Problem List/Past Medical History Ongoing Allergic rhinitis, seasonal Atypical migraine Concentration deficit Continuous dependence on cigarette smoking Fatigue Generalized anxiety disorder History of COVID-19 Tobacco use Vitamin D deficiency Well adult health check Historical Acute bronchitis due to other specified organisms Acute sinusitis Blocked eustachian tube BMI 20.0-20.9, adult Body mass index (BMI) 19.9 or less, adult Cervical endometriosis Cervical strain Cigarette smoker Common migraine Complete miscarriage Dysfunction of right eustachian tube Hx of allergic rhinitis Internal hordeolum Left otitis media Migraine headache Sinusitis, acute, maxillary Stye Subacute maxillary sinusitis Viral bronchitis Viral URI Procedure/Surgical History Hysterectomy (2018), d and c, endometriosis surgery, Laparoscopy, Laparoscopy. Medications cholecalciferol 50,000 intl units oral capsule, 1250 mcg= 1 cap(s), Oral, q7day Flonase 0.05 mg/inh [place], 2 spray(s), Nasal, Daily fluconazole 150 mg Tab, See Instructions hydrOXYzine hydrochloride 25 mg Tab, 25 mg= 1 tab(s), Oral, QID, PRN, 3 refills topiramate 50 mg Tab, 50 mg= 1 tab(s), Oral, Daily, 3 refills Al (more content not included)... [facility] Comment on above: Result Comment: Elec tronically Signed By: Harman MATT, Heather Booker\.br\Date and Time Signed: 07/14/24 10:45 EDT Provider Letteron 07-14-2024 Provider Letter Provider Letter July 14, 2024 RADHA PHILIPPE [facility] [place] [address] : 1985 To Whom It May Concern, Please excuse above patient from work. Date of Illness: From: 07/14/2024 To: 07/14/2024 May Return to Work On: 07/15/2024 Restrictions: None Comments: Any questions contact the office number listed below. Sincerely, [facility] [address] [place] [address], [facility] [place] [id number] [facility] Ambulatory Visit Summaryon 1 Ambulatory Visit Summary Ambulatory Visit Summary RADHA PAEZ :1985 Visit Date:06/23/2024 Ambulatory Visit Instructions Your Diagnosis Well adult health check Body mass index (BMI) of 19.0 to 19.9 in adult Your Care Team Attending Physician - Mello LÓPEZ DO, FAAFP Primary Care Physician - Jesus SADLER, Candice Donaldson This Is Your Medications List cholecalciferol (cholecalciferol 50,000 intl units oral capsule) fluticasone nasal (Flonase 0.05 mg/inh [place]) hydrOXYzine (hydrOXYzine hydrochloride 25 mg Tab) topiramate (topiramate 50 mg Tab) Procedures Performed Hysterectomy (2018), d and c, endometriosis surgery, Laparoscopy, Laparoscopy. Discharge Vitals Temperature (Oral) 36.5 ?C Heart Rate (Peripheral) 79 Respiratory Rate 16 Blood Pressure 110/68 Height 165 cm Height 65 in Weight 52.3 kg Weight 115.06 lb BMI 19.21 What to do next Scheduled Follow-Up Appointments Sunday 1:00 PM EST With: Jesus SADLER, Candice Donaldson Where: [facility] [address], [place] [address]- You Need to Schedule the Following Appointments Follow Up with DUGLAS BRAND FAAFP, EMMA Rodgers, PED When: In 2 months Where: [address], [place] [address]- You Need to Complete the Following HCV Antibody RFX to Quant PCR, Blood, Routine collect, 06/23/24, Order for future visit, Lab Collect, Well adult health check, Print Label By Order Location HCV Antibody RFX to Quant PCR, Blood, Routine collect, 06/23/24, Order for future visit, Lab Collect, Well adult health check, Print Label By Order Location HIV Screen 4th Generation wRfx, Blood, Routine collect, 06/23/24, Order for future visit, Lab Collect, [facility] adult health check, Print Label By Order Location Medications What How Much When Why Instructions Unchanged cholecalciferol (cholecalciferol 50,000 intl units oral capsule) 1 Capsules By Mouth Every 7 days Vitamin D deficiency Fatigue Unchanged fluticasone nasal (Flonase 0.05 mg/ inh [place]) 2 Sprays Nasal Inhalation Every day Allergic rhinitis, seasonal each nostril Unchanged hydrOXYzine (hydrOXYzine hydrochloride 25 mg Tab) 1 Tablets By Mouth 4 times a day as needed for for anxiety Generalized anxiety disorder Can cut tab in half if needed. Unchanged topiramate (topiramate 50 mg Tab) 1 Tablets By Mouth Every day Allergies Imitrex (Sore throat symptom) amitriptyline (Throat tightness) penicillins (Hives) sulfa drugs Problems Ongoing - Any problem that you are currently receiving treatment for. Allergic rhinitis, seasonal Atypical migraine Concentration deficit Continuous dependence on cigarette smoking Fatigue Generalized anxiety disorder History of COVID-19 Tobacco use Vitamin D deficiency Well adult health check Historical - Any problem that you are no longer receiving treatment for. Acute bronchitis due to other specified organisms Acute sinusitis Blocked eustachian tube BMI 20.0-20.9, adult Body mass index (BMI) 19.9 or less, adult Cervical endometriosis Cervical strain Cigarette smoker Common migraine Complete miscarriage Dysfunction of right eustachian tube Hx of allergic rhinitis Internal hordeolum Left otitis media Migraine headache Sinusitis, acute, maxillary Stye Subacute maxillary sinusitis Viral bronchitis Viral URI Patient Survey You may receive a survey via text or e-mail asking about your office visit. Please share your experience with us by completing your survey. We appreciate your feedback and thank you for choosing us for your care. Education Materials Health Maintenance, Female Adopting a healthy lifestyle and getting preventive care are important in promoting health and wellness. Ask your health care provider about: ? The right schedule for you to have regular tests and exams. ? Things you can do on your own to prevent diseases and keep yourself healthy. What should I know about diet, weight, and exercise? Eat a healthy diet ? Eat a diet that includes plenty of vegetables, fruits, low-fat dairy products, and lean protein. ? Do not eat a lot of foods that are high in solid fats, added sugars, or sodium. Maintain a healthy weight Body mass index (BMI) is used to identify weight problems. It estimates body fat based on height and weight. Your health care provider can help determine your BMI and help you achieve or maintain a healthy weight. Get regular exercise Get regular exercise. This is one of the most important things you can do for your health. Most adults should: ? Exercise for at least 150 minutes each week. The exercise should increase your heart rate and make you sweat (moderate-intensity exercise). ? Do strengthening exercises at least twice a week. This is in addition to the moderate-intensity exercise. ? Spend less time sitting (more content not included)... [facility] Family Medicine Office/Clini c Noteon 06-23-2024 Family Medicine Office/Clinic Note Family Medicine Office/Clinic Note Chief Complaint Wellness Visit. Had blood work done. History of Present Illness Here for follow up Have you had any ER visits or any hospitalizations since last visit? no Are you compliant with your medications and no difficulty affording your medications? yes Do you have side effects from the medication? no Are you compliant with your diet? yes Do you exercise? yes Do you have any of the following symptoms? Chest pain? no Palpitations? no MATTSON/SOB? no Orthopnea? no PND? no Edema? no Have you had any recent cardiopulmonary testing? no Wellness Visit. Had blood work done. Review of Systems PHQ Score Initial Depression Screen Score: 0 SCORE ROS - Provider Constitutional: no fever, no chills, no sweats, no weakness. Skin: no Jaundice, no rash, no lesions, no petechiae. ENMT: no ear pain, no sore throat, no congestion, no hoarseness. Respiratory: no shortness of breath, no cough, no orthopnea, no wheezing. Cardiovascular: no chest pain, no palpitations, no edema. Gastrointestinal: no nausea, no vomiting, no diarrhea, no GI bleeding.no constipationnoheartburn Genitourinary: no dysuria, no hematuria, no discharge, no pain.nofreq/urgency Musculoskeletal: no back pain, no trauma.nojoint pain Neurologic: no headache, no dizziness, no numbness, no weakness. Psychiatric: no sleeping problems, no irritability, no mood swings/depression. Heme/Lymph: no bleeding tendency, no bruising tendency, no petechiae, no swollen lymph nodes no Allergy/Imunology no seasonal allergies, no food allergies, no recurrent infections, no impaired immunity. Additional ROS info: Except as noted in the above Review of Systems and in the History of Present Illness all other systems have been reviewed and are negative or noncontributory. Physical Exam Vitals & Measurements T: 36.5 ?C(Oral) HR: 79(Peripheral) RR: 16 BP: 110/68 SpO2: 99% HT: 65 in HT: 165 cm WT: 52.3 kg WT: 115.06 lb BMI: 19.21 General: Well developed, well nourished, in no acute distress Mouth: Mucous membranes moist. Normal oropharynx, and posterior pharynx without lesions or exudates. Tongue normal Neck: Neck supple. No masses or palpable cervical nodes. Trachea midline. Thyroid without nodules, masses, tenderness, or enlargement Lungs: Normal respiratory effort and clear to auscultation Cardio: Regular rate and rhythm, normal S1 and S2, no murmur, no rub Abdomen: Soft, non-distended, non-tender. no G/R/S/Masses Musculoskeletal: No deformity or scoliosis noted. Normal range of motion. Joints normal. No erythema, edema, effusion, or ecchymosis Extremity: No clubbing, cyanosis, edema, or deformity, with normal ROM in both upper and lower bilateral extremities Neurologic: Grossly normal Skin: No rashes, ulcerations, or suspicious lesions Mental Status: Alert and oriented x3. Normal mood and affect Assessment/Plan 1. Well adult health check (Z00.00: Encounter for general adult medical examination without abnormal findings) reviewed lab Ordered: HCV Antibody RFX to Quant PCR HCV Antibody RFX to Quant PCR HIV Screen 4th Generation wRfx New Preventive 18 to 39 years [address] 2. Body mass index (BMI) of 19.0 to 19.9 in adult (Z68.1: Body mass index [BMI] 19.9 or less, adult) The standard range for ages 18 and older is >=18.5 and < 25 kg/m2. Your BMI today was above this range, this falls in the overweight to obese category and there are medical benefits to weight loss. We can offer counselling, referral, and/or medical support in addressing this problem. Your BMI and weight management will be followed at subsequent visits. Ordered: New Preventive 18 to 39 years [address] Follow-up With When Contact Information DUGLAS BRAND FAAFP, Mello Quezada, EMMA, PED In [address] [facility], [place] [address]- Additional Instructions: Patient Education Health Maintenance, Female Problem List/Past Medical History Ongoing Allergic rhinitis, seasonal Atypical migraine Concentration deficit Continuous dependence on cigarette smoking Fatigue Generalized anxiety disorder History of COVID-19 Tobacco use Vitamin D deficiency Well adult health check Historical Acute bronchitis due to other specified organisms Acute sinusitis Blocked eustachian tube BMI 20.0-20.9, adult Body mass index (BMI) 19.9 or less, adult Cervical endometriosis Cervical strain Cigarette smoker Common migraine Complete miscarriage Dysfunction of right eustachian tube Hx of allergic rhinitis Internal hordeolum Left otitis media Migraine headache Sinusitis, acute, maxillary Stye Subacute maxillary sinusitis Viral bronchitis Viral URI Procedure/Surgical History Hysterectomy (2018), d and c, endometriosis surgery, Laparoscopy, Laparoscopy. Medications cholecalciferol 50,000 intl units oral capsule, 1250 mcg= 1 cap(s), Oral, q7day Flonase 0.05 mg/inh [place], 2 spray(s), N (more content not included)... Normal [facility] Comment on above: Result Comment: Elec tronically Signed By: DUGLAS BRAND FAAFP, Mello Quezada\grabiel\Date and Time Signed: 06/23/24 16:03 EDT BMPon 06-19-2024 Anion gap [Moles/Vol] 9 mmol/L Normal 6-16 [facility] Comment on above: Performed By: #### 2 [id number] #### [facility] [address] [place] [address] Calcium [Mass/Vol] 9.2 mg/dL Normal 8.9-11.1 [facility] Comment on above: Performed By: #### 2 [id number] #### [facility] [address] [place] [address] Chloride [Moles/Vol] 108 mmol/L Normal 101-111 [facility] Comment on above: Performed By: #### 2 [id number] #### [facility] [address] [place] [address] CO2 [Moles/Vol] 24 mmol/L Normal 21-31 [facility] Comment on above: Performed By: #### 2 150852 #### [facility] [address] [place] [address] Creatinine [Mass/Vol] 0.8 mg/dL Normal 0.5-1.3 [facility] Comment on above: Performed By: #### 2 654228 #### [facility] [address] [place] [address] Glucose [Mass/Vol] 82 mg/dL Normal 55-199 [facility] Comment on above: Performed By: #### 2 107016 #### [facility] [address] [place] [address] Potassium [Moles/Vol] 4.1 mmol/L Normal 3.5-5.3 [facility] Comment on above: Performed By: #### 2 717295 #### [facility] [address] [place] [address] Sodium [Moles/Vol] 137 mmol/L Normal 135-145 [facility] Comment on above: Performed By: #### 2 364596 #### [facility] [address] [place] [address] Urea nitrogen [Mass/Vol] 8 mg/dL Normal 5-21 [facility] Comment on above: Performed By: #### 2 497837 #### [facility] [address] [place] [address] Urea nitrogen/Creatinine [Mass ratio] 10 No Units Normal 10-20 [facility] Comment on above: Performed By: #### 2 664420 #### [facility] [address] [place] [address] CBC w/ Auto Diffon 4 Basophils/100 WBC (Bld) 1.4 % Normal 0.0-2.0 [facility] Comment on above: Performed By: #### 2 027340 #### [facility] [address] [place] [address] Basophils/Leukocytes Auto (Bld) [Pure # fraction] 0.1 E9/L Normal 0.0-0.2 [facility] Comment on above: Performed By: #### 2 726502 #### [facility] [address] [place] [address] Eosinophils (Bld) [#/Vol] 0.2 E9/L Normal 0.0-0.5 [facility] Comment on above: Performed By: #### 2 670988 #### [facility] [address] [place] [address] Eosinophils/100 WBC (Bld) 2.3 % Normal 0.0-8.0 [facility] Comment on above: Performed By: #### 2 617041 #### [facility] [address] [place] [address] Erythrocyte distribution width (RBC) [Ratio] 13.3 % Normal 10.9-14.2 [facility] Comment on above: Performed By: #### 2 043443 #### [facility] [address] [place] [address] Hematocrit (Bld) [Volume fraction] 41.9 % Normal 34.0-46.0 [facility] Comment on above: Performed By: #### 2 577909 #### [facility] [address] [place] [address] Hemoglobin (Bld) [Mass/Vol] 14.2 g/dL Normal 12.0-16.0 [facility] Comment on above: Performed By: #### 2 531600 #### [facility] [address] [place] [address] Lymphocytes (Bld) [#/Vol] 0.8 E9/L Low 1.0-4.0 [facility] Comment on above: Performed By: #### 2 526803 #### [facility] [address] [place] [address] Lymphocytes/100 WBC (Bld) 10.5 % Low 14.0-50.0 [facility] Comment on above: Performed By: #### 2 864866 #### [facility] [address] [place] [address] MCH (RBC) [Entitic mass] 29.6 pg Normal 27.0-34.0 [facility] Comment on above: Performed By: #### 2 499086 #### [facility] [address] [place] [address] MCHC (RBC) [Mass/Vol] 33.8 g/dL Normal 31.4-36.0 [facility] Comment on above: Performed By: #### 2 190237 #### [facility] [address] [place] [address] MCV (RBC) [Entitic vol] 87.5 fL Normal 80.0-100.0 [facility] Comment on above: Performed By: #### 2 124280 #### [facility] [address] [place] [address] Monocytes (Bld) [#/Vol] 0.6 E9/L Normal 0.2-1.0 [facility] Comment on above: Performed By: #### 2 497791 #### [facility] [address] [place] [address] Neutrophils (Bld) [#/Vol] 5.9 E9/L Normal 2.0-7.5 [facility] Comment on above: Performed By: #### 2 900947 #### [facility] [address] [place] [address] Neutrophils/100 WBC (Bld) 77.6 % High 36.0-75.0 [facility] Comment on above: Performed By: #### 2 205988 #### [facility] [address] [place] [address] Platelet mean volume (Bld) [Entitic vol] 9.0 fL Normal 6.4-10.8 [facility] Comment on above: Performed By: #### 2 024128 #### [facility] [address] [place] [address] Platelets (Bld) [#/Vol] 207.0 E9/L Normal 150.0-500.0 [facility] Comment on above: Performed By: #### 2 649763 #### [facility] [address] [place] [address] RBC (Bld) [#/Vol] 4.8 E12/L Normal 4.3-5.9 [facility] Comment on above: Performed By: #### 2 140131 #### [facility] [address] [place] [address] WBC corrected for nucl RBC Auto (Bld) [#/Vol] 7.6 E9/L Normal 4.0-11.0 [facility] Comment on above: Performed By: #### 2 842098 #### [facility] [address] [place] [address] CHEMISTRYOrdered By: SYSTEM SYSTEM on 06-19-2024 Albumin [Mass/Vol] 4.4 g/dL Normal 3.3 - 5.0 gm/dL [facility] Albumin/Globulin [Mass ratio] 1.6 {ratio} Normal 1.1 - 2.2 [facility] ALP [Catalytic activity/Vol] 53 [iU]/d Normal 21 - 98 Int._Unit/L [facility] ALT No additional P-5'-P [Catalytic activity/Vol] 9 [iU]/d Normal 6 - 46 Int._Unit/L [facility] Anion gap [Moles/Vol] 9 mmol/L Normal 6 - 16 mEq/L [facility] AST [Catalytic activity/Vol] 12 [iU]/d Normal 5 - 43 Int._Unit/L [facility] Bilirubin [Mass/Vol] 0.8 mg/dL Normal 0.0 - 1 .1 mg/dL [facility] Bilirubin.direct [Mass/Vol] 0.1 mg/dL Normal 0.0 - 0.4 mg/dL [facility] Bilirubin.indirect [Mass or moles/Vol] 0.7 mg/dL Normal 0.1 - 0.9 mg/dL [facility] Calcium [Mass/Vol] 9.2 mg/dL Normal 8.9 - 11. 1 mg/dL [facility] Chloride [Moles/Vol] 108 mmol/L Normal 101 - 1 11 mmol/L [facility] Cholesterol [Mass/Vol] 131 mg/dL Normal 120 - 200 mg/dL [facility] Cholesterol in HDL [Mass/Vol] 43 mg/dL Invalid Interpretation Code [facility] Comment on above: Result Comment: '>= 60 LOW RISK' '<= 40 HIGH RISK' Cholesterol in LDL [Mass/Vol] 87 mg/dL Normal <=129mg/dL [facility] Cholesterol in VLDL [Mass/Vol] 15 mg/dL Normal 7 - 40 mg/dL [facility] CO2 [Moles/Vol] 24 mmol/L Normal 21 - 31 mmol/L [facility] Creatinine [Mass/Vol] 0.8 mg/dL Normal 0.5 - 1.3 mg/dL [facility] eGFR 96 mL/min/1.73 m2 Normal >=59mL/min /1.7 3 m2 [facility] Globulin (S) [Mass/Vol] 2.7 g/dL Normal 1.4 - 4.0 gm/dL [facility] Glucose [Mass/Vol] 82 mg/dL Normal 55 - 199 mg/dL Re mis[facility] Chem Potassium [Moles/Vol] 4.1 mmol/L Normal 3.5 - 5.3 mmol/L [facility] Protein [Mass/Vol] 7.1 g/dL Normal 6.0 - 7.8 gm/dL [facility] Sodium [Moles/Vol] 137 mmol/L Normal 135 - 145 mmol/L [facility] Triglyceride [Mass/Vol] 74 mg/dL Normal <=149mg/dL [facility] TSH Qn 1.77 m[IU]/L Normal 0.34 - 5.60 mcIU/mL [facility] Urea nitrogen [Mass/Vol] 8 mg/dL Normal 5 - 21 mg/dL [facility] Urea nitrogen/Creatinine [Mass ratio] 10 mg/mg Normal 10 - 20 [facility] HEMATOLOGYOrdered By: SYSTEM SYSTEM on 06-19-2024 Basophils/100 WBC (Bld) 1.4 % Normal 0.0 - 2.0 % [facility] Basophils/Leukocytes Auto (Bld) [Pure # fraction] 0.1 E9/L Normal 0.0 - 0.2 E9/L [facility] Eosinophils (Bld) [#/Vol] 0.2 E9/L Normal 0.0 - 0.5 E9/L [facility] Eosinophils/100 WBC (Bld) 2.3 % Normal 0.0 - 8.0 % [facility] Erythrocyte distribution width (RBC) [Ratio] 13.3 % Normal 10.9 - 14.2 % [facility] Hematocrit (Bld) [Volume fraction] 41.9 % Normal 34.0 - 46.0 % [facility] Hemoglobin (Bld) [Mass/Vol] 14.2 g/dL Normal 12.0 - 16.0 gm/dL [facility] Lymphocytes (Bld) [#/Vol] 0.8 E9/L Low 1.0 - 4.0 E9/L [facility] Lymphocytes/100 WBC (Bld) 10.5 % Low 14.0 - 50.0 % [facility] MCH (RBC) [Entitic mass] 29.6 pg Normal 27.0 - 34.0 pg [facility] MCHC (RBC) [Mass/Vol] 33.8 g/dL Normal 31.4 - 36.0 gm/dL [facility] MCV (RBC) [Entitic vol] 87.5 fL Normal 80.0 - 100.0 fL [facility] Monocytes (Bld) [#/Vol] 0.6 E9/L Normal 0.2 - 1.0 E9/L [facility] Monocytes/100 WBC (Bld) 8.2 % Normal 4.0 - 14.0 % [facility] Neutrophils (Bld) [#/Vol] 5.9 E9/L Normal 2.0 - 7.5 E9/L [facility] Neutrophils/100 WBC (Bld) 77.6 % High 36.0 - 75.0 % [facility] Platelet mean volume (Bld) [Entitic vol] 9.0 fL Normal 6.4 - 10.8 fL [facility] Platelets (Bld) [#/Vol] 207.0 E9/L Normal 150.0 - 500.0 E9/L [facility] RBC (Bld) [#/Vol] 4.8 E12/L Normal 4.3 - 5.9 E12/L [facility] WBC corrected for nucl RBC Auto (Bld) [#/Vol] 7.6 E9/L Normal 4.0 - 11.0 E9/L [facility] Hep Func Panelon 06-19-2024 Albumin [Mass/Vol] 4.4 g/dL Normal 3.3-5.0 [facility] Comment on above: Performed By: #### 2 [id number] #### [facility] [address] [place] [address] Albumin/Globulin (S) [Mass conc ratio] 1.6 Normal 1.1-2.2 [facility] Comment on above: Performed By: #### 2 937210 #### [facility] [address] [place] [address] ALP [Catalytic activity/Vol] 53 Int._Unit/L Normal 21-98 [facility] Comment on above: Performed By: #### 2 892855 #### [facility] [address] [place] [address] ALT No additional P-5'-P [Catalytic activity/Vol] 9 Int._Unit/L Normal 6-46 [facility] Comment on above: Performed By: #### 2 873522 #### [facility] [address] [place] [address] AST [Catalytic activity/Vol] 12 Int._Unit/L Normal 5-43 [facility] Comment on above: Performed By: #### 2 670286 #### [facility] [address] [place] [address] Bilirubin [Mass/Vol] 0.8 mg/dL Normal 0.0-1.1 [facility] Comment on above: Performed By: #### 2 278497 #### [facility] [address] [place] [address] Bilirubin.direct [Mass/Vol] 0.1 mg/dL Normal 0.0-0.4 [facility] Comment on above: Performed By: #### 2 858114 #### [facility] [address] [place] [address] Bilirubin.indirect [Mass or moles/Vol] 0.7 mg/dL Normal 0.1-0.9 [facility] Comment on above: Performed By: #### 2 779527 #### [facility] [address] [place] [address] Globulin (S) [Mass/Vol] 2.7 g/dL Normal 1.4-4.0 [facility] Comment on above: Performed By: #### 2 781000 #### [facility] [address] [place] [address] Protein [Mass/Vol] 7.1 g/dL Normal 6.0-7.8 [facility] Comment on above: Performed By: #### 2 430431 #### [facility] [address] [place] [address] Lipid Panelon 06-19-2024 Cholesterol [Mass/Vol] 131 mg/dL Normal 120-200 [facility] Comment on above: Performed By: #### 2 601317 #### [facility] [address] [place] [address] Cholesterol in HDL [Mass/Vol] 43 mg/dL Invalid Interpretation Code [facility] Comment on above: Result Comment: '>= 60 LOW RISK' '<= 40 HIGH RISK' Performed By: #### 2 735462 #### [facility] [address] [place] [address] Cholesterol in LDL [Mass/Vol] 87 mg/dL Normal <=129 [facility] Comment on above: Performed By: #### 2 746315 #### [facility] [address] [place] [address] Cholesterol in VLDL [Mass/Vol] 15 mg/dL Normal 7-40 [facility] Comment on above: Performed By: #### 2 624767 #### [facility] [address] [place] [address] Triglyceride [Mass/Vol] 74 mg/dL Normal <=149 [facility] Comment on above: Performed By: #### 2 684770 #### [facility] [address] [place] [address] TSHon 06-19-2024 TSH Qn 1.77 m[IU]/L Normal 0.34-5.60 [facility] Comment on above: Performed By: #### 2 450650 #### [facility] [address] [place] [address] eGFRon 06-19-2024 eGFR 96 mL/min/1.73 m2 Normal >=59 [facility] Comment on above: Performed By: #### 1 [id number] #### [facility] [address] [place] [address] IGP,APTIMA HPV,AGE GDLNon AGE GDLN ACOG TESTING Note . [facility] Comment on above: TESTS RESULT FLAG UN ITS REF RANGE LAB Clinician Provided Cytology Information Source.............Vagina No. of containers..01 ThinPrep Vial Age Algo ACOG Maki... 30-65 01 FLAG LEGEND: L-Low Normal,H-High Normal,LL-Alert Low,HH-Alert High <-Panic Low,>-Panic High,A-Abnormal,AA-Critical Abnormal Performed at: 01 =[address] [address] Phuong Samaniego MD, HPV APTIMA Positive Abnormal Negative [facility] Comment on above: This nucleic acid am plification test detects fourteen high- risk HPV types (16,18,31,33,35,39,45,51,52,56,58,59,66,68) without differentiation. Performed at: =[address] [id number] Cook Fry: Phuong Samaniego MD, Phone: [phone] Performed at: [facility] [address] [address], [place], [place] [id number] Cook Fry: Deysi Green MD, Phone: [phone] IGP, APTIMA HPV, RFX 16/18,45 Note Abnormal . [facility] Comment on above: TESTS RESULT FLAG UN ITS REF RANGE LAB DIAGNOSIS: [A] 02 EPITHELIAL CELL ABNORMALITY. LOW-GRADE SQUAMOUS INTRAEPITHELIAL LESION (LGSIL); MILD DYSPLASIA IS PRESENT (VAGINAL). Specimen adequacy: 02 Satisfactory for evaluation. No endocervical cells are present. This is consistent with a history of hysterectomy. Performed by: Cheikh Bourgeois, Holiday Detector Operator (ASCP) Electronically si... 02 Audra Hand MD, Pathologist . 02 Pathologist ICD10: 02 R87.622 Note: Note 03 The Pap smear is a screening test designed to aid in the detection of premalignant and malignant conditions of the uterine cervix. It is not a diagnostic procedure and should not be used as the sole means of detecting cervical cancer. Both false-positive and false-negative reports do occur. Test Methodology: Note 03 This liquid based ThinPrep(R) pap test was screened with the use of an image guided system. HPV Genotype Reflex Note 02 Criteria not met, HPV Genotype not performed. FLAG LEGEND: L-Low Normal,H-High Normal,LL-Alert Low,HH-Alert High <-Panic Low,>-Panic High,A-Abnormal,AA-Critical Abnormal Performed at: 02 [facility] [place] [address] [address], [place] [address] Deysi Green MD, [address] [facility] [address] [address] Phuong Samaniego MD, Interpretation and review of laboratory results Abnormal [facility] Family Medicine Office/Clini c Noteon 04-14-2024 Family Medicine Office/Clinic Note Family Medicine Office/Clinic Note Chief Complaint 4 month follow up-Anxiety, blood work, and quit smoking HPI Staff Reason for visit: 4 month follow up-[facility] PCP: Dr. López Acute: Discuss anxiety, labs, and smoking cessation Mental Health Personal History: Anxiety Substance Use: Tobacco Signs and Symptoms Sleeping Pattern: 6 hours a night Currently Enrolled in Therapy? No Patient states she has not seen therapist in a while but was seeing Kiesha Tomlin Mood Swings: No Feelings of Guilt: No Energy Level: Normal Concentration: Poor Sometimes when working/on a computer Racing Thoughts: Yes No more than normal Appetite: N/A Visual Hallucinations:No Auditory Hallucinations:No Suicidal Ideation:No Homicidal Ideation: No Medication Adherence: Yes, takes medication as prescribed DWAYNE Score: 0 PHQ9 Score: 1 History of Present Illness I have reviewed and discussed the HPI (staff) with the patient today. Information was verified and is correct. Additional information provided if needed. Radha Paez is a 38-year-old female who presents today for follow-up. Vital signs have been reviewed today. Home medication list has been reviewed today. Labs have been reviewed from 12/14/2023. The patient did have a vitamin D deficiency, not sure if she finished that medicine or not. It is not on her home med list anymore. Actually, Candice Lee APRN, saw the patient on 12/10/2023. DWAYNE score was 2 at the last visit. The patient is on hydroxyzine for anxiety 4 times a day as needed. She did have some [employer] testing done, showing Cymbalta and Pristiq might be good options. The patient has been taking about 2 doses of [id number] vitamin D3 5000 IU with K2 per week on an as-needed basis for few years now, but she occasionally forgets to take it. She also takes Topamax 150 mg daily at night for migraine headaches. She complained of fatigue on her last visit with Candice Lee APRN. The patient continues to experience fatigue, which is particularly worse after half day's work and it causes her to fall asleep and remain asleep at work. In general, she denies snoring or tossing and turning during sleep. She has a normal sleep pattern of 6 to 8 hours per day and cannot ascertain the cause of her fatigue. She is a mother of 3 children, ages 8, 15, and 17 years. She experiences significant stressor raising her children as well as on account of her eldest son having few issues with police in the last 2 years. She is not . Despite all these, she remains busy with her daily routines and her mental health scores are quite impressive. One of her sons is having anxiety and depression with regard to the issues pertaining to his father. Her 8-year-old child undergoes counseling every week. Her 15-year-old daughter undergoes counseling every month. The patient wants her 17-year-old son to undergo counseling as well on account of the issues faced by him in the last 2 years. The patient has required counseling in the past, but reports to be in a better state of mind than previously. Her work schedule is from 7:00 AM to 3:30 PM during the summer and 8:00 AM to 4:30 PM during the winter. She denies falling asleep while driving. She is not currently taking any B12 supplements. She underwent a hysterectomy, but retains her ovaries. She very much likes working at her job. She is not currently undergoing counseling. The patient's migraines are well-managed. She usually takes ibuprofen and sleeps for the breakthrough migraines, which provides adequate relief. The onset of migraine is associated with ear pain. With the onset of the ear pain, she experiences one-sided migraine headache for 1 week which is followed by one-sided migraine headache on the contralateral side. She experiences nausea and vomiting with her migraines. She feels she cannot drink coffee in the morning when she is about to get a migraine headache. She denies any loss of appetite. She denies any difficulty with bowel or bladder function. She denies any palpitations. The patient requires a refill of her Flonase as well as Topamax prescriptions. She occasionally uses hydroxyzine. She smokes ultra light cigarettes. She smokes half-a-pack a day, but occasionally more than that as well. She has been smoking since she was 15 years old. Review of Systems PHQ Score Initial Depression Screen Score: 0 SCORE The pertinent positive and negative findings are as noted in the HPI. Physical Exam Vitals & Measurements T: 36.5 ?C(Temporal Artery) HR: 100(Peripheral) RR: 16 BP: 116/80 SpO2: 99% HT: 65 in HT: 165 cm WT: 53.1 kg WT: 116.82 lb BMI: 19.5 General: alert, no acute distress, _well appearing, _pleasant ENMT: External auditory canal is unremarkable. Canal is normal. No edema. TMs are normal bilaterally. Moist mucous membranes. Good dentition and posterior oropharynx is normal with a uvula that is midline. No tonsils are present on exam. Cardiovascular: regular rate and rhythm, normal periph (more content not included)... Normal [facility] Comment on above: Result Comment: Elec tronically Signed By: Ruth Huffman\.br\Date and Time Signed: 04/14/24 07:35 EDT\.br\Electronically Co-Signed By: Claire Romero\.br\Date and Time Co-Signed: 04/10/24 11:11 EDT Ambulatory Visit Summaryon 0 04-10-2024 Ambulatory Visit Summary Ambulatory Visit Summary RADHA PAEZ :1985 Visit Date:04/10/2024 Ambulatory Visit Instructions Your Diagnosis Generalized anxiety disorder Atypical migraine Fatigue Vitamin D deficiency Continuous dependence on cigarette smoking Your Care Team Attending Physician - Ruth Huffman Primary Care Physician - Mello LÓPEZ DO, FAAFP This Is Your Medications List cholecalciferol (cholecalciferol 50,000 intl units oral capsule) fluticasone nasal (Flonase 0.05 mg/inh [place]) hydrOXYzine (hydrOXYzine hydrochloride 25 mg Tab) topiramate (topiramate 50 mg Tab) Procedures Performed Hysterectomy (2018), d and c, endometriosis surgery, Laparoscopy, Laparoscopy. Discharge Vitals Temperature (Temporal Artery) 36.5 ?C Heart Rate (Peripheral) 100 Respiratory Rate 16 Blood Pressure 116/80 Height 165 cm Height 65 in Weight 53.1 kg Weight 116.82 lb BMI 19.5 What to do next Scheduled Follow-Up Appointments Sunday 3:20 PM EDT With: Mello LÓPEZ DO, FAAFP Where: [facility] [address] [place] [address]- You Need to Schedule the Following Appointments Follow Up with Ruth Huffman, [facility], MED When: In 6 months 11/21/2023 EST Comments: for f/u Where: [address], [address] [facility] [address] [place] [address]- Business (1) Medications What How Much When Why Instructions New cholecalciferol (cholecalciferol 50,000 intl units oral capsule) 1 Capsules By Mouth Every 7 days Vitamin D deficiency Fatigue Pickup at [email or web address] #[id number] Unchanged fluticasone nasal (Flonase 0.05 mg/ inh [place]) 2 Sprays Nasal Inhalation Every day Allergic rhinitis, seasonal each nostril [id number] Unchanged hydrOXYzine (hydrOXYzine hydrochloride 25 mg Tab) 1 Tablets By Mouth 4 times a day as needed for for anxiety Generalized anxiety disorder Can cut tab in half if needed. Unchanged topiramate (topiramate 50 mg Tab) 1 Tablets By Mouth Every day [id number] Pharmacy Information [facility] #[id number]: [address] [place], [place] [id number] [phone] Allergies Imitrex (Sore throat symptom) amitriptyline (Throat tightness) penicillins (Hives) sulfa drugs Problems Ongoing - Any problem that you are currently receiving treatment for. Allergic rhinitis, seasonal Atypical migraine BMI 20.0-20.9, adult Concentration deficit Continuous dependence on cigarette smoking Fatigue Generalized anxiety disorder History of COVID-19 Tobacco use Vitamin D deficiency Well adult health check Historical - Any problem that you are no longer receiving treatment for. Acute bronchitis due to other specified organisms Acute sinusitis Blocked eustachian tube Body mass index (BMI) 19.9 or less, adult Cervical endometriosis Cervical strain Cigarette smoker Common migraine Complete miscarriage Dysfunction of right eustachian tube Hx of allergic rhinitis Internal hordeolum Left otitis media Migraine headache Sinusitis, acute, maxillary Stye Subacute maxillary sinusitis Viral bronchitis Viral URI Patient Survey You may receive a survey via text or e-mail asking about your office visit. Please share your experience with us by completing your survey. We appreciate your feedback and thank you for choosing us for your care. Education Materials Health Risks of Smoking Smoking tobacco is very bad for your health. Tobacco smoke contains many toxic chemicals that can damage every part of your body. Secondhand smoke can be harmful to those around you. Tobacco or nicotine use can cause many long-term (chronic) diseases. Smoking is difficult to quit because a chemical in tobacco, called nicotine, causes addiction or dependence. When you smoke and inhale, nicotine is absorbed quickly into your bloodstream through your lungs. Both inhaled and non-inhaled nicotine may be addictive. How can quitting affect me? There are health benefits of quitting smoking. Some benefits happen right away and others take time. Benefits may include: ? Blood flow, blood pressure, heart rate, and lung capacity may begin to improve. However, any lung damage that has already occurred cannot be repaired. ? Respiratory symptoms from smoking, such as nasal congestion and cough, may improve over time. ? Your risk of heart disease, stroke, and cancer is reduced. ? The overall quality of your health may improve. ? You may save money, as you will not spend money on tobacco products and may spend less money on smoking-related health issues. What can increase my risk? Smoking harms nearly every organ in the body. People who smoke tobacco have a shorter life expectancy and an increased risk of many serious medical problems. These include: ? More respiratory in (more content not included)... Normal [facility] T3 Freeon 12-15-2023 Free T3 [Mass/Vol] 3.3 pg/mL Invalid Interpretation Code 2.0-4.4 [facility] Comment on above: Result Comment: Perf ormed at: [facility] [address] [id number] PhD Sandy Cerda Performed By: #### 2 513888, 9144889, [id number], 2883237, 9452239, 3255931, 9684402, 3386548 ####[facility] [address] [place] [address] BMPon 12-14-2023 Anion gap [Moles/Vol] 10 mmol/L Normal 6-16 [facility] Comment on above: Performed By: #### 2 955205, 5549619, 3643862, 84685021, 2790069 ####[facility] [address] [place] [address] Calcium [Mass/Vol] 9.1 mg/dL Normal 8.9-11.1 [facility] Comment on above: Performed By: #### 2 568785, 5739057, 0808685, 57600356, 8345142 ####[facility] [address] [place] [address] Chloride [Moles/Vol] 108 mmol/L Normal 101-111 [facility] Comment on above: Performed By: #### 2 901496, 7874058, 2432627, 39687401, 3049387 ####[facility] [address] [place] [address] CO2 [Moles/Vol] 25 mmol/L Normal 21-31 [facility] Comment on above: Performed By: #### 2 857109, 6002648, 8651636, 50236589, 7463663 ####[facility] [address] [place] [address] Creatinine [Mass/Vol] 0.9 mg/dL Normal 0.5-1.3 [facility] Comment on above: Performed By: #### 2 124757, 7858383, 7904373, 51680530, 9878950 ####[facility] [address] [place] [address] Glucose [Mass/Vol] 85 mg/dL Normal 55-199 [facility] Comment on above: Performed By: #### 2 165663, 5260841, 9451054, 67923434, 2355756 ####[facility] [address] [place] [address] Potassium [Moles/Vol] 3.5 mmol/L Normal 3.5-5.3 [facility] Comment on above: Performed By: #### 2 385173, 9766158, 9373802, 16327766, 8711944 ####[facility] [address] [place] [address] Sodium [Moles/Vol] 139 mmol/L Normal 135-145 [facility] Comment on above: Performed By: #### 2 238658, 1237215, 3835079, 87883288, 5673941 ####[facility] [address] [place] [address] Urea nitrogen [Mass/Vol] 10 mg/dL Normal 5-21 [facility] Comment on above: Performed By: #### 2 669206, 9871797, 6676847, 80618884, 7421895 ####[facility] [address] [place] [address] Urea nitrogen/Creatinine [Mass ratio] 11 No Units Normal 10-20 [facility] Comment on above: Performed By: #### 2 012992, 5574614, 5815673, 03420442, 0810688 ####[address] [address] CBC w/ Auto Diffon 4 Basophils/100 WBC (Bld) 0.6 % Normal 0.0-2.0 [facility] Comment on above: Performed By: #### 2 130088, 5560427, 3251321, 96001045, 6939364 ####[address] [address] Basophils/Leukocytes Auto (Bld) [Pure # fraction] 0.0 E9/L Normal 0.0-0.2 [facility] Comment on above: Performed By: #### 2 908296, 3005033, 3174372, 39654277, 8666065 ####[address] [address] Eosinophils (Bld) [#/Vol] 0.1 E9/L Normal 0.0-0.5 [facility] Comment on above: Performed By: #### 2 639672, 7517255, 1258574, 29219433, 4686992 ####[address] [address] Eosinophils/100 WBC (Bld) 1.3 % Normal 0.0-8.0 [facility] Comment on above: Performed By: #### 2 185954, 4875579, 0193078, 24609306, 3036416 ####[address] [address] Erythrocyte distribution width (RBC) [Ratio] 13.8 % Normal 10.9-14.2 [facility] Comment on above: Performed By: #### 2 346727, 4263223, 0184876, 56497212, 7034636 ####[facility] [address] [place] [address] Hematocrit (Bld) [Volume fraction] 41.6 % Normal 34.0-46.0 [facility] Comment on above: Performed By: #### 2 222690, 4692085, 9356597, 88806626, 9888761 ####[place] [place] [address] Hemoglobin (Bld) [Mass/Vol] 13.8 g/dL Normal 12.0-16.0 [facility] Comment on above: Performed By: #### 2 380379, 3293377, 8780355, 44666779, 0486783 ####[address] [address] Lymphocytes (Bld) [#/Vol] 1.5 E9/L Normal 1.0-4.0 [facility] Comment on above: Performed By: #### 2 807312, 7463584, 1632750, 52360109, 7183862 ####[address] [address] Lymphocytes/100 WBC (Bld) 19.7 % Normal 14.0-50.0 [facility] Comment on above: Performed By: #### 2 901499, 5774074, 2782893, 32432444, 0734420 ####[address] [address] MCH (RBC) [Entitic mass] 29.1 pg Normal 27.0-34.0 [facility] Comment on above: Performed By: #### 2 482921, 1010633, 0591703, 24740408, 5152468 ####[address] [address] MCHC (RBC) [Mass/Vol] 33.2 g/dL Normal 31.4-36.0 [facility] Comment on above: Performed By: #### 2 936942, 4504273, 7760473, 24082633, 9815695 ####[address] [place] [address] MCV (RBC) [Entitic vol] 87.7 fL Normal 80.0-100.0 [facility] Comment on above: Performed By: #### 2 819668, 9066536, 1071992, 12432037, 5882131 ####[address] [address] Monocytes (Bld) [#/Vol] 0.5 E9/L Normal 0.2-1.0 [facility] Comment on above: Performed By: #### 2 857116, 4861998, 9992809, 33029928, 9457392 ####[address] [address] Neutrophils (Bld) [#/Vol] 5.5 E9/L Normal 2.0-7.5 [facility] Comment on above: Performed By: #### 2 609875, 3228130, 2210482, 43795752, 8873238 ####[address] [address] Neutrophils/100 WBC (Bld) 71.4 % Normal 36.0-75.0 [facility] Comment on above: Performed By: #### 2 456965, 8741890, 7220300, 63541683, 8414334 ####[address] [address] Platelet 213.0 E9/L Normal 150.0-500.0 [facility] Comment on above: Performed By: #### 2 932821, 9698283, 6051190, 39271437, 1763380 ####[address] [address] Platelet mean volume (Bld) [Entitic vol] 8.6 fL Normal 6.4-10.8 [facility] Comment on above: Performed By: #### 2 231858, 9679273, 9347127, 91322658, 5869671 ####[address] [place] [address] RBC (Bld) [#/Vol] 4.7 E12/L Normal 4.3-5.9 [facility] Comment on above: Performed By: #### 2 346993, 9822272, 4290026, 53796017, 8176348 ####[facility] [address] [place] [address] WBC corrected for nucl RBC Auto (Bld) [#/Vol] 7.7 E9/L Normal 4.0-11.0 [facility] Comment on above: Performed By: #### 2 792975, 3407095, 0602774, 00437658, 9328359 ####[facility] [address] [place] [address] CHEMISTRYOrdered By: SYSTEM SYSTEM on 12-14-2023 25-hydroxyvitamin D3 [Mass/Vol] 17.5 ng/mL Low 30.0 - 100.0 ng/mL [facility] Albumin [Mass/Vol] 4.5 g/dL Normal 3.3 - 5.0 gm/dL [facility] Albumin/Globulin [Mass ratio] 1.6 {ratio} Normal 1.1 - 2.2 [facility] ALP [Catalytic activity/Vol] 51 [iU]/d Normal 21 - 98 Int._Unit/L [facility] ALT No additional P-5'-P [Catalytic activity/Vol] 10 [iU]/d Normal 6 - 46 Int._Unit/L [facility] Anion gap [Moles/Vol] 10 mmol/L Normal 6 - 16 mEq/L [facility] AST [Catalytic activity/Vol] 15 [iU]/d Normal 5 - 43 Int._Unit/L [facility] Bilirubin [Mass/Vol] 0.4 mg/dL Normal 0.0 - 1 .1 mg/dL [facility] Bilirubin.direct [Mass/Vol] 0.1 mg/dL Normal 0.0 - 0.4 mg/dL [facility] Bilirubin.indirect [Mass or moles/Vol] 0.3 mg/dL Normal 0.1 - 0.9 mg/dL [facility] Calcium [Mass/Vol] 9.1 mg/dL Normal 8.9 - 11. 1 mg/dL [facility] Chloride [Moles/Vol] 108 mmol/L Normal 101 - 1 11 mmol/L [facility] Cholesterol [Mass/Vol] 136 mg/dL Normal 120 - 200 mg/dL [facility] Cholesterol in HDL [Mass/Vol] 44 mg/dL Invalid Interpretation Code [facility] Comment on above: Result Comment: '>= 60 LOW RISK' '<= 40 HIGH RISK' Cholesterol in LDL [Mass/Vol] 87 mg/dL Normal <=129mg/dL [facility] Cholesterol in VLDL [Mass/Vol] 14 mg/dL Normal 7 - 40 mg/dL [facility] CO2 [Moles/Vol] 25 mmol/L Normal 21 - 31 mmol/L [facility] Cobalamin (Vitamin B12) [Mass/Vol] 249 pg/mL Normal 50 - 1500 pg/mL [facility] Creatinine [Mass/Vol] 0.9 mg/dL Normal 0.5 - 1.3 mg/dL [facility] eGFR 83 mL/min/1.73 m2 Normal >=59mL/min /1.7 3 m2 [facility] Free T4 [Mass/Vol] 0.62 ng/dL Normal 0.58 - 1. 64 ng/dL [facility] Globulin (S) [Mass/Vol] 2.8 g/dL Normal 1.4 - 4.0 gm/dL [facility] Glucose [Mass/Vol] 85 mg/dL Normal 55 - 199 mg/dL Re mis[facility] Chem Iron [Mass/Vol] 96 ug/dL Normal 35 - 153 mcg/dL [facility] Iron binding capacity [Mass/Vol] 330 ug/dL Normal 250 - 400 mcg/dL [facility] Iron saturation [Mass fraction] 29 % Normal 20 - 50 % [facility] Potassium [Moles/Vol] 3.5 mmol/L Normal 3.5 - 5.3 mmol/L [facility] Protein [Mass/Vol] 7.3 g/dL Normal 6.0 - 7.8 gm/dL [facility] Sodium [Moles/Vol] 139 mmol/L Normal 135 - 145 mmol/L [facility] Transferrin [Mass/Vol] 236 mg/dL Normal 200 - 370 mg/dL [facility] Triglyceride [Mass/Vol] 69 mg/dL Normal <=149mg/dL [facility] TSH Qn 1.96 m[IU]/L Normal 0.34 - 5.60 mcIU/mL [facility] Urea nitrogen [Mass/Vol] 10 mg/dL Normal 5 - 21 mg/dL [facility] Urea nitrogen/Creatinine [Mass ratio] 11 mg/mg Normal 10 - 20 [facility] Consent for Treatmenton 11-16 Consent for Treatment [id number]#1.00TIFF Normal [facility] Consent for Treatment [id number]#1.00TIFF Normal [facility] Free T4on 12-14-2023 Free T4 [Mass/Vol] 0.62 ng/dL Normal 0.58-1.64 [facility] Comment on above: Performed By: #### 2 625825, 9581285, 340811929, 9995736, 5699811, 0076489, 7413968, 8652287 ####[facility] [address] [place] [address] HEMATOLOGYOrdered By: SYSTEM SYSTEM on 12-14-2023 Basophils/100 WBC (Bld) 0.6 % Normal 0.0 - 2.0 % [facility] Basophils/Leukocytes Auto (Bld) [Pure # fraction] 0.0 E9/L Normal 0.0 - 0.2 E9/L [facility] Eosinophils (Bld) [#/Vol] 0.1 E9/L Normal 0.0 - 0.5 E9/L [facility] Eosinophils/100 WBC (Bld) 1.3 % Normal 0.0 - 8.0 % [facility] Erythrocyte distribution width (RBC) [Ratio] 13.8 % Normal 10.9 - 14.2 % [facility] Hematocrit (Bld) [Volume fraction] 41.6 % Normal 34.0 - 46.0 % [facility] Hemoglobin (Bld) [Mass/Vol] 13.8 g/dL Normal 12.0 - 16.0 gm/dL [facility] Lymphocytes (Bld) [#/Vol] 1.5 E9/L Normal 1.0 - 4.0 E9/L [facility] Lymphocytes/100 WBC (Bld) 19.7 % Normal 14.0 - 50.0 % [facility] MCH (RBC) [Entitic mass] 29.1 pg Normal 27.0 - 34.0 pg [facility] MCHC (RBC) [Mass/Vol] 33.2 g/dL Normal 31.4 - 36.0 gm/dL [facility] MCV (RBC) [Entitic vol] 87.7 fL Normal 80.0 - 100.0 fL [facility] Monocytes (Bld) [#/Vol] 0.5 E9/L Normal 0.2 - 1.0 E9/L [facility] Monocytes/100 WBC (Bld) 7.0 % Normal 4.0 - 14.0 % [facility] Neutrophils (Bld) [#/Vol] 5.5 E9/L Normal 2.0 - 7.5 E9/L [facility] Neutrophils/100 WBC (Bld) 71.4 % Normal 36.0 - 75.0 % [facility] Platelet 213.0 E9/L Normal 150.0 - 500.0 E9/L [facility] Platelet mean volume (Bld) [Entitic vol] 8.6 fL Normal 6.4 - 10.8 fL [facility] RBC (Bld) [#/Vol] 4.7 E12/L Normal 4.3 - 5.9 E12/L [facility] WBC corrected for nucl RBC Auto (Bld) [#/Vol] 7.7 E9/L Normal 4.0 - 11.0 E9/L [facility] Hep Func Panelon 12-14-2023 Albumin [Mass/Vol] 4.5 g/dL Normal 3.3-5.0 [facility] Comment on above: Performed By: #### 2 526630, 1387305, 3443632, 47763375, 0817360 ####[facility] [address] [place] [address] Albumin/Globulin (S) [Mass conc ratio] 1.6 Normal 1.1-2.2 [facility] Comment on above: Performed By: #### 2 247798, 8998717, 1445787, 91071922, 6973112 ####[facility] [address] [place], [place] [address] ALP [Catalytic activity/Vol] 51 Int._Unit/L Normal 21-98 [facility] Comment on above: Performed By: #### 2 720454, 4796241, 9004399, 11300366, 5439030 ####[address] [address] ALT No additional P-5'-P [Catalytic activity/Vol] 10 Int._Unit/L Normal 6-46 [facility] Comment on above: Performed By: #### 2 983423, 6726735, 6022216, 60994519, 1362228 ####[place] [address] AST [Catalytic activity/Vol] 15 Int._Unit/L Normal 5-43 [facility] Comment on above: Performed By: #### 2 855485, 9543699, 4092687, 27261433, 0409645 ####[place] [address] Bilirubin [Mass/Vol] 0.4 mg/dL Normal 0.0-1.1 [facility] Comment on above: Performed By: #### 2 505422, 9043824, 9429628, 33528743, 6938917 ####[address] [address] Bilirubin.direct [Mass/Vol] 0.1 mg/dL Normal 0.0-0.4 [facility] Comment on above: Performed By: #### 2 545534, 6434836, 3639636, 92586670, 3432607 ####[address] [address] Bilirubin.indirect [Mass or moles/Vol] 0.3 mg/dL Normal 0.1-0.9 [facility] Comment on above: Performed By: #### 2 676398, 4662835, 2899909, 06523602, 2490217 ####[address] [address] Globulin (S) [Mass/Vol] 2.8 g/dL Normal 1.4-4.0 [facility] Comment on above: Performed By: #### 2 406514, 7091692, 8400209, 43438616, 6816074 ####[facility] [address] [place] [address] Protein [Mass/Vol] 7.3 g/dL Normal 6.0-7.8 [facility] Comment on above: Performed By: #### 2 843989, 6515894, 7977693, 54815490, 4559843 ####[address] [place] [address] Ironon 12-14-2023 Iron [Mass/Vol] 96 microgram/dL Normal 35-153 [facility] Comment on above: Order Comment: Iron order added by Discern Rule: gl_[facility]_add_iron_trans . Performed By: #### 2 286008, 4949825, 734180527, 4724217, 1091728, 3726261, 2439953, 0075825 ####[address] [place] [address] Iron Saturationon 12-14-2023 Iron binding capacity [Mass/Vol] 330 microgram/dL Normal 250-400 [facility] Comment on above: Performed By: #### 2 078897, 1571896, 125854549, 7966883, 9202171, 4457648, 2266881, 4585123 ####[address] [place] [address] Iron saturation [Mass fraction] 29 % Normal 20-50 [facility] Comment on above: Performed By: #### 2 211574, 4559706, 158729434, 9836779, 7581480, 6992253, 8390824, 4526790 ####[address] [place] [address] Lipid Panelon 12-14-2023 Cholesterol [Mass/Vol] 136 mg/dL Normal 120-200 [facility] Comment on above: Performed By: #### 2 648823, 5627760, 6943755, 72877851, 3793045 ####[facility] [address] [place] [address] Cholesterol in HDL [Mass/Vol] 44 mg/dL Invalid Interpretation Code [facility] Comment on above: Result Comment: '>= 60 LOW RISK' '<= 40 HIGH RISK' Performed By: #### 2 271206, 2074526, 3547366, 90274248, 0893605 ####[facility] [address] [place] [address] Cholesterol in LDL [Mass/Vol] 87 mg/dL Normal <=129 [facility] Comment on above: Performed By: #### 2 606136, 8869786, 5065007, 58049953, 0677210 ####[facility] [address] [place] [address] Cholesterol in VLDL [Mass/Vol] 14 mg/dL Normal 7-40 [facility] Comment on above: Performed By: #### 2 363766, 3062373, 2043926, 09357969, 9921157 ####[facility] [address] [place] [address] Triglyceride [Mass/Vol] 69 mg/dL Normal <=149 [facility] Comment on above: Performed By: #### 2 802724, 7145146, 1013757, 75213799, 1809371 ####[facility] [address] [place] [address] TSHon 12-14-2023 TSH Qn 1.96 m[IU]/L Normal 0.34-5.60 [facility] Comment on above: Performed By: #### 2 877693, 4277577, 954373476, 6660617, 2555413, 7017956, 8094617, 1517277 ####[facility] [address] [facility] [place] [address] Transferrinon 12-14-2023 Transferrin [Mass/Vol] 236 mg/dL Normal 200-370 [facility] Comment on above: Order Comment: Trans gómez order added by Oswaldo Rule: gl_[facility]_add_iron_trans . Performed By: #### 2 282267, 5588420, 711671870, 7945291, 8605875, 3150027, 3076881, 6399081 ####[facility] [address] [place] [address] Vit B12on 12-14-2023 Cobalamin (Vitamin B12) [Mass/Vol] 249 pg/mL Normal 50-1500 [facility] Comment on above: Performed By: #### 2 468722, 7062092, 869114273, 8244060, 4898677, 2014764, 6919008, 9123049 ####[facility] [address] [place] [address] Vitamin D 25 Hydroxyon 12-13 25-hydroxyvitamin D3 [Mass/Vol] 17.5 ng/mL Low 30.0-100.0 [facility] Comment on above: Performed By: #### 2 504826, 6504081, 639927320, 3943055, 3080940, 9717177, 7566152, 5295865 ####[facility] [address] [place] [address] eGFRon 12-14-2023 eGFR 83 mL/min/1.73 m2 Normal >=59 [facility] Comment on above: Order Comment: Order added by Discern Expert. Performed By: #### 2 304469, 4092497, 8896344, 98258936, 2378834 ####[facility] [address] [place] [address] Ambulatory Visit Summaryon 0 12-10-2023 Ambulatory Visit Summary RADHA PAEZ :1985 Visit Date:12/10/2023 Ambulatory Visit Instructions Your Diagnosis Fatigue Generalized anxiety disorder BMI 20.0-20.9, adult Tobacco use Your Care Team Attending Physician - Jesus SADLER, Candice Donaldson Primary Care Physician - DUGLAS BRAND FAAFP, Mello Quezada This Is Your Medications List fluticasone nasal (Flonase 0.05 mg/inh [place]) hydrOXYzine (hydrOXYzine hydrochloride 25 mg Tab) topiramate (topiramate 50 mg Tab) Procedures Performed Hysterectomy (2018), d and c, endometriosis surgery, Laparoscopy, Laparoscopy. Discharge Vitals Temperature (Oral) 36.4 ?C Heart Rate (Peripheral) 72 Blood Pressure 118/66 Height 165 cm Height 65 in Weight 55.6 kg Weight 122.32 lb BMI 20.42 What to do next Scheduled Follow-Up Appointments 2023 7:00 AM EDT With: Ruth Huffman Where: [facility] Normal [address] [place] [address]- \.br\ You Need to Schedule the Following Appointments\. br\ Follow Up with Jesus SADLER, Candice Donaldson When: In 6 months\.br\ Comments:\.br\ CCM\.br\ Where:\.br\ [address], [address]br\ [place] [address]-\.br\ \.br\ You Need to Complete the Following\.br\ Free T4, Blood, Routine collect, 12/10/23, Order for future visit, Lab Collect, Fatigue, Print Label By Order Location\.br\ Iron Percent Saturation, Blood, Routine collect, 12/10/23, Order for future visit, Lab Collect, Fatigue, Print Label By Order Location\.br\ T3 Free, Blood, Routine collect, 12/10/23, Order for future visit, Lab Collect, Fatigue, Print Label By Order Location\.br\ Thyroid Stimulating Hormone, Blood, Routine collect, 12/10/23, Order for future visit, Lab Collect, Fatigue, Print Label By Order Location\.br\ TIBC Calculated, Blood, Routine collect, 12/10/23, Order for future visit, Lab Collect, Fatigue, Print Label By Order Location\.br\ Vitamin B12 Level, Blood, Routine collect, 12/10/23, Order for future visit, Lab Collect, Fatigue, Print Label By Order Location\.br\ Vitamin D 25 Hydroxy, Blood, Routine collect, 12/10/23, Order for future visit, Lab Collect, Fatigue, Print Label By Order Location\.br\ Medications\.b r\ What How Much When Why Instructions\. br\ Unchanged fluticasone nasal (Flonase 0.05 mg/ inh [place]) 2 Sprays Nasal Inhalation Every day Allergic rhinitis, seasonal each nostril \.br\ Unchanged hydrOXYzine (hydrOXYzine hydrochloride 25 mg Tab) 1 Tablets By Mouth 4 times a day as needed for for anxiety Generalized anxiety disorder Can cut tab in half if needed. Pickup at [id number]\.br\ Unchanged topiramate (topiramate 50 mg Tab) 1 Tablets By Mouth Every day\.br\ Pharmacy Information\.b r\ [id number]: [address] [place], [place] [id number] [phone]\.br\ Allergies\.br\ Imitrex (Sore throat symptom)\.br\ amitriptyline (Throat tightness)\.br \ penicillins (Hives)\.br\ sulfa drugs\.br\ Problems\.br\ Ongoing - Any problem that you are currently receiving treatment for.\.br\ Allergic rhinitis, seasonal\.br\ Atypical migraine\.br\ BMI 20.0-20.9, adult\.br\ Concentration deficit\.br\ Fatigue\.br\ Generalized anxiety disorder\.br\ History of COVID-19\.br\ Tobacco use\.br\ Well adult health check\.br\ Historical - Any problem that you are no longer receiving treatment for.\.br\ \.br\ Acute bronchitis due to other specified organisms\.br\ Acute sinusitis\.br\ Blocked eustachian tube\.br\ Body mass index (BMI) 19.9 or less, adult\.br\ Cervical endometriosis\ .br\ Cervical strain\.br\ Cigarette smoker\.br\ Common migraine\.br\ Complete miscarriage\.b r\ Dysfunction of right eustachian tube\.br\ Hx of allergic rhinitis\.br\ Internal hordeolum\.br\ Left otitis media\.br\ Migraine headache\.br\ Sinusitis, acute, maxillary\.br\ Stye\.br\ Subacute maxillary sinusitis\.br\ Viral bronchitis\.br \ Viral URI\.br\ Patient Survey\.br\ You may receive a survey via text or e-mail asking about your office visit. Please share your experience with us by completing your survey. We appreciate your feedback and thank you for choosing us for your care.\.br\ Education Materials\.br\ Fatigue\.br\ If you have fatigue, you feel tired all the time and have a lack of energy or a lack of motivation. Fatigue may make it difficult to start or complete tasks because of exhaustion.\.b r\ Occasional or mild fatigue is often a normal response to activity or life. However, long-term (chronic) or extreme fatigue may be a symptom of a medical condition such as:\.br\ ? \.br\ Depression.\.b r\ ? \.br\ Not having enough red blood cells or hemoglobin in the blood (anemia).\.br\ ? \.br\ A problem with a small gland located in the lower front part of the neck (thyroid disorder).\.br \ ? \.br\ Rheumatologic conditions. These are problems related to the body's defense system (immune system).\.br\ ? \.br\ Infections, especially certain viral infections.\.b r\ Fatigue can also lead to negative health outcomes over time.\.br\ Follow these instructions at home:\.br\ Medicines\.br\ ? \.br\ Take oqhm-qur-imlfv er and prescription medicines only as told by your health care provider.\.br\ ? \.br\ Take a multivitamin if told by your health care provider.\.br\ ? \.br\ Do not use herbal or dietary supplements unless they are approved by your health care provider.\.br\ Eating and drinking\.br\ \.br\ ? \.br\ Avoid heavy meals in the evening.\.br\ ? \.br\ Eat a well-balanced diet, which includes lean proteins, whole grains, plenty of fruits and vegetables, and low-fat dairy products.\.br\ ? \.br\ Avoid eating or drinking too many products with caffeine in them.\.br\ ? \.br\ Avoid alcohol.\.br\ ? \.br\ Drink enough fluid to keep your urine pale yellow.\.br\ Activity\.br\ \.br\ ? \.br\ Exercise regularly, as told by your health care provider.\.br\ ? \.br\ Use or practice techniques to help you relax, such as yoga, kory chi, meditation, or massage therapy.\.br\ Lifestyle\.br\ ? \.br\ Change situations that cause you stress. Try to keep your work and personal schedules in balance.\.br\ ? \.br\ Do not use recreational or illegal drugs.\.br\ General instructions\. br\ ? \.br\ Monitor your fatigue for any changes.\.br\ ? \.br\ Go to bed and get up at the same time every day.\.br\ ? \.br\ Avoid fatigue by pacing yourself during the day and getting enough sleep at night.\.br\ ? \.br\ Maintain a healthy weight.\.br\ Contact a health care provider if:\.br\ ? \.br\ Your fatigue does not get better.\.br\ ? \.br\ You have a fever.\.br\ ? \.br\ You suddenly lose or gain weight.\.br\ ? \.br\ You have headaches.\.br \ ? \.br\ You have trouble falling asleep or sleeping through the night.\.br\ ? \.br\ You feel angry, guilty, anxious, or sad.\.br\ ? \.br\ You have swelling in your legs or another part of your body.\.br\ Get help right away if:\.br\ ? \.br\ You feel confused, feel like you might faint, or faint.\.br\ ? \.br\ Your vision is blurry or you have a severe headache.\.br\ ? \.br\ You have severe pain in your abdomen, your back, or the area between your waist and hips (pelvis).\.br\ ? \.br\ You have chest pain, shortness of breath, or an irregular or fast heartbeat.\.br \ ? \.br\ You are unable to urinate, or you urinate less than normal.\.br\ ? \.br\ You have abnormal bleeding from the rectum, nose, lungs, nipples, or, if you are female, the vagina.\.br\ ? \.br\ You vomit blood.\.br\ ? \.br\ You have thoughts about hurting yourself or others.\.br\ These symptoms may be an emergency. Get help right away. Call 911.\.br\ ? \.br\ Do not wait to see if the symptoms will go away.\.br\ ? \.br\ Do not drive yourself to the hospital.\.br\ Get help right away if you feel like you may hurt yourself or others, or have thoughts about taking your own life. Go to your nearest emergency room or:\.br\ ? \.br\ Call 911.\.br\ ? \.br\ Call the National Suicide Prevention Lifeline at or 063. This is open 24 hours a day.\.br\ ? \.br\ Text the Crisis Text Line at 694854.\.br\ Summary\.br\ ? \.br\ If you have fatigue, you feel tired all the time and have a lack of energy or a l [facility] Ambulatory Visit Summary RADHA PAEZ :1985 Visit Date:12/10/2023 Ambulatory Visit Instructions Your Diagnosis Fatigue Generalized anxiety disorder BMI 20.0-20.9, adult Tobacco use Your Care Team Attending Physician - Jesus SADLER, Candice Donaldson Primary Care Physician - Mello LÓPEZ DO, FAAFP This Is Your Medications List fluticasone nasal (Flonase 0.05 mg/inh [place]) hydrOXYzine (hydrOXYzine hydrochloride 25 mg Tab) topiramate (topiramate 50 mg Tab) Procedures Performed Hysterectomy (2017), d and c, endometriosis surgery, Laparoscopy, Laparoscopy. Discharge Vitals Temperature (Oral) 36.4 ?C Heart Rate (Peripheral) 72 Blood Pressure 118/66 Height 165 cm Height 65 in Weight 55.6 kg Weight 122.32 lb BMI 20.42 What to do next Scheduled Follow-Up Appointments 2023 7:00 AM EDT With: Ruth Huffman Where: [facility] Primary Care Normal [address], [place] [address]- \.br\ You Need to Schedule the Following Appointments\. br\ Follow Up with Candice Kim When: In 6 months\.br\ Comments:\.br\ [facility]\.br\ Where:\.br\ [address]br\ [place] [address]-\.br\ \.br\ You Need to Complete the Following\.br\ Free T4, Blood, Routine collect, 12/10/23, Order for future visit, Lab Collect, Fatigue, Print Label By Order Location\.br\ Iron Percent Saturation, Blood, Routine collect, 12/10/23, Order for future visit, Lab Collect, Fatigue, Print Label By Order Location\.br\ T3 Free, Blood, Routine collect, 12/10/23, Order for future visit, Lab Collect, Fatigue, Print Label By Order Location\.br\ Thyroid Stimulating Hormone, Blood, Routine collect, 12/10/23, Order for future visit, Lab Collect, Fatigue, Print Label By Order Location\.br\ TIBC Calculated, Blood, Routine collect, 12/10/23, Order for future visit, Lab Collect, Fatigue, Print Label By Order Location\.br\ Vitamin B12 Level, Blood, Routine collect, 12/10/23, Order for future visit, Lab Collect, Fatigue, Print Label By Order Location\.br\ Vitamin D 25 Hydroxy, Blood, Routine collect, 12/10/23, Order for future visit, Lab Collect, Fatigue, Print Label By Order Location\.br\ Medications\.b r\ What How Much When Why Instructions\. br\ Unchanged fluticasone nasal (Flonase 0.05 mg/ inh [place]) 2 Sprays Nasal Inhalation Every day Allergic rhinitis, seasonal each nostril \.br\ Unchanged hydrOXYzine (hydrOXYzine hydrochloride 25 mg Tab) 1 Tablets By Mouth 4 times a day as needed for for anxiety Generalized anxiety disorder Can cut tab in half if needed. Pickup at [facility] #[id number]\.br\ Unchanged topiramate (topiramate 50 mg Tab) 1 Tablets By Mouth Every day\.br\ Pharmacy Information\.b r\ [facility] #[id number]: [address] [place], [place] [id number] [phone]\.br\ Allergies\.br\ Imitrex (Sore throat symptom)\.br\ amitriptyline (Throat tightness)\.br \ penicillins (Hives)\.br\ sulfa drugs\.br\ Problems\.br\ Ongoing - Any problem that you are currently receiving treatment for.\.br\ Allergic rhinitis, seasonal\.br\ Atypical migraine\.br\ BMI 20.0-20.9, adult\.br\ Concentration deficit\.br\ Fatigue\.br\ Generalized anxiety disorder\.br\ History of COVID-19\.br\ Tobacco use\.br\ Well adult health check\.br\ Historical - Any problem that you are no longer receiving treatment for.\.br\ \.br\ Acute bronchitis due to other specified organisms\.br\ Acute sinusitis\.br\ Blocked eustachian tube\.br\ Body mass index (BMI) 19.9 or less, adult\.br\ Cervical endometriosis\ .br\ Cervical strain\.br\ Cigarette smoker\.br\ Common migraine\.br\ Complete miscarriage\.b r\ Dysfunction of right eustachian tube\.br\ Hx of allergic rhinitis\.br\ Internal hordeolum\.br\ Left otitis media\.br\ Migraine headache\.br\ Sinusitis, acute, maxillary\.br\ Stye\.br\ Subacute maxillary sinusitis\.br\ Viral bronchitis\.br \ Viral URI\.br\ Patient Survey\.br\ You may receive a survey via text or e-mail asking about your office visit. Please share your experience with us by completing your survey. We appreciate your feedback and thank you for choosing us for your care.\.br\ Education Materials\.br\ Fatigue\.br\ If you have fatigue, you feel tired all the time and have a lack of energy or a lack of motivation. Fatigue may make it difficult to start or complete tasks because of exhaustion.\.b r\ Occasional or mild fatigue is often a normal response to activity or life. However, long-term (chronic) or extreme fatigue may be a symptom of a medical condition such as:\.br\ ? \.br\ Depression.\.b r\ ? \.br\ Not having enough red blood cells or hemoglobin in the blood (anemia).\.br\ ? \.br\ A problem with a small gland located in the lower front part of the neck (thyroid disorder).\.br \ ? \.br\ Rheumatologic conditions. These are problems related to the body's defense system (immune system).\.br\ ? \.br\ Infections, especially certain viral infections.\.b r\ Fatigue can also lead to negative health outcomes over time.\.br\ Follow these instructions at home:\.br\ Medicines\.br\ ? \.br\ Take mnmx-xjd-vllfn er and prescription medicines only as told by your health care provider.\.br\ ? \.br\ Take a multivitamin if told by your health care provider.\.br\ ? \.br\ Do not use herbal or dietary supplements unless they are approved by your health care provider.\.br\ Eating and drinking\.br\ \.br\ ? \.br\ Avoid heavy meals in the evening.\.br\ ? \.br\ Eat a well-balanced diet, which includes lean proteins, whole grains, plenty of fruits and vegetables, and low-fat dairy products.\.br\ ? \.br\ Avoid eating or drinking too many products with caffeine in them.\.br\ ? \.br\ Avoid alcohol.\.br\ ? \.br\ Drink enough fluid to keep your urine pale yellow.\.br\ Activity\.br\ \.br\ ? \.br\ Exercise regularly, as told by your health care provider.\.br\ ? \.br\ Use or practice techniques to help you relax, such as yoga, kory chi, meditation, or massage therapy.\.br\ Lifestyle\.br\ ? \.br\ Change situations that cause you stress. Try to keep your work and personal schedules in balance.\.br\ ? \.br\ Do not use recreational or illegal drugs.\.br\ General instructions\. br\ ? \.br\ Monitor your fatigue for any changes.\.br\ ? \.br\ Go to bed and get up at the same time every day.\.br\ ? \.br\ Avoid fatigue by pacing yourself during the day and getting enough sleep at night.\.br\ ? \.br\ Maintain a healthy weight.\.br\ Contact a health care provider if:\.br\ ? \.br\ Your fatigue does not get better.\.br\ ? \.br\ You have a fever.\.br\ ? \.br\ You suddenly lose or gain weight.\.br\ ? \.br\ You have headaches.\.br \ ? \.br\ You have trouble falling asleep or sleeping through the night.\.br\ ? \.br\ You feel angry, guilty, anxious, or sad.\.br\ ? \.br\ You have swelling in your legs or another part of your body.\.br\ Get help right away if:\.br\ ? \.br\ You feel confused, feel like you might faint, or faint.\.br\ ? \.br\ Your vision is blurry or you have a severe headache.\.br\ ? \.br\ You have severe pain in your abdomen, your back, or the area between your waist and hips (pelvis).\.br\ ? \.br\ You have chest pain, shortness of breath, or an irregular or fast heartbeat.\.br \ ? \.br\ You are unable to urinate, or you urinate less than normal.\.br\ ? \.br\ You have abnormal bleeding from the rectum, nose, lungs, nipples, or, if you are female, the vagina.\.br\ ? \.br\ You vomit blood.\.br\ ? \.br\ You have thoughts about hurting yourself or others.\.br\ These symptoms may be an emergency. Get help right away. Call 911.\.br\ ? \.br\ Do not wait to see if the symptoms will go away.\.br\ ? \.br\ Do not drive yourself to the hospital.\.br\ Get help right away if you feel like you may hurt yourself or others, or have thoughts about taking your own life. Go to your nearest emergency room or:\.br\ ? \.br\ Call 911.\.br\ ? \.br\ Call the National Suicide Prevention Lifeline at or 582. This is open 24 hours a day.\.br\ ? \.br\ Text the Crisis Text Line at 339358.\.br\ Summary\.br\ ? \.br\ If you have fatigue, you feel tired all the time and have a lack of energy or a l [facility] Medicine Office/Clini c Noteon 12-10-2023 [facility] Medicine Office/Clinic Note Chief Complaint pt here for 6 month f/u. HPI Staff Last routine labs: 06/20/23- orders in smoker status: 10 or more Pap (21-64yo): utd dwayne- 2 last-3 History of Present Illness Radha is a 38 yo female presenting today for 6 mo f/u Pt reports chronic fatigue and tiredness at work. Pt has anxiety (DWAYNE) Current medications: hydroxyzine 25mg QID PRN In therapy at [facility] Pt reports feeling well controlled and denies racing thoughts, insomnia, agitation, increased worrying, rapid heart rate, SOB at this time. Stress/DWAYNE related to caring for two sons with ADHD and recent bad relationship genesight results showed Cymbalta and Pristiq were good options but pt declined to use these with her topamax. Last DWAYNE score: 3 Past medical Hx Patient has chronic history of migraines Controlled with: Topamax as prescribed by [facility] followed by Neurology Patient denies any medication side effects. Concentration deficit Discussed option of Strattera, pt will hold off for right now but if changes mind can consider starting to help with concentration difficulty and DWAYNE. Review of Systems PHQ Score Initial Depression Screen Score: 0 SCORE Physical Exam Vitals & Measurements T: 36.4 ?C(Oral) HR: 72(Peripheral) BP: 118/66 SpO2: 98% HT: 65 in HT: 165 cm WT: 55.6 kg WT: 122.32 lb BMI: 20.42 General: Well developed, well nourished, in no acute distress Eyes: Bilateral PERRLA, conjunctivae and sclerae wnl, EOMs intact, lids without stye, chalazion, ect/extropion, ptosis, xanthelasma, blepharitis. No discharge to inner canthi.Negative for corneal abrasion or foreign bodies. Ears: grossly normal hearing Nose: No deformity, discharge, inflammation, or lesions. No congestion, no erythema; pink & moist turbinates; clear rhinorrhea. Mouth: mucous membranes pink, moist and intact. [place] posterior oropharynx, no palatal inflammation, uvula midline, no cobble-stoning, no enlarged tonsils, no tonsillar exudate, no ulcers, no active post nasal drip. tongue midline and wnl. Good dentition. Neck: Neck supple. No lymphadenopathy. Trachea midline. No thyroid, masses, tenderness, or enlargement noted. No bruit. Lungs: Normal respiratory effort and clear to auscultation Cardio: Regular rate and rhythm, normal S1 and S2, no murmur, no rub Abdomen: not assessed Musculoskeletal: No deformity or scoliosis noted. No vertebral tenderness. Normal range of motion. No vertebral point tenderness. Joints normal. No erythema, edema, effusion, crepitus, or ecchymosis. Straight leg raise negative Extremity: No clubbing, cyanosis, edema, or deformity. Normal ROM with upper and lower extremities, bilaterally. Neurologic: Cranial nerves II-XII grossly intact. motor strength equal & normal bilaterally, sensation equal & normal bilaterally. Gait normal. Skin: No rashes, ulcerations, or suspicious lesions Mental Status: Alert and oriented x3. Normal mood and affect Assessment/Plan 1. Fatigue (R53.83: Other fatigue) Will workup fatigue with the following labs: B12, Vit D, CMP, CBC, Iron/TIBC, TSH w/ reflex. Pending results, will treat accordingly. Consider sleep study. Pt advised to rest and practice good sleep hygiene techniques including 8 hrs of uninterrupted sleep. Ordered: Free T4 Iron Percent Saturation T3 Free Thyroid Stimulating Hormone TIBC Calculated Vitamin B12 Level Vitamin D 25 Hydroxy 2. Generalized anxiety disorder (F41.1: Generalized anxiety disorder) DWAYNE score: 2 (previously 3) continue hydroxyzine 25mg QID PRN Discussed red flags/when to seek emergency care and mental health support hotlines. Pt verbalized understanding of resources and when to seek emergency care and denies SI/HI at this time. Pt would like referral to [facility] for therapy F/U 6 months and PRN Ordered: hydrOXYzine, 25 mg = 1 tab(s), Oral, QID, PRN for anxiety, Can cut tab in half if needed., # 40 tab(s), Refills(s) 3, Pharmacy: [facility] #[id number], 165, cm, 12/10/23 7:49:00 EDT, Height/Length Dosing, 55.6, kg, 12/10/23 7:49:00 EDT, Weight Dosing 3. BMI 20.0-20.9, adult (Z68.20: Body mass index [BMI] 20.0-20.9, adult) BMI is within goal range. Continue well balanced diet and portion control. Continue to exercise as tolerated to maintain weight 4. Tobacco use (Z72.0: Tobacco use) Strongly recommended tobacco cessation. Tobacco use in any form harms nearly every organ of the body, causes many diseases, and reduces the health of smokers in general. Quitting tobacco lowers your risk for smoking-related diseases and can add years to your life. Visit www.smokefree.gov for helpful resources including free telephone support. If you decide on prescription treatment to help you quit, we would be happy to provide these. Follow-up With When Contact Information Candice Kim In [address] [address], [place] [address]- Additional Instructions: [facility] Patient Education Fatigue Managing Anxiety, Adult Problem List/Past Me (more content not included)... Normal [facility] Comment on above: Result Comment: Elec tronically Signed By: Candice Kim\.br\Date and Time Signed: 12/10/23 08:02 EDT Patient Educationon 12-10-19 Patient Education Immunology Fatigue If you have fatigue, you feel tired all the time and have a lack of energy or a lack of motivation. Fatigue may make it difficult to start or complete tasks because of exhaustion. Occasional or mild fatigue is often a normal response to activity or life. However, long-term (chronic) or extreme fatigue may be a symptom of a medical condition such as: ? Depression. ? Not having enough red blood cells or hemoglobin in the blood (anemia). ? A problem with a small gland located in the lower front part of the neck (thyroid disorder). ? Rheumatologic conditions. These are problems related to the body's defense system (immune system). ? Infections, especially certain viral infections. Fatigue can also lead to negative health outcomes over time. Follow these instructions at home: Medicines ? Take fuio-ada-gvzmwqo and prescription medicines only as told by your health care provider. ? Take a multivitamin if told by your health care provider. ? Do not use herbal or dietary supplements unless they are approved by your health care provider. Eating and drinking ? Avoid heavy meals in the evening. ? Eat a well-balanced diet, which includes lean proteins, whole grains, plenty of fruits and vegetables, and low-fat dairy products. ? Avoid eating or drinking too many products with caffeine in them. ? Avoid alcohol. ? Drink enough fluid to keep your urine pale yellow. Activity ? Exercise regularly, as told by your health care provider. ? Use or practice techniques to help you relax, such as yoga, kory chi, meditation, or massage therapy. Lifestyle ? Change situations that cause you stress. Try to keep your work and personal schedules in balance. ? Do not use recreational or illegal drugs. General instructions ? Monitor your fatigue for any changes. ? Go to bed and get up at the same time every day. ? Avoid fatigue by pacing yourself during the day and getting enough sleep at night. ? Maintain a healthy weight. Contact a health care provider if: ? Your fatigue does not get better. ? You have a fever. ? You suddenly lose or gain weight. ? You have headaches. ? You have trouble falling asleep or sleeping through the night. ? You feel angry, guilty, anxious, or sad. ? You have swelling in your legs or another part of your body. Get help right away if: ? You feel confused, feel like you might faint, or faint. ? Your vision is blurry or you have a severe headache. ? You have severe pain in your abdomen, your back, or the area between your waist and hips (pelvis). ? You have chest pain, shortness of breath, or an irregular or fast heartbeat. ? You are unable to urinate, or you urinate less than normal. ? You have abnormal bleeding from the rectum, nose, lungs, nipples, or, if you are female, the vagina. ? You vomit blood. ? You have thoughts about hurting yourself or others. These symptoms may be an emergency. Get help right away. Call 911. ? Do not wait to see if the symptoms will go away. ? Do not drive yourself to the hospital. Get help right away if you feel like you may hurt yourself or others, or have thoughts about taking your own life. Go to your nearest emergency room or: ? Call 911. ? Call the National Suicide Prevention Lifeline at or 750. This is open 24 hours a day. ? Text the Crisis Text Line at 803169. Summary ? If you have fatigue, you feel tired all the time and have a lack of energy or a lack of motivation. ? Fatigue may make it difficult to start or complete tasks because of exhaustion. ? Long-term (chronic) or extreme fatigue may be a symptom of a medical condition. ? Exercise regularly, as told by your health care provider. ? Change situations that cause you stress. Try to keep your work and personal schedules in balance. This information is not intended to replace advice given to you by your health care provider. Make sure you discuss any questions you have with your health care provider. Document Revised: 06/26/2022 Document Reviewed: 06/26/2022 [employer] Patient Education ? 2022 [employer]. Mental and Behavioral Health Managing Anxiety, Adult After being diagnosed with anxiety, you may be relieved to know why you have felt or behaved a certain way. You may also feel overwhelmed about the treatment ahead and what it will mean for your life. With care and support, you can manage this condition. How to manage lifestyle changes Managing stress and anxiety Stress is your body's reaction to life changes and events, both good and bad. Most stress will last just a few hours, but stress can be ongoing and can lead to more than just stress. Although stress can play a major role in anxiety, it is not the same as anxiety. Stress is usually caused by something external, such as a deadline, test, or competition. Stress normally passes after th (more content not included)... Normal [facility] CHEMISTRYOrdered By: SYSTEM SYSTEM on 06-20-2023 Albumin [Mass/Vol] 4.6 g/dL Normal 3.3 - 5.0 gm/dL [facility] Remisol Albumin/Globulin [Mass ratio] 1.4 {ratio} Normal 1.1 - 2.2 [facility] Remisol ALP [Catalytic activity/Vol] 48 [iU]/d Normal 21 - 98 Int._Unit/L [facility] Remisol ALT No additional P-5'-P [Catalytic activity/Vol] 12 [iU]/d Normal 6 - 46 Int._Unit/L [facility] Anion gap [Moles/Vol] 12 mmol/L Normal 6 - 16 mEq/L [facility] Rem[facility] AST [Catalytic activity/Vol] 17 [iU]/d Normal 5 - 43 Int._Unit/L [facility] Bilirubin [Mass/Vol] 0.6 mg/dL Normal 0.0 - 1 .1 mg/dL [facility] Calcium [Mass/Vol] 9.4 mg/dL Normal 8.9 - 11. 1 mg/dL [facility] Chloride [Moles/Vol] 110 mmol/L Normal 101 - 1 11 mmol/L [facility] CO2 [Moles/Vol] 22 mmol/L Normal 21 - 31 mmol/L [facility] Creatinine [Mass/Vol] 1.0 mg/dL Normal 0.5 - 1.3 mg/dL [facility] Remisol GFR/1.73 sq M.predicted among non-blacks MDRD (S/P/Bld) [Vol rate/Area] 74 mL/min/1.73 m2 Normal >=59mL/min/1.7 3 m2 [facility] Comment on above: Interpretive Data: C hronic kidney disease could be indicated at eGFR's of less than 60 mL/min/1.73m2. Kidney failure is indicated at less than 15 mL/min/1.73m2. Globulin (S) [Mass/Vol] 3.2 g/dL Normal 1.4 - 4.0 gm/dL [facility] Remisol Glucose [Mass/Vol] 91 mg/dL Normal 55 - 199 mg/dL [facility] Remisol Comment on above: Interpretive Data: I f this glucose result represents a fasting glucose, interpretation should refer to the following reference range: 55-99 mg/dL Potassium [Moles/Vol] 3.6 mmol/L Normal 3.5 - 5.3 mmol/L [facility] Remisol Protein [Mass/Vol] 7.8 g/dL Normal 6.0 - 7.8 gm/dL [facility] Sodium [Moles/Vol] 140 mmol/L Normal 135 - 145 mmol/L [facility] TSH Qn 2.00 m[IU]/L Normal 0.34 - 5.60 mcIU/mL [facility] Urea nitrogen [Mass/Vol] 13 mg/dL Normal 5 - 21 mg/dL [facility] Urea nitrogen/Creatinine [Mass ratio] 13 mg/mg Normal 10 - 20 [facility] CHEMISTRYOrdered By: SYSTEM SYSTEM on 01-03-2023 Albumin [Mass/Vol] 4.3 g/dL Normal 3.3 - 5.0 gm/dL [facility] Remisol Albumin/Globulin [Mass ratio] 1.4 {ratio} Normal 1.1 - 2.2 [facility] Remisol ALP [Catalytic activity/Vol] 50 [iU]/d Normal 21 - 98 Int._Unit/L [facility] Rem[facility] ALT No additional P-5'-P [Catalytic activity/Vol] 24 [iU]/d Normal 6 - 46 Int._Unit/L [facility] Anion gap [Moles/Vol] 10 mmol/L Normal 6 - 16 mEq/L [facility] AST [Catalytic activity/Vol] 24 [iU]/d Normal 5 - 43 Int._Unit/L [facility] Bilirubin [Mass/Vol] 0.3 mg/dL Normal 0.0 - 1 .1 mg/dL [facility] Bilirubin.direct [Mass/Vol] mg/dL Normal 0.1 - 0.4 mg/dL [facility] Bilirubin.indirect [Mass or moles/Vol] Unable to Calculate mg/dL Invalid Interpretation Code 0.1 - 0.9 mg/dL [facility] Calcium [Mass/Vol] 8.8 mg/dL Low 8.9 - 11. 1 mg/dL [facility] Chloride [Moles/Vol] 106 mmol/L Normal 101 - 1 11 mmol/L [facility] CO2 [Moles/Vol] 25 mmol/L Normal 21 - 31 mmol/L [facility] Creatinine [Mass/Vol] 0.8 mg/dL Normal 0.5 - 1.3 mg/dL [facility] GFR/1.73 sq M.predicted among blacks MDRD (S/P/Bld) [Vol rate/Area] mL/min/1.73 m2 Normal >=59mL/min/1.7 3 m2 [facility] Chem S GFR/1.73 sq M.predicted among non-blacks MDRD (S/P/Bld) [Vol rate/Area] mL/min/1.73 m2 Normal >=59mL/min/1.7 3 m2 [facility] Chem S Globulin (S) [Mass/Vol] 3.1 g/dL Normal 1.4 - 4.0 gm/dL [facility] Glucose [Mass/Vol] 101 mg/dL Normal 55 - 199 mg/dL [facility] Lipase [Catalytic activity/Vol] 62 U/L High 13 - 58 unit/L [facility] Potassium [Moles/Vol] 3.6 mmol/L Normal 3.5 - 5.3 mmol/L [facility] Protein [Mass/Vol] 7.4 g/dL Normal 6.0 - 7.8 gm/dL [facility] Sodium [Moles/Vol] 137 mmol/L Normal 135 - 145 mmol/L [facility] Troponin I.cardiac [Mass/Vol] pg/mL Low 10.10 - 27.10 pg/mL [facility] Urea nitrogen [Mass/Vol] 10 mg/dL Normal 5 - 21 mg/dL [facility] Urea nitrogen/Creatinine [Mass ratio] 12 mg/mg Normal 10 - 20 [facility] COAGULATIONOrdered By: Erin Chaparro on 01-03-2023 aPTT Coag (PPP) [Time] 32.9 s Normal 25.1 - 36.5 second(s) [facility] Auto Coag INR Coag (PPP) [Relative time] 1.0 {INR} Invalid Interpretation Code [facility] Auto Coag PT Coag (PPP) [Time] 10.8 s Normal 9.4 - 1 2.5 second(s) [facility] Auto Coag HEMATOLOGYOrdered By: SYSTEM SYSTEM on 01-03-2023 Basophils/100 WBC (Bld) 0.9 % Normal 0.0 - 2.0 % [facility] HemeAutoSS Basophils/Leukocytes Auto (Bld) [Pure # fraction] 0.0 E9/L Normal 0.0 - 0.2 E9/L [facility] HemeAutoSS Eosinophils/100 WBC (Bld) 1.3 % Normal 0.0 - 8.0 % [facility] HemeAutoSS Eosinophils/Leukocyt es Auto (Bld) [Pure # fraction] 0.1 E9/L Normal 0.0 - 0.5 E9/L [facility] HemeAutoSS Lymphocytes/100 WBC (Bld) 29.0 % Normal 14.0 - 50.0 % [facility] HemeAutoSS Lymphocytes/Leukocyt es Auto (Bld) [Pure # fraction] 1.5 E9/L Normal 1.0 - 4.0 E9/L [facility] HemeAutoSS Monocytes/100 WBC (Bld) 11.0 % Normal 4.0 - 14.0 % [facility] HemeAutoSS Monocytes/Leukocytes Auto (Bld) [Pure # fraction] 0.6 E9/L Normal 0.2 - 1.0 E9/L [facility]eAutoSS Neutrophils/100 WBC (Bld) 57.8 % Normal 36.0 - 75.0 % [facility] HemeAutoSS Neutrophils/Leukocyt es Auto (Bld) [Pure # fraction] 3.1 E9/L Normal 2.0 - 7.5 E9/L [facility] HemeAutoSS HEMATOLOGYOrdered By: Charles Rgoel on 01-03-2023 Erythrocyte distribution width (RBC) [Ratio] 14.1 % Normal 10.9 - 14.2 % [facility]eAutoSS Hematocrit (Bld) [Volume fraction] 40.5 % Normal 34.0 - 46.0 % [facility]eAutoSS Hemoglobin (Bld) [Mass/Vol] 13.4 g/dL Normal 12.0 - 16.0 gm/dL [facility]eAutoSS MCH (RBC) [Entitic mass] 29.2 pg Normal 27.0 - 34.0 pg [facility]eAutoSS MCHC (RBC) [Mass/Vol] 33.1 g/dL Normal 31.4 - 36.0 gm/dL [facility]eAutoSS MCV (RBC) [Entitic vol] 88.3 fL Normal 80.0 - 100.0 fL [facility]eAutoSS Platelet mean volume (Bld) [Entitic vol] 8.0 fL Normal 6.4 - 10.8 fL [facility] HemeAutoSS Platelets (Bld) [#/Vol] 230.0 E9/L Normal 150.0 - 500.0 E9/L [facility]eAutoSS RBC (Bld) [#/Vol] 4.6 E12/L Normal 4.3 - 5.9 E12/L [facility]eAutoSS WBC corrected for nucl RBC Auto (Bld) [#/Vol] 5.3 E9/L Normal 4.0 - 11.0 E9/L [facility] HemeAutoSS SEROLOGYOrdered By: Sera Chaparro on 01-03-2023 HCG.beta subunit (U) [Moles/Vol] Negative Normal [facility] URINALYSISOrdered By: Gayla Chaparro on 01-03-2023 Bacteria LM Ql (Urine sed) Trace /HPF Normal Trace/HPF [facility] UA Auto SS Bilirubin Ql (U) Negative (01/03/23 9:52 AM) Normal Negative [facility] UA Auto SS Clarity (U) Clear (01/03/23 9:52 AM) Normal Clear [facility] UA Auto SS Color (U) Yellow (01/03/23 9:52 AM) Normal Yellow [facility] UA Auto SS Epithelial cells.squamous LM.HPF (Urine sed) [#/Area] 0-2 /HPF Normal 0-2/HPF [facility] UA Auto SS Glucose Test strip (U) [Mass/Vol] Negative (01/03/23 9:52 AM) Normal Negative [facility] UA Auto SS Hemoglobin Ql (U) Negative (01/03/23 9:52 AM) Normal Negative [facility] UA Auto SS Ketones (U) [Mass/Vol] Negative (01/03/23 9:52 AM) Normal Negative [facility] UA Auto SS [place].plasma/Lithi um.RBC (Bld) [Mass ratio] 0-3 /HPF Normal 0-3/HPF [facility] UA Auto SS Mucus Ql (Urine sed) Trace (01/03/23 9:52 AM) Normal [facility] UA Auto SS Nitrite Ql (U) Negative (01/03/23 9:52 AM) Normal Negative [facility] UA Auto SS pH (U) 7.0 *NA* (01/03/23 9:52 AM) Invalid Interpretation Code 5.0 - 9.0 [facility] UA Auto SS Protein (U) [Mass/Vol] Negative (01/03/23 9:52 AM) Normal Negative [facility] UA Auto SS Specific gravity (U) [Rel density] 1.010 *NA* (01/03/23 9:52 AM) Invalid Interpretation Code 1.005 - 1.030 [facility] UA Auto SS UA Spec Desc Clean Catch (01/03/23 9:52 AM) Normal [facility] UA Auto SS Urobilinogen Qn (U) 0.1418010 {Kori'U}/dL Normal 0.0 - 1.0 EU/dL [facility] UA Auto SS WBC Auto Ql (U) Negative (01/03/23 9:52 AM) Normal Negative [facility] UA Auto SS WBC LM.HPF (Urine sed) [#/Area] 0-5 /HPF Normal 0-5/HPF [facility] UA Auto SS PAP ACOG PANEL 2: 30 to 65on 12-12-2022 . . Normal [facility] Comment on above: Result Comment: Perf ormed at: WB Performed By: #### [id number] #### [facility] [address] [address] [address] Malissa Tovar Age Gdln ACOG Testing - Normal [facility] Comment on above: Performed By: #### [id number] #### [facility] [address] [address] [address] Malissa Tovar DIAGNOSIS: Comment Normal [facility] Comment on above: Result Comment: NEGA TIVE FOR INTRAEPITHELIAL LESION OR MALIGNANCY. Performed at: WB Performed By: #### [id number] #### [facility] [address] [address] [address] Malissa Tovar HPV Aptima Negative Normal Negative [facility] Comment on above: Result Comment: This nucleic acid amplification test detects fourteen high-risk HPV types (16,18,31,33,35,39,45,51,52,56,58,59,66,68) without differentiation. Performed at: =G Performed By: #### [id number] #### [facility] [address] [address] [address] Malissa Tovar HPV Genotype Reflex Comment Normal [facility] Comment on above: Result Comment: Crit eria not met, HPV Genotype not performed. Performed at: WB Performed By: #### [id number] #### [facility] [address] [address] [address] Malissa Tovar Methodology: Comment Normal [facility] Comment on above: Result Comment: This liquid based ThinPrep(R) pap test was screened with the use of an image guided system. Performed at: WB Performed By: #### [id number] #### [facility] [address] [place] [address] Dr. Malissa Tovar Note: Comment [facility] Comment on above: Result Comment: The Pap smear is a screening test designed to aid in the detection of premalignant and malignant conditions of the uterine cervix. It is not a diagnostic procedure and should not be used as the sole means of detecting cervical cancer. Both false-positive and false-negative reports do occur. . Performed at: WB Performed By: #### [id number] #### [facility] [address] [address] [address] Malissa Tovar Performed by: Comment [facility] Comment on above: Result Comment: Monica Lima, Holiday Detector Operator (ASCP) Performed at: WB Performed By: #### [id number] #### [facility] [address] [place] [address] Dr. Malissa Tovar Specimen adequacy: Comment [facility] Comment on above: Result Comment: Sati sfactory for evaluation. Endocervical and/or squamous metaplastic cells (endocervical component) are present. Performed at: WB Performed By: #### [id number] #### [facility] [address] [place] [address] Dr. Malissa Tovar Vital Signs Date Time Vital Sign Value Performing Clinician Stefani aragon 06-09-2025 09:12-0400 Body mass index (BMI) [Ratio] 19.64 kg/m2 [employer] Work Phone: [facility] 06-09-2025 09:12-0400 Body weight 53.52 kg Guerrero [employer] Work Phone: [facility] 06-09-2025 09:12-0400 Diastolic blood pressure 70 mm[Hg] Guerrero Sofia DO Work Phone: [facility] 06-09-2025 09:12-0400 Systolic blood pressure 126 mm[Hg] Guerrero Sofia 10X10 Room Work Phone: [facility] 10-29-2024 10:17-0500 Blood Pressure Location Renetta Nam [facility] 10-29-2024 10:17-0500 Body temperature 97.52 [degF] Renetta Guamaner [facility] 10-29-2024 10:17-0500 Diastolic blood pressure 74 mm[Hg] Renetta Guamaner [facility] 10-29-2024 10:17-0500 Systolic blood pressure 112 mm[Hg] Renetta Guamaner [facility] 10-07-2024 13:04-0500 Blood Pressure Location Candice Lee [facility] 10-07-2024 13:04-0500 Body temperature 96.98 [degF] Candice Lee [facility] 10-07-2024 13:04-0500 Diastolic blood pressure 60 mm[Hg] Candice Lee [facility] 10-07-2024 13:04-0500 Heart rate 66 /min Candice Lee [facility] 10-07-2024 13:04-0500 SaO2% (BldA) [Mass fraction] 99 % Candice Lee [facility] 10-07-2024 13:04-0500 Systolic blood pressure 112 mm[Hg] Candice Lee [facility] 08-25-2024 09:26-0500 Body height 165.1 cm Ana Luisa [employer] PA Work Phone: [facility] 08-25-2024 09:26-0500 Body mass index (BMI) [Ratio] 19.14 kg/m2 Ana Luisa Lowe PA Work Phone: [facility] 08-25-2024 09:26-0500 Body weight 52.16 kg Ana Luisa Lowe PA Work Phone: [facility] 08-25-2024 09:26-0500 Diastolic blood pressure 80 mm[Hg] Ana Luisa Lowlisa PA Work Phone: [facility] 08-25-2024 09:26-0500 Systolic blood pressure 104 mm[Hg] Ana Luisa Vimale PA Work Phone: [facility] 08-04-2024 17:33-0500 Blood Pressure Location RAUL GUEVARA [facility] 08-04-2024 17:33-0500 Diastolic blood pressure 62 mm[Hg] RAUL GUEVARA [facility] 08-04-2024 17:33-0500 Heart rate 74 /min RAUL GUEVARA [facility] 08-04-2024 17:33-0500 Respiratory rate 16 /min RAUL GUEVARA [facility] 08-04-2024 17:33-0500 SaO2% (BldA) [Mass fraction] 97 % RAUL GUEVARA [facility] 08-04-2024 17:33-0500 Systolic blood pressure 102 mm[Hg] RAUL GUEVARA [facility] 07-14-2024 08:51-0400 Blood Pressure Location Heather Hammer [facility] 07-14-2024 08:51-0400 Body temperature 97.7 [degF] Heather Hammer [facility] 07-14-2024 08:51-0400 Diastolic blood pressure 70 mm[Hg] Heather Hammer [facility] 07-14-2024 08:51-0400 Heart rate 62 /min Heather Hammer [facility] 07-14-2024 08:51-0400 SaO2% (BldA) [Mass fraction] 100 % Heather Hammer [facility] 07-14-2024 08:51-0400 Systolic blood pressure 116 mm[Hg] Heather Hammer [facility] 06-23-2024 15:14-0400 Blood Pressure Location Mello LÓPEZ [facility] 06-23-2024 15:14-0400 Body temperature 97.7 [degF] Mello KAPLE [facility] 06-23-2024 15:14-0400 Diastolic blood pressure 68 mm[Hg] Mello KAPLE [facility] 06-23-2024 15:14-0400 Heart rate 79 /min Mello KAPLE [facility] 06-23-2024 15:14-0400 Respiratory rate 16 /min Mello KAPLE [facility] 06-23-2024 15:14-0400 SaO2% (BldA) [Mass fraction] 99 % Mello KAPLE [facility] 06-23-2024 15:14-0400 Systolic blood pressure 110 mm[Hg] Mello KAPLE [facility] 06-03-2024 09:54-0400 Body mass index (BMI) [Ratio] 19.04 kg/m2 Guerrero Sofia 10X10 Room Work Phone: [facility] 06-03-2024 09:54-0400 Body weight 51.89 kg TheySay Sofia 10X10 Room Work Phone: [facility] 06-03-2024 09:54-0400 Diastolic blood pressure 74 mm[Hg] Guerrero Sofia DO Work Phone: [facility] 06-03-2024 09:54-0400 Systolic blood pressure 110 mm[Hg] Guerrero Sofia DO Work Phone: [facility] 05-14-2024 14:21-0400 Body mass index (BMI) [Ratio] 19.27 kg/m2 Jana JAUREGUI Work Phone: [facility] 05-14-2024 14:21-0400 Body weight 52.53 kg Jana Richardson PA Work Phone: [facility] 05-14-2024 14:21-0400 Diastolic blood pressure 68 mm[Hg] Jana JAUREGUI Work Phone: [facility] 05-14-2024 14:21-0400 Systolic blood pressure 104 mm[Hg] Jana JAUREGUI Work Phone: [facility] 04-10-2024 06:58-0400 Blood Pressure Location Ruth Chaparro [facility] 04-10-2024 06:58-0400 Body temperature 97.7 [degF] Ruth Chaparro [facility] 04-10-2024 06:58-0400 Diastolic blood pressure 80 mm[Hg] Ruth Chaparro [facility] 04-10-2024 06:58-0400 Heart rate 100 /min Ruth Chaparro [facility] 04-10-2024 06:58-0400 Respiratory rate 16 /min Ruth Chaparro [facility] 04-10-2024 06:58-0400 SaO2% (BldA) [Mass fraction] 99 % Ruth Chaparro [facility] 04-10-2024 06:58-0400 Systolic blood pressure 116 mm[Hg] Ruth Chaparro [facility] 12-10-2023 07:42-0400 Blood Pressure Location Candice Lee [facility] 12-10-2023 07:42-0400 Body temperature 97.52 [degF] Candice Lee [facility] 12-10-2023 07:42-0400 Diastolic blood pressure 66 mm[Hg] Candicetom Johnsonler [facility] 12-10-2023 07:42-0400 Heart rate 72 /min Candice Lee [facility] 12-10-2023 07:42-0400 SaO2% (BldA) [Mass fraction] 98 % Candicetom Lee [facility] 12-10-2023 07:42-0400 Systolic blood pressure 118 mm[Hg] Candicetom Lee [facility] 06-11-2023 10:36-0400 Blood Pressure Location Candice Lee [facility] 06-11-2023 10:36-0400 Body temperature 98.6 [degF] Candice Lee [facility] 06-11-2023 10:36-0400 Diastolic blood pressure 62 mm[Hg] Candice Missler [facility] 06-11-2023 10:36-0400 Heart rate 73 /min Candicetom Johnsonler [facility] 06-11-2023 10:36-0400 SaO2% (BldA) [Mass fraction] 98 % Candice Missler [facility] 06-11-2023 10:36-0400 Systolic blood pressure 110 mm[Hg] Candice Lee [facility] 03-16-2023 16:35-0400 Blood Pressure Location Candice Lee [facility] 03-16-2023 16:35-0400 Body temperature 98.24 [degF] Candice Lee [facility] 03-16-2023 16:35-0400 Diastolic blood pressure 60 mm[Hg] Candice Lee [facility] 03-16-2023 16:35-0400 Heart rate 94 /min Candice Lee [facility] 03-16-2023 16:35-0400 Respiratory rate 18 /min Candice Lee [facility] 03-16-2023 16:35-0400 SaO2% (BldA) [Mass fraction] 99 % Candice Lee [facility] 03-16-2023 16:35-0400 Systolic blood pressure 102 mm[Hg] Candice Lee [facility] 02-15-2023 16:26-0400 Diastolic blood pressure 64 mm[Hg] Ameya Marie [facility] 02-15-2023 16:26-0400 Heart rate 62 /min Ameya Marie [facility] 02-15-2023 16:26-0400 SaO2% (BldA) [Mass fraction] 99 % Ameya Taerson [facility] 02-15-2023 16:26-0400 Systolic blood pressure 110 mm[Hg] Ameya Christofferson [facility] 01-10-2023 16:12-0400 Blood Pressure Location Candice Lee [facility] 01-10-2023 16:12-0400 Body temperature 97.7 [degF] Candice Lee [facility] 01-10-2023 16:12-0400 Diastolic blood pressure 64 mm[Hg] Candice Lee [facility] 01-10-2023 16:12-0400 Heart rate 63 /min Candice Lee [facility] 01-10-2023 16:12-0400 SaO2% (BldA) [Mass fraction] 100 % Candice Lee [facility] 01-10-2023 16:12-0400 Systolic blood pressure 120 mm[Hg] Candice Lee [facility] 01-04-2023 15:09-0400 Blood Pressure Location Ameya Cynthia [facility] 01-04-2023 15:09-0400 Diastolic blood pressure 80 mm[Hg] Ameya Kimofferson [facility] 01-04-2023 15:09-0400 Heart rate 78 /min Ameya Julioofferson [facility] 01-04-2023 15:09-0400 SaO2% (BldA) [Mass fraction] 97 % Ameya Christofferson [facility] 01-04-2023 15:09-0400 Systolic blood pressure 130 mm[Hg] Ameya Christofferson [facility] 01-03-2023 11:01-0400 Diastolic blood pressure 78 mm[Hg] Manuelito Duckworth [facility] 01-03-2023 11:01-0400 Heart rate 55 /min Manuelito Gucci [facility] 01-03-2023 11:01-0400 Mean blood pressure 94 mm[Hg] Manuelito Gucci [facility] 01-03-2023 11:01-0400 Respiratory rate 19 /min Manuelito Gucci [facility] 01-03-2023 11:01-0400 SaO2% (BldA) [Mass fraction] 100 % Manuelito Gucci [facility] 01-03-2023 11:01-0400 Systolic blood pressure 127 mm[Hg] Manuelito Gucci [facility] 01-03-2023 10:28-0400 SaO2% (BldA) [Mass fraction] 99 % Manuelito Duckworth [facility] 01-03-2023 10:00-0400 Diastolic blood pressure 80 mm[Hg] Manuelito Gucci [facility] 01-03-2023 10:00-0400 Heart rate 63 /min Manuelito Duckworth [facility] 01-03-2023 10:00-0400 Mean blood pressure 93 mm[Hg] Manuelito Gucci [facility] 01-03-2023 10:00-0400 Systolic blood pressure 120 mm[Hg] Manuelito Gucci [facility] 01-03-2023 09:26-0400 Body temperature 98.24 [degF] Manuelito Duckworth [facility] 01-03-2023 09:26-0400 Diastolic blood pressure 82 mm[Hg] Manuelito Duckworth [facility] 01-03-2023 09:26-0400 Heart rate 79 /min Manuelito Duckworth [facility] 01-03-2023 09:26-0400 Respiratory rate 18 /min Manuelito Duckworth [facility] 01-03-2023 09:26-0400 Systolic blood pressure 135 mm[Hg] Manuelito Duckworth [facility] 10-03-2022 10:19-0500 Blood Pressure Location [facility] 10-03-2022 10:19-0500 Body temperature 99.32 [degF] [facility] 10-03-2022 10:19-0500 Diastolic blood pressure 60 mm[Hg] [facility] 10-03-2022 10:19-0500 Heart rate 79 /min [facility] 10-03-2022 10:19-0500 SaO2% (BldA) [Mass fraction] 98 % [facility] 10-03-2022 10:19-0500 Systolic blood pressure 90 mm[Hg] [facility] 06-23-2022 13:04-0400 Blood Pressure Location Mello JOLE [facility] 06-23-2022 13:04-0400 Body temperature 97.7 [degF] Mello KAPLE [facility] 06-23-2022 13:04-0400 Diastolic blood pressure 60 mm[Hg] Mello KAPLE [facility] 06-23-2022 13:04-0400 Heart rate 65 /min Mello KAPLE [facility] 06-23-2022 13:04-0400 Respiratory rate 16 /min Mello KAPLE [facility] 06-23-2022 13:04-0400 SaO2% (BldA) [Mass fraction] 99 % Mello KAPLE [facility] 06-23-2022 13:04-0400 Systolic blood pressure 102 mm[Hg] Mello KAPLE [facility] 04-06-2022 12:58-0400 Blood Pressure Location Mello KAPLE [facility] 04-06-2022 12:58-0400 Body temperature 97.7 [degF] Mello KAPLE [facility] 04-06-2022 12:58-0400 Diastolic blood pressure 64 mm[Hg] Mello KAPLE [facility] 04-06-2022 12:58-0400 Heart rate 79 /min Mello KAPLE [facility] 04-06-2022 12:58-0400 Respiratory rate 16 /min Mello KAPLE [facility] 04-06-2022 12:58-0400 SaO2% (BldA) [Mass fraction] 100 % Mello KAPLE [facility] 04-06-2022 12:58-0400 Systolic blood pressure 104 mm[Hg] Mello KAPLE [facility] Encounters Encounter Date Encounter Type Care Provider Facility Start: 06-01-2026 ambulatory Candice Blair acility:[facility] Start: 06-17-2025 ambulatory [facility]ann[facility] Bell [facility] Start: 06-09-2025 End: 06-09-2025 Bamboo flowsheet Guerrero Sofia DO Work Phone: [facility] Start: 06-09-2025 End: 06-09-2025 Bamboo flowsheet Guerrero Sofia DO Work Phone: [facility] Start: 06-09-2025 End: 06-09-2025 Patient encounter procedure Guerrero Sofia DO Work Phone: [facility] Start: 06-09-2025 End: 06-09-2025 Periodic preventive med est patient 40-64yrs Guerrero Sofia DO Work Phone: [facility] Comment on above: Well woman exam with routine gynecological exam; Encounter for screening mammogram for malignant neoplasm of breast Start: 06-08-2025 ambulatory Kael Roger y:[facility] Start: 06-08-2025 End: 06-08-2025 Patient encounter procedure Kael Main [facility] [place] Start: 05-31-2025 End: 05-31-2025 ambulatory Ruth Chaparro Facility:[facility] Start: 05-31-2025 End: 05-31-2025 Patient encounter procedure Ruth Chaparro [facility] Start: 05-28-2025 End: 05-28-2025 ambulatory Nannette Bell Facility:[facility] Start: 05-27-2025 End: 05-27-2025 ambulatory COMMUTATOR [employer]ING [employer]SEM[employer]-C Candice Lee Facility:[facility] Start: 05-27-2025 End: 05-27-2025 Patient encounter procedure Candice Donaldson Jesus [facility] Start: 05-27-2025 End: 05-27-2025 Well adult monitoring check done Candice Lee [facility] Start: 05-26-2025 End: 05-26-2025 ambulatory Nannette Bell Facility:[facility] Start: 05-25-2025 End: 05-25-2025 ambulatory COMMUTATOR V RING ASSEM[employer]-C Candice Lee Facility:[facility] Start: 05-19-2025 End: 05-19-2025 [facility]ulatory [facility] Start: 05-19-2025 End: 05-19-2025 Patient encounter procedure Nannette Bell [facility] Start: 05-05-2025 [facility]ulatory [facility] Start: 05-01-2025 End: 05-01-2025 ambulatory Ruth Chaparro Facility:[facility] [place] Start: 05-01-2025 End: 05-01-2025 Patient encounter procedure Ruth Chaparro [facility] Start: 04-29-2025 End: 04-29-2025 Emergency department patient visit Brody Degroot Facility:[facility] Start: 04-26-2025 End: 04-26-2025 Emergency department patient visit Joe Ross Facility:[facility] Start: 12-02-2024 End: 12-02-2024 ambulatory GUERRERO MGO Not Available Start: 10-29-2024 End: 10-29-2024 Lab Drop off Renetta Nam [facility] Start: 10-29-2024 End: 10-29-2024 ambulatory Renetta Nam Facility:[facility] Start: 10-29-2024 End: 10-29-2024 Patient encounter procedure Renetta Dos Santos Viv [facility] Start: 10-07-2024 End: 10-07-2024 ambulatory Candice Lee Facility:[facility] Start: 10-07-2024 End: 10-07-2024 Patient encounter procedure Candice Lee [facility] Start: 08-25-2024 End: 08-25-2024 Bamboo [employer] Ana Luisa Lowe PA Work Phone: [facility] Start: 08-25-2024 End: 08-25-2024 Bamboo flowsheet Ana Luisa Lowe PA Work Phone: [facility] Start: 08-25-2024 End: 08-25-2024 ambulatory ANA LUISA LOWE Not Available Start: 08-25-2024 End: 08-25-2024 Office outpatient visit 15 minutes Ana Luisa Lowe PA Work Phone: [facility] Comment on above: Migraine without aur a and without status migrainosus, not intractable (CMS/[facility]) (Primary Dx) Start: 08-18-2024 End: 08-18-2024 ambulatory RAUL GUEVARA Facility:[facility] Start: 08-18-2024 End: 08-18-2024 Patient encounter procedure RAUL GUEVARA [facility] Start: 08-07-2024 End: 08-07-2024 ambulatory RAUL GUEVARA Facility:[facility] Start: 08-07-2024 End: 08-07-2024 Patient encounter procedure RAUL GUEVARA [facility] Start: 08-04-2024 End: 08-04-2024 Lab Drop off RAUL GUEVARA [facility] Start: 08-04-2024 End: 08-04-2024 ambulatory RAUL GUEVARA Facility:[facility] Start: 08-04-2024 End: 08-04-2024 Patient encounter procedure RAUL GUEVARA [facility] [place] Start: 07-18-2024 ambulatory Heather Hammer Facilit y:[facility] Start: 07-14-2024 End: 07-14-2024 ambulatory Heather Hammer Facility:[facility] Start: 07-14-2024 End: 07-14-2024 Patient encounter procedure Heather Hammer [facility] Start: 07-14-2024 End: 07-14-2024 ambulatory Heather Hammer Facility:[facility] Start: 07-14-2024 End: 07-14-2024 Patient encounter procedure Heather Hammer [facility] Start: 06-23-2024 End: 06-23-2024 ambulatory Mello LÓPEZ Facility:[facility] Start: 06-23-2024 End: 06-23-2024 Patient encounter procedure Mello LÓPEZ [facility] Start: 06-23-2024 End: 06-23-2024 Well adult monitoring check done Mello LÓPEZ [facility] Start: 06-19-2024 End: 06-19-2024 ambulatory Mello LÓPEZ Facility:[facility] Start: 06-19-2024 End: 06-19-2024 Patient encounter procedure Mello LÓPEZ [facility] Start: 06-03-2024 End: 06-03-2024 ambulatory GUERRERO MGO Not Available Start: 06-03-2024 End: 06-03-2024 Patient encounter procedure Guerrero Mgo DO Work Phone: [facility] Comment on above: LGSIL Pap smear of v agina Start: 05-14-2024 End: 05-14-2024 ambulatory JANA RICHARDSON Not Available Start: 05-14-2024 End: 05-14-2024 Bamboo flowsheet Jana JAUREGUI Work Phone: [facility] Start: 05-14-2024 End: 05-25-2024 Bamboo flowsheet Jana JAUREGUI Work Phone: [facility] Start: 05-14-2024 End: 05-25-2024 Clinisync Result Encounter Jana JAUREGUI Work Phone: [facility] Unsolicited Start: 05-14-2024 End: 05-14-2024 Patient encounter procedure Jana JAUREGUI Work Phone: [facility] Work Phone: Start: 05-14-2024 End: 05-14-2024 Periodic preventive med est patient 18-39 yrs Jana JAUREGUI Work Phone: [facility] Comment on above: Well woman exam with routine gynecological exam Start: 04-10-2024 End: 04-10-2024 ambulatory Ruth Chaparro Facility:[facility] Start: 04-10-2024 End: 04-10-2024 Patient encounter procedure Ruth Chaparro [facility] Start: 03-04-2024 End: 03-04-2024 ambulatory ANA LUISA LEOS Not Available Start: 12-14-2023 End: 12-14-2023 ambulatory Candice Lee Facility:[facility] Start: 12-14-2023 End: 12-14-2023 Patient encounter procedure Candice Lee [facility] Start: 12-10-2023 End: 12-10-2023 ambulatory Candice Lee Facility:[facility] Start: 12-10-2023 End: 12-10-2023 Patient encounter procedure Candice Lee [facility] Start: 10-22-2023 ambulatory Kiesha Tomlin Facility:[facility] Start: 09-21-2023 End: 09-21-2023 Patient encounter procedure Kiesha Tomlin [facility] Start: 08-27-2023 End: 08-27-2023 Patient encounter procedure Kiesha Tomlin [facility] Start: 08-06-2023 End: 08-06-2023 Patient encounter procedure Kiesha Tomlin [facility] Start: 07-13-2023 End: 07-13-2023 Patient encounter procedure Kiesha Tomlin [facility] Start: 06-20-2023 End: 06-20-2023 Patient encounter procedure Candice Lee [facility] Start: 06-11-2023 End: 06-11-2023 Patient encounter procedure Candice Lee [facility] Start: 06-11-2023 End: 06-11-2023 Well adult monitoring check done Candice Lee [facility] Start: 04-17-2023 End: 04-17-2023 Patient encounter procedure Candice Lee [facility] Start: 03-16-2023 End: 03-16-2023 Patient encounter procedure Candice Lee [facility] Start: 02-15-2023 End: 02-15-2023 Patient encounter procedure Ameya Marie [facility] Start: 02-09-2023 End: 02-09-2023 Patient encounter procedure Viktoria NI [facility] Start: 01-10-2023 End: 01-10-2023 Patient encounter procedure Candice Lee [facility] Start: 01-04-2023 End: 01-04-2023 Patient encounter procedure Ameya Marie [facility] Start: 01-03-2023 End: 01-03-2023 Emergency department patient visit Manuelito Duckworth [facility] Start: 12-11-2022 End: 12-11-2022 Off-Site Kaia Whipple [facility] Start: 12-05-2022 End: 12-05-[address] CARLA HACKETT . Facility: Start: 10-03-2022 End: 10-03-2022 Patient encounter procedure Hilario Cardenas [facility] Start: 06-23-2022 End: 06-23-2022 Encounter for general adult medical examination with abnormal findings Mello LÓPEZ [facility] Start: 06-23-2022 End: 06-23-2022 Patient encounter procedure Mello LÓPEZ [facility] Start: 04-17-2022 End: 04-17-2022 Patient encounter procedure ANA LUISA LEOS [facility] Start: 04-06-2022 End: 04-06-2022 Patient encounter procedure Mello LÓPEZ [facility] Procedures Date Procedure Procedure Detail Performing Clinician Start: 05-26-2025 Colonoscopy Candice cho Start: 12-09-2024 Mammography Guerrero Fazi o DO Work Phone: Start: 12-02-2024 Microscopic observat ion [Identifier] in Cervix by Cyto stain Guerrero Sofia DO Work Phone: Start: 05-14-2024 IGP,APTIMA HPV,AGE GDLN Jana JAUREGUI Work Phone: Start: 05-14-2024 Microscopic observat ion [Identifier] in Cervix by Cyto stain Guerrero Sofia DO Work Phone: Start: 12-05-2022 Microscopic observat ion [Identifier] in Cervix by Cyto stain Jana JAUREGUI Work Phone: Start: 09-17-2017 Hysterectomy Mello Gonzalez d and c Mello LÓPEZ endometriosis surgery Mello LÓPEZ Laparoscopy Mello LÓPEZ Laparoscopy Mello LÓPEZ Plan of Treatment Date Care Activity Detail Author Start: 12-03-2027 Screening for malign ant neoplasm of cervix [facility] Start: 05-14-2027 Screening for malign ant neoplasm of cervix [facility] Start: 06-15-2026 End: 06-15-2026 Patient encounter procedure 06/15/2026 9:00 AM EDT Procedure Visit [facility] [address] [place] [id number] Guerrero Black, DO [address] [place] [address] [facility] [place] [facility] Start: 12-09-2025 Screening for malign ant neoplasm of breast Mammogram [facility] Start: 12-05-2025 Screening for malign ant neoplasm of cervix [facility] Start: 08-25-2025 End: 08-25-2025 Patient encounter procedure 08/25/2025 10:40 AM EST [facility] [address] [facility] [address] [place] [phone] Ana Luisa Leos PA [address] [place] [address] [facility] [address] [facility] Start: 06-09-2025 End: 08-09-2026 MG Breast - bilateral Screening Bilateral screening mammogram Imaging Routine Well woman exam with routine gynecological exam Encounter for screening mammogram for malignant neoplasm of breast Expected: 06/09/2025 (Approximate), Expires: 08/09/2026 [facility] Work Phone: Comment on above: Expected: 06/09/2025 (Approximate), Expires: 08/09/2026 Start: 06-09-2025 End: 06-09-2025 Patient encounter procedure 06/09/2025 9:00 AM EDT Office Visit [facility] [address] [place] [phone] Guerrero Black, DO [address] [place] [address] Arrived [facility] Comment on above: Arrived Start: 05-20-2025 End: 05-20-2025 Patient encounter procedure 05/20/2025 3:00 PM EDT Office Visit [facility] [address] [place] [address] Jana Richardson PA [address] [facility] [address] [place], [place] [id number] [facility] Start: 05-18-2025 Influenza vaccination Influenza Vacc ine (#1) [facility] Start: 12-02-2024 End: 12-02-2024 Patient encounter procedure 12/02/2024 10:20 AM EDT Procedure Visit [facility] [address] [place] [address] Guerrero Black DO [address] [facility] [address] [place], [place] [id number] [facility] Start: 08-21-2024 End: 08-21-2024 Patient encounter procedure 08/21/2024 9:00 AM EST Office Visit [facility] [address] [place] [phone] Ana Luisa Leos, SHANIA [address] [place] [address] [facility] Start: 06-03-2024 End: 06-03-2025 Colposcopy Colposcopy Procedures Routine LGSIL Pap smear of vagina Expected: 06/03/2024 (Approximate), Expires: 06/03/2025 [facility] Work Phone: Comment on above: Expected: 06/03/2024 (Approximate), Expires: 06/03/2025 Start: 05-18-2024 Influenza vaccination Influenza Vacc ine (#1) [facility] Start: 2014 Screening for malign ant neoplasm of cervix HPV/Cotest [facility] Cytology Cervical or vaginal smear or scraping study Pap Smear Pathology and Cytology Routine Well woman exam with routine gynecological exam Ordered: 05/14/2024 [facility] Work Phone: Comment on above: Ordered: 05/14/2024 Human papilloma viru s DNA [Presence] in Unspecified specimen by Probe with amplification HPV DNA probe, amplified Microbiology Routine Well woman exam with routine gynecological exam Ordered: 05/14/2024 [facility] Comment on above: Ordered: 05/14/2024 THIN PREP TIS PAP AN D HR HPV DNA THIN PREP TIS PAP AND HR HPV DNA Pathology and Cytology Routine Well woman exam with routine gynecological exam Ordered: 06/09/2025 [facility] Comment on above: Ordered: 06/09/2025 Immunizations Immunization Date Immunization Notes Care Provider Fa marlee 11-26-2021 SARS-CoV-2 (COVID-19 ) mRNA BNT-162b2 vax Mello UpstartJESÚS [facility] 11-05-2021 SARS-CoV-2 (COVID-19 ) mRNA BNT-162b2 [facility] Mello Hopkins Golf [facility] 06-19-2019 tetanus toxoid, reduced diphtheria toxoid, and acellular pertussis vaccine, adsorbed Listar [facility] NEGATED: Highlighted row has not occurred!10-29-2024 influenza virus vaccine, unspecified formulation Renetta Viv [facility] NEGATED: Highlighted row has not occurred!02-26-2023 SARS-CoV-2 mRNA (tozinameran 5y-11y) vaccine Candice Lee [facility] Comment on above: Result Comment: dupl icate NEGATED: Highlighted row has not occurred!12-11-2022 influenza virus vaccine, unspecified formulation Kaia RodriguezSales Layerfaviola [facility] NEGATED: Highlighted row has not occurred!12-11-2022 SARS-CoV-2 mRNA (tozinameran 5y-11y) vaccine Kaia [employer] [facility] Comment on above: Result Comment: dupl icate NEGATED: Highlighted row has not occurred!10-03-2022 influenza virus vaccine, unspecified formulation Hilario Millerjack [facility] NEGATED: Highlighted row has not occurred!08-22-2021 influenza virus vaccine, unspecified formulation Mello LÓPEZ [facility] NEGATED: Highlighted row has not occurred!07-12-2021 SARS-CoV-2 (COVID-19) Ad26 vaccine, recombinant [facility] NEGATED: Highlighted row has not occurred!09-06-2020 influenza virus vaccine, unspecified formulation Mello LÓPEZ [facility] NEGATED: Highlighted row has not occurred!07-14-2020 influenza virus vaccine, unspecified formulation Mello LÓPEZ [facility] NEGATED: Highlighted row has not occurred!11-12-2019 influenza virus vaccine, live, attenuated, for intranasal use Mello LÓPEZ [facility] Payers Date Payer Category Payer Private Health Insurance [id number] 2020 Private Health Insurance [id number] 1984 Unknown [id number] 2.16.84 0.1.889599.3.579.2.593 1984 Unknown [id number] 2.16.8 40.1.110174.3.579.2.727 1984 Unknown [id number] 2.16.8 40.1.970229.3.579.2 1984 Unknown [id number] 2.16.8 40.1.642886.3.579.2 1984 Unknown [id number] 2.16.8 40.1.793550.3.579.2 1984 Unknown [id number] 2.16.8 40.1.373886.3.579.2 1984 Unknown [id number] 2.16.8 40.1.449167.3.579.2 1984 Unknown [id number] 2.16.8 40.1.188663.3.579.2 1984 Unknown [id number] 2.16.8 40.1.048909.3.579.2 1984 Unknown [id number] 2.16.8 40.1.736549.3.579.2 1984 Unknown [id number] 2.16.8 40.1.725035.3.579.2 1984 Unknown [id number] 2.16.8 40.1.525689.3.579.2 1984 Unknown [id number] 2.16.8 40.1.435011.3.579.2 1984 Unknown [id number] 2.16.84 0.1.668608.3.579.2.1258 1984 Unknown [id number] 2.16.84 0.1.354745.3.579.2.1258 1984 Unknown [id number] 2.16.84 0.1.456427.3.579.2.1258 1984 Unknown [id number] 2.16.84 0.1.979490.3.579.2.1258 1984 Unknown [id number] 2.16.84 0.1.226347.3.579.2.1258 1984 Unknown [id number] 2.16.8 40.1.883615.3.579.2. 1984 Unknown [id number] 2.16.8 40.1.557574.3.579.2. 1984 Unknown [id number] 2.16.8 40.1.067662.3.579.2 1984 Unknown [id number] 2.16.8 40.1.042747.3.579.2 1984 Unknown [id number] 2.16.8 40.1.096647.3.579.2 1984 Unknown [id number] 2.16.8 40.1.387414.3.579.2 1984 Unknown [id number] 2.16.8 40.1.052247.3.579.2 1984 Unknown [id number] 2.16.8 40.1.783981.3.579.2 1984 Unknown [id number] 2.16.8 40.1.017714.3.579.2 1984 Unknown [id number] 2.16.8 40.1.441080.3.579.2 1984 Unknown [id number] 2.16.8 40.1.523324.3.579.2 1984 Unknown [id number] 2.16.8 40.1.809063.3.579.2 1984 Unknown [id number] 2.16.8 40.1.633717.3.579.2 1984 Unknown [id number] 2.16.8 40.1.221657.3.579.2 1984 Unknown [id number] 2.16.8 40.1.314954.3.579.2 1984 Unknown [id number] 2.16.8 40.1.015389.3.579.2 1984 Unknown [id number] 2.16.8 40.1.548525.3.579.2.727 1984 Unknown [id number] 2.16.8 40.1.633662.3.579.2.727 1984 Unknown [id number] 2.16.8 40.1.090067.3.579.2.727 1959 Private Health Insurance [id number] Social History Date Type Detail Facility Start: 08-22-2021 End: 05-01-2025 Tobacco smoking status Heavy tobacco smoker (finding) [facility] Tobacco smoking status Never Rodrigo [facility] Start: 08-25-2024 End: 12-02-2024 Sex Assigned At Female [facility] Start: 01-04-2023 End: 03-16-2023 Tobacco smoking status Ex-smoker (finding) [facility] Start: 06-11-2023 End: 06-25-2023 Tobacco smoking status Light tobacco smoker (finding) [facility] Start: 03-04-2024 End: 12-02-2024 Tobacco smoking status NHIS Smokes tobacco daily [facility] History of tobacco use Cigarette Smoker [facility] Start: 03-04-2024 End: 12-02-2024 Tobacco use and exposure Smokeless tobacco non-user [facility] Start: 08-25-2024 End: 12-02-2024 History of Social function [facility] Start: 1984 Sex assigned at Not on file [facility] Sexual Orientation [facility] Start: 12-29-2009 Sex Female (finding) [facility] Tobacco Current vaping o r e-cigarette use Smokeless Tobacco Use:. Cigarettes, Started age 16.0 Years. Previous treatment: None. Household tobacco concerns: No. [facility] Start: 12-02-2024 Tobacco Comment Vaping [facility] Functional Status Date Assessment Result Facility 10-29-2024 Functional Status N/A [facility] 10-07-2024 Functional Status N/A [facility] 08-04-2024 Functional Status N/A [facility] 07-14-2024 Functional Status N/A [facility] 06-23-2024 Functional Status N/A [facility] 04-10-2024 Functional Status N/A [facility] 12-10-2023 Functional Status N/A [facility] 06-11-2023 Functional Status N/A [facility] 03-16-2023 Functional Status N/A [facility] 02-15-2023 Functional Status No [facility] 01-10-2023 Functional Status N/A [facility] 01-04-2023 Functional Status No [facility] 01-03-2023 Functional Status N/A [facility] 12-11-2022 Functional Status N/A [facility] 10-03-2022 Functional Status N/A [facility] 06-23-2022 Functional Status N/A [facility] 04-06-2022 Functional Status N/A [facility] Clinical Notes 04-03-2022 to 06-09-2025 Dannielle Durant LPN - 06/09/2025 9:00 AM SHANIA Cline - 08/25/2024 9:20 AM Steffanie Durant LPN - 06/03/2024 9:30 AM SHANIA Tinsley - 05/14/2024 2:00 PM EDT Note Date & Type Note Facility 06-09-2025 History of Present illness Narrative Reason for Appointment: Patient ID: Radha Paez is a 39 y.o. female who presents for Gynecologic Exam Patient presents today for Annual Exam. MEDICATIONS Current Outpatient Medications Medication Instructions cholecalciferol (Vitamin D-3) 1.25 MG (99292 UT) capsule Oral, Every 7 days hydrOXYzine [...] nursing note reviewed. Exam conducted with a lining ironer present. Vitals: Estimated body mass index is 19.64 kg/m as calculated from the following: Height as [...] them. Patient can also view results via [facility]. I reinforced importance of condom use for [...] DO, Amy Ramey-PA-C documented in this encounter [facility] 05-31-2025 Hospital Discharge instructions Patient Education 05/31/2025 10:59:29 E. Coli Infection E. Coli Infection E. coli (Escherichia coli) are bacteria that can cause an infection in different parts of your body, including your intestines. E. coli bacteria normally live in the intestines of people and animals. Most types of E. coli do not cause infections, but some produce a poison (toxin) that can cause diarrhea. Depending on the toxin, this can cause mild or severe diarrhea. This condition is contagious. This means that it can spread from person to person. It can also spread from animals to humans. Most cases of E. coli infection come from cows (cattle). In some cases, this infection can cause a dangerous complication called hemolytic uremic syndrome (HUS). HUS leads to blood cell abnormalities and kidney failure. What are the causes? This condition is caused by E. coli bacteria. You may get this bacteria by: Eating raw or undercooked beef. Touching an infected animal and then touching your mouth. Eating raw fruits or vegetables that have come into contact with the stool (feces) of infected animals. Drinking fluids that have been contaminated with E. coli from infected animals. Coming into contact with a surface that has been contaminated by an infected person. What increases the risk? This condition is more likely to develop in people who: Are young children or older adults. Eat raw or undercooked beef. Drink raw (unpasteurized) milk, cider, or juice. Eat cheeses made from unpasteurized milk. Eat raw vegetables such as spinach or lettuce. Are in close contact with cattle, goats, or sheep. Have a weak body defense system (immune system). What are the signs or symptoms? Symptoms of this condition usually start 3 4 days after the bacteria were swallowed (ingested). Symptoms include: Severe cramps and tenderness in the abdomen. Diarrhea. This may be watery or bloody. Nausea and vomiting. Dehydration. This can cause fatigue, thirst, a dry mouth, and less frequent urination. Low fever. This is not common. How is this diagnosed? This condition may be diagnosed based on: A medical history. A physical exam. A stool culture. This involves testing a sample of your stool for E. coli or toxins of E. coli. How is this treated? Treatment for this condition includes rest and fluids (supportive care). If you have severe diarrhea, you may need to receive fluids through an IV. Symptoms of E. coli intestinal infection usually go away in 5 10 days. Some strains of E. coli may be treated with antibiotic or antidiarrheal medicines. However, these medicines are rarely given because they increase your risk for HUS. Follow these instructions at home: Eating and drinking Drink enough fluid to keep your urine pale yellow. You may need to drink small amounts of clear liquids frequently. Take an oral rehydration solution (ORS) as told by your health care provider. This drink is sold at pharmacies and retail stores. Drink clear fluids, such as water, ice chips, diluted fruit juice, and low-calorie sports drinks. Eat bland, oriz-lj-hpffzo foods in small amounts as you are able. These foods include bananas, applesauce, rice, lean meats, toast, and crackers. Eat small, frequent meals rather than large meals. Do not drink milk, caffeine, or alcohol. Food safety Do not eat: ?Raw or undercooked beef. ?Cheese that was made with unpasteurized milk. Do not drink: ?Unpasteurized milk. ?Unpasteurized apple cider. Wash cutting boards, counters, and utensils with hot, soapy water after you prepare raw meat. Wash all fruits and vegetables before you eat or cook them. General instructions Take sylp-rrc-eejulva and prescription medicines only as told by your health care provider. Wash your hands thoroughly with soap and water for at least 20 seconds: ?Before and after you prepare food. ?After you use the bathroom. ?Before you eat. ?After touching animals, especially cattle. ?After caring for an ill person. Make sure people who live with you also wash their hands often. If soap and water are not available, use alcohol-based hand physician ophthalmologist. Clean surfaces that you touch with a product that contains chlorine bleach. Keep all follow-up visits. This is important. Contact a health care provider if: Your symptoms do not get better or get worse. You have new symptoms. Get help right away if you: Have increasing pain or tenderness in your abdomen. Have ongoing (persistent) vomiting or diarrhea. Have abdominal pain that stays in one area (localizes). Have diarrhea with more blood in it. Have a fever. Cannot eat or drink without vomiting. Have signs of dehydration or HUS, such as: ?Pale skin. ?Dark urine, very little urine, or no urine. ?Cracked lips. ?Not making tears while crying. ?Dry mouth. ?Sunken eyes. ?Sleepiness. ?Weakness. ?Dizziness. Summary E. coli are bacteria that can cause an infection in different parts of your body, including your intestines. Most types of E. coli do not cause infections, but some produce a toxin that can cause diarrhea. Treatment for this condition includes rest and fluids. If you have severe diarrhea, you may need to receive fluids through an IV. Symptoms of E. coli intestinal infection usually go away in 5 10 days. Follow your health care provider's instructions about medicines, eating and drinking, food safety and general hygiene, and when to call for help. This information is not intended to replace advice given to you by your health care provider. Make sure you discuss any questions you have with your health care provider. Document Revised: 03/17/2022 Document Reviewed: 03/17/2022 [employer] Patient Education 2023 [employer]. 05/31/2025 10:59:25 Urinary Tract Infection, Adult Urinary Tract Infection, Adult A urinary tract infection (UTI) is an infection of any part of the urinary tract. The urinary tract includes the kidneys, ureters, bladder, and urethra. These organs make, store, and get rid of urine in the body. An upper UTI affects the ureters and kidneys. A lower UTI affects the bladder and urethra. What are the causes? Most urinary tract infections are caused by bacteria in your genital area around your urethra, where urine leaves your body. These bacteria grow and cause inflammation of your urinary tract. What increases the risk? You are more likely to develop this condition if: You have a urinary catheter that stays in place. You are not able to control when you urinate or have a bowel movement (incontinence). You are female and you: ?Use a spermicide or diaphragm for control. ?Have low estrogen levels. ?Are . You have certain genes that increase your risk. You are sexually active. You take antibiotic medicines. You have a condition that causes your flow of urine to slow down, such as: ?An enlarged prostate, if you are male. ?Blockage in your urethra. ?A kidney stone. ?A nerve condition that affects your bladder control (neurogenic bladder). ?Not getting enough to drink, or not urinating often. You have certain medical conditions, such as: ?Diabetes. ?A weak disease-fighting system (immunesystem). ?Sickle cell disease. ?Gout. ?Spinal cord injury. What are the signs or symptoms? Symptoms of this condition include: Needing to urinate right away (urgency). Frequent urination. This may include small amounts of urine each time you urinate. Pain or burning with urination. Blood in the urine. Urine that smells bad or unusual. Trouble urinating. Cloudy urine. Vaginal discharge, if you are female. Pain in the abdomen or the lower back. You may also have: Vomiting or a decreased appetite. Confusion. Irritability or tiredness. A fever or chills. Diarrhea. The first symptom in older adults may be confusion. In some cases, they may not have any symptoms until the infection has worsened. How is this diagnosed? This condition is diagnosed based on your medical history and a physical exam. You may also have other tests, including: Urine tests. Blood tests. Tests for STIs (sexually transmitted infections). If you have had more than one UTI, a cystoscopy or imaging studies may be done to determine the cause of the infections. How is this treated? Treatment for this condition includes: Antibiotic medicine. Fbal-djq-grspmtm medicines to treat discomfort. Drinking enough water to stay hydrated. If you have frequent infections or have other conditions such as a kidney stone, you may need to see a health care provider who specializes in the urinary tract (urologist). In rare cases, urinary tract infections can cause sepsis. Sepsis is a life-threatening condition that occurs when the body responds to an infection. Sepsis is treated in the hospital with IV antibiotics, fluids, and other medicines. Follow these instructions at home: Medicines Take idqi-wgh-kxamehy and prescription medicines only as told by your health care provider. If you were prescribed an antibiotic medicine, take it as told by your health care provider. Do not stop using the antibiotic even if you start to feel better. General instructions Make sure you: ?Empty your bladder often and completely. Do not hold urine for long periods of time. ?Empty your bladder after sex. ?Wipe from front to back after urinating or having a bowel movement if you are female. Use each tissue only one time when you wipe. Drink enough fluid to keep your urine pale yellow. Keep all follow-up visits. This is important. Contact a health care provider if: Your symptoms do not get better after 1 2 days. Your symptoms go away and then return. Get help right away if: You have severe pain in your back or your lower abdomen. You have a fever or chills. You have nausea or vomiting. Summary A urinary tract infection (UTI) is an infection of any part of the urinary tract, which includes the kidneys, ureters, bladder, and urethra. Most urinary tract infections are caused by bacteria in your genital area. Treatment for this condition often includes antibiotic medicines. If you were prescribed an antibiotic medicine, take it as told by your health care provider. Do not stop using the antibiotic even if you start to feel better. Keep all follow-up visits. This is important. This information is not intended to replace advice given to you by your health care provider. Make sure you discuss any questions you have with your health care provider. Document Revised: 04/10/2021 Document Reviewed: 04/15/2021 [employer] Patient Education 2023 [employer]. Follow Up Care 05/31/2025 09:27:26 With:Candice Kim Address: [address] [place] [address] [place] [address] When: Unknown [facility] 05-31-2025 Note Patient Education Infectious Disease E. Coli Infection E. coli (Escherichia coli) are bacteria that can cause an infection in different parts of your body, including your intestines. E. coli bacteria normally live in the intestines of people and animals. Most types of E. coli do not cause infections, but some produce a poison (toxin) that can cause diarrhea. Depending on the toxin, this can cause mild or severe diarrhea. This condition is contagious. This means that it can spread from person to person. It can also spread from animals to humans. Most cases of E. coli infection come from cows (cattle). In some cases, this infection can cause a dangerous complication called hemolytic uremic syndrome (HUS). HUS leads to blood cell abnormalities and kidney failure. What are the causes? This condition is caused by E. coli bacteria. You may get this bacteria by: ??? Eating raw or undercooked beef. ??? Touching an infected animal and then touching your mouth. ??? Eating raw fruits or vegetables that have come into contact with the stool (feces) of infected animals. ??? Drinking fluids that have been contaminated with E. coli from infected animals. ??? Coming into contact with a surface that has been contaminated by an infected person. What increases the risk? This condition is more likely to develop in people who: ??? Are young children or older adults. ??? Eat raw or undercooked beef. ??? Drink raw (unpasteurized) milk, cider, or juice. ??? Eat cheeses made from unpasteurized milk. ??? Eat raw vegetables such as spinach or lettuce. ??? Are in close contact with cattle, goats, or sheep. ??? Have a weak body defense system (immune system). What are the signs or symptoms? Symptoms of this condition usually start 3?4 days after the bacteria were swallowed (ingested). Symptoms include: ??? Severe cramps and tenderness in the abdomen. ??? Diarrhea. This may be watery or bloody. ??? Nausea and vomiting. ??? Dehydration. This can cause fatigue, thirst, a dry mouth, and less frequent urination. ??? Low fever. This is not common. How is this diagnosed? This condition may be diagnosed based on: ??? A medical history. ??? A physical exam. ??? A stool culture. This involves testing a sample of your stool for E. coli or toxins of E. coli. How is this treated? Treatment for this condition includes rest and fluids (supportive care). If you have severe diarrhea, you may need to receive fluids through an IV. Symptoms of E. coli intestinal infection usually go away in 5?10 days. Some strains of E. coli may be treated with antibiotic or antidiarrheal medicines. However, these medicines are rarely given because they increase your risk for HUS. Follow these instructions at home: Eating and drinking ??? Drink enough fluid to keep your urine pale yellow. You may need to drink small amounts of clear liquids frequently. ??? Take an oral rehydration solution (ORS) as told by your health care provider. This drink is sold at pharmacies and retail stores. ??? Drink clear fluids, such as water, ice chips, diluted fruit juice, and low-calorie sports drinks. ??? Eat bland, ntrx-dd-nsxcfc foods in small amounts as you are able. These foods include bananas, applesauce, rice, lean meats, toast, and crackers. ??? Eat small, frequent meals rather than large meals. ??? Do not drink milk, caffeine, or alcohol. Food safety ??? Do not eat: ? Raw or undercooked beef. ? Cheese that was made with unpasteurized milk. ??? Do not drink: ? Unpasteurized milk. ? Unpasteurized apple cider. ??? Wash cutting boards, counters, and utensils with hot, soapy water after you prepare raw meat. ??? Wash all fruits and vegetables before you eat or cook them. General instructions ??? Take gkfe-agw-emppcnu and prescription medicines only as told by your health care provider. ??? Wash your hands thoroughly with soap and water for at least 20 seconds: ? Before and after you prepare food. ? After you use the bathroom. ? Before you eat. ? After touching animals, especially cattle. ? After caring for an ill person. ??? Make sure people who live with you also wash their hands often. If soap and water are not available, use alcohol-based hand physician ophthalmologist. ??? Clean surfaces that you touch with a product that contains chlorine bleach. ??? Keep all follow-up visits. This is important. Contact a health care provider if: ??? Your symptoms do not get better or get worse. ??? You have new symptoms. Get help right away if you: ??? Have increasing pain or tenderness in your abdomen. ??? Have ongoing (persistent) vomiting or diarrhea. ??? Have abdominal pain that stays in one area (localizes). ??? Have diarrhea with more blood in it. ??? Have a fever. ??? Cannot eat or drink without vomiting. ??? Have signs of dehydration or HUS, such (more content not included)... [facility] 05-27-2025 Hospital Discharge instructions Patient Education 05/27/2025 12:00:20 Managing Anxiety, Adult Managing Anxiety, Adult After being diagnosed with anxiety, you may be relieved to know why you have felt or behaved a certain way. You may also feel overwhelmed about the treatment ahead and what it will mean for your life. With care and support, you can manage your anxiety. How to manage lifestyle changes Understanding the difference between stress and anxiety Although stress can play a role in anxiety, it is not the same as anxiety. Stress is your body's reaction to life changes and events, both good and bad. Stress is often caused by something external, such as a deadline, test, or competition. It normally goes away after the event has ended and will last just a few hours. But, stress can be ongoing and can lead to more than just stress. Anxiety is caused by something internal, such as imagining a terrible outcome or worrying that something will go wrong that will greatly upset you. Anxiety often does not go away even after the event is over, and it can become a long-term (chronic) worry. Lowering stress and anxiety Talk with your health care provider or a counselor to learn more about lowering anxiety and stress. They may suggest tension-reduction techniques, such as: Music. Spend time creating or listening to music that you enjoy and that inspires you. Mindfulness-based meditation. Practice being aware of your normal breaths while not trying to control your breathing. It can be done while sitting or walking. Centering prayer. Focus on a word, phrase, or sacred image that means something to you and brings you peace. Deep breathing. Expand your stomach and inhale slowly through your nose. Hold your breath for 3 5 seconds. Then breathe out slowly, letting your stomach muscles relax. Self-talk. Learn to notice and spot thought patterns that lead to anxiety reactions. Change those patterns to thoughts that feel peaceful. Muscle relaxation. Take time to tense muscles and then relax them. Choose a tension-reduction technique that fits your lifestyle and personality. These techniques take time and practice. Set aside 5 15 minutes a day to do them. Specialized therapists can offer counseling and training in these techniques. The training to help with anxiety may be covered by some insurance plans. Other things you can do to manage stress and anxiety include: Keeping a stress diary. This can help you learn what triggers your reaction and then learn ways to manage your response. Thinking about how you react to certain situations. You may not be able to control everything, but you can control your response. Making time for activities that help you relax and not feeling guilty about spending your time in this way. Doing visual imagery. This involves imagining or creating mental pictures to help you relax. Practicing yoga. Through yoga poses, you can lower tension and relax. Medicines Medicines for anxiety include: Antidepressant medicines. These are usually prescribed for long-term daily control. Anti-anxiety medicines. These may be added in severe cases, especially when panic attacks occur. When used together, medicines, psychotherapy, and tension-reduction techniques may be the most effective treatment. Relationships Relationships can play a big part in helping you recover. Spend more time connecting with trusted friends and family members. Think about going to couples counseling if you have a partner, taking family education classes, or going to family therapy. Therapy can help you and others better understand your anxiety. How to recognize changes in your anxiety Everyone responds differently to treatment for anxiety. Recovery from anxiety happens when symptoms lessen and stop interfering with your daily life at home or work. This may mean that you will start to: Have better concentration and focus. Worry will interfere less in your daily thinking. Sleep better. Be less irritable. Have more energy. Have improved memory. Try to recognize when your condition is getting worse. Contact your provider if your symptoms interfere with home or work and you feel like your condition is not improving. Follow these instructions at home: Activity Exercise. Adults should: ?Exercise for at least 150 minutes each week. The exercise should increase your heart rate and make you sweat (moderate-intensity exercise). ?Do strengthening exercises at least twice a week. Get the right amount and quality of sleep. Most adults need 7 9 hours of sleep each night. Lifestyle Eat a healthy diet that includes plenty of vegetables, fruits, whole grains, low-fat dairy products, and lean protein. ?Do not eat a lot of foods that are high in fats, added sugars, or salt (sodium). Make choices that simplify your life. Do not use any products that contain nicotine or tobacco. These products include cigarettes, chewing tobacco, and vaping devices, such as e-cigarettes. If you need help quitting, ask your provider. Avoid caffeine, alcohol, and certain cgzz-agr-iywmwnl cold medicines. These may make you feel worse. Ask your pharmacist which medicines to avoid. General instructions Take sgpq-lox-yvyilxh and prescription medicines only as told by your provider. Keep all follow-up visits. This is to make sure you are managing your anxiety well or if you need more support. Where to find support You can get help and support from: Self-help groups. Online and community organizations. A trusted spiritual leader. Couples counseling. Family education classes. Family therapy. Where to find more information You may find that joining a support group helps you deal with your anxiety. The following sources can help you find counselors or support groups near you: Mental Health [place]: mentalhealth[place].net Anxiety and Depression Association of [place] (ADAA): adaa.org [employer] [place] [employer] Mental Illness ([place]): [place].org Contact a health care provider if: You have a hard time staying focused or finishing tasks. You spend many hours a day feeling worried about everyday life. You are very tired because you cannot stop worrying. You start to have headaches or often feel tense. You have chronic nausea or diarrhea. Get help right away if: Your heart feels like it is racing. You have shortness of breath. You have thoughts of hurting yourself or others. Get help right away if you feel like you may hurt yourself or others, or have thoughts about taking your own life. Go to your nearest emergency room or: Call 911. Call the National Suicide Prevention Lifeline at or 269. This is open 24 hours a day. Text the Crisis Text Line at 044155. This information is not intended to replace advice given to you by your health care provider. Make sure you discuss any questions you have with your health care provider. Document Revised: 06/12/2023 Document Reviewed: 12/25/2021 [employer] Patient Education 2023 [employer] 05/27/2025 12:00:19 Health Maintenance, Female Health Maintenance, Female Adopting a healthy lifestyle and getting preventive care are important in promoting health and wellness. Ask your health care provider about: The right schedule for you to have regular tests and exams. Things you can do on your own to prevent diseases and keep yourself healthy. What should I know about diet, weight, and exercise? Eat a healthy diet Eat a diet that includes plenty of vegetables, fruits, low-fat dairy products, and lean protein. Do not eat a lot of foods that are high in solid fats, added sugars, or sodium. Maintain a healthy weight Body mass index (BMI) is used to identify weight problems. It estimates body fat based on height and weight. Your health care provider can help determine your BMI and help you achieve or maintain a healthy weight. Get regular exercise Get regular exercise. This is one of the most important things you can do for your health. Most adults should: Exercise for at least 150 minutes each week. The exercise should increase your heart rate and make you sweat (moderate-intensity exercise). Do strengthening exercises at least twice a week. This is in addition to the moderate-intensity exercise. Spend less time sitting. Even light physical activity can be beneficial. Watch cholesterol and blood lipids Have your blood tested for lipids and cholesterol at 20 years of age, then have this test every 5 years. Have your cholesterol levels checked more often if: Your lipid or cholesterol levels are high. You are older than 40 years of age. You are at high risk for heart disease. What should I know about cancer screening? Depending on your health history and family history, you may need to have cancer screening at various ages. This may include screening for: Breast cancer. Cervical cancer. Colorectal cancer. Skin cancer. Lung cancer. What should I know about heart disease, diabetes, and high blood pressure? Blood pressure and heart disease High blood pressure causes heart disease and increases the risk of stroke. This is more likely to develop in people who have high blood pressure readings or are overweight. Have your blood pressure checked: ?Every 3 5 years if you are 18 39 years of age. ?Every year if you are 40 years old or older. Diabetes Have regular diabetes screenings. This checks your fasting blood sugar level. Have the screening done: Once every three years after age 40 if you are at a normal weight and have a low risk for diabetes. More often and at a younger age if you are overweight or have a high risk for diabetes. What should I know about preventing infection? Hepatitis B If you have a higher risk for hepatitis B, you should be screened for this virus. Talk with your health care provider to find out if you are at risk for hepatitis B infection. Hepatitis C Testing is recommended for: Everyone born from 1945 through 1965. Anyone with known risk factors for hepatitis C. Sexually transmitted infections (STIs) Get screened for STIs, including gonorrhea and chlamydia, if: ?You are sexually active and are younger than 24 years of age. ?You are older than 24 years of age and your health care provider tells you that you are at risk for this type of infection. ?Your sexual activity has changed since you were last screened, and you are at increased risk for chlamydia or gonorrhea. Ask your health care provider if you are at risk. Ask your health care provider about whether you are at high risk for HIV. Your health care provider may recommend a prescription medicine to help prevent HIV infection. If you choose to take medicine to prevent HIV, you should first get tested for HIV. You should then be tested every 3 months for as long as you are taking the medicine. If you are about to stop having your period (premenopausal) and you may become , seek counseling before you get . Take 400 to 800 micrograms (mcg) of folic acid every day if you become . Ask for control (contraception) if you want to prevent . Osteoporosis and menopause Osteoporosis is a disease in which the bones lose minerals and strength with aging. This can result in bone fractures. If you are 65 years old or older, or if you are at risk for osteoporosis and fractures, ask your health care provider if you should: Be screened for bone loss. Take a calcium or vitamin D supplement to lower your risk of fractures. Be given hormone replacement therapy (HRT) to treat symptoms of menopause. Follow these instructions at home: Alcohol use Do not drink alcohol if: ?Your health care provider tells you not to drink. ?You are , may be , or are planning to become . If you drink alcohol: ?Limit how much you have to: ?0 1 drink a day. ?Know how much alcohol is in your drink. In the [place] one drink equals one 12 oz bottle of beer (355 mL), one 5 oz glass of wine (148 mL), or one 1 oz glass of hard liquor (44 mL). Lifestyle Do not use any products that contain nicotine or tobacco. These products include cigarettes, chewing tobacco, and vaping devices, such as e-cigarettes. If you need help quitting, ask your health care provider. Do not use street drugs. Do not share needles. Ask your health care provider for help if you need support or information about quitting drugs. General instructions Schedule regular health, dental, and eye exams. Stay current with your vaccines. Tell your health care provider if: ?You often feel depressed. ?You have ever been abused or do not feel safe at home. Summary Adopting a healthy lifestyle and getting preventive care are important in promoting health and wellness. Follow your health care provider's instructions about healthy diet, exercising, and getting tested or screened for diseases. Follow your health care provider's instructions on monitoring your cholesterol and blood pressure. This information is not intended to replace advice given to you by your health care provider. Make sure you discuss any questions you have with your health care provider. Document Revised: 01/23/2022 Document Reviewed: 01/23/2022 [employer] Patient Education 2023 [employer]. 05/27/2025 12:00:18 BMI for Adults BMI for Adults Body mass index (BMI) is a number found using a person's weight and height. BMI can help tell how much of a person's weight is made up of fat. BMI does not measure body fat directly. It is used instead of tests that directly measure body fat, which can be difficult and expensive. What are BMI measurements used for? BMI is useful to: Find out if your weight puts you at higher risk for medical problems. Help recommend changes, such as in diet and exercise. This can help you reach a healthy weight. BMI screening can be done again to see if these changes are working. How is BMI calculated? Your height and weight are measured. The BMI is found from those numbers. This can be done with [place] or metric measurements. Note that charts and online BMI calculators are available to help you find your BMI quickly and easily without doing these calculations. To calculate your BMI in [place] measurements: 1.Measure your weight in pounds (lb). 2.Multiply the number of pounds by 703. So, for an adult who weighs 150 lb, multiply that number by 703: 150 x 703, which equals 105,450. 3.Measure your height in inches. Then multiply that number by itself to get a measurement called inches squared. So, for an adult who is 70 inches tall, the inches squared measurement is 70 inches x 70 inches, which equals 4,900 inches squared. 4.Divide the total from step 2 (number of lb x 703) by the total from step 3 (inches squared): 105,450 4,900 = 21.5. This is your BMI. To calculate your BMI in metric measurements: 1.Measure your weight in kilograms (kg). For this example, the weight is 70 kg. 2.Measure your height in meters (m). Then multiply that number by itself to get a measurement called meters squared. So, for an adult who is 1.75 m tall, the meters squared measurement is 1.75 m x 1.75 m, which equals 3.1 meters squared. 3.Divide the number of kilograms (your weight) by the meters squared number. In this example: 70 3.1 = 22.6. This is your BMI. What do the results mean? BMI charts are used to see if you are underweight, normal weight, overweight, or obese. The following guidelines will be used: Underweight: BMI less than 18.5. Normal weight: BMI between 18.5 and 24.9. Overweight: BMI between 25 and 29.9. Obese: BMI of 30 or above. BMI is a tool and cannot diagnose a condition. Talk with your health care provider about what your BMI means for you. Keep these notes in mind: Weight includes fat and muscle. Someone with a muscular build, such as an athlete, may have a BMI that is higher than 24.9. In cases like these, BMI is not a correct measure of body fat. If you have a BMI of 25 or higher, your provider may need to do more testing to find out if excess body fat is the cause. BMI is measured the same way for males and females. Females usually have more body fat than males of the same height and weight. Where to find more information For more information about BMI, including tools to quickly find your BMI, go to: Centers for Disease Control and Prevention: cdc.gov [place] Heart Association: heart.org National Heart, Lung, and Blood [place]: nhlbi.nih.gov This information is not intended to replace advice given to you by your health care provider. Make sure you discuss any questions you have with your health care provider. Document Revised: 05/24/2023 Document Reviewed: 05/17/2023 [employer] Patient Education 2023 [employer] 05/25/2025 22:35:33 Managing Anxiety, Adult Managing Anxiety, Adult After being diagnosed with anxiety, you may be relieved to know why you have felt or behaved a certain way. You may also feel overwhelmed about the treatment ahead and what it will mean for your life. With care and support, you can manage your anxiety. How to manage lifestyle changes Understanding the difference between stress and anxiety Although stress can play a role in anxiety, it is not the same as anxiety. Stress is your body's reaction to life changes and events, both good and bad. Stress is often caused by something external, such as a deadline, test, or competition. It normally goes away after the event has ended and will last just a few hours. But, stress can be ongoing and can lead to more than just stress. Anxiety is caused by something internal, such as imagining a terrible outcome or worrying that something will go wrong that will greatly upset you. Anxiety often does not go away even after the event is over, and it can become a long-term (chronic) worry. Lowering stress and anxiety Talk with your health care provider or a counselor to learn more about lowering anxiety and stress. They may suggest tension-reduction techniques, such as: Music. Spend time creating or listening to music that you enjoy and that inspires you. Mindfulness-based meditation. Practice being aware of your normal breaths while not trying to control your breathing. It can be done while sitting or walking. Centering prayer. Focus on a word, phrase, or sacred image that means something to you and brings you peace. Deep breathing. Expand your stomach and inhale slowly through your nose. Hold your breath for 3 5 seconds. Then breathe out slowly, letting your stomach muscles relax. Self-talk. Learn to notice and spot thought patterns that lead to anxiety reactions. Change those patterns to thoughts that feel peaceful. Muscle relaxation. Take time to tense muscles and then relax them. Choose a tension-reduction technique that fits your lifestyle and personality. These techniques take time and practice. Set aside 5 15 minutes a day to do them. Specialized therapists can offer counseling and training in these techniques. The training to help with anxiety may be covered by some insurance plans. Other things you can do to manage stress and anxiety include: Keeping a stress diary. This can help you learn what triggers your reaction and then learn ways to manage your response. Thinking about how you react to certain situations. You may not be able to control everything, but you can control your response. Making time for activities that help you relax and not feeling guilty about spending your time in this way. Doing visual imagery. This involves imagining or creating mental pictures to help you relax. Practicing yoga. Through yoga poses, you can lower tension and relax. Medicines Medicines for anxiety include: Antidepressant medicines. These are usually prescribed for long-term daily control. Anti-anxiety medicines. These may be added in severe cases, especially when panic attacks occur. When used together, medicines, psychotherapy, and tension-reduction techniques may be the most effective treatment. Relationships Relationships can play a big part in helping you recover. Spend more time connecting with trusted friends and family members. Think about going to couples counseling if you have a partner, taking family education classes, or going to family therapy. Therapy can help you and others better understand your anxiety. How to recognize changes in your anxiety Everyone responds differently to treatment for anxiety. Recovery from anxiety happens when symptoms lessen and stop interfering with your daily life at home or work. This may mean that you will start to: Have better concentration and focus. Worry will interfere less in your daily thinking. Sleep better. Be less irritable. Have more energy. Have improved memory. Try to recognize when your condition is getting worse. Contact your provider if your symptoms interfere with home or work and you feel like your condition is not improving. Follow these instructions at home: Activity Exercise. Adults should: ?Exercise for at least 150 minutes each week. The exercise should increase your heart rate and make you sweat (moderate-intensity exercise). ?Do strengthening exercises at least twice a week. Get the right amount and quality of sleep. Most adults need 7 9 hours of sleep each night. Lifestyle Eat a healthy diet that includes plenty of vegetables, fruits, whole grains, low-fat dairy products, and lean protein. ?Do not eat a lot of foods that are high in fats, added sugars, or salt (sodium). Make choices that simplify your life. Do not use any products that contain nicotine or tobacco. These products include cigarettes, chewing tobacco, and vaping devices, such as e-cigarettes. If you need help quitting, ask your provider. Avoid caffeine, alcohol, and certain zyyh-aad-rrowczh cold medicines. These may make you feel worse. Ask your pharmacist which medicines to avoid. General instructions Take eacw-uoq-bjdkznf and prescription medicines only as told by your provider. Keep all follow-up visits. This is to make sure you are managing your anxiety well or if you need more support. Where to find support You can get help and support from: Self-help groups. Online and community organizations. A trusted spiritual leader. Couples counseling. Family education classes. Family therapy. Where to find more information You may find that joining a support group helps you deal with your anxiety. The following sources can help you find counselors or support groups near you: Mental Health [place]: mentalhealth[place].net Anxiety and Depression Association of [place] (ADAA): adaa.org National [place] on Mental Illness ([place]): [place].org Contact a health care provider if: You have a hard time staying focused or finishing tasks. You spend many hours a day feeling worried about everyday life. You are very tired because you cannot stop worrying. You start to have headaches or often feel tense. You have chronic nausea or diarrhea. Get help right away if: Your heart feels like it is racing. You have shortness of breath. You have thoughts of hurting yourself or others. Get help right away if you feel like you may hurt yourself or others, or have thoughts about taking your own life. Go to your nearest emergency room or: Call 911. Call the National Suicide Prevention Lifeline at or 779. This is open 24 hours a day. Text the Crisis Text Line at 679857. This information is not intended to replace advice given to you by your health care provider. Make sure you discuss any questions you have with your health care provider. Document Revised: 06/12/2023 Document Reviewed: 12/25/2021 [employer] Patient Education 2023 [employer] 05/25/2025 22:35:30 Health Maintenance, Female Health Maintenance, Female Adopting a healthy lifestyle and getting preventive care are important in promoting health and wellness. Ask your health care provider about: The right schedule for you to have regular tests and exams. Things you can do on your own to prevent diseases and keep yourself healthy. What should I know about diet, weight, and exercise? Eat a healthy diet Eat a diet that includes plenty of vegetables, fruits, low-fat dairy products, and lean protein. Do not eat a lot of foods that are high in solid fats, added sugars, or sodium. Maintain a healthy weight Body mass index (BMI) is used to identify weight problems. It estimates body fat based on height and weight. Your health care provider can help determine your BMI and help you achieve or maintain a healthy weight. Get regular exercise Get regular exercise. This is one of the most important things you can do for your health. Most adults should: Exercise for at least 150 minutes each week. The exercise should increase your heart rate and make you sweat (moderate-intensity exercise). Do strengthening exercises at least twice a week. This is in addition to the moderate-intensity exercise. Spend less time sitting. Even light physical activity can be beneficial. Watch cholesterol and blood lipids Have your blood tested for lipids and cholesterol at 20 years of age, then have this test every 5 years. Have your cholesterol levels checked more often if: Your lipid or cholesterol levels are high. You are older than 40 years of age. You are at high risk for heart disease. What should I know about cancer screening? Depending on your health history and family history, you may need to have cancer screening at various ages. This may include screening for: Breast cancer. Cervical cancer. Colorectal cancer. Skin cancer. Lung cancer. What should I know about heart disease, diabetes, and high blood pressure? Blood pressure and heart disease High blood pressure causes heart disease and increases the risk of stroke. This is more likely to develop in people who have high blood pressure readings or are overweight. Have your blood pressure checked: ?Every 3 5 years if you are 18 39 years of age. ?Every year if you are 40 years old or older. Diabetes Have regular diabetes screenings. This checks your fasting blood sugar level. Have the screening done: Once every three years after age 40 if you are at a normal weight and have a low risk for diabetes. More often and at a younger age if you are overweight or have a high risk for diabetes. What should I know about preventing infection? Hepatitis B If you have a higher risk for hepatitis B, you should be screened for this virus. Talk with your health care provider to find out if you are at risk for hepatitis B infection. Hepatitis C Testing is recommended for: Everyone born from 1945 through 1965. Anyone with known risk factors for hepatitis C. Sexually transmitted infections (STIs) Get screened for STIs, including gonorrhea and chlamydia, if: ?You are sexually active and are younger than 24 years of age. ?You are older than 24 years of age and your health care provider tells you that you are at risk for this type of infection. ?Your sexual activity has changed since you were last screened, and you are at increased risk for chlamydia or gonorrhea. Ask your health care provider if you are at risk. Ask your health care provider about whether you are at high risk for HIV. Your health care provider may recommend a prescription medicine to help prevent HIV infection. If you choose to take medicine to prevent HIV, you should first get tested for HIV. You should then be tested every 3 months for as long as you are taking the medicine. If you are about to stop having your period (premenopausal) and you may become , seek counseling before you get . Take 400 to 800 micrograms (mcg) of folic acid every day if you become . Ask for control (contraception) if you want to prevent . Osteoporosis and menopause Osteoporosis is a disease in which the bones lose minerals and strength with aging. This can result in bone fractures. If you are 65 years old or older, or if you are at risk for osteoporosis and fractures, ask your health care provider if you should: Be screened for bone loss. Take a calcium or vitamin D supplement to lower your risk of fractures. Be given hormone replacement therapy (HRT) to treat symptoms of menopause. Follow these instructions at home: Alcohol use Do not drink alcohol if: ?Your health care provider tells you not to drink. ?You are , may be , or are planning to become . If you drink alcohol: ?Limit how much you have to: ?0 1 drink a day. ?Know how much alcohol is in your drink. In the [place] one drink equals one 12 oz bottle of beer (355 mL), one 5 oz glass of wine (148 mL), or one 1 oz glass of hard liquor (44 mL). Lifestyle Do not use any products that contain nicotine or tobacco. These products include cigarettes, chewing tobacco, and vaping devices, such as e-cigarettes. If you need help quitting, ask your health care provider. Do not use street drugs. Do not share needles. Ask your health care provider for help if you need support or information about quitting drugs. General instructions Schedule regular health, dental, and eye exams. Stay current with your vaccines. Tell your health care provider if: ?You often feel depressed. ?You have ever been abused or do not feel safe at home. Summary Adopting a healthy lifestyle and getting preventive care are important in promoting health and wellness. Follow your health care provider's instructions about healthy diet, exercising, and getting tested or screened for diseases. Follow your health care provider's instructions on monitoring your cholesterol and blood pressure. This information is not intended to replace advice given to you by your health care provider. Make sure you discuss any questions you have with your health care provider. Document Revised: 01/23/2022 Document Reviewed: 01/23/2022 [employer] Patient Education 2023 [employer]. 04/13/2025 11:24:52 Managing Anxiety, Adult Managing Anxiety, Adult After being diagnosed with anxiety, you may be relieved to know why you have felt or behaved a certain way. You may also feel overwhelmed about the treatment ahead and what it will mean for your life. With care and support, you can manage your anxiety. How to manage lifestyle changes Understanding the difference between stress and anxiety Although stress can play a role in anxiety, it is not the same as anxiety. Stress is your body's reaction to life changes and events, both good and bad. Stress is often caused by something external, such as a deadline, test, or competition. It normally goes away after the event has ended and will last just a few hours. But, stress can be ongoing and can lead to more than just stress. Anxiety is caused by something internal, such as imagining a terrible outcome or worrying that something will go wrong that will greatly upset you. Anxiety often does not go away even after the event is over, and it can become a long-term (chronic) worry. Lowering stress and anxiety Talk with your health care provider or a counselor to learn more about lowering anxiety and stress. They may suggest tension-reduction techniques, such as: Music. Spend time creating or listening to music that you enjoy and that inspires you. Mindfulness-based meditation. Practice being aware of your normal breaths while not trying to control your breathing. It can be done while sitting or walking. Centering prayer. Focus on a word, phrase, or sacred image that means something to you and brings you peace. Deep breathing. Expand your stomach and inhale slowly through your nose. Hold your breath for 3 5 seconds. Then breathe out slowly, letting your stomach muscles relax. Self-talk. Learn to notice and spot thought patterns that lead to anxiety reactions. Change those patterns to thoughts that feel peaceful. Muscle relaxation. Take time to tense muscles and then relax them. Choose a tension-reduction technique that fits your lifestyle and personality. These techniques take time and practice. Set aside 5 15 minutes a day to do them. Specialized therapists can offer counseling and training in these techniques. The training to help with anxiety may be covered by some insurance plans. Other things you can do to manage stress and anxiety include: Keeping a stress diary. This can help you learn what triggers your reaction and then learn ways to manage your response. Thinking about how you react to certain situations. You may not be able to control everything, but you can control your response. Making time for activities that help you relax and not feeling guilty about spending your time in this way. Doing visual imagery. This involves imagining or creating mental pictures to help you relax. Practicing yoga. Through yoga poses, you can lower tension and relax. Medicines Medicines for anxiety include: Antidepressant medicines. These are usually prescribed for long-term daily control. Anti-anxiety medicines. These may be added in severe cases, especially when panic attacks occur. When used together, medicines, psychotherapy, and tension-reduction techniques may be the most effective treatment. Relationships Relationships can play a big part in helping you recover. Spend more time connecting with trusted friends and family members. Think about going to couples counseling if you have a partner, taking family education classes, or going to family therapy. Therapy can help you and others better understand your anxiety. How to recognize changes in your anxiety Everyone responds differently to treatment for anxiety. Recovery from anxiety happens when symptoms lessen and stop interfering with your daily life at home or work. This may mean that you will start to: Have better concentration and focus. Worry will interfere less in your daily thinking. Sleep better. Be less irritable. Have more energy. Have improved memory. Try to recognize when your condition is getting worse. Contact your provider if your symptoms interfere with home or work and you feel like your condition is not improving. Follow these instructions at home: Activity Exercise. Adults should: ?Exercise for at least 150 minutes each week. The exercise should increase your heart rate and make you sweat (moderate-intensity exercise). ?Do strengthening exercises at least twice a week. Get the right amount and quality of sleep. Most adults need 7 9 hours of sleep each night. Lifestyle Eat a healthy diet that includes plenty of vegetables, fruits, whole grains, low-fat dairy products, and lean protein. ?Do not eat a lot of foods that are high in fats, added sugars, or salt (sodium). Make choices that simplify your life. Do not use any products that contain nicotine or tobacco. These products include cigarettes, chewing tobacco, and vaping devices, such as e-cigarettes. If you need help quitting, ask your provider. Avoid caffeine, alcohol, and certain bqnh-fgk-hjrnnmo cold medicines. These may make you feel worse. Ask your pharmacist which medicines to avoid. General instructions Take ipok-gio-rwqkicw and prescription medicines only as told by your provider. Keep all follow-up visits. This is to make sure you are managing your anxiety well or if you need more support. Where to find support You can get help and support from: Self-help groups. Online and community organizations. A trusted spiritual leader. Couples counseling. Family education classes. Family therapy. Where to find more information You may find that joining a support group helps you deal with your anxiety. The following sources can help you find counselors or support groups near you: Mental Health [place]: mentalhealth[place].net Anxiety and Depression Association of [place] (ADAA): adaa.org [employer] [place] on Mental Illness ([place]): [place].org Contact a health care provider if: You have a hard time staying focused or finishing tasks. You spend many hours a day feeling worried about everyday life. You are very tired because you cannot stop worrying. You start to have headaches or often feel tense. You have chronic nausea or diarrhea. Get help right away if: Your heart feels like it is racing. You have shortness of breath. You have thoughts of hurting yourself or others. Get help right away if you feel like you may hurt yourself or others, or have thoughts about taking your own life. Go to your nearest emergency room or: Call 911. Call the National Suicide Prevention Lifeline at or 709. This is open 24 hours a day. Text the Crisis Text Line at 840613. This information is not intended to replace advice given to you by your health care provider. Make sure you discuss any questions you have with your health care provider. Document Revised: 06/12/2023 Document Reviewed: 12/25/2021 [employer] Patient Education 2023 [employer] 04/13/2025 11:24:50 Health Maintenance, Female Health Maintenance, Female Adopting a healthy lifestyle and getting preventive care are important in promoting health and wellness. Ask your health care provider about: The right schedule for you to have regular tests and exams. Things you can do on your own to prevent diseases and keep yourself healthy. What should I know about diet, weight, and exercise? Eat a healthy diet Eat a diet that includes plenty of vegetables, fruits, low-fat dairy products, and lean protein. Do not eat a lot of foods that are high in solid fats, added sugars, or sodium. Maintain a healthy weight Body mass index (BMI) is used to identify weight problems. It estimates body fat based on height and weight. Your health care provider can help determine your BMI and help you achieve or maintain a healthy weight. Get regular exercise Get regular exercise. This is one of the most important things you can do for your health. Most adults should: Exercise for at least 150 minutes each week. The exercise should increase your heart rate and make you sweat (moderate-intensity exercise). Do strengthening exercises at least twice a week. This is in addition to the moderate-intensity exercise. Spend less time sitting. Even light physical activity can be beneficial. Watch cholesterol and blood lipids Have your blood tested for lipids and cholesterol at 20 years of age, then have this test every 5 years. Have your cholesterol levels checked more often if: Your lipid or cholesterol levels are high. You are older than 40 years of age. You are at high risk for heart disease. What should I know about cancer screening? Depending on your health history and family history, you may need to have cancer screening at various ages. This may include screening for: Breast cancer. Cervical cancer. Colorectal cancer. Skin cancer. Lung cancer. What should I know about heart disease, diabetes, and high blood pressure? Blood pressure and heart disease High blood pressure causes heart disease and increases the risk of stroke. This is more likely to develop in people who have high blood pressure readings or are overweight. Have your blood pressure checked: ?Every 3 5 years if you are 18 39 years of age. ?Every year if you are 40 years old or older. Diabetes Have regular diabetes screenings. This checks your fasting blood sugar level. Have the screening done: Once every three years after age 40 if you are at a normal weight and have a low risk for diabetes. More often and at a younger age if you are overweight or have a high risk for diabetes. What should I know about preventing infection? Hepatitis B If you have a higher risk for hepatitis B, you should be screened for this virus. Talk with your health care provider to find out if you are at risk for hepatitis B infection. Hepatitis C Testing is recommended for: Everyone born from 1945 through 1965. Anyone with known risk factors for hepatitis C. Sexually transmitted infections (STIs) Get screened for STIs, including gonorrhea and chlamydia, if: ?You are sexually active and are younger than 24 years of age. ?You are older than 24 years of age and your health care provider tells you that you are at risk for this type of infection. ?Your sexual activity has changed since you were last screened, and you are at increased risk for chlamydia or gonorrhea. Ask your health care provider if you are at risk. Ask your health care provider about whether you are at high risk for HIV. Your health care provider may recommend a prescription medicine to help prevent HIV infection. If you choose to take medicine to prevent HIV, you should first get tested for HIV. You should then be tested every 3 months for as long as you are taking the medicine. If you are about to stop having your period (premenopausal) and you may become , seek counseling before you get . Take 400 to 800 micrograms (mcg) of folic acid every day if you become . Ask for control (contraception) if you want to prevent . Osteoporosis and menopause Osteoporosis is a disease in which the bones lose minerals and strength with aging. This can result in bone fractures. If you are 65 years old or older, or if you are at risk for osteoporosis and fractures, ask your health care provider if you should: Be screened for bone loss. Take a calcium or vitamin D supplement to lower your risk of fractures. Be given hormone replacement therapy (HRT) to treat symptoms of menopause. Follow these instructions at home: Alcohol use Do not drink alcohol if: ?Your health care provider tells you not to drink. ?You are , may be , or are planning to become . If you drink alcohol: ?Limit how much you have to: ?0 1 drink a day. ?Know how much alcohol is in your drink. In the [place] one drink equals one 12 oz bottle of beer (355 mL), one 5 oz glass of wine (148 mL), or one 1 oz glass of hard liquor (44 mL). Lifestyle Do not use any products that contain nicotine or tobacco. These products include cigarettes, chewing tobacco, and vaping devices, such as e-cigarettes. If you need help quitting, ask your health care provider. Do not use street drugs. Do not share needles. Ask your health care provider for help if you need support or information about quitting drugs. General instructions Schedule regular health, dental, and eye exams. Stay current with your vaccines. Tell your health care provider if: ?You often feel depressed. ?You have ever been abused or do not feel safe at home. Summary Adopting a healthy lifestyle and getting preventive care are important in promoting health and wellness. Follow your health care provider's instructions about healthy diet, exercising, and getting tested or screened for diseases. Follow your health care provider's instructions on monitoring your cholesterol and blood pressure. This information is not intended to replace advice given to you by your health care provider. Make sure you discuss any questions you have with your health care provider. Document Revised: 01/23/2022 Document Reviewed: 01/23/2022 [employer] Patient Education 2023 [employer]. Follow Up Care 10/07/2024 13:25:17 With:Candice Kim Address: [address] [place] [address], [facility] [place] [id number] When:Within 1 Year(s) Comments:annual wellness [facility] 05-27-2025 Note Patient Education Managing Anxiety, Adult After being diagnosed with anxiety, you may be relieved to know why you have felt or behaved a certain way. You may also feel overwhelmed about the treatment ahead and what it will mean for your life. With care and support, you can manage your anxiety. How to manage lifestyle changes Understanding the difference between stress and anxiety Although stress can play a role in anxiety, it is not the same as anxiety. Stress is your body's reaction to life changes and events, both good and bad. Stress is often caused by something external, such as a deadline, test, or competition. It normally goes away after the event has ended and will last just a few hours. But, stress can be ongoing and can lead to more than just stress. Anxiety is caused by something internal, such as imagining a terrible outcome or worrying that something will go wrong that will greatly upset you. Anxiety often does not go away even after the event is over, and it can become a long-term (chronic) worry. Lowering stress and anxiety Talk with your health care provider or a counselor to learn more about lowering anxiety and stress. They may suggest tension-reduction techniques, such as: ??? Music. Spend time creating or listening to music that you enjoy and that inspires you. ??? Mindfulness-based meditation. Practice being aware of your normal breaths while not trying to control your breathing. It can be done while sitting or walking. ??? Centering prayer. Focus on a word, phrase, or sacred image that means something to you and brings you peace. ??? Deep breathing. Expand your stomach and inhale slowly through your nose. Hold your breath for 3?5 seconds. Then breathe out slowly, letting your stomach muscles relax. ??? Self-talk. Learn to notice and spot thought patterns that lead to anxiety reactions. Change those patterns to thoughts that feel peaceful. ??? Muscle relaxation. Take time to tense muscles and then relax them. Choose a tension-reduction technique that fits your lifestyle and personality. These techniques take time and practice. Set aside 5?15 minutes a day to do them. Specialized therapists can offer counseling and training in these techniques. The training to help with anxiety may be covered by some insurance plans. Other things you can do to manage stress and anxiety include: ??? Keeping a stress diary. This can help you learn what triggers your reaction and then learn ways to manage your response. ??? Thinking about how you react to certain situations. You may not be able to control everything, but you can control your response. ??? Making time for activities that help you relax and not feeling guilty about spending your time in this way. ??? Doing visual imagery. This involves imagining or creating mental pictures to help you relax. ??? Practicing yoga. Through yoga poses, you can lower tension and relax. Medicines Medicines for anxiety include: ??? Antidepressant medicines. These are usually prescribed for long-term daily control. ??? Anti-anxiety medicines. These may be added in severe cases, especially when panic attacks occur. When used together, medicines, psychotherapy, and tension-reduction techniques may be the most effective treatment. Relationships Relationships can play a big part in helping you recover. Spend more time connecting with trusted friends and family members. Think about going to couples counseling if you have a partner, taking family education classes, or going to family therapy. Therapy can help you and others better understand your anxiety. How to recognize changes in your anxiety Everyone responds differently to treatment for anxiety. Recovery from anxiety happens when symptoms lessen and stop interfering with your daily life at home or work. This may mean that you will start to: ??? Have better concentration and focus. Worry will interfere less in your daily thinking. ??? Sleep better. ??? Be less irritable. ??? Have more energy. ??? Have improved memory. Try to recognize when your condition is getting worse. Contact your provider if your symptoms interfere with home or work and you feel like your condition is not improving. Follow these instructions at home: Activity ??? Exercise. Adults should: ? Exercise for at least 150 minutes each week. The exercise should increase your heart rate and make you sweat (moderate-intensity exercise). ? Do strengthening exercises at least twice a week. ??? Get the right amount and quality of sleep. Most adults need 7?9 hours of sleep each night. Lifestyle ??? Eat a healthy diet that includes plenty of vegetables, fruits, whole grains, low-fat dairy products, and lean protein. ? Do not eat a lot of foods that are high in fats, added sugars, or salt (sodium). ??? Make choices that simplify your life. ??? Do not use any products that contain nicotine or tobac (more content not included)... [facility] 05-26-2025 Note Progress Note-Shelia walton Patient: RADHA PAEZ Age: 39 years Sex: Female : 1985 Associated Diagnoses: None Author: Raul OTOOLE, Gail Guillaume. Postoperative Information Postoperative disposition: Postoperative disposition: Home. Optimetrix number: Optimetrix number [id number]. Anesthetic utilized: Monitored anesthesia care. Health Status Allergies: Allergic Reactions (All) Severity Not Documented Amitriptyline- Throat tightness. Cephalexin- Unknown. Imitrex- Sore throat symptom. Penicillins- Hives. Sulfa drugs- No reactions were documented. Current medications: (Selected) Inpatient Medications Ordered Lactated Ringers IV Analilia 1000 mL 1,000 mL: 1,000 mL, IV, 100 mL/hr, Routine, Start date 05/26/25 9:28:00 EDT, 10 hour(s), Total volume (mL): 1,000, 54.5 kg, 1.58, m2 Sodium Chloride 0.9% IV Analilia 1000 mL 1,000 mL: 1,000 mL, IV, 20 mL/hr, Routine, Start date 05/26/25 6:45:00 EDT, 50 hour(s), Total volume (mL): 1,000, 54.5 kg, 1.58, m2 Zofran 4 mg/2 mL Injection: 4 mg = 2 mL, Injection, IV Push, Once PRN Nausea/Vomiting, Routine, Start date 05/26/25 9:28:00 EDT, 05/26/25 9:28:00 EDT Prescriptions Prescribed Flonase 0.05 mg/inh [place]: 2 spray(s), Nasal, Daily, 16 gram, Refill(s) 0, each nostril, [facility] #[id number], 165, cm, 04/10/24 7:07:00 EDT, Height/Length Dosing, 53.1, kg, 04/10/24 7:07:00 EDT, Weight Dosing Pantoprazole [address] Tab: 40 mg = 1 tab(s), Oral, Daily, # 90 tab(s), Refills(s) 0, Pharmacy: [id number], 165, cm, 05/19/25 10:19:00 EDT, Height/Length Dosing, 54.5, kg, 05/19/25 10:19:00 EDT, Weight Dosing cholecalciferol 50,000 intl units oral capsule: 1,250 mcg = 1 cap(s), Oral, q7day, # 12 cap(s), Refills(s) 0, Pharmacy: [facility] #[id number], 165, cm, 04/10/24 7:07:00 EDT, Height/Length Dosing, 53.1, kg, 04/10/24 7:07:00 EDT, Weight Dosing hydrOXYzine hydrochloride 25 mg Tab: 25 mg = 1 tab(s), Oral, QID, PRN for anxiety, Can cut tab in half if needed., # 40 tab(s), Refills(s) 3, Pharmacy: [facility] #[facility], 165, cm, 05/01/25 16:07:00 EDT, Height/Length Dosing, 54.1, kg, 05/01/25 16:07:00 EDT, Weight Dosing topiramate 50 mg Tab: 50 mg = 1 tab(s), Oral, Daily, # 90 tab(s), Refills(s) 3, Pharmacy: [facility] #[id number], 165, cm, 04/10/24 7:07:00 EDT, Height/Length Dosing, 53.1, kg, 04/10/24 7:07:00 EDT, Weight Dosing Documented Medications Documented hydrocortisone 25 mg Supp: = 1 supp, Rectal, BID, Refills(s) 0, Home Medications (6) Active cholecalciferol 50,000 intl units oral capsule 1,250 mcg = 1 cap(s), Oral, q7day Flonase 0.05 mg/inh [place] 2 spray(s), Nasal, Daily hydrocortisone 25 mg Supp 1 supp, Rectal, BID hydrOXYzine hydrochloride 25 mg Tab 25 mg = 1 tab(s), PRN, Oral, QID Pantoprazole [address] Tab 40 mg = 1 tab(s), Oral, Daily topiramate 50 mg Tab 50 mg = 1 tab(s), Oral, Daily Problem list: All Problems Allergic rhinitis, seasonal / SNOMED CT 384121422 / Confirmed Atypical migraine / SNOMED CT 59586816 / Confirmed Blood in stool / SNOMED CT 6888815644 / Confirmed Breast cancer screening by mammogram / SNOMED CT 455998258 / Confirmed Concentration deficit / SNOMED CT 028666005 / Confirmed Diabetes mellitus screening / SNOMED CT 952136142 / Confirmed Diarrhea / SNOMED CT 940738219 / Confirmed Dyspepsia / SNOMED CT 902056964 / Confirmed E. coli UTI (urinary tract infection) / SNOMED CT 4433080984 / Confirmed Family history of diverticulitis of colon / SNOMED CT 3825112676 / Confirmed Generalized abdominal pain / SNOMED CT 743452379 / Confirmed Generalized anxiety disorder / SNOMED CT 77372304 / Confirmed Hx of candidal vulvovaginitis / SNOMED CT 0645305841 / Confirmed Internal hemorrhoid / SNOMED CT 014563805 / Confirmed Routine adult health maintenance / SNOMED CT 079110062 / Confirmed Smoker / SNOMED CT 049075956 / Confirmed Added secondary to documentation in Social History. Tobacco use / SNOMED CT 6286738903 / Confirmed Vitamin D deficiency / SNOMED CT 42337733 / Confirmed Resolved: / SNOMED CT 0923596371 Resolved: Acute bronchitis due to other specified organisms / SNOMED CT 336114998 Resolved: Acute sinusitis / SNOMED CT 33843024 Resolved: Blocked eustachian tube / SNOMED CT 964665657 Resolved: BMI 20.0-20.9, adult / SNOMED CT 3252318623 Resolved: Body mass index (BMI) 19.9 or less, adult / SNOMED CT 71089803 Resolved: Cervical endometriosis / SNOMED CT [id number] Resolved: Cervical strain / SNOMED CT 320567917 Resolved: Cigarette smoker / SNOMED CT 492255671 Resolved: Common migraine / SNOMED CT 77572326 Resolved: Complete miscarriage / SNOMED CT 218711269 Resolved: Dysfunction of right eustachian tube / SNOMED CT 72261219 Resolved: Hx of allergic rhinitis / SNOMED CT 556587396 Resolved: Internal hordeolum / SNOMED CT 4976548065 Resolved: Left otitis media / SNOMED CT 942981774 Resolved: Migraine headache / SNOMED CT 630 (more content not included)... [facility] Comment on above: Result Comment: Elec tronically Signed By: Raul OTOOLE, Gail Ireland\.br\Date and Time Signed: 05/26/25 12:44 EDT 05-26-2025 Note Patient Education - Text Colonoscopy Care After Surgery Please read the instructions outlined below and refer to this sheet in the next few weeks. These discharge instructions provide you with general information on caring for yourself after you leave the hospital. Your doctor may also give you specific instructions. While your treatment has been planned according to the most current medical practices available, unavoidable complications occasionally occur. If you have any problems or questions after discharge, please call your doctor. ACTIVITY You may resume your regular activity, but move at a slower pace for the next 24 hours. Take frequent rest periods for the next 24 hours. Walking will help get rid of the air and reduce the bloated feeling in your abdomen (belly). No driving for 24 hours (because of the anesthesia (medicine) used during the test). You may shower. Do not sign any important legal documents or operate any machinery for 24 hours (because of the anesthesia used during the test). NUTRITION Drink plenty of fluids. You may resume your normal diet as instructed by your doctor. Begin with a light meal and progress to your normal diet. Heavy or fried foods are harder to digest and may make you feel nauseated (sick to your stomach). Avoid alcoholic beverages for 24 hours or as instructed. MEDICATIONS You may resume your normal medications unless your doctor tells you otherwise. WHAT YOU CAN EXPECT TODAY Some feelings of bloating in the abdomen. Passage of more gas than usual. Spotting of blood in your stool or on the toilet paper. FOLLOW-UP Your doctor will discuss the results of your test with you. SEEK IMMEDIATE MEDICAL ATTENTION IF: There is more than a spotting of blood in your stool. There is abdominal distention (your abdomen is swollen). There is vomiting. You have a temperature over 101.5 F. There is abdominal pain or discomfort that is severe or gets worse throughout the day. Gastroenterology Diverticulosis Diverticulosis is when small pouches called diverticula form in the wall of the colon. The colon is where water is absorbed. It is also where poop (stool) is formed. The pouches form when the inside layer of the colon pushes through weak spots in the outer layers of the colon. You may have a few pouches or many of them. In most cases, the pouches do not cause problems. If they become inflamed or infected, you may have a condition called diverticulitis. What are the causes? The cause of this condition is not known. What increases the risk? You are more likely to get this condition if: ??? You are older than 60 years of age. ??? You do not eat enough fiber or you get constipated a lot. ??? You are overweight. ??? You do not get enough exercise. ??? You smoke. ??? You take cdwq-fnd-znpyfys pain medicines. ??? You have a family history of the condition. What are the signs or symptoms? In most people, there are no symptoms. If you do have symptoms, they may include: ??? Bloating. ??? Stomach cramps. ??? Constipation or diarrhea. ??? Pain in the lower left side of your abdomen. How is this diagnosed? This condition is often diagnosed during an exam for other colon problems. It may be diagnosed when you have: ??? A colonoscopy. This is when a tube with a camera on the end is used to look at your colon. ??? A barium enema. This is an X-ray exam that uses dye to look at your colon. ??? A CT scan. How is this treated? You may not need treatment. Your health care provider will tell you what you can do at home to help prevent problems. You may need treatment if you have symptoms or if you have had diverticulitis before. You may be told to: ??? Eat a high-fiber diet. ??? Take medicine to relax your colon. ??? Lose weight. Follow these instructions at home: Medicines ??? Take jkxd-tkx-iznlcvb and prescription medicines only as told by your provider. ??? If told, take a fiber supplement or probiotic. Managing constipation Your condition may cause constipation. To prevent or treat constipation, you may need to: ??? Drink enough fluid to keep your pee (urine) pale yellow. ??? Take baso-wpm-bxegezj or prescription medicines. ??? Eat foods that are high in fiber, such as beans, whole grains, and fresh fruits and vegetables. ??? Limit foods that are high in fat and processed sugars, such as fried or sweet foods. Try not to strain when you poop. Contact a health care provider if: ??? Your symptoms get worse all of a sudden. ??? You have pain in your abdomen that gets worse. ??? You have bloating or stomach cramps. ??? You continue to have frequent constipation. ??? You have a fever or chills. ??? You vomit. ??? Your poop is bloody, black, or tarry. This information is not intended to replace advice given to you by your health care provider. Make sure you discuss any questio (more content not included)... [facility] 05-26-2025 Note Progress Note-Physic isabelle Patient: RADHA PAEZ Age: 39 years Sex: Female : 1985 Associated Diagnoses: None Author: Gail Carter MD Preoperative Information Anesthesia Preop Info: Time patient last ate or drank 05/26/2025 00:00:00. Anesthesia history: Patient history: No prior anesthetic problems. Anesthesia results: Anesthesia results from flowsheet : Results 05/25/2025 6:36 EDT WBC 4.7 E9/L RBC 4.5 E12/L HGB 13.7 gm/dL Hct 38.9 % MCV 87.2 fL MCH 30.7 pg MCHC 35.2 gm/dL RDW 13.2 % Platelet 225.0 E9/L MPV 8.0 fL Neutro Auto 54.4 % Lymph Auto 24.6 % [place] Auto 10.5 % Eos Auto 9.3 % HI Basophil Auto 1.2 % Neutro Absolute 2.6 E9/L Lymph Absolute 1.2 E9/L [place] Absolute 0.5 E9/L Eos Absolute 0.4 E9/L Basophil Absolute 0.1 E9/L Glucose Lvl 87 mg/dL BUN 14 mg/dL Creatinine 0.9 mg/dL eGFR 83 mL/min/1.73 m2 BUN/Creat Ratio 16 Sodium Lvl 138 mmol/L Potassium Lvl 3.8 mmol/L Chloride 106 mmol/L CO2 26 mmol/L AGAP 10 mEq/L Calcium Lvl 9.3 mg/dL Alk Phos 52 Int._Unit/L ALT 40 Int._Unit/L AST 26 Int._Unit/L Total Protein 7.4 gm/dL Albumin Lvl 4.6 gm/dL Globulin 2.8 gm/dL A/G Ratio 1.6 Bili Total 0.7 mg/dL Hgb A1C % 5.2 % Chol 155 mg/dL Trig 68 mg/dL HDL 53 mg/dL NA LDL Direct 99 mg/dL VLDL 14 mg/dL TSH 3.23 mcIU/mL Vitamin D 25 Hydroxy 30.8 ng/mL . Informed consent: Signed by patient. Re-evaluation prior to induction: Initial evaluation reviewed: No significant change. Review of Systems Respiratory: Negative except as documented in history of present illness. Cardiovascular: Negative except as documented in history of present illness. Health Status Allergies: Allergic Reactions (Selected) Severity Not Documented Amitriptyline- Throat tightness. Cephalexin- Unknown. Imitrex- Sore throat symptom. Penicillins- Hives. Sulfa drugs- No reactions were documented., Allergies (5) Active Severity Reaction sulfa drugs None Documented penicillins Hives Imitrex Sore throat symptom amitriptyline Throat tightness cephalexin Unknown Current medications: (Selected) Inpatient Medications Ordered Sodium Chloride 0.9% IV Analilia 1000 mL 1,000 mL: 1,000 mL, IV, 20 mL/hr, Routine, Start date 05/26/25 6:45:00 EDT, 50 hour(s), Total volume (mL): 1,000, 54.5 kg, 1.58, m2 Prescriptions Prescribed Flonase 0.05 mg/inh [place]: 2 spray(s), Nasal, Daily, 16 gram, Refill(s) 0, each nostril, [facility] #[id number], 165, cm, 04/10/24 7:07:00 EDT, Height/Length Dosing, 53.1, kg, 04/10/24 7:07:00 EDT, Weight Dosing Pantoprazole [address] Tab: 40 mg = 1 tab(s), Oral, Daily, # 90 tab(s), Refills(s) 0, Pharmacy: [facility] #37, 165, cm, 05/19/25 10:19:00 EDT, Height/Length Dosing, 54.5, kg, 05/19/25 10:19:00 EDT, Weight Dosing cholecalciferol 50,000 intl units oral capsule: 1,250 mcg = 1 cap(s), Oral, q7day, # 12 cap(s), Refills(s) 0, Pharmacy: [facility] #[id number], 165, cm, 04/10/24 7:07:00 EDT, Height/Length Dosing, 53.1, kg, 04/10/24 7:07:00 EDT, Weight Dosing hydrOXYzine hydrochloride 25 mg Tab: 25 mg = 1 tab(s), Oral, QID, PRN for anxiety, Can cut tab in half if needed., # 40 tab(s), Refills(s) 3, Pharmacy: [facility] #37, 165, cm, 05/01/25 16:07:00 EDT, Height/Length Dosing, 54.1, kg, 05/01/25 16:07:00 EDT, Weight Dosing topiramate 50 mg Tab: 50 mg = 1 tab(s), Oral, Daily, # 90 tab(s), Refills(s) 3, Pharmacy: [facility] #[id number], 165, cm, 04/10/24 7:07:00 EDT, Height/Length Dosing, 53.1, kg, 04/10/24 7:07:00 EDT, Weight Dosing Documented Medications Documented hydrocortisone 25 mg Supp: = 1 supp, Rectal, BID, Refills(s) 0, Home Medications (6) Active cholecalciferol 50,000 intl units oral capsule 1,250 mcg = 1 cap(s), Oral, q7day Flonase 0.05 mg/inh [place] 2 spray(s), Nasal, Daily hydrocortisone 25 mg Supp 1 supp, Rectal, BID hydrOXYzine hydrochloride 25 mg Tab 25 mg = 1 tab(s), PRN, Oral, QID Pantoprazole [address] Tab 40 mg = 1 tab(s), Oral, Daily topiramate 50 mg Tab 50 mg = 1 tab(s), Oral, Daily , Medications (1) Active Scheduled: (0) Continuous: (1) Sodium Chloride 0.9% 1,000 mL 1,000 mL, IV, 20 mL/hr PRN: (0) Problem list: All Problems Allergic rhinitis, seasonal / SNOMED CT 634626747 / Confirmed Atypical migraine / SNOMED CT 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 coli UTI (urinary tract infection) / SNOMED CT 8225488730 / Confirmed Family history of diverticulitis of colon / SNOMED CT 3782875015 / Confirmed Generalized abdominal pain / SNOMED CT 998962073 / Confirmed Generalized anxiety disorder / SNOMED CT 90690867 / Confirmed H (more content not included)... [facility] Comment on above: Result Comment: Elec tronically Signed By: Raul OTOOLE, Gail Ireland\.br\Date and Time Signed: 05/26/25 09:28 EDT 05-01-2025 Hospital Discharge instructions Patient Education 05/01/2025 16:42:58 E. Coli Infection E. Coli Infection E. coli (Escherichia coli) are bacteria that can cause an infection in different parts of your body, including your intestines. E. coli bacteria normally live in the intestines of people and animals. Most types of E. coli do not cause infections, but some produce a poison (toxin) that can cause diarrhea. Depending on the toxin, this can cause mild or severe diarrhea. This condition is contagious. This means that it can spread from person to person. It can also spread from animals to humans. Most cases of E. coli infection come from cows (cattle). In some cases, this infection can cause a dangerous complication called hemolytic uremic syndrome (HUS). HUS leads to blood cell abnormalities and kidney failure. What are the causes? This condition is caused by E. coli bacteria. You may get this bacteria by: Eating raw or undercooked beef. Touching an infected animal and then touching your mouth. Eating raw fruits or vegetables that have come into contact with the stool (feces) of infected animals. Drinking fluids that have been contaminated with E. coli from infected animals. Coming into contact with a surface that has been contaminated by an infected person. What increases the risk? This condition is more likely to develop in people who: Are young children or older adults. Eat raw or undercooked beef. Drink raw (unpasteurized) milk, cider, or juice. Eat cheeses made from unpasteurized milk. Eat raw vegetables such as spinach or lettuce. Are in close contact with cattle, goats, or sheep. Have a weak body defense system (immune system). What are the signs or symptoms? Symptoms of this condition usually start 3 4 days after the bacteria were swallowed (ingested). Symptoms include: Severe cramps and tenderness in the abdomen. Diarrhea. This may be watery or bloody. Nausea and vomiting. Dehydration. This can cause fatigue, thirst, a dry mouth, and less frequent urination. Low fever. This is not common. How is this diagnosed? This condition may be diagnosed based on: A medical history. A physical exam. A stool culture. This involves testing a sample of your stool for E. coli or toxins of E. coli. How is this treated? Treatment for this condition includes rest and fluids (supportive care). If you have severe diarrhea, you may need to receive fluids through an IV. Symptoms of E. coli intestinal infection usually go away in 5 10 days. Some strains of E. coli may be treated with antibiotic or antidiarrheal medicines. However, these medicines are rarely given because they increase your risk for HUS. Follow these instructions at home: Eating and drinking Drink enough fluid to keep your urine pale yellow. You may need to drink small amounts of clear liquids frequently. Take an oral rehydration solution (ORS) as told by your health care provider. This drink is sold at pharmacies and retail stores. Drink clear fluids, such as water, ice chips, diluted fruit juice, and low-calorie sports drinks. Eat bland, wqqg-hw-xfrgtp foods in small amounts as you are able. These foods include bananas, applesauce, rice, lean meats, toast, and crackers. Eat small, frequent meals rather than large meals. Do not drink milk, caffeine, or alcohol. Food safety Do not eat: ?Raw or undercooked beef. ?Cheese that was made with unpasteurized milk. Do not drink: ?Unpasteurized milk. ?Unpasteurized apple cider. Wash cutting boards, counters, and utensils with hot, soapy water after you prepare raw meat. Wash all fruits and vegetables before you eat or cook them. General instructions Take jaub-qjj-sxnjviu and prescription medicines only as told by your health care provider. Wash your hands thoroughly with soap and water for at least 20 seconds: ?Before and after you prepare food. ?After you use the bathroom. ?Before you eat. ?After touching animals, especially cattle. ?After caring for an ill person. Make sure people who live with you also wash their hands often. If soap and water are not available, use alcohol-based hand physician ophthalmologist. Clean surfaces that you touch with a product that contains chlorine bleach. Keep all follow-up visits. This is important. Contact a health care provider if: Your symptoms do not get better or get worse. You have new symptoms. Get help right away if you: Have increasing pain or tenderness in your abdomen. Have ongoing (persistent) vomiting or diarrhea. Have abdominal pain that stays in one area (localizes). Have diarrhea with more blood in it. Have a fever. Cannot eat or drink without vomiting. Have signs of dehydration or HUS, such as: ?Pale skin. ?Dark urine, very little urine, or no urine. ?Cracked lips. ?Not making tears while crying. ?Dry mouth. ?Sunken eyes. ?Sleepiness. ?Weakness. ?Dizziness. Summary E. coli are bacteria that can cause an infection in different parts of your body, including your intestines. Most types of E. coli do not cause infections, but some produce a toxin that can cause diarrhea. Treatment for this condition includes rest and fluids. If you have severe diarrhea, you may need to receive fluids through an IV. Symptoms of E. coli intestinal infection usually go away in 5 10 days. Follow your health care provider's instructions about medicines, eating and drinking, food safety and general hygiene, and when to call for help. This information is not intended to replace advice given to you by your health care provider. Make sure you discuss any questions you have with your health care provider. Document Revised: 03/17/2022 Document Reviewed: 03/17/2022 [employer] Patient Education 2023 [employer]. 05/01/2025 16:42:55 Urinary Tract Infection, Adult Urinary Tract Infection, Adult A urinary tract infection (UTI) is an infection of any part of the urinary tract. The urinary tract includes the kidneys, ureters, bladder, and urethra. These organs make, store, and get rid of urine in the body. An upper UTI affects the ureters and kidneys. A lower UTI affects the bladder and urethra. What are the causes? Most urinary tract infections are caused by bacteria in your genital area around your urethra, where urine leaves your body. These bacteria grow and cause inflammation of your urinary tract. What increases the risk? You are more likely to develop this condition if: You have a urinary catheter that stays in place. You are not able to control when you urinate or have a bowel movement (incontinence). You are female and you: ?Use a spermicide or diaphragm for control. ?Have low estrogen levels. ?Are . You have certain genes that increase your risk. You are sexually active. You take antibiotic medicines. You have a condition that causes your flow of urine to slow down, such as: ?An enlarged prostate, if you are male. ?Blockage in your urethra. ?A kidney stone. ?A nerve condition that affects your bladder control (neurogenic bladder). ?Not getting enough to drink, or not urinating often. You have certain medical conditions, such as: ?Diabetes. ?A weak disease-fighting system (immunesystem). ?Sickle cell disease. ?Gout. ?Spinal cord injury. What are the signs or symptoms? Symptoms of this condition include: Needing to urinate right away (urgency). Frequent urination. This may include small amounts of urine each time you urinate. Pain or burning with urination. Blood in the urine. Urine that smells bad or unusual. Trouble urinating. Cloudy urine. Vaginal discharge, if you are female. Pain in the abdomen or the lower back. You may also have: Vomiting or a decreased appetite. Confusion. Irritability or tiredness. A fever or chills. Diarrhea. The first symptom in older adults may be confusion. In some cases, they may not have any symptoms until the infection has worsened. How is this diagnosed? This condition is diagnosed based on your medical history and a physical exam. You may also have other tests, including: Urine tests. Blood tests. Tests for STIs (sexually transmitted infections). If you have had more than one UTI, a cystoscopy or imaging studies may be done to determine the cause of the infections. How is this treated? Treatment for this condition includes: Antibiotic medicine. Wwkv-zjg-gxfmjej medicines to treat discomfort. Drinking enough water to stay hydrated. If you have frequent infections or have other conditions such as a kidney stone, you may need to see a health care provider who specializes in the urinary tract (urologist). In rare cases, urinary tract infections can cause sepsis. Sepsis is a life-threatening condition that occurs when the body responds to an infection. Sepsis is treated in the hospital with IV antibiotics, fluids, and other medicines. Follow these instructions at home: Medicines Take giyv-vah-ednebmf and prescription medicines only as told by your health care provider. If you were prescribed an antibiotic medicine, take it as told by your health care provider. Do not stop using the antibiotic even if you start to feel better. General instructions Make sure you: ?Empty your bladder often and completely. Do not hold urine for long periods of time. ?Empty your bladder after sex. ?Wipe from front to back after urinating or having a bowel movement if you are female. Use each tissue only one time when you wipe. Drink enough fluid to keep your urine pale yellow. Keep all follow-up visits. This is important. Contact a health care provider if: Your symptoms do not get better after 1 2 days. Your symptoms go away and then return. Get help right away if: You have severe pain in your back or your lower abdomen. You have a fever or chills. You have nausea or vomiting. Summary A urinary tract infection (UTI) is an infection of any part of the urinary tract, which includes the kidneys, ureters, bladder, and urethra. Most urinary tract infections are caused by bacteria in your genital area. Treatment for this condition often includes antibiotic medicines. If you were prescribed an antibiotic medicine, take it as told by your health care provider. Do not stop using the antibiotic even if you start to feel better. Keep all follow-up visits. This is important. This information is not intended to replace advice given to you by your health care provider. Make sure you discuss any questions you have with your health care provider. Document Revised: 04/10/2021 Document Reviewed: 04/15/2021 [employer] Patient Education 2023 [employer]. 05/01/2025 16:42:51 Food Choices to Help Relieve Diarrhea, Adult Food Choices to Help Relieve Diarrhea, Adult Diarrhea can make you feel weak and cause you to become dehydrated. Dehydration is a condition in which there is not enough water or other fluids in the body. It is important to choose the right foods and drinks to: Relieve diarrhea. Replace lost fluids and nutrients. Prevent dehydration. What are tips for following this plan? Relieving diarrhea Avoid foods that make your diarrhea worse. These may include: ?Foods and drinks that are sweetened with high-fructose corn syrup, honey, or sweeteners such as xylitol, sorbitol, and mannitol. Check food labels for these ingredients. ?Fried, greasy, or spicy foods. ?Raw fruits and vegetables. Eat foods that are rich in probiotics. These include foods such as yogurt and fermented milk products. Probiotics can help increase healthy bacteria in your stomach and intestines (gastrointestinal or GI tract). This may help digestion and stop diarrhea. If you have lactose intolerance, avoid dairy products. These may make your diarrhea worse. Take medicine to help stop diarrhea only as told by your health care provider. Replacing nutrients Eat bland, tqua-xo-rmxqaz foods in small amounts as you are able, until your diarrhea starts to get better. These foods include bananas, applesauce, rice, toast, and crackers. Over time, add nutrient-rich foods as your body tolerates them or as told by your health care provider. These include: ?Well-cooked protein foods, such as eggs, lean meats like fish or chicken without skin, and tofu. ?Peeled, seeded, and soft-cooked fruits and vegetables. ?Low-fat dairy products. ?Whole grains. Take vitamin and mineral supplements as told by your health care provider. Preventing dehydration Start by sipping water or a solution to prevent dehydration (oral rehydration solution, or ORS). This is a drink that helps replace fluids and minerals your body has lost. You can buy an ORS at pharmacies and retail stores. Try to drink at least 8 10 cups (2,000 2,500 mL) of fluid each day to help replace lost fluids. If your urine is pale yellow, you are getting enough fluids. You may drink other liquids in addition to water, such as fruit juice that you have added water to (diluted fruit juice) or low-calorie sports drinks, as tolerated or as told by your health care provider. Avoid drinks with caffeine, such as coffee, tea, or soft drinks. Avoid alcohol. This information is not intended to replace advice given to you by your health care provider. Make sure you discuss any questions you have with your health care provider. Document Revised: 02/20/2023 Document Reviewed: 02/20/2023 [employer] Patient Education 2023 [employer]. 05/01/2025 16:42:49 Diarrhea, Adult Diarrhea, Adult Diarrhea is frequent loose and sometimes watery bowel movements. Diarrhea can make you feel weak and cause you to become dehydrated. Dehydration is a condition in which there is not enough water or other fluids in the body. Dehydration can make you tired and thirsty, cause you to have a dry mouth, and decrease how often you urinate. Diarrhea typically lasts 2 3 days. However, it can last longer if it is a sign of something more serious. It is important to treat your diarrhea as told by your health care provider. Follow these instructions at home: Eating and drinking Follow these recommendations as told by your health care provider: Take an oral rehydration solution (ORS). This is an lids-luq-ntztwts medicine that helps return your body to its normal balance of nutrients and water. It is found at pharmacies and retail stores. Drink enough fluid to keep your urine pale yellow. ?Drink fluids such as water, diluted fruit juice, and low-calorie sports drinks. You can drink milk also, if desired. Sucking on ice chips is another way to get fluids. ?Avoid drinking fluids that contain a lot of sugar or caffeine, such as soda, energy drinks, and regular sports drinks. ?Avoid alcohol. Eat bland, trel-cj-gnjfia foods in small amounts as you are able. These foods include bananas, applesauce, rice, lean meats, toast, and crackers. Avoid spicy or fatty foods. Medicines Take ybxs-hyc-mbuusyr and prescription medicines only as told by your health care provider. If you were prescribed antibiotics, take them as told by your health care provider. Do not stop using the antibiotic even if you start to feel better. General instructions Wash your hands often using soap and water for at least 20 seconds. If soap and water are not available, use hand physician ophthalmologist. Others in the household should wash their hands as well. Hands should be washed: ?After using the toilet or changing a diaper. ?Before preparing, cooking, or serving food. ?While caring for a sick person or while visiting someone in a hospital. Rest at home while you recover. Take a warm bath to relieve any burning or pain from frequent diarrhea episodes. Watch your condition for any changes. Contact a health care provider if: You have a fever. Your diarrhea gets worse. You have new symptoms. You vomit every time you eat or drink. You feel light-headed, dizzy, or have a headache. You have muscle cramps. You have signs of dehydration, such as: ?Dark urine, very little urine, or no urine. ?Cracked lips. ?Dry mouth. ?Sunken eyes. ?Sleepiness. ?Weakness. You have bloody or black stools or stools that look like tar. You have severe pain, cramping, or bloating in your abdomen. Your skin feels cold and clammy. You feel confused. Get help right away if: You have chest pain or your heart is beating very quickly. You have trouble breathing or you are breathing very quickly. You feel extremely weak or you faint. These symptoms may be an emergency. Get help right away. Call 911. Do not wait to see if the symptoms will go away. Do not drive yourself to the hospital. This information is not intended to replace advice given to you by your health care provider. Make sure you discuss any questions you have with your health care provider. Document Revised: 02/20/2023 Document Reviewed: 02/20/2023 [employer] Patient Education 2023 [employer]. Follow Up Care 05/01/2025 07:12:03 With:Candice Kim Address: [address] [place] [address], [place] [address]- When: Unknown [facility] 05-01-2025 Note Patient Education Gastroenterology Food Choices to Help Relieve Diarrhea, Adult Diarrhea can make you feel weak and cause you to become dehydrated. Dehydration is a condition in which there is not enough water or other fluids in the body. It is important to choose the right foods and drinks to: ??? Relieve diarrhea. ??? Replace lost fluids and nutrients. ??? Prevent dehydration. What are tips for following this plan? Relieving diarrhea ??? Avoid foods that make your diarrhea worse. These may include: ? Foods and drinks that are sweetened with high-fructose corn syrup, honey, or sweeteners such as xylitol, sorbitol, and mannitol. Check food labels for these ingredients. ? Fried, greasy, or spicy foods. ? Raw fruits and vegetables. ??? Eat foods that are rich in probiotics. These include foods such as yogurt and fermented milk products. Probiotics can help increase healthy bacteria in your stomach and intestines (gastrointestinal or GI tract). This may help digestion and stop diarrhea. ??? If you have lactose intolerance, avoid dairy products. These may make your diarrhea worse. ??? Take medicine to help stop diarrhea only as told by your health care provider. Replacing nutrients ??? Eat bland, phsf-by-lgcjgd foods in small amounts as you are able, until your diarrhea starts to get better. These foods include bananas, applesauce, rice, toast, and crackers. ??? Over time, add nutrient-rich foods as your body tolerates them or as told by your health care provider. These include: ? Well-cooked protein foods, such as eggs, lean meats like fish or chicken without skin, and tofu. ? Peeled, seeded, and soft-cooked fruits and vegetables. ? Low-fat dairy products. ? Whole grains. ??? Take vitamin and mineral supplements as told by your health care provider. Preventing dehydration ??? Start by sipping water or a solution to prevent dehydration (oral rehydration solution, or ORS). This is a drink that helps replace fluids and minerals your body has lost. You can buy an ORS at pharmacies and retail stores. ??? Try to drink at least 8?10 cups (2,000?2,500 mL) of fluid each day to help replace lost fluids. If your urine is pale yellow, you are getting enough fluids. ??? You may drink other liquids in addition to water, such as fruit juice that you have added water to (diluted fruit juice) or low-calorie sports drinks, as tolerated or as told by your health care provider. ??? Avoid drinks with caffeine, such as coffee, tea, or soft drinks. ??? Avoid alcohol. This information is not intended to replace advice given to you by your health care provider. Make sure you discuss any questions you have with your health care provider. Document Revised: 02/20/2023 Document Reviewed: 02/20/2023 [employer] Patient Education ? 2023 [employer] Infectious Disease E. Coli Infection E. coli (Escherichia coli) are bacteria that can cause an infection in different parts of your body, including your intestines. E. coli bacteria normally live in the intestines of people and animals. Most types of E. coli do not cause infections, but some produce a poison (toxin) that can cause diarrhea. Depending on the toxin, this can cause mild or severe diarrhea. This condition is contagious. This means that it can spread from person to person. It can also spread from animals to humans. Most cases of E. coli infection come from cows (cattle). In some cases, this infection can cause a dangerous complication called hemolytic uremic syndrome (HUS). HUS leads to blood cell abnormalities and kidney failure. What are the causes? This condition is caused by E. coli bacteria. You may get this bacteria by: ??? Eating raw or undercooked beef. ??? Touching an infected animal and then touching your mouth. ??? Eating raw fruits or vegetables that have come into contact with the stool (feces) of infected animals. ??? Drinking fluids that have been contaminated with E. coli from infected animals. ??? Coming into contact with a surface that has been contaminated by an infected person. What increases the risk? This condition is more likely to develop in people who: ??? Are young children or older adults. ??? Eat raw or undercooked beef. ??? Drink raw (unpasteurized) milk, cider, or juice. ??? Eat cheeses made from unpasteurized milk. ??? Eat raw vegetables such as spinach or lettuce. ??? Are in close contact with cattle, goats, or sheep. ??? Have a weak body defense system (immune system). What are the signs or symptoms? Symptoms of this condition usually start 3?4 days after the bacteria were swallowed (ingested). Symptoms include: ??? Severe cramps and tenderness in the abdomen. ??? Diarrhea. This may be watery or bloody. ??? Nausea and vomiting. ??? Dehydration. This can cause fatigue, thirst, a dry mouth, and less frequent urination. ??? Low fever. This is not common. How is th (more content not included)... [facility] 04-29-2025 Note ED Patient Education Note Gastroenterology Nonspecific Chest Pain Chest pain can be caused by many different conditions. Some causes of chest pain can be life-threatening. These will require treatment right away. Serious causes of chest pain include: ??? Heart attack. ??? A tear in the body's main blood vessel. ??? Redness and swelling (inflammation) around your heart. ??? Blood clot in your lungs. Other causes of chest pain may not be so serious. These include: ??? Heartburn. ??? Anxiety or stress. ??? Damage to bones or muscles in your chest. ??? Lung infections. Chest pain can feel like: ??? Pain or discomfort in your chest. ??? Crushing, pressure, aching, or squeezing pain. ??? Burning or tingling. ??? Dull or sharp pain that is worse when you move, cough, or take a deep breath. ??? Pain or discomfort that is also felt in your back, neck, jaw, shoulder, or arm, or pain that spreads to any of these areas. It is hard to know whether your pain is caused by something that is serious or something that is not so serious. So it is important to see your doctor right away if you have chest pain. Follow these instructions at home: Medicines ??? Take cfkh-fxk-ndoeekd and prescription medicines only as told by your doctor. ??? If you were prescribed an antibiotic medicine, take it as told by your doctor. Do not stop taking the antibiotic even if you start to feel better. Lifestyle ??? Rest as told by your doctor. ??? Do not use any products that contain nicotine or tobacco, such as cigarettes, e-cigarettes, and chewing tobacco. If you need help quitting, ask your doctor. ??? Do not drink alcohol. ??? Make lifestyle changes as told by your doctor. These may include: ? Getting regular exercise. Ask your doctor what activities are safe for you. ? Eating a heart-healthy diet. A diet and animal nutrition consultant (dietitian) can help you to learn healthy eating options. ? Staying at a healthy weight. ? Treating diabetes or high blood pressure, if needed. ? Lowering your stress. Activities such as yoga and relaxation techniques can help. General instructions ??? Pay attention to any changes in your symptoms. Tell your doctor about them or any new symptoms. ??? Avoid any activities that cause chest pain. ??? Keep all follow-up visits as told by your doctor. This is important. You may need more testing if your chest pain does not go away. Contact a doctor if: ??? Your chest pain does not go away. ??? You feel depressed. ??? You have a fever. Get help right away if: ??? Your chest pain is worse. ??? You have a cough that gets worse, or you cough up blood. ??? You have very bad (severe) pain in your belly (abdomen). ??? You pass out (faint). ??? You have either of these for no clear reason: ? Sudden chest discomfort. ? Sudden discomfort in your arms, back, neck, or jaw. ??? You have shortness of breath at any time. ??? You suddenly start to sweat, or your skin gets clammy. ??? You feel sick to your stomach (nauseous). ??? You throw up (vomit). ??? You suddenly feel lightheaded or dizzy. ??? You feel very weak or tired. ??? Your heart starts to beat fast, or it feels like it is skipping beats. These symptoms may be an emergency. Do not wait to see if the symptoms will go away. Get medical help right away. Call your local emergency services (911 in the [place] Do not drive yourself to the hospital. Summary ??? Chest pain can be caused by many different conditions. The cause may be serious and need treatment right away. If you have chest pain, see your doctor right away. ??? Follow your doctor's instructions for taking medicines and making lifestyle changes. ??? Keep all follow-up visits as told by your doctor. This includes visits for any further testing if your chest pain does not go away. ??? Be sure to know the signs that show that your condition has become worse. Get help right away if you have these symptoms. This information is not intended to replace advice given to you by your health care provider. Make sure you discuss any questions you have with your health care provider. Document Revised: 07/19/2023 Document Reviewed: 07/19/2023 [employer] Patient Education ? 2023 [employer]. [facility] 04-26-2025 Note Progress Note-Nurse Drug [place] pharmacy, not [facility] 04-26-2025 Note Progress Note-Nurse Patient called and verbalized per her allergies at [facility] cephalexin is on her list. Dr. Aidan lopez and requested [facility] pharmacy to call ER. Patient aware [facility] 04-26-2025 Note ED Patient Education Note Obstetrics and Gynecology Urinary Tract Infection, Adult A urinary tract infection (UTI) is an infection of any part of the urinary tract. The urinary tract includes the kidneys, ureters, bladder, and urethra. These organs make, store, and get rid of urine in the body. An upper UTI affects the ureters and kidneys. A lower UTI affects the bladder and urethra. What are the causes? Most urinary tract infections are caused by bacteria in your genital area around your urethra, where urine leaves your body. These bacteria grow and cause inflammation of your urinary tract. What increases the risk? You are more likely to develop this condition if: ??? You have a urinary catheter that stays in place. ??? You are not able to control when you urinate or have a bowel movement (incontinence). ??? You are female and you: ? Use a spermicide or diaphragm for control. ? Have low estrogen levels. ? Are . ??? You have certain genes that increase your risk. ??? You are sexually active. ??? You take antibiotic medicines. ??? You have a condition that causes your flow of urine to slow down, such as: ? An enlarged prostate, if you are male. ? Blockage in your urethra. ? A kidney stone. ? A nerve condition that affects your bladder control (neurogenic bladder). ? Not getting enough to drink, or not urinating often. ??? You have certain medical conditions, such as: ? Diabetes. ? A weak disease-fighting system (immunesystem). ? Sickle cell disease. ? Gout. ? Spinal cord injury. What are the signs or symptoms? Symptoms of this condition include: ??? Needing to urinate right away (urgency). ??? Frequent urination. This may include small amounts of urine each time you urinate. ??? Pain or burning with urination. ??? Blood in the urine. ??? Urine that smells bad or unusual. ??? Trouble urinating. ??? Cloudy urine. ??? Vaginal discharge, if you are female. ??? Pain in the abdomen or the lower back. You may also have: ??? Vomiting or a decreased appetite. ??? Confusion. ??? Irritability or tiredness. ??? A fever or chills. ??? Diarrhea. The first symptom in older adults may be confusion. In some cases, they may not have any symptoms until the infection has worsened. How is this diagnosed? This condition is diagnosed based on your medical history and a physical exam. You may also have other tests, including: ??? Urine tests. ??? Blood tests. ??? Tests for STIs (sexually transmitted infections). If you have had more than one UTI, a cystoscopy or imaging studies may be done to determine the cause of the infections. How is this treated? Treatment for this condition includes: ??? Antibiotic medicine. ??? Afnv-snt-bvsrgcj medicines to treat discomfort. ??? Drinking enough water to stay hydrated. If you have frequent infections or have other conditions such as a kidney stone, you may need to see a health care provider who specializes in the urinary tract (urologist). In rare cases, urinary tract infections can cause sepsis. Sepsis is a life-threatening condition that occurs when the body responds to an infection. Sepsis is treated in the hospital with IV antibiotics, fluids, and other medicines. Follow these instructions at home: Medicines ??? Take ydyc-pqz-pkocdhe and prescription medicines only as told by your health care provider. ??? If you were prescribed an antibiotic medicine, take it as told by your health care provider. Do not stop using the antibiotic even if you start to feel better. General instructions ??? Make sure you: ? Empty your bladder often and completely. Do not hold urine for long periods of time. ? Empty your bladder after sex. ? Wipe from front to back after urinating or having a bowel movement if you are female. Use each tissue only one time when you wipe. ??? Drink enough fluid to keep your urine pale yellow. ??? Keep all follow-up visits. This is important. Contact a health care provider if: ??? Your symptoms do not get better after 1?2 days. ??? Your symptoms go away and then return. Get help right away if: ??? You have severe pain in your back or your lower abdomen. ??? You have a fever or chills. ??? You have nausea or vomiting. Summary ??? A urinary tract infection (UTI) is an infection of any part of the urinary tract, which includes the kidneys, ureters, bladder, and urethra. ??? Most urinary tract infections are caused by bacteria in your genital area. ??? Treatment for this condition often includes antibiotic medicines. ??? If you were prescribed an antibiotic medicine, take it as told by your health care provider. Do not stop using the antibiotic even if you start to feel better. ??? Keep all follow-up visits. This is important. This information is not intended to replace advice given to you by your health care provider. Make dee (more content not included)... [facility] 10-30-2024 Hospital Discharge instructions Patient Education 10/29/2024 22:37:11 Urinary Tract Infection, Adult Urinary Tract Infection, Adult A urinary tract infection (UTI) is an infection of any part of the urinary tract. The urinary tract includes the kidneys, ureters, bladder, and urethra. These organs make, store, and get rid of urine in the body. An upper UTI affects the ureters and kidneys. A lower UTI affects the bladder and urethra. What are the causes? Most urinary tract infections are caused by bacteria in your genital area around your urethra, where urine leaves your body. These bacteria grow and cause inflammation of your urinary tract. What increases the risk? You are more likely to develop this condition if: You have a urinary catheter that stays in place. You are not able to control when you urinate or have a bowel movement (incontinence). You are female and you: ?Use a spermicide or diaphragm for control. ?Have low estrogen levels. ?Are . You have certain genes that increase your risk. You are sexually active. You take antibiotic medicines. You have a condition that causes your flow of urine to slow down, such as: ?An enlarged prostate, if you are male. ?Blockage in your urethra. ?A kidney stone. ?A nerve condition that affects your bladder control (neurogenic bladder). ?Not getting enough to drink, or not urinating often. You have certain medical conditions, such as: ?Diabetes. ?A weak disease-fighting system (immunesystem). ?Sickle cell disease. ?Gout. ?Spinal cord injury. What are the signs or symptoms? Symptoms of this condition include: Needing to urinate right away (urgency). Frequent urination. This may include small amounts of urine each time you urinate. Pain or burning with urination. Blood in the urine. Urine that smells bad or unusual. Trouble urinating. Cloudy urine. Vaginal discharge, if you are female. Pain in the abdomen or the lower back. You may also have: Vomiting or a decreased appetite. Confusion. Irritability or tiredness. A fever or chills. Diarrhea. The first symptom in older adults may be confusion. In some cases, they may not have any symptoms until the infection has worsened. How is this diagnosed? This condition is diagnosed based on your medical history and a physical exam. You may also have other tests, including: Urine tests. Blood tests. Tests for STIs (sexually transmitted infections). If you have had more than one UTI, a cystoscopy or imaging studies may be done to determine the cause of the infections. How is this treated? Treatment for this condition includes: Antibiotic medicine. Ogtk-jrs-obatcze medicines to treat discomfort. Drinking enough water to stay hydrated. If you have frequent infections or have other conditions such as a kidney stone, you may need to see a health care provider who specializes in the urinary tract (urologist). In rare cases, urinary tract infections can cause sepsis. Sepsis is a life-threatening condition that occurs when the body responds to an infection. Sepsis is treated in the hospital with IV antibiotics, fluids, and other medicines. Follow these instructions at home: Medicines Take hmev-lrl-kvxjrsa and prescription medicines only as told by your health care provider. If you were prescribed an antibiotic medicine, take it as told by your health care provider. Do not stop using the antibiotic even if you start to feel better. General instructions Make sure you: ?Empty your bladder often and completely. Do not hold urine for long periods of time. ?Empty your bladder after sex. ?Wipe from front to back after urinating or having a bowel movement if you are female. Use each tissue only one time when you wipe. Drink enough fluid to keep your urine pale yellow. Keep all follow-up visits. This is important. Contact a health care provider if: Your symptoms do not get better after 1 2 days. Your symptoms go away and then return. Get help right away if: You have severe pain in your back or your lower abdomen. You have a fever or chills. You have nausea or vomiting. Summary A urinary tract infection (UTI) is an infection of any part of the urinary tract, which includes the kidneys, ureters, bladder, and urethra. Most urinary tract infections are caused by bacteria in your genital area. Treatment for this condition often includes antibiotic medicines. If you were prescribed an antibiotic medicine, take it as told by your health care provider. Do not stop using the antibiotic even if you start to feel better. Keep all follow-up visits. This is important. This information is not intended to replace advice given to you by your health care provider. Make sure you discuss any questions you have with your health care provider. Document Revised: 04/10/2021 Document Reviewed: 04/15/2021 [employer] Patient Education 2023 [employer]. Follow Up Care 10/29/2024 08:33:15 With:ochoa Candice SADLER Address: [facility] [address], [place] [address]- When: Unknown [facility] 10-29-2024 Note Patient Education Obstetrics and Gynecology Urinary Tract Infection, Adult A urinary tract infection (UTI) is an infection of any part of the urinary tract. The urinary tract includes the kidneys, ureters, bladder, and urethra. These organs make, store, and get rid of urine in the body. An upper UTI affects the ureters and kidneys. A lower UTI affects the bladder and urethra. What are the causes? Most urinary tract infections are caused by bacteria in your genital area around your urethra, where urine leaves your body. These bacteria grow and cause inflammation of your urinary tract. What increases the risk? You are more likely to develop this condition if: ??? You have a urinary catheter that stays in place. ??? You are not able to control when you urinate or have a bowel movement (incontinence). ??? You are female and you: ? Use a spermicide or diaphragm for control. ? Have low estrogen levels. ? Are . ??? You have certain genes that increase your risk. ??? You are sexually active. ??? You take antibiotic medicines. ??? You have a condition that causes your flow of urine to slow down, such as: ? An enlarged prostate, if you are male. ? Blockage in your urethra. ? A kidney stone. ? A nerve condition that affects your bladder control (neurogenic bladder). ? Not getting enough to drink, or not urinating often. ??? You have certain medical conditions, such as: ? Diabetes. ? A weak disease-fighting system (immunesystem). ? Sickle cell disease. ? Gout. ? Spinal cord injury. What are the signs or symptoms? Symptoms of this condition include: ??? Needing to urinate right away (urgency). ??? Frequent urination. This may include small amounts of urine each time you urinate. ??? Pain or burning with urination. ??? Blood in the urine. ??? Urine that smells bad or unusual. ??? Trouble urinating. ??? Cloudy urine. ??? Vaginal discharge, if you are female. ??? Pain in the abdomen or the lower back. You may also have: ??? Vomiting or a decreased appetite. ??? Confusion. ??? Irritability or tiredness. ??? A fever or chills. ??? Diarrhea. The first symptom in older adults may be confusion. In some cases, they may not have any symptoms until the infection has worsened. How is this diagnosed? This condition is diagnosed based on your medical history and a physical exam. You may also have other tests, including: ??? Urine tests. ??? Blood tests. ??? Tests for STIs (sexually transmitted infections). If you have had more than one UTI, a cystoscopy or imaging studies may be done to determine the cause of the infections. How is this treated? Treatment for this condition includes: ??? Antibiotic medicine. ??? Ftaa-rhj-cfybviq medicines to treat discomfort. ??? Drinking enough water to stay hydrated. If you have frequent infections or have other conditions such as a kidney stone, you may need to see a health care provider who specializes in the urinary tract (urologist). In rare cases, urinary tract infections can cause sepsis. Sepsis is a life-threatening condition that occurs when the body responds to an infection. Sepsis is treated in the hospital with IV antibiotics, fluids, and other medicines. Follow these instructions at home: Medicines ??? Take hxzy-zpv-oepywkx and prescription medicines only as told by your health care provider. ??? If you were prescribed an antibiotic medicine, take it as told by your health care provider. Do not stop using the antibiotic even if you start to feel better. General instructions ??? Make sure you: ? Empty your bladder often and completely. Do not hold urine for long periods of time. ? Empty your bladder after sex. ? Wipe from front to back after urinating or having a bowel movement if you are female. Use each tissue only one time when you wipe. ??? Drink enough fluid to keep your urine pale yellow. ??? Keep all follow-up visits. This is important. Contact a health care provider if: ??? Your symptoms do not get better after 1?2 days. ??? Your symptoms go away and then return. Get help right away if: ??? You have severe pain in your back or your lower abdomen. ??? You have a fever or chills. ??? You have nausea or vomiting. Summary ??? A urinary tract infection (UTI) is an infection of any part of the urinary tract, which includes the kidneys, ureters, bladder, and urethra. ??? Most urinary tract infections are caused by bacteria in your genital area. ??? Treatment for this condition often includes antibiotic medicines. ??? If you were prescribed an antibiotic medicine, take it as told by your health care provider. Do not stop using the antibiotic even if you start to feel better. ??? Keep all follow-up visits. This is important. This information is not intended to replace advice given to you by your health care provider. Make sure you di (more content not included)... [facility] 09-28-2024 Hospital Discharge instructions Patient Education 09/27/2024 22:43:37 Managing Anxiety, Adult Managing Anxiety, Adult After being diagnosed with anxiety, you may be relieved to know why you have felt or behaved a certain way. You may also feel overwhelmed about the treatment ahead and what it will mean for your life. With care and support, you can manage your anxiety. How to manage lifestyle changes Understanding the difference between stress and anxiety Although stress can play a role in anxiety, it is not the same as anxiety. Stress is your body's reaction to life changes and events, both good and bad. Stress is often caused by something external, such as a deadline, test, or competition. It normally goes away after the event has ended and will last just a few hours. But, stress can be ongoing and can lead to more than just stress. Anxiety is caused by something internal, such as imagining a terrible outcome or worrying that something will go wrong that will greatly upset you. Anxiety often does not go away even after the event is over, and it can become a long-term (chronic) worry. Lowering stress and anxiety Talk with your health care provider or a counselor to learn more about lowering anxiety and stress. They may suggest tension-reduction techniques, such as: Music. Spend time creating or listening to music that you enjoy and that inspires you. Mindfulness-based meditation. Practice being aware of your normal breaths while not trying to control your breathing. It can be done while sitting or walking. Centering prayer. Focus on a word, phrase, or sacred image that means something to you and brings you peace. Deep breathing. Expand your stomach and inhale slowly through your nose. Hold your breath for 3 5 seconds. Then breathe out slowly, letting your stomach muscles relax. Self-talk. Learn to notice and spot thought patterns that lead to anxiety reactions. Change those patterns to thoughts that feel peaceful. Muscle relaxation. Take time to tense muscles and then relax them. Choose a tension-reduction technique that fits your lifestyle and personality. These techniques take time and practice. Set aside 5 15 minutes a day to do them. Specialized therapists can offer counseling and training in these techniques. The training to help with anxiety may be covered by some insurance plans. Other things you can do to manage stress and anxiety include: Keeping a stress diary. This can help you learn what triggers your reaction and then learn ways to manage your response. Thinking about how you react to certain situations. You may not be able to control everything, but you can control your response. Making time for activities that help you relax and not feeling guilty about spending your time in this way. Doing visual imagery. This involves imagining or creating mental pictures to help you relax. Practicing yoga. Through yoga poses, you can lower tension and relax. Medicines Medicines for anxiety include: Antidepressant medicines. These are usually prescribed for long-term daily control. Anti-anxiety medicines. These may be added in severe cases, especially when panic attacks occur. When used together, medicines, psychotherapy, and tension-reduction techniques may be the most effective treatment. Relationships Relationships can play a big part in helping you recover. Spend more time connecting with trusted friends and family members. Think about going to couples counseling if you have a partner, taking family education classes, or going to family therapy. Therapy can help you and others better understand your anxiety. How to recognize changes in your anxiety Everyone responds differently to treatment for anxiety. Recovery from anxiety happens when symptoms lessen and stop interfering with your daily life at home or work. This may mean that you will start to: Have better concentration and focus. Worry will interfere less in your daily thinking. Sleep better. Be less irritable. Have more energy. Have improved memory. Try to recognize when your condition is getting worse. Contact your provider if your symptoms interfere with home or work and you feel like your condition is not improving. Follow these instructions at home: Activity Exercise. Adults should: ?Exercise for at least 150 minutes each week. The exercise should increase your heart rate and make you sweat (moderate-intensity exercise). ?Do strengthening exercises at least twice a week. Get the right amount and quality of sleep. Most adults need 7 9 hours of sleep each night. Lifestyle Eat a healthy diet that includes plenty of vegetables, fruits, whole grains, low-fat dairy products, and lean protein. ?Do not eat a lot of foods that are high in fats, added sugars, or salt (sodium). Make choices that simplify your life. Do not use any products that contain nicotine or tobacco. These products include cigarettes, chewing tobacco, and vaping devices, such as e-cigarettes. If you need help quitting, ask your provider. Avoid caffeine, alcohol, and certain bdof-tos-uiamxce cold medicines. These may make you feel worse. Ask your pharmacist which medicines to avoid. General instructions Take rhim-hwv-uohmkrm and prescription medicines only as told by your provider. Keep all follow-up visits. This is to make sure you are managing your anxiety well or if you need more support. Where to find support You can get help and support from: Self-help groups. Online and community organizations. A trusted spiritual leader. Couples counseling. Family education classes. Family therapy. Where to find more information You may find that joining a support group helps you deal with your anxiety. The following sources can help you find counselors or support groups near you: Mental Health [place]: mentalhealth[place].net Anxiety and Depression Association of [place] (ADAA): adaa.org [employer] [place] [employer]ness ([place]): [place].org Contact a health care provider if: You have a hard time staying focused or finishing tasks. You spend many hours a day feeling worried about everyday life. You are very tired because you cannot stop worrying. You start to have headaches or often feel tense. You have chronic nausea or diarrhea. Get help right away if: Your heart feels like it is racing. You have shortness of breath. You have thoughts of hurting yourself or others. Get help right away if you feel like you may hurt yourself or others, or have thoughts about taking your own life. Go to your nearest emergency room or: Call 911. Call the National Suicide Prevention Lifeline at or 047. This is open 24 hours a day. Text the Crisis Text Line at 952777. This information is not intended to replace advice given to you by your health care provider. Make sure you discuss any questions you have with your health care provider. Document Revised: 06/12/2023 Document Reviewed: 12/25/2021 [employer] Patient Education 2023 [employer]. 09/27/2024 22:43:36 Health Risks of Smoking Health Risks of Smoking Smoking tobacco is very bad for your health. Tobacco smoke contains many toxic chemicals that can damage every part of your body. Secondhand smoke can be harmful to those around you. Tobacco or nicotine use can cause many long-term (chronic) diseases. Smoking is difficult to quit because a chemical in tobacco, called nicotine, causes addiction or dependence. When you smoke and inhale, nicotine is absorbed quickly into your bloodstream through your lungs. Both inhaled and non-inhaled nicotine may be addictive. How can quitting affect me? There are health benefits of quitting smoking. Some benefits happen right away and others take time. Benefits may include: Blood flow, blood pressure, heart rate, and lung capacity may begin to improve. However, any lung damage that has already occurred cannot be repaired. Respiratory symptoms from smoking, such as nasal congestion and cough, may improve over time. Your risk of heart disease, stroke, and cancer is reduced. The overall quality of your health may improve. You may save money, as you will not spend money on tobacco products and may spend less money on smoking-related health issues. What can increase my risk? Smoking harms nearly every organ in the body. People who smoke tobacco have a shorter life expectancy and an increased risk of many serious medical problems. These include: More respiratory infections, such as colds and pneumonia. Cancer. Heart disease. Stroke. Chronic respiratory diseases. Delayed wound healing and increased risk of complications during surgery. Problems with reproduction, , and childbirth, such as infertility, early (premature) births, stillbirths, and defects. Secondhand smoke exposure to children increases the risk of: Sudden syndrome (SIDS). Infections in the nose, throat, or airways (respiratory infections). Chronic respiratory symptoms. What actions can I take to quit? Smoking is an addiction that affects both your body and your mind, and long-time habits can be hard to change. Your health care provider can recommend: Nicotine replacement products, such as patches, gum, and nasal sprays. Use these products only as directed. Do not replace cigarette smoking with electronic cigarettes, which are commonly called e-cigarettes. The safety of e-cigarettes is not known, and some may contain harmful chemicals. Programs and community resources, which may include group support, education, or talk therapy. Prescription medicines to help reduce cravings. A combination of two or more quit methods, which may increase the success of quitting. Where to find support Follow the recommendations from your health care provider about support groups and other assistance. You can also visit: [place]. Department of Health and Human Services: www.smokefree.gov [place] Lung Association: www.freedomfromsmoking.org [place] Heart Association: www.heart.org Where to find more information Centers for Disease Control and Prevention: www.cdc.gov World Health Organization: www.who.int Summary Smoking tobacco is very bad for your health. Tobacco smoke contains many toxic chemicals that can damage every part of the body. Smoking is difficult to quit because a chemical in tobacco, called nicotine, causes addiction or dependence. There are immediate and long-term health benefits of quitting smoking. A combination of two or more quit methods may increase the success of quitting. This information is not intended to replace advice given to you by your health care provider. Make sure you discuss any questions you have with your health care provider. Document Revised: 09/05/2022 Document Reviewed: 09/05/2022 [employer] Patient Education 2023 F[employer]y. Follow Up Care 04/10/2024 07:37:41 With:Candice Kim Address: [address] [place] [address], [facility] [place] [address]- When:Within 1 Year(s) Comments:annual wellness [facility] 09-27-2024 Note Patient Education Mental and Behavioral Health Managing Anxiety, Adult After being diagnosed with anxiety, you may be relieved to know why you have felt or behaved a certain way. You may also feel overwhelmed about the treatment ahead and what it will mean for your life. With care and support, you can manage your anxiety. How to manage lifestyle changes Understanding the difference between stress and anxiety Although stress can play a role in anxiety, it is not the same as anxiety. Stress is your body's reaction to life changes and events, both good and bad. Stress is often caused by something external, such as a deadline, test, or competition. It normally goes away after the event has ended and will last just a few hours. But, stress can be ongoing and can lead to more than just stress. Anxiety is caused by something internal, such as imagining a terrible outcome or worrying that something will go wrong that will greatly upset you. Anxiety often does not go away even after the event is over, and it can become a long-term (chronic) worry. Lowering stress and anxiety Talk with your health care provider or a counselor to learn more about lowering anxiety and stress. They may suggest tension-reduction techniques, such as: ??? Music. Spend time creating or listening to music that you enjoy and that inspires you. ??? Mindfulness-based meditation. Practice being aware of your normal breaths while not trying to control your breathing. It can be done while sitting or walking. ??? Centering prayer. Focus on a word, phrase, or sacred image that means something to you and brings you peace. ??? Deep breathing. Expand your stomach and inhale slowly through your nose. Hold your breath for 3?5 seconds. Then breathe out slowly, letting your stomach muscles relax. ??? Self-talk. Learn to notice and spot thought patterns that lead to anxiety reactions. Change those patterns to thoughts that feel peaceful. ??? Muscle relaxation. Take time to tense muscles and then relax them. Choose a tension-reduction technique that fits your lifestyle and personality. These techniques take time and practice. Set aside 5?15 minutes a day to do them. Specialized therapists can offer counseling and training in these techniques. The training to help with anxiety may be covered by some insurance plans. Other things you can do to manage stress and anxiety include: ??? Keeping a stress diary. This can help you learn what triggers your reaction and then learn ways to manage your response. ??? Thinking about how you react to certain situations. You may not be able to control everything, but you can control your response. ??? Making time for activities that help you relax and not feeling guilty about spending your time in this way. ??? Doing visual imagery. This involves imagining or creating mental pictures to help you relax. ??? Practicing yoga. Through yoga poses, you can lower tension and relax. Medicines Medicines for anxiety include: ??? Antidepressant medicines. These are usually prescribed for long-term daily control. ??? Anti-anxiety medicines. These may be added in severe cases, especially when panic attacks occur. When used together, medicines, psychotherapy, and tension-reduction techniques may be the most effective treatment. Relationships Relationships can play a big part in helping you recover. Spend more time connecting with trusted friends and family members. Think about going to couples counseling if you have a partner, taking family education classes, or going to family therapy. Therapy can help you and others better understand your anxiety. How to recognize changes in your anxiety Everyone responds differently to treatment for anxiety. Recovery from anxiety happens when symptoms lessen and stop interfering with your daily life at home or work. This may mean that you will start to: ??? Have better concentration and focus. Worry will interfere less in your daily thinking. ??? Sleep better. ??? Be less irritable. ??? Have more energy. ??? Have improved memory. Try to recognize when your condition is getting worse. Contact your provider if your symptoms interfere with home or work and you feel like your condition is not improving. Follow these instructions at home: Activity ??? Exercise. Adults should: ? Exercise for at least 150 minutes each week. The exercise should increase your heart rate and make you sweat (moderate-intensity exercise). ? Do strengthening exercises at least twice a week. ??? Get the right amount and quality of sleep. Most adults need 7?9 hours of sleep each night. Lifestyle ??? Eat a healthy diet that includes plenty of vegetables, fruits, whole grains, low-fat dairy products, and lean protein. ? Do not eat a lot of foods that are high in fats, added sugars, or salt (sodium). ??? Make choices that simplify your life. ??? Do not use any products (more content not included)... [facility] 08-25-2024 History of Present illness Narrative Subjective Radha Paez is a 38 y.o. year old female Chief Complaint Patient presents with Migraine Past Medical History: Diagnosis Date Anxiety Endometriosis ETD (Eustachian tube dysfunction), right Kidney stone Sinusitis, acute maxillary Past Surgical History: Procedure Laterality Date DILATION AND CURETTAGE OF UTERUS HYSTERECTOMY 2018 PELVIC LAPAROSCOPY x2 Family History Problem Relation Name Age of Onset Migraines Mother Hypertension Father Hypertension Maternal Grandmother Stroke Maternal Grandmother Hypertension Paternal Grandmother Stroke Paternal Grandmother Social History Tobacco Use Smoking status: Every Day Types: Cigarettes Smokeless tobacco: Never Substance Use Topics Alcohol use: Not on file Medication Documentation Review Audit Reviewed by Luba Ibrahim MA ([employer] Associate) on 08/25/24 at 0929 Medication Order Taking? Sig Documenting Provider Last Dose Status cholecalciferol (Vitamin D-3) 1.25 MG (24117 UT) capsule [id number] Take by mouth every 7 (seven) days SHANIA Harris Active Diclofenac Potassium,Migraine, (Cambia) 50 MG pack [id number] No Take by mouth Patient not taking: Reported on 08/25/2024 Historical Provider, Not Taking Active hydrOXYzine HCl (Atarax) 25 MG tablet [id number] Take 25 mg by mouth as needed at bedtime for anxiety SHANIA Rangel Active loratadine (Claritin) 10 MG tablet [id number] 1 (one) time each day at the same time Patient not taking: Reported on 08/25/2024 SHANIA Harris Active topiramate (Topamax) 50 MG tablet [id number] Take 50 mg by mouth Daily SHANIA Rangel Active HPI MIGRAINES/FACIAL NUMBNESS -on Topamax -1 a few weeks ago -this was due to the weather -She has not needed Ubrelvy -she denies any further facial numbness -she is sleeping well at night -she gets about 6 hours of sleep a night -denies any new concerns today. ROS Review of Systems Constitutional: Negative for chills and fever. Respiratory: Negative for chest tightness and shortness of breath. Cardiovascular: Negative for chest pain and palpitations. Gastrointestinal: Negative for abdominal pain, nausea and vomiting. Neurological: Positive for headaches. Negative for dizziness, tremors, seizures, syncope, facial asymmetry, speech difficulty, weakness, light-headedness and numbness. Psychiatric/Behavioral: Negative for sleep disturbance. Objective Visit Vitals BP 104/80 Ht 5' 5 Wt 115 lb BMI 19.14 kg/m Smoking Status Every Day BSA 1.55 m Neurological Exam Mental Status Awake, alert and oriented to person, place and time. Oriented to person, place, time and situation. Recent and remote memory are intact. Speech is normal. Language is fluent with no aphasia. Cranial Nerves CN III, IV, : Normal lids and orbits bilaterally. Pupils equal round and reactive to light bilaterally. CN VII: Full and symmetric facial movement. CN VIII: Hearing is normal. CN IX, X: Palate elevates symmetrically CN XI: Shoulder shrug strength is normal. CN XII: Tongue midline without atrophy or fasciculations. Sensory Light touch is normal in upper and lower extremities. Coordination Right: Pgalpl-as-urpu normal.Left: Gqdyvm-vt-hhot normal. Gait Normal casual, toe, heel and tandem gait. Motor Examination RUE Strength deltoid, biceps, triceps, wrist extensors, wrist extensors, wrist flexor, wool grower strength 5/5. LUE Strength deltoid, biceps, triceps, wrist extensors, wrist extensors, wrist flexor, wool grower strength 5/5. RLE Strength illopsoas, quadriceps, tibialis anterior, and gastrocnemius strength 5/5. LLE Strength illopsoas, quadriceps, tibialis anterior, and gastrocnemius strength 5/5. Tone Normal tone x4 extremities. Reflexes: RUE biceps reflex 2, LUE biceps reflex 2, RLE knee reflex 2, LLE knee reflex 2, Assessment and Plan Diagnoses and all orders for this visit: Migraine without aura and without status migrainosus, not intractable (CMS/HCC) headaches that have been occurring since she was [...] or amitriptyline due to side effects. She responded well to Trileptal but had increase in anxiety which improved after this was stopped. Ramila aborts her migraines. MRI of the brain without contrast (she did not tolerate length of study for contrast portion) 04/17/22 was negative. She trialed to lower Topamax but had increase in symptoms. Patient notes that she was started on hydroxyzine by PCP prn nightly for anxiety and this has helped with sleep as needed. She is overall doing well and has had less stressors socially and this is helping her symptoms as well. Plan: 1. Continue Topamax 50mg PO QHS for headache prevention. 2. Continue with Ubrelvy for abortive migraine therapy. Fortunately, she has been stable and not requiring this often. We will continue for symptoms as needed. Follow up in 6-12 months or sooner for new or worsening symptoms. documented in this encounter [facility] 07-14-2024 Hospital Discharge instructions Follow Up Care 07/14/2024 07:56:27 With:Candice Kim Address: [address] [place] [address], [address] [place] [id number]- When: Unknown [facility] 06-23-2024 Hospital Discharge instructions Patient Education 06/23/2024 16:00:04 Health Maintenance, Female Health Maintenance, Female Adopting a healthy lifestyle and getting preventive care are important in promoting health and wellness. Ask your health care provider about: The right schedule for you to have regular tests and exams. Things you can do on your own to prevent diseases and keep yourself healthy. What should I know about diet, weight, and exercise? Eat a healthy diet Eat a diet that includes plenty of vegetables, fruits, low-fat dairy products, and lean protein. Do not eat a lot of foods that are high in solid fats, added sugars, or sodium. Maintain a healthy weight Body mass index (BMI) is used to identify weight problems. It estimates body fat based on height and weight. Your health care provider can help determine your BMI and help you achieve or maintain a healthy weight. Get regular exercise Get regular exercise. This is one of the most important things you can do for your health. Most adults should: Exercise for at least 150 minutes each week. The exercise should increase your heart rate and make you sweat (moderate-intensity exercise). Do strengthening exercises at least twice a week. This is in addition to the moderate-intensity exercise. Spend less time sitting. Even light physical activity can be beneficial. Watch cholesterol and blood lipids Have your blood tested for lipids and cholesterol at 20 years of age, then have this test every 5 years. Have your cholesterol levels checked more often if: Your lipid or cholesterol levels are high. You are older than 40 years of age. You are at high risk for heart disease. What should I know about cancer screening? Depending on your health history and family history, you may need to have cancer screening at various ages. This may include screening for: Breast cancer. Cervical cancer. Colorectal cancer. Skin cancer. Lung cancer. What should I know about heart disease, diabetes, and high blood pressure? Blood pressure and heart disease High blood pressure causes heart disease and increases the risk of stroke. This is more likely to develop in people who have high blood pressure readings or are overweight. Have your blood pressure checked: ?Every 3 5 years if you are 18 39 years of age. ?Every year if you are 40 years old or older. Diabetes Have regular diabetes screenings. This checks your fasting blood sugar level. Have the screening done: Once every three years after age 40 if you are at a normal weight and have a low risk for diabetes. More often and at a younger age if you are overweight or have a high risk for diabetes. What should I know about preventing infection? Hepatitis B If you have a higher risk for hepatitis B, you should be screened for this virus. Talk with your health care provider to find out if you are at risk for hepatitis B infection. Hepatitis C Testing is recommended for: Everyone born from 1945 through 1965. Anyone with known risk factors for hepatitis C. Sexually transmitted infections (STIs) Get screened for STIs, including gonorrhea and chlamydia, if: ?You are sexually active and are younger than 24 years of age. ?You are older than 24 years of age and your health care provider tells you that you are at risk for this type of infection. ?Your sexual activity has changed since you were last screened, and you are at increased risk for chlamydia or gonorrhea. Ask your health care provider if you are at risk. Ask your health care provider about whether you are at high risk for HIV. Your health care provider may recommend a prescription medicine to help prevent HIV infection. If you choose to take medicine to prevent HIV, you should first get tested for HIV. You should then be tested every 3 months for as long as you are taking the medicine. If you are about to stop having your period (premenopausal) and you may become , seek counseling before you get . Take 400 to 800 micrograms (mcg) of folic acid every day if you become . Ask for control (contraception) if you want to prevent . Osteoporosis and menopause Osteoporosis is a disease in which the bones lose minerals and strength with aging. This can result in bone fractures. If you are 65 years old or older, or if you are at risk for osteoporosis and fractures, ask your health care provider if you should: Be screened for bone loss. Take a calcium or vitamin D supplement to lower your risk of fractures. Be given hormone replacement therapy (HRT) to treat symptoms of menopause. Follow these instructions at home: Alcohol use Do not drink alcohol if: ?Your health care provider tells you not to drink. ?You are , may be , or are planning to become . If you drink alcohol: ?Limit how much you have to: ?0 1 drink a day. ?Know how much alcohol is in your drink. In the [place] one drink equals one 12 oz bottle of beer (355 mL), one 5 oz glass of wine (148 mL), or one 1 oz glass of hard liquor (44 mL). Lifestyle Do not use any products that contain nicotine or tobacco. These products include cigarettes, chewing tobacco, and vaping devices, such as e-cigarettes. If you need help quitting, ask your health care provider. Do not use street drugs. Do not share needles. Ask your health care provider for help if you need support or information about quitting drugs. General instructions Schedule regular health, dental, and eye exams. Stay current with your vaccines. Tell your health care provider if: ?You often feel depressed. ?You have ever been abused or do not feel safe at home. Summary Adopting a healthy lifestyle and getting preventive care are important in promoting health and wellness. Follow your health care provider's instructions about healthy diet, exercising, and getting tested or screened for diseases. Follow your health care provider's instructions on monitoring your cholesterol and blood pressure. This information is not intended to replace advice given to you by your health care provider. Make sure you discuss any questions you have with your health care provider. Document Revised: 01/23/2022 Document Reviewed: 01/23/2022 [employer] Patient Education 2023 F[employer]iby. Follow Up Care 06/25/2023 10:33:45 With:DUGLAS BRAND FAAFP, Mello Quezada, EMMA, PED Address: [address], [place] [address]- When:Within 2 Month(s) [facility] 06-23-2024 Note Patient Education Obstetrics and Gynecology Health Maintenance, Female Adopting a healthy lifestyle and getting preventive care are important in promoting health and wellness. Ask your health care provider about: ? The right schedule for you to have regular tests and exams. ? Things you can do on your own to prevent diseases and keep yourself healthy. What should I know about diet, weight, and exercise? Eat a healthy diet ? Eat a diet that includes plenty of vegetables, fruits, low-fat dairy products, and lean protein. ? Do not eat a lot of foods that are high in solid fats, added sugars, or sodium. Maintain a healthy weight Body mass index (BMI) is used to identify weight problems. It estimates body fat based on height and weight. Your health care provider can help determine your BMI and help you achieve or maintain a healthy weight. Get regular exercise Get regular exercise. This is one of the most important things you can do for your health. Most adults should: ? Exercise for at least 150 minutes each week. The exercise should increase your heart rate and make you sweat (moderate-intensity exercise). ? Do strengthening exercises at least twice a week. This is in addition to the moderate-intensity exercise. ? Spend less time sitting. Even light physical activity can be beneficial. Watch cholesterol and blood lipids Have your blood tested for lipids and cholesterol at 20 years of age, then have this test every 5 years. Have your cholesterol levels checked more often if: ? Your lipid or cholesterol levels are high. ? You are older than 40 years of age. ? You are at high risk for heart disease. What should I know about cancer screening? Depending on your health history and family history, you may need to have cancer screening at various ages. This may include screening for: ? Breast cancer. ? Cervical cancer. ? Colorectal cancer. ? Skin cancer. ? Lung cancer. What should I know about heart disease, diabetes, and high blood pressure? Blood pressure and heart disease ? High blood pressure causes heart disease and increases the risk of stroke. This is more likely to develop in people who have high blood pressure readings or are overweight. ? Have your blood pressure checked: ? Every 3?5 years if you are 18?39 years of age. ? Every year if you are 40 years old or older. Diabetes Have regular diabetes screenings. This checks your fasting blood sugar level. Have the screening done: ? Once every three years after age 40 if you are at a normal weight and have a low risk for diabetes. ? More often and at a younger age if you are overweight or have a high risk for diabetes. What should I know about preventing infection? Hepatitis B If you have a higher risk for hepatitis B, you should be screened for this virus. Talk with your health care provider to find out if you are at risk for hepatitis B infection. Hepatitis C Testing is recommended for: ? Everyone born from 1945 through 1965. ? Anyone with known risk factors for hepatitis C. Sexually transmitted infections (STIs) ? Get screened for STIs, including gonorrhea and chlamydia, if: ? You are sexually active and are younger than 24 years of age. ? You are older than 24 years of age and your health care provider tells you that you are at risk for this type of infection. ? Your sexual activity has changed since you were last screened, and you are at increased risk for chlamydia or gonorrhea. Ask your health care provider if you are at risk. ? Ask your health care provider about whether you are at high risk for HIV. Your health care provider may recommend a prescription medicine to help prevent HIV infection. If you choose to take medicine to prevent HIV, you should first get tested for HIV. You should then be tested every 3 months for as long as you are taking the medicine. ? If you are about to stop having your period (premenopausal) and you may become , seek counseling before you get . ? Take 400 to 800 micrograms (mcg) of folic acid every day if you become . ? Ask for control (contraception) if you want to prevent . Osteoporosis and menopause Osteoporosis is a disease in which the bones lose minerals and strength with aging. This can result in bone fractures. If you are 65 years old or older, or if you are at risk for osteoporosis and fractures, ask your health care provider if you should: ? Be screened for bone loss. ? Take a calcium or vitamin D supplement to lower your risk of fractures. ? Be given hormone replacement therapy (HRT) to treat symptoms of menopause. Follow these instructions at home: Alcohol use ? Do not drink alcohol if: ? Your health care provider tells you not to drink. ? You are , may be , or are planning to become . ? If you drink alcohol: ? Limit how much you have to: ? 0?1 drink a day. ? Know how (more content not included)... [facility] 06-03-2024 History of Present illness Narrative Reason for Appointment: Patient ID: Radha Paez is a 38 y.o. female who presents for Colposcopy Patient presents today for Colposcopy and Consult appointment. MEDICATIONS Current Outpatient Medications Medication Instructions cholecalciferol (Vitamin D-3) 1.25 MG (92581 UT) capsule Oral, Every 7 days Diclofenac Potassium,Migraine, (Cambia) 50 MG pack Oral hydrOXYzine HCl (ATARAX) 25 mg, Oral, Nightly PRN loratadine (Claritin) 10 MG tablet Every 24 hours topiramate (TOPAMAX) 50 mg, Oral, Daily ALLERGIES Allergies Allergen Reactions Amitriptyline Other Reaction(s): Throat tightness Egg-Derived Products GI intolerance Latex Unknown Penicillin G Sodium Hives Penicillins Other Reaction(s): Hives Pollen Extract Other Reaction(s): Unknown Sulfa Antibiotics Unknown Sulfamethoxazole-Trimethoprim Unknown Sumatriptan Other Reaction(s): Sore throat symptom PROBLEMS Active Ambulatory Problems Diagnosis Date Noted Migraine ([facility]) 09/02/2020 Complicated migraine ([facility]) 09/02/2020 Facial numbness 10/21/2020 Cerebral embolism with [...] Every Day Types: Cigarettes Smokeless tobacco: Never Substance Use Topics Alcohol use: Not on [...] appearance. She is well-developed. Genitourinary: Vulva normal. Cardiovascular: Rate and Rhythm: Normal rate and regular rhythm. Pulmonary: Effort: Pulmonary effort is normal. Breath sounds: Normal breath sounds. Abdominal: General: Bowel sounds are normal. There [...] nursing note reviewed. Exam conducted with a lining ironer present. Vitals: Estimated body mass index is 19.04 kg/m as calculated from the following: Height as of 03/04/24: 5' 5 . Weight as of this encounter: 114 lb 6.4 oz. BP: 110/74 No LMP recorded. ASSESSMENT & PLAN ICD-10-CM 1. LGSIL Pap smear of vagina R87.622 Colposcopy Colposcopy: Patient is doing well and has no complaints. Pap results have been reviewed with the patient in great detail and patient voiced understanding. Patient presents today for a Colposcopy. Patient was placed in dorsal lithotomy position with feet in stirrups, a sterile speculum was placed into the vagina and the cervix was visualized. vagina was cleansed with vinegar. Postprocedural instructions given. All if patients questions answered and she expressed understanding. Advised to call in interim with questions or concerns. Follow Up: Patient is to return in 6 months for Repeat Pap. Documented by Dannielle Durant LPN on behalf of: Guerrero Black DO documented in this encounter [facility] 05-14-2024 History of Present illness Narrative Reason for Appointment: Patient ID: Radha Paez is a 38 y.o. female who presents for Well Women Visit Patient presents today for Annual Exam. MEDICATIONS Current Outpatient Medications Medication Instructions cholecalciferol (Vitamin D-3) 1.25 MG (75702 UT) capsule Oral, Every 7 days Diclofenac Potassium,Migraine, (Cambia) 50 MG pack Oral hydrOXYzine HCl (ATARAX) 25 mg, Oral, Nightly PRN loratadine (Claritin) 10 MG tablet Every 24 hours topiramate (TOPAMAX) 50 mg, Oral, Daily ALLERGIES Allergies Allergen Reactions Amitriptyline Other Reaction(s): Throat tightness Egg-Derived Products GI intolerance Latex Unknown Penicillin G Sodium Hives Penicillins Other Reaction(s): Hives Pollen Extract Other Reaction(s): Unknown Sulfa Antibiotics Unknown Sulfamethoxazole-Trimethoprim Unknown Sumatriptan Other Reaction(s): Sore throat symptom PROBLEMS Active Ambulatory Problems Diagnosis Date Noted Migraine (CMS/[facility]) 09/02/2020 Complicated migraine (CMS/[facility]CC) 09/02/2020 Facial numbness 10/21/2020 Cerebral embolism with [...] Every Day Types: Cigarettes Smokeless tobacco: Never Substance Use Topics Alcohol use: Not on [...] Objective: Physical Exam Constitutional: Appearance: Normal appearance. Genitourinary: Right Adnexa: not tender and no mass present. Left Adnexa: not tender and no mass present. No cervical discharge. Breasts: Breasts are soft. Right: Normal. Left: Normal. HENT: Head: Normocephalic. Nose: Nose normal. Mouth/Throat: Mouth: Mucous membranes are moist. Cardiovascular: Rate and Rhythm: Normal rate. Pulmonary: Effort: Pulmonary effort is normal. Abdominal: General: Bowel sounds are normal. Palpations: Abdomen is soft. Musculoskeletal: General: Normal range of motion. Cervical back: Normal range of motion. Neurological: General: No focal deficit present. Mental Status: She is alert. Skin: General: Skin is warm and dry. Psychiatric: Mood and Affect: Mood normal. Vitals and nursing note reviewed. Exam conducted with a lining ironer present. Vitals: Estimated body mass index is 19.27 kg/m as calculated from the following: Height as of 03/04/24: 5' 5 . Weight as of this encounter: 115 lb 12.8 oz. BP: 104/68 No LMP recorded. ASSESSMENT & PLAN ICD-10-CM 1. Well woman exam with routine gynecological exam Z01.419 Pap Smear HPV DNA probe, amplified Annual Exam: Patient presents today for an annual exam. Patient states she is doing well and has no complaints. Pap was obtained without difficulty. Orders Placed This Encounter Procedures HPV DNA probe, amplified Follow Up: Patient is to return in one year for annual unless needed otherwise. Documented by Francia Garcia LPN on behalf of: SHANIA Harris documented in this encounter [facility] 04-10-2024 Hospital Discharge instructions Patient Education 04/10/2024 07:30:20 Health Risks of Smoking Health Risks of Smoking Smoking tobacco is very bad for your health. Tobacco smoke contains many toxic chemicals that can damage every part of your body. Secondhand smoke can be harmful to those around you. Tobacco or nicotine use can cause many long-term (chronic) diseases. Smoking is difficult to quit because a chemical in tobacco, called nicotine, causes addiction or dependence. When you smoke and inhale, nicotine is absorbed quickly into your bloodstream through your lungs. Both inhaled and non-inhaled nicotine may be addictive. How can quitting affect me? There are health benefits of quitting smoking. Some benefits happen right away and others take time. Benefits may include: Blood flow, blood pressure, heart rate, and lung capacity may begin to improve. However, any lung damage that has already occurred cannot be repaired. Respiratory symptoms from smoking, such as nasal congestion and cough, may improve over time. Your risk of heart disease, stroke, and cancer is reduced. The overall quality of your health may improve. You may save money, as you will not spend money on tobacco products and may spend less money on smoking-related health issues. What can increase my risk? Smoking harms nearly every organ in the body. People who smoke tobacco have a shorter life expectancy and an increased risk of many serious medical problems. These include: More respiratory infections, such as colds and pneumonia. Cancer. Heart disease. Stroke. Chronic respiratory diseases. Delayed wound healing and increased risk of complications during surgery. Problems with reproduction, , and childbirth, such as infertility, early (premature) births, stillbirths, and defects. Secondhand smoke exposure to children increases the risk of: Sudden syndrome (SIDS). Infections in the nose, throat, or airways (respiratory infections). Chronic respiratory symptoms. What actions can I take to quit? Smoking is an addiction that affects both your body and your mind, and long-time habits can be hard to change. Your health care provider can recommend: Nicotine replacement products, such as patches, gum, and nasal sprays. Use these products only as directed. Do not replace cigarette smoking with electronic cigarettes, which are commonly called e-cigarettes. The safety of e-cigarettes is not known, and some may contain harmful chemicals. Programs and community resources, which may include group support, education, or talk therapy. Prescription medicines to help reduce cravings. A combination of two or more quit methods, which may increase the success of quitting. Where to find support Follow the recommendations from your health care provider about support groups and other assistance. You can also visit: U.[place]. Department of Health and Human Services: www.smokefree.gov [place] Lung Association: www.freedomfromsmoking.org [place] Heart Association: www.heart.org Where to find more information Centers for Disease Control and Prevention: www.cdc.gov World Health Organization: www.who.int Summary Smoking tobacco is very bad for your health. Tobacco smoke contains many toxic chemicals that can damage every part of the body. Smoking is difficult to quit because a chemical in tobacco, called nicotine, causes addiction or dependence. There are immediate and long-term health benefits of quitting smoking. A combination of two or more quit methods may increase the success of quitting. This information is not intended to replace advice given to you by your health care provider. Make sure you discuss any questions you have with your health care provider. Document Revised: 09/05/2022 Document Reviewed: 09/05/2022 [employer] Patient Education 2022 [employer]. 04/10/2024 07:30:18 Vitamin D Deficiency Vitamin D Deficiency Vitamin D deficiency is when your body does not have enough vitamin D. Vitamin D is important to your body because: It helps the body maintain calcium and phosphorus levels. These are important minerals. It plays a role in bone health. It reduces inflammation. It improves the body's defense system (immune system). If vitamin D deficiency is severe, it can cause a condition in which your bones become soft. In adults, this condition is called osteomalacia. In children, this condition is called rickets. What are the causes? This condition may be caused by: Not eating enough foods that contain vitamin D. Not getting enough natural sun exposure. Having certain digestive system diseases that make it difficult for your body to absorb vitamin D. These diseases include Crohn's disease, long-term (chronic) pancreatitis, and cystic fibrosis. Having had a surgery in which a part of the stomach or a part of the small intestine was removed. What increases the risk? You are more likely to develop this condition if you: Are an older adult. Do not spend much time outdoors. Live in a long-term care facility. Have dark skin. Take certain medicines, such as steroid medicines or certain seizure medicines. Are overweight or obese. Have chronic kidney or liver disease. What are the signs or symptoms? In mild cases of vitamin D deficiency, there may not be any symptoms. If the condition is severe, symptoms may include: Bone pain. Muscle pain. Not being able to walk normally (abnormal gait). Broken bones caused by a minor injury. Joint pain. How is this diagnosed? This condition may be diagnosed with blood tests. Imaging tests such as X-rays may also be done to look for changes in the bone. How is this treated? Treatment may include taking supplements as told by your health care provider. Your health care provider will tell you what dose is best for you. Supplements may include: Vitamin D. Calcium. Follow these instructions at home: Eating and drinking Eat foods that contain vitamin D, such as: Dairy products, cereals, or juices that have vitamin D added to them (are fortified). Check the label. Fish, such as salmon or trout. Eggs. The vitamin D is in the yolk. Mushrooms that were treated with UV light. Beef liver. The items listed above may not be a complete list of foods and beverages you can eat and drink. Contact a dietitian for more information. General instructions Take [id number] and prescription medicines only as told by your health care provider. Take supplements only as told by your health care provider. Get regular, safe exposure to natural sunlight. Do not use a tanning bed. Maintain a healthy weight. Lose weight if needed. Keep all follow-up visits. This is important. How is this prevented? You can get vitamin D by: Eating foods that naturally contain vitamin D. Eating or drinking products that have been fortified with vitamin D, such as cereals, juices, and dairy products, including milk. Taking a vitamin D supplement or a multivitamin that contains vitamin D. Being in the sun. Your body naturally makes vitamin D when your skin is exposed to sunlight. Your body changes the sunlight into a form of the vitamin that it can use. Contact a health care provider if: Your symptoms do not go away. You feel nauseous or you vomit. You have fewer bowel movements than usual or are constipated. Summary Vitamin D deficiency is when your body does not have enough vitamin D. Vitamin D helps to keep your bones healthy. Vitamin D deficiency is primarily treated by taking supplements. Your health care provider will suggest what dose is best for you. You can get vitamin D by eating foods that contain vitamin D, by being in the sun, and by taking a vitamin D supplement or a multivitamin that contains vitamin D. This information is not intended to replace advice given to you by your health care provider. Make sure you discuss any questions you have with your health care provider. Document Revised: 06/09/2022 Document Reviewed: 06/09/2022 [employer] Patient Education 2022 [employer]. 04/10/2024 07:30:16 Preventing Vitamin D Deficiency Preventing Vitamin D Deficiency Vitamin D deficiency is when your body does not have enough vitamin D. Vitamin D is important because it helps your body maintain calcium and phosphorus levels. It plays a brewster role in the health of bones and teeth, reduces inflammation, and improves the body's defense system (immune system). Our bodies make vitamin D when our skin is exposed to direct sunlight. However, for many people, this may not be enough vitamin D to meet the body's needs. How can this condition affect me? If vitamin D deficiency is severe, it can cause a condition in which a person's bones become softer than normal. In adults, this condition is called osteomalacia. In children, this condition is called rickets. Vitamin D deficiency can also cause weak or thin bones (osteoporosis) in adults. What can increase my risk? You may be at risk for a vitamin D deficiency if you: Are . Are obese. Are an older adult. Have dark skin. Take certain medicines that affect the way vitamin D is absorbed. Have had a surgery in which a part of the stomach or a part of the small intestine was removed. Other risk factors include: Having a condition that limits your ability to absorb fat, such as Crohn's disease, long-term (chronic) pancreatitis, or cystic fibrosis. Having certain conditions that are passed from parent to child (inherited). Not having access to foods rich in vitamin D. Having limited ability to move and go outside safely. Living in areas that have fewer hours of sunlight. Spending most of your day indoors, or covering your skin all the time when you are outdoors. What actions can I take to reduce my risk of a vitamin D deficiency? Knowing the best sources of vitamin D You can meet your daily vitamin D needs from: Foods. Dietary supplements. Direct exposure to natural sunlight. formula, for infants. Knowing how much vitamin D you need General recommendations for daily vitamin D intake vary by these categories: Infants: 400 international units (IU). Children older than 1 year: 600 international units. Adults: 600 international units. and women: 600 international units. Adults older than 70 years: 800 international units. These are minimum levels of recommended amounts. Your health care provider may recommend a different amount of vitamin D intake based on your specific needs and your overall health. Getting sun exposure Get regular, safe exposure to natural sunlight. Expose your skin to direct sunlight for at least 15 minutes every day. If you have dark skin, you may need to expose your skin for a longer period of time. Protect your skin from too much sun exposure. This helps to prevent skin cancer. Ask your health care provider if regular sun exposure is safe for you. Do not use a tanning bed. Eating and drinking Eat foods that naturally contain vitamin D. These include: ?Beef liver. ?Eggs. The vitamin D is in the yolk. ?Fish, such as salmon or trout. ?Mushrooms that were treated with UV light. Eat or drink products that have vitamin D added to them (are fortified). These may include: ?Cereals. ?Milk, including plant-based alternatives such as almond, soy, or oat milks. ?[place]esee juice. ?Margarine. When choosing foods, check the food label on the package to see: ?How much vitamin D is in the item. ?If the food is fortified with vitamin D. The items listed above may not be a complete list of foods and beverages you can eat and drink. Contact a dietitian for more information. Taking supplements and medicines If you are at risk for vitamin D deficiency, or if you have certain diseases, your health care provider may recommend that you take a vitamin D supplement. Make sure you: Talk with your health care provider before you start taking any vitamin D supplements. You may be more sensitive to the side effects of vitamin D supplements if you are on certain medicines or have certain medical conditions. Tell your health care provider about all medicines you are taking, including vitamins, herbs, eye drops, creams, and [id number] medicines. Take pako-ksw-eirinij and prescription medicines only as told by your health care provider. Take supplements only as told by your health care provider. To increase absorption of your supplement, take it with a meal or snack. Summary Vitamin D plays a brewster role in the health of bones and teeth, reduces inflammation, and improves the body's defense system (immune system). A vitamin D deficiency can put you at risk of developing conditions such as rickets or osteoporosis. Our bodies make vitamin D when our skin is exposed to direct sunlight. However, for many people, this may not be enough vitamin D to meet the body's needs. Some foods naturally contain vitamin D, including beef liver, egg yolk, and fish. Eat or drink products that have vitamin D added to them (are fortified). This information is not intended to replace advice given to you by your health care provider. Make sure you discuss any questions you have with your health care provider. Document Revised: 06/09/2022 Document Reviewed: 06/09/2022 [employer] Patient Education 2022 [employer]. 04/10/2024 07:30:12 Managing Anxiety, Adult Managing Anxiety, Adult After being diagnosed with anxiety, you may be relieved to know why you have felt or behaved a certain way. You may also feel overwhelmed about the treatment ahead and what it will mean for your life. With care and support, you can manage this condition. How to manage lifestyle changes Managing stress and anxiety Stress is your body's reaction to life changes and events, both good and bad. Most stress will last just a few hours, but stress can be ongoing and can lead to more than just stress. Although stress can play a major role in anxiety, it is not the same as anxiety. Stress is usually caused by something external, such as a deadline, test, or competition. Stress normally passes after the triggering event has ended. Anxiety is caused by something internal, such as imagining a terrible outcome or worrying that something will go wrong that will devastate you. Anxiety often does not go away even after the triggering event is over, and it can become long-term (chronic) worry. It is important to understand the differences between stress and anxiety and to manage your stress effectively so that it does not lead to an anxious response. Talk with your health care provider or a counselor to learn more about reducing anxiety and stress. He or she may suggest tension reduction techniques, such as: Music therapy. Spend time creating or listening to music that you enjoy and that inspires you. Mindfulness-based meditation. Practice being aware of your normal breaths while not trying to control your breathing. It can be done while sitting or walking. Centering prayer. This involves focusing on a word, phrase, or sacred image that means something to you and brings you peace. Deep breathing. To do this, expand your stomach and inhale slowly through your nose. Hold your breath for 3 5 seconds. Then exhale slowly, letting your stomach muscles relax. Self-talk. Learn to notice and identify thought patterns that lead to anxiety reactions and change those patterns to thoughts that feel peaceful. Muscle relaxation. Taking time to tense muscles and then relax them. Choose a tension reduction technique that fits your lifestyle and personality. These techniques take time and practice. Set aside 5 15 minutes a day to do them. Therapists can offer counseling and training in these techniques. The training to help with anxiety may be covered by some insurance plans. Other things you can do to manage stress and anxiety include: Keeping a stress diary. This can help you learn what triggers your reaction and then learn ways to manage your response. Thinking about how you react to certain situations. You may not be able to control everything, but you can control your response. Making time for activities that help you relax and not feeling guilty about spending your time in this way. Doing visual imagery. This involves imagining or creating mental pictures to help you relax. Practicing yoga. Through yoga poses, you can lower tension and promote relaxation. Medicines Medicines can help ease symptoms. Medicines for anxiety include: Antidepressant medicines. These are usually prescribed for long-term daily control. Anti-anxiety medicines. These may be added in severe cases, especially when panic attacks occur. Medicines will be prescribed by a health care provider. When used together, medicines, psychotherapy, and tension reduction techniques may be the most effective treatment. Relationships Relationships can play a big part in helping you recover. Try to spend more time connecting with trusted friends and family members. Consider going to couples counseling if you have a partner, taking family education classes, or going to family therapy. Therapy can help you and others better understand your condition. How to recognize changes in your anxiety Everyone responds differently to treatment for anxiety. Recovery from anxiety happens when symptoms decrease and stop interfering with your daily activities at home or work. This may mean that you will start to: Have better concentration and focus. Worry will interfere less in your daily thinking. Sleep better. Be less irritable. Have more energy. Have improved memory. It is also important to recognize when your condition is getting worse. Contact your health care provider if your symptoms interfere with home or work and you feel like your condition is not improving. Follow these instructions at home: Activity Exercise. Adults should do the following: ?Exercise for at least 150 minutes each week. The exercise should increase your heart rate and make you sweat (moderate-intensity exercise). ?Strengthening exercises at least twice a week. Get the right amount and quality of sleep. Most adults need 7 9 hours of sleep each night. Lifestyle Eat a healthy diet that includes plenty of vegetables, fruits, whole grains, low-fat dairy products, and lean protein. ?Do not eat a lot of foods that are high in fats, added sugars, or salt (sodium). Make choices that simplify your life. Do not use any products that contain nicotine or tobacco. These products include cigarettes, chewing tobacco, and vaping devices, such as e-cigarettes. If you need help quitting, ask your health care provider. Avoid caffeine, alcohol, and certain eiae-dgb-pugsquo cold medicines. These may make you feel worse. Ask your pharmacist which medicines to avoid. General instructions Take ezno-rdv-qfkfqyi and prescription medicines only as told by your health care provider. Keep all follow-up visits. This is important. Where to find support You can get help and support from these sources: Self-help groups. Online and community organizations. A trusted spiritual leader. Couples counseling. Family education classes. Family therapy. Where to find more information You may find that joining a support group helps you deal with your anxiety. The following sources can help you locate counselors or support groups near you: Mental Health [place]: www.mentalhealth[place].net Anxiety and Depression Association of [place] (ADAA): www.adaa.org National [place] [employer] Mental [employer]ness ([place]): www.[place].org Contact a health care provider if: You have a hard time staying focused or finishing daily tasks. You spend many hours a day feeling worried about everyday life. You become exhausted by worry. You start to have headaches or frequently feel tense. You develop chronic nausea or diarrhea. Get help right away if: You have a racing heart and shortness of breath. You have thoughts of hurting yourself or others. If you ever feel like you may hurt yourself or others, or have thoughts about taking your own life, get help right away. Go to your nearest emergency department or: Call your local emergency services (911 in the [place] Call a suicide crisis helpline, such as the National Suicide Prevention Lifeline at or 615 in the [place] This is open 24 hours a day in the [place] Text the Crisis Text Line at 533473 (in the [place] Summary Taking steps to learn and use tension reduction techniques can help calm you and help prevent triggering an anxiety reaction. When used together, medicines, psychotherapy, and tension reduction techniques may be the most effective treatment. Family, friends, and partners can play a big part in supporting you. This information is not intended to replace advice given to you by your health care provider. Make sure you discuss any questions you have with your health care provider. Document Revised: 03/29/2022 Document Reviewed: 12/25/2021 [employer] Patient Education 2022 [employer] 04/10/2024 07:30:10 Migraine Headache Migraine Headache A migraine headache is an intense, throbbing pain on one side or both sides of the head. Migraine headaches may also cause other symptoms, such as nausea, vomiting, and sensitivity to light and noise. A migraine headache can last from 4 hours to 3 days. Talk with your doctor about what things may bring on (trigger) your migraine headaches. What are the causes? The exact cause of this condition is not known. However, a migraine may be caused when nerves in the brain become irritated and release chemicals that cause inflammation of blood vessels. This inflammation causes pain. This condition may be triggered or caused by: Drinking alcohol. Smoking. Taking medicines, such as: ?Medicine used to treat chest pain (nitroglycerin). ? control pills. ?Estrogen. ?Certain blood pressure medicines. Eating or drinking products that contain nitrates, glutamate, aspartame, or tyramine. Aged cheeses, chocolate, or caffeine may also be triggers. Doing physical activity. Other things that may trigger a migraine headache include: Menstruation. . Hunger. Stress. Lack of sleep or too much sleep. Weather changes. Fatigue. What increases the risk? The following factors may make you more likely to experience migraine headaches: Being a certain age. This condition is more common in people who are 25 55 years old. Being female. Having a family history of migraine headaches. Being . Having a mental health condition, such as depression or anxiety. Being obese. What are the signs or symptoms? The main symptom of this condition is pulsating or throbbing pain. This pain may: Happen in any area of the head, such as on one side or both sides. Interfere with daily activities. Get worse with physical activity. Get worse with exposure to bright lights or loud noises. Other symptoms may include: Nausea. Vomiting. Dizziness. General sensitivity to bright lights, loud noises, or smells. Before you get a migraine headache, you may get warning signs (an aura). An aura may include: Seeing flashing lights or having blind spots. Seeing bright spots, halos, or zigzag lines. Having tunnel vision or blurred vision. Having numbness or a tingling feeling. Having trouble talking. Having muscle weakness. Some people have symptoms after a migraine headache (postdromal phase), such as: Feeling tired. Difficulty concentrating. How is this diagnosed? A migraine headache can be diagnosed based on: Your symptoms. A physical exam. Tests, such as: ?CT scan or an MRI of the head. These imaging tests can help rule out other causes of headaches. ?Taking fluid from the spine (lumbar puncture) and analyzing it (cerebrospinal fluid analysis, or CSF analysis). How is this treated? This condition may be treated with medicines that: Relieve pain. Relieve nausea. Prevent migraine headaches. Treatment for this condition may also include: Acupuncture. Lifestyle changes like avoiding foods that trigger migraine headaches. Biofeedback. Cognitive behavioral therapy. Follow these instructions at home: Medicines Take zwcg-oor-tgurosv and prescription medicines only as told by your health care provider. Ask your health care provider if the medicine prescribed to you: ?Requires you to avoid driving or using heavy machinery. ?Can cause constipation. You may need to take these actions to prevent or treat constipation: ?Drink enough fluid to keep your urine pale yellow. ?Take pndd-hlu-xreigkp or prescription medicines. ?Eat foods that are high in fiber, such as beans, whole grains, and fresh fruits and vegetables. ?Limit foods that are high in fat and processed sugars, such as fried or sweet foods. Lifestyle Do not drink alcohol. Do not use any products that contain nicotine or tobacco, such as cigarettes, e-cigarettes, and chewing tobacco. If you need help quitting, ask your health care provider. Get at least 8 hours of sleep every night. Find ways to manage stress, such as meditation, deep breathing, or yoga. General instructions Keep a journal to find out what may trigger your migraine headaches. For example, write down: ?What you eat and drink. ?How much sleep you get. ?Any change to your diet or medicines. If you have a migraine headache: ?Avoid things that make your symptoms worse, such as bright lights. ?It may help to lie down in a dark, quiet room. ?Do not drive or use heavy machinery. ?Ask your health care provider what activities are safe for you while you are experiencing symptoms. Keep all follow-up visits as told by your health care provider. This is important. Contact a health care provider if: You develop symptoms that are different or more severe than your usual migraine headache symptoms. You have more than 15 headache days in one month. Get help right away if: Your migraine headache becomes severe. Your migraine headache lasts longer than 72 hours. You have a fever. You have a stiff neck. You have vision loss. Your muscles feel weak or like you cannot control them. You start to lose your balance often. You have trouble walking. You faint. You have a seizure. Summary A migraine headache is an intense, throbbing pain on one side or both sides of the head. Migraines may also cause other symptoms, such as nausea, vomiting, and sensitivity to light and noise. This condition may be treated with medicines and lifestyle changes. You may also need to avoid certain things that trigger a migraine headache. Keep a journal to find out what may trigger your migraine headaches. Contact your health care provider if you have more than 15 headache days in a month or you develop symptoms that are different or more severe than your usual migraine headache symptoms. This information is not intended to replace advice given to you by your health care provider. Make sure you discuss any questions you have with your health care provider. Document Revised: 12/26/2019 Document Reviewed: 10/16/2019 [employer] Patient Education 2022 [employer] 04/10/2024 07:30:08 Fatigue Fatigue If you have fatigue, you feel tired all the time and have a lack of energy or a lack of motivation. Fatigue may make it difficult to start or complete tasks because of exhaustion. Occasional or mild fatigue is often a normal response to activity or life. However, long-term (chronic) or extreme fatigue may be a symptom of a medical condition such as: Depression. Not having enough red blood cells or hemoglobin in the blood (anemia). A problem with a small gland located in the lower front part of the neck (thyroid disorder). Rheumatologic conditions. These are problems related to the body's defense system (immune system). Infections, especially certain viral infections. Fatigue can also lead to negative health outcomes over time. Follow these instructions at home: Medicines Take urhu-hgr-mmzsxak and prescription medicines only as told by your health care provider. Take a multivitamin if told by your health care provider. Do not use herbal or dietary supplements unless they are approved by your health care provider. Eating and drinking Avoid heavy meals in the evening. Eat a well-balanced diet, which includes lean proteins, whole grains, plenty of fruits and vegetables, and low-fat dairy products. Avoid eating or drinking too many products with caffeine in them. Avoid alcohol. Drink enough fluid to keep your urine pale yellow. Activity Exercise regularly, as told by your health care provider. Use or practice techniques to help you relax, such as yoga, kory chi, meditation, or massage therapy. Lifestyle Change situations that cause you stress. Try to keep your work and personal schedules in balance. Do not use recreational or illegal drugs. General instructions Monitor your fatigue for any changes. Go to bed and get up at the same time every day. Avoid fatigue by pacing yourself during the day and getting enough sleep at night. Maintain a healthy weight. Contact a health care provider if: Your fatigue does not get better. You have a fever. You suddenly lose or gain weight. You have headaches. You have trouble falling asleep or sleeping through the night. You feel angry, guilty, anxious, or sad. You have swelling in your legs or another part of your body. Get help right away if: You feel confused, feel like you might faint, or faint. Your vision is blurry or you have a severe headache. You have severe pain in your abdomen, your back, or the area between your waist and hips (pelvis). You have chest pain, shortness of breath, or an irregular or fast heartbeat. You are unable to urinate, or you urinate less than normal. You have abnormal bleeding from the rectum, nose, lungs, nipples, or, if you are female, the vagina. You vomit blood. You have thoughts about hurting yourself or others. These symptoms may be an emergency. Get help right away. Call 911. Do not wait to see if the symptoms will go away. Do not drive yourself to the hospital. Get help right away if you feel like you may hurt yourself or others, or have thoughts about taking your own life. Go to your nearest emergency room or: Call 911. Call the National Suicide Prevention Lifeline at or 106. This is open 24 hours a day. Text the Crisis Text Line at 746119. Summary If you have fatigue, you feel tired all the time and have a lack of energy or a lack of motivation. Fatigue may make it difficult to start or complete tasks because of exhaustion. Long-term (chronic) or extreme fatigue may be a symptom of a medical condition. Exercise regularly, as told by your health care provider. Change situations that cause you stress. Try to keep your work and personal schedules in balance. This information is not intended to replace advice given to you by your health care provider. Make sure you discuss any questions you have with your health care provider. Document Revised: 06/26/2022 Document Reviewed: 06/26/2022 [employer] Patient Education 2022 [employer]. Follow Up Care 12/10/2023 08:04:27 With:Shankar SADLER, EMMA [place], MED Address: [address] [place] [address] [facility] [place] [id number] (1) When:11/21/2023 Comments:for f/u [facility] 04-10-2024 Note Patient Education Immunology Fatigue If you have fatigue, you feel tired all the time and have a lack of energy or a lack of motivation. Fatigue may make it difficult to start or complete tasks because of exhaustion. Occasional or mild fatigue is often a normal response to activity or life. However, long-term (chronic) or extreme fatigue may be a symptom of a medical condition such as: ? Depression. ? Not having enough red blood cells or hemoglobin in the blood (anemia). ? A problem with a small gland located in the lower front part of the neck (thyroid disorder). ? Rheumatologic conditions. These are problems related to the body's defense system (immune system). ? Infections, especially certain viral infections. Fatigue can also lead to negative health outcomes over time. Follow these instructions at home: Medicines ? Take koba-qmf-xkhxxap and prescription medicines only as told by your health care provider. ? Take a multivitamin if told by your health care provider. ? Do not use herbal or dietary supplements unless they are approved by your health care provider. Eating and drinking ? Avoid heavy meals in the evening. ? Eat a well-balanced diet, which includes lean proteins, whole grains, plenty of fruits and vegetables, and low-fat dairy products. ? Avoid eating or drinking too many products with caffeine in them. ? Avoid alcohol. ? Drink enough fluid to keep your urine pale yellow. Activity ? Exercise regularly, as told by your health care provider. ? Use or practice techniques to help you relax, such as yoga, kory chi, meditation, or massage therapy. Lifestyle ? Change situations that cause you stress. Try to keep your work and personal schedules in balance. ? Do not use recreational or illegal drugs. General instructions ? Monitor your fatigue for any changes. ? Go to bed and get up at the same time every day. ? Avoid fatigue by pacing yourself during the day and getting enough sleep at night. ? Maintain a healthy weight. Contact a health care provider if: ? Your fatigue does not get better. ? You have a fever. ? You suddenly lose or gain weight. ? You have headaches. ? You have trouble falling asleep or sleeping through the night. ? You feel angry, guilty, anxious, or sad. ? You have swelling in your legs or another part of your body. Get help right away if: ? You feel confused, feel like you might faint, or faint. ? Your vision is blurry or you have a severe headache. ? You have severe pain in your abdomen, your back, or the area between your waist and hips (pelvis). ? You have chest pain, shortness of breath, or an irregular or fast heartbeat. ? You are unable to urinate, or you urinate less than normal. ? You have abnormal bleeding from the rectum, nose, lungs, nipples, or, if you are female, the vagina. ? You vomit blood. ? You have thoughts about hurting yourself or others. These symptoms may be an emergency. Get help right away. Call 911. ? Do not wait to see if the symptoms will go away. ? Do not drive yourself to the hospital. Get help right away if you feel like you may hurt yourself or others, or have thoughts about taking your own life. Go to your nearest emergency room or: ? Call 911. ? Call the National Suicide Prevention Lifeline at or 834. This is open 24 hours a day. ? Text the Crisis Text Line at 727076. Summary ? If you have fatigue, you feel tired all the time and have a lack of energy or a lack of motivation. ? Fatigue may make it difficult to start or complete tasks because of exhaustion. ? Long-term (chronic) or extreme fatigue may be a symptom of a medical condition. ? Exercise regularly, as told by your health care provider. ? Change situations that cause you stress. Try to keep your work and personal schedules in balance. This information is not intended to replace advice given to you by your health care provider. Make sure you discuss any questions you have with your health care provider. Document Revised: 06/26/2022 Document Reviewed: 06/26/2022 [employer] Patient Education ? 2022 [employer]. Mental and Behavioral Health Managing Anxiety, Adult After being diagnosed with anxiety, you may be relieved to know why you have felt or behaved a certain way. You may also feel overwhelmed about the treatment ahead and what it will mean for your life. With care and support, you can manage this condition. How to manage lifestyle changes Managing stress and anxiety Stress is your body's reaction to life changes and events, both good and bad. Most stress will last just a few hours, but stress can be ongoing and can lead to more than just stress. Although stress can play a major role in anxiety, it is not the same as anxiety. Stress is usually caused by something external, such as a deadline, test, or competition. Stress norm (more content not included)... [facility] 12-10-2023 Hospital Discharge instructions Patient Education 12/10/2023 08:01:33 Fatigue Fatigue If you have fatigue, you feel tired all the time and have a lack of energy or a lack of motivation. Fatigue may make it difficult to start or complete tasks because of exhaustion. Occasional or mild fatigue is often a normal response to activity or life. However, long-term (chronic) or extreme fatigue may be a symptom of a medical condition such as: Depression. Not having enough red blood cells or hemoglobin in the blood (anemia). A problem with a small gland located in the lower front part of the neck (thyroid disorder). Rheumatologic conditions. These are problems related to the body's defense system (immune system). Infections, especially certain viral infections. Fatigue can also lead to negative health outcomes over time. Follow these instructions at home: Medicines Take kmjn-drq-mwttjku and prescription medicines only as told by your health care provider. Take a multivitamin if told by your health care provider. Do not use herbal or dietary supplements unless they are approved by your health care provider. Eating and drinking Avoid heavy meals in the evening. Eat a well-balanced diet, which includes lean proteins, whole grains, plenty of fruits and vegetables, and low-fat dairy products. Avoid eating or drinking too many products with caffeine in them. Avoid alcohol. Drink enough fluid to keep your urine pale yellow. Activity Exercise regularly, as told by your health care provider. Use or practice techniques to help you relax, such as yoga, kory chi, meditation, or massage therapy. Lifestyle Change situations that cause you stress. Try to keep your work and personal schedules in balance. Do not use recreational or illegal drugs. General instructions Monitor your fatigue for any changes. Go to bed and get up at the same time every day. Avoid fatigue by pacing yourself during the day and getting enough sleep at night. Maintain a healthy weight. Contact a health care provider if: Your fatigue does not get better. You have a fever. You suddenly lose or gain weight. You have headaches. You have trouble falling asleep or sleeping through the night. You feel angry, guilty, anxious, or sad. You have swelling in your legs or another part of your body. Get help right away if: You feel confused, feel like you might faint, or faint. Your vision is blurry or you have a severe headache. You have severe pain in your abdomen, your back, or the area between your waist and hips (pelvis). You have chest pain, shortness of breath, or an irregular or fast heartbeat. You are unable to urinate, or you urinate less than normal. You have abnormal bleeding from the rectum, nose, lungs, nipples, or, if you are female, the vagina. You vomit blood. You have thoughts about hurting yourself or others. These symptoms may be an emergency. Get help right away. Call 911. Do not wait to see if the symptoms will go away. Do not drive yourself to the hospital. Get help right away if you feel like you may hurt yourself or others, or have thoughts about taking your own life. Go to your nearest emergency room or: Call 911. Call the National Suicide Prevention Lifeline at or 164. This is open 24 hours a day. Text the Crisis Text Line at 861839. Summary If you have fatigue, you feel tired all the time and have a lack of energy or a lack of motivation. Fatigue may make it difficult to start or complete tasks because of exhaustion. Long-term (chronic) or extreme fatigue may be a symptom of a medical condition. Exercise regularly, as told by your health care provider. Change situations that cause you stress. Try to keep your work and personal schedules in balance. This information is not intended to replace advice given to you by your health care provider. Make sure you discuss any questions you have with your health care provider. Document Revised: 06/26/2022 Document Reviewed: 06/26/2022 [employer] Patient Education 2022 [employer]. 11/28/2023 07:23:42 Managing Anxiety, Adult Managing Anxiety, Adult After being diagnosed with anxiety, you may be relieved to know why you have felt or behaved a certain way. You may also feel overwhelmed about the treatment ahead and what it will mean for your life. With care and support, you can manage this condition. How to manage lifestyle changes Managing stress and anxiety Stress is your body's reaction to life changes and events, both good and bad. Most stress will last just a few hours, but stress can be ongoing and can lead to more than just stress. Although stress can play a major role in anxiety, it is not the same as anxiety. Stress is usually caused by something external, such as a deadline, test, or competition. Stress normally passes after the triggering event has ended. Anxiety is caused by something internal, such as imagining a terrible outcome or worrying that something will go wrong that will devastate you. Anxiety often does not go away even after the triggering event is over, and it can become long-term (chronic) worry. It is important to understand the differences between stress and anxiety and to manage your stress effectively so that it does not lead to an anxious response. Talk with your health care provider or a counselor to learn more about reducing anxiety and stress. He or she may suggest tension reduction techniques, such as: Music therapy. Spend time creating or listening to music that you enjoy and that inspires you. Mindfulness-based meditation. Practice being aware of your normal breaths while not trying to control your breathing. It can be done while sitting or walking. Centering prayer. This involves focusing on a word, phrase, or sacred image that means something to you and brings you peace. Deep breathing. To do this, expand your stomach and inhale slowly through your nose. Hold your breath for 3 5 seconds. Then exhale slowly, letting your stomach muscles relax. Self-talk. Learn to notice and identify thought patterns that lead to anxiety reactions and change those patterns to thoughts that feel peaceful. Muscle relaxation. Taking time to tense muscles and then relax them. Choose a tension reduction technique that fits your lifestyle and personality. These techniques take time and practice. Set aside 5 15 minutes a day to do them. Therapists can offer counseling and training in these techniques. The training to help with anxiety may be covered by some insurance plans. Other things you can do to manage stress and anxiety include: Keeping a stress diary. This can help you learn what triggers your reaction and then learn ways to manage your response. Thinking about how you react to certain situations. You may not be able to control everything, but you can control your response. Making time for activities that help you relax and not feeling guilty about spending your time in this way. Doing visual imagery. This involves imagining or creating mental pictures to help you relax. Practicing yoga. Through yoga poses, you can lower tension and promote relaxation. Medicines Medicines can help ease symptoms. Medicines for anxiety include: Antidepressant medicines. These are usually prescribed for long-term daily control. Anti-anxiety medicines. These may be added in severe cases, especially when panic attacks occur. Medicines will be prescribed by a health care provider. When used together, medicines, psychotherapy, and tension reduction techniques may be the most effective treatment. Relationships Relationships can play a big part in helping you recover. Try to spend more time connecting with trusted friends and family members. Consider going to couples counseling if you have a partner, taking family education classes, or going to family therapy. Therapy can help you and others better understand your condition. How to recognize changes in your anxiety Everyone responds differently to treatment for anxiety. Recovery from anxiety happens when symptoms decrease and stop interfering with your daily activities at home or work. This may mean that you will start to: Have better concentration and focus. Worry will interfere less in your daily thinking. Sleep better. Be less irritable. Have more energy. Have improved memory. It is also important to recognize when your condition is getting worse. Contact your health care provider if your symptoms interfere with home or work and you feel like your condition is not improving. Follow these instructions at home: Activity Exercise. Adults should do the following: ?Exercise for at least 150 minutes each week. The exercise should increase your heart rate and make you sweat (moderate-intensity exercise). ?Strengthening exercises at least twice a week. Get the right amount and quality of sleep. Most adults need 7 9 hours of sleep each night. Lifestyle Eat a healthy diet that includes plenty of vegetables, fruits, whole grains, low-fat dairy products, and lean protein. ?Do not eat a lot of foods that are high in fats, added sugars, or salt (sodium). Make choices that simplify your life. Do not use any products that contain nicotine or tobacco. These products include cigarettes, chewing tobacco, and vaping devices, such as e-cigarettes. If you need help quitting, ask your health care provider. Avoid caffeine, alcohol, and certain jkzv-dmf-mrljccu cold medicines. These may make you feel worse. Ask your pharmacist which medicines to avoid. General instructions Take kgzb-kgu-vlawska and prescription medicines only as told by your health care provider. Keep all follow-up visits. This is important. Where to find support You can get help and support from these sources: Self-help groups. Online and community organizations. A trusted spiritual leader. Couples counseling. Family education classes. Family therapy. Where to find more information You may find that joining a support group helps you deal with your anxiety. The following sources can help you locate counselors or support groups near you: Mental Health [place]: www.mentalhealth[place].net Anxiety and Depression Association of [place] (ADAA): www.adaa.org National [place] on Mental Illness ([place]): www.[place].org Contact a health care provider if: You have a hard time staying focused or finishing daily tasks. You spend many hours a day feeling worried about everyday life. You become exhausted by worry. You start to have headaches or frequently feel tense. You develop chronic nausea or diarrhea. Get help right away if: You have a racing heart and shortness of breath. You have thoughts of hurting yourself or others. If you ever feel like you may hurt yourself or others, or have thoughts about taking your own life, get help right away. Go to your nearest emergency department or: Call your local emergency services (338 in the [place] Call a suicide crisis helpline, such as the National Suicide Prevention Lifeline at or 164 in the [place] This is open 24 hours a day in the [place] Text the Crisis Text Line at 252181 (in the [place] Summary Taking steps to learn and use tension reduction techniques can help calm you and help prevent triggering an anxiety reaction. When used together, medicines, psychotherapy, and tension reduction techniques may be the most effective treatment. Family, friends, and partners can play a big part in supporting you. This information is not intended to replace advice given to you by your health care provider. Make sure you discuss any questions you have with your health care provider. Document Revised: 03/29/2022 Document Reviewed: 12/25/2021 [employer] Patient Education 2022 [employer]. Follow Up Care 06/11/2023 11:00:32 With:Candice Kim Address: [address] [place] [address] [place] [address]- When:Within 6 Month(s) Comments:[facility] 06-11-2023 Hospital Discharge instructions Patient Education 06/11/2023 11:02:39 Steps to Quit Smoking Steps to Quit Smoking Smoking tobacco is the leading cause of preventable . It can affect almost every organ in the body. Smoking puts you and those around you at risk for developing many serious chronic diseases. Quitting smoking can be very challenging. Do not get discouraged if you are not successful the first time. Some people need to make many attempts to quit before they achieve long-term success. Do your best to stick to your quit plan, and talk with your health care provider if you have any questions or concerns. How do I get ready to quit? When you decide to quit smoking, create a plan to help you succeed. Before you quit: Pick a date to quit. Set a date within the next 2 weeks to give you time to prepare. Write down the reasons why you are quitting. Keep this list in places where you will see it often. Tell your family, friends, and co-workers that you are quitting. Support from people you are close to can make quitting easier. Talk with your health care provider about your options for quitting smoking. Find out what treatment options are covered by your health insurance. Identify people, places, things, and activities that make you want to smoke (triggers). Avoid them. What first steps can I take to quit smoking? Throw away all cigarettes at home, at work, and in your car. Throw away smoking accessories, such as ashtrays and lighters. Clean your car. Make sure to empty the ashtray. Clean your home, including curtains and carpets. What strategies can I use to quit smoking? Talk with your health care provider about combining strategies, such as taking medicines while you are also receiving in-person counseling. Using these two strategies together makes you more likely to succeed in quitting than if you used either strategy on its own. If you are or , talk with your health care provider about finding counseling or other support strategies to quit smoking. Do not take medicine to help you quit smoking unless your health care provider tells you to. Quit right away Quit smoking completely, instead of gradually reducing how much you smoke over a period of time. Stopping smoking right away may be more successful than gradually quitting. Attend in-person counseling to help you build problem-solving skills. You are more likely to succeed in quitting if you attend counseling sessions regularly. Even short sessions of 10 minutes can be effective. Take medicine You may take medicines to help you quit smoking. Some medicines require a prescription. You can also purchase xley-qgt-xqugbzs medicines. Medicines may have nicotine in them to replace the nicotine in cigarettes. Medicines may: Help to stop cravings. Help to relieve withdrawal symptoms. Your health care provider may recommend: Nicotine patches, gum, or lozenges. Nicotine inhalers or sprays. Non-nicotine medicine that you take by mouth. Find resources Find resources and support systems that can help you quit smoking and remain smoke-free after you quit. These resources are most helpful when you use them often. They include: Online chats with a counselor. Telephone quitlines. Printed self-help materials. Support groups or group counseling. Text messaging programs. Mobile phone apps or applications. Use apps that can help you stick to your quit plan by providing reminders, tips, and encouragement. Examples of free services include Quit Guide from the CDC and smokefree.gov What can I do to make it easier to quit? Reach out to your family and friends for support and encouragement. Call telephone quitlines, such as 4-332-KURL-NOW, reach out to support groups, or work with a counselor for support. Ask people who smoke to avoid smoking around you. Avoid places that trigger you to smoke, such as bars, parties, or smoke-break areas at work. Spend time with people who do not smoke. Lessen the stress in your life. Stress can be a smoking trigger for some people. To lessen stress, try: ?Exercising regularly. ?Doing deep-breathing exercises. ?Doing yoga. ?Meditating. What benefits will I see if I quit smoking? Over time, you should start to see positive results, such as: Improved sense of smell and taste. Decreased coughing and sore throat. Slower heart rate. Lower blood pressure. Clearer and healthier skin. The ability to breathe more easily. Fewer sick days. Summary Quitting smoking can be very challenging. Do not get discouraged if you are not successful the first time. Some people need to make many attempts to quit before they achieve long-term success. When you decide to quit smoking, create a plan to help you succeed. Quit smoking right away, not slowly over a period of time. Find resources and support systems that can help you quit smoking and remain smoke-free after you quit. This information is not intended to replace advice given to you by your health care provider. Make sure you discuss any questions you have with your health care provider. Document Revised: 08/25/2022 Document Reviewed: 08/25/2022 [employer] Patient Education 2022 [employer]. 06/05/2023 10:49:36 Generalized Anxiety Disorder, Adult Generalized Anxiety Disorder, Adult Generalized anxiety disorder (DWAYNE) is a mental health condition. Unlike normal worries, anxiety related to DWAYNE is not triggered by a specific event. These worries do not fade or get better with time. DWAYNE interferes with relationships, work, and school. DWAYNE symptoms can vary from mild to severe. People with severe DWAYNE can have intense waves of anxiety with physical symptoms that are similar to panic attacks. What are the causes? The exact cause of DWAYNE is not known, but the following are believed to have an impact: Differences in natural brain chemicals. Genes passed down from parents to children. Differences in the way threats are perceived. Development and stress during childhood. Personality. What increases the risk? The following factors may make you more likely to develop this condition: Being female. Having a family history of anxiety disorders. Being very shy. Experiencing very stressful life events, such as the of a loved one. Having a very stressful family environment. What are the signs or symptoms? People with DWAYNE often worry excessively about many things in their lives, such as their health and family. Symptoms may also include: Mental and emotional symptoms: ?Worrying excessively about natural disasters. ?Fear of being late. ?Difficulty concentrating. ?Fears that others are judging your performance. Physical symptoms: ?Fatigue. ?Headaches, muscle tension, muscle twitches, trembling, or feeling shaky. ?Feeling like your heart is pounding or beating very fast. ?Feeling out of breath or like you cannot take a deep breath. ?Having trouble falling asleep or staying asleep, or experiencing restlessness. ?Sweating. ?Nausea, diarrhea, or irritable bowel syndrome (IBS). Behavioral symptoms: ?Experiencing erratic moods or irritability. ?Avoidance of new situations. ?Avoidance of people. ?Extreme difficulty making decisions. How is this diagnosed? This condition is diagnosed based on your symptoms and medical history. You will also have a physical exam. Your health care provider may perform tests to rule out other possible causes of your symptoms. To be diagnosed with DWAYNE, a person must have anxiety that: Is out of his or her control. Affects several different aspects of his or her life, such as work and relationships. Causes distress that makes him or her unable to take part in normal activities. Includes at least three symptoms of DWAYNE, such as restlessness, fatigue, trouble concentrating, irritability, muscle tension, or sleep problems. Before your health care provider can confirm a diagnosis of DWAYNE, these symptoms must be present more days than they are not, and they must last for 6 months or longer. How is this treated? This condition may be treated with: Medicine. Antidepressant medicine is usually prescribed for long-term daily control. Anti-anxiety medicines may be added in severe cases, especially when panic attacks occur. Talk therapy (psychotherapy). Certain types of talk therapy can be helpful in treating DWAYNE by providing support, education, and guidance. Options include: ?Cognitive behavioral therapy (CBT). People learn coping skills and self-calming techniques to ease their physical symptoms. They learn to identify unrealistic thoughts and behaviors and to replace them with more appropriate thoughts and behaviors. ?Acceptance and commitment therapy (ACT). This treatment teaches people how to be mindful as a way to cope with unwanted thoughts and feelings. ?Biofeedback. This process trains you to manage your body's response (physiological response) through breathing techniques and relaxation methods. You will work with a therapist while machines are used to monitor your physical symptoms. Stress management techniques. These include yoga, meditation, and exercise. A mental health specialist can help determine which treatment is best for you. Some people see improvement with one type of therapy. However, other people require a combination of therapies. Follow these instructions at home: Lifestyle Maintain a consistent routine and schedule. Anticipate stressful situations. Create a plan and allow extra time to work with your plan. Practice stress management or self-calming techniques that you have learned from your therapist or your health care provider. Exercise regularly and spend time outdoors. Eat a healthy diet that includes plenty of vegetables, fruits, whole grains, low-fat dairy products, and lean protein. ?Do not eat a lot of foods that are high in fat, added sugar, or salt (sodium). ?Drink plenty of water. Avoid alcohol. Alcohol can increase anxiety. Avoid caffeine and certain flev-amd-bkeazde cold medicines. These may make you feel worse. Ask your pharmacist which medicines to avoid. General instructions Take bzyh-szw-jolzctr and prescription medicines only as told by your health care provider. Understand that you are likely to have setbacks. Accept this and be kind to yourself as you persist to take better care of yourself. Anticipate stressful situations. Create a plan and allow extra time to work with your plan. Recognize and accept your accomplishments, even if you groover operator them as small. Spend time with people who care about you. Keep all follow-up visits. This is important. Where to find more information National [place] of Mental Health: www.nimh.nih.gov Substance Abuse and Mental Health Services: www.samhsa.gov Contact a health care provider if: Your symptoms do not get better. Your symptoms get worse. You have signs of depression, such as: ?A persistently sad or irritable mood. ?Loss of enjoyment in activities that used to bring you luis. ?Change in weight or eating. ?Changes in sleeping habits. Get help right away if: You have thoughts about hurting yourself or others. If you ever feel like you may hurt yourself or others, or have thoughts about taking your own life, get help right away. Go to your nearest emergency department or: Call your local emergency services (753 in the [place] Call a suicide crisis helpline, such as the National Suicide Prevention Lifeline at or 968 in the [place] This is open 24 hours a day in the [place] Text the Crisis Text Line at 165572 (in the [place] Summary Generalized anxiety disorder (DWAYNE) is a mental health condition that involves worry that is not triggered by a specific event. People with DWAYNE often worry excessively about many things in their lives, such as their health and family. DWAYNE may cause symptoms such as restlessness, trouble concentrating, sleep problems, frequent sweating, nausea, diarrhea, headaches, and trembling or muscle twitching. A mental health specialist can help determine which treatment is best for you. Some people see improvement with one type of therapy. However, other people require a combination of therapies. This information is not intended to replace advice given to you by your health care provider. Make sure you discuss any questions you have with your health care provider. Document Revised: 03/29/2022 Document Reviewed: 12/25/2021 [employer] Patient Education 2022 [employer] 06/05/2023 10:49:35 Managing Anxiety, Adult Managing Anxiety, Adult After being diagnosed with anxiety, you may be relieved to know why you have felt or behaved a certain way. You may also feel overwhelmed about the treatment ahead and what it will mean for your life. With care and support, you can manage this condition. How to manage lifestyle changes Managing stress and anxiety Stress is your body's reaction to life changes and events, both good and bad. Most stress will last just a few hours, but stress can be ongoing and can lead to more than just stress. Although stress can play a major role in anxiety, it is not the same as anxiety. Stress is usually caused by something external, such as a deadline, test, or competition. Stress normally passes after the triggering event has ended. Anxiety is caused by something internal, such as imagining a terrible outcome or worrying that something will go wrong that will devastate you. Anxiety often does not go away even after the triggering event is over, and it can become long-term (chronic) worry. It is important to understand the differences between stress and anxiety and to manage your stress effectively so that it does not lead to an anxious response. Talk with your health care provider or a counselor to learn more about reducing anxiety and stress. He or she may suggest tension reduction techniques, such as: Music therapy. Spend time creating or listening to music that you enjoy and that inspires you. Mindfulness-based meditation. Practice being aware of your normal breaths while not trying to control your breathing. It can be done while sitting or walking. Centering prayer. This involves focusing on a word, phrase, or sacred image that means something to you and brings you peace. Deep breathing. To do this, expand your stomach and inhale slowly through your nose. Hold your breath for 3 5 seconds. Then exhale slowly, letting your stomach muscles relax. Self-talk. Learn to notice and identify thought patterns that lead to anxiety reactions and change those patterns to thoughts that feel peaceful. Muscle relaxation. Taking time to tense muscles and then relax them. Choose a tension reduction technique that fits your lifestyle and personality. These techniques take time and practice. Set aside 5 15 minutes a day to do them. Therapists can offer counseling and training in these techniques. The training to help with anxiety may be covered by some insurance plans. Other things you can do to manage stress and anxiety include: Keeping a stress diary. This can help you learn what triggers your reaction and then learn ways to manage your response. Thinking about how you react to certain situations. You may not be able to control everything, but you can control your response. Making time for activities that help you relax and not feeling guilty about spending your time in this way. Doing visual imagery. This involves imagining or creating mental pictures to help you relax. Practicing yoga. Through yoga poses, you can lower tension and promote relaxation. Medicines Medicines can help ease symptoms. Medicines for anxiety include: Antidepressant medicines. These are usually prescribed for long-term daily control. Anti-anxiety medicines. These may be added in severe cases, especially when panic attacks occur. Medicines will be prescribed by a health care provider. When used together, medicines, psychotherapy, and tension reduction techniques may be the most effective treatment. Relationships Relationships can play a big part in helping you recover. Try to spend more time connecting with trusted friends and family members. Consider going to couples counseling if you have a partner, taking family education classes, or going to family therapy. Therapy can help you and others better understand your condition. How to recognize changes in your anxiety Everyone responds differently to treatment for anxiety. Recovery from anxiety happens when symptoms decrease and stop interfering with your daily activities at home or work. This may mean that you will start to: Have better concentration and focus. Worry will interfere less in your daily thinking. Sleep better. Be less irritable. Have more energy. Have improved memory. It is also important to recognize when your condition is getting worse. Contact your health care provider if your symptoms interfere with home or work and you feel like your condition is not improving. Follow these instructions at home: Activity Exercise. Adults should do the following: ?Exercise for at least 150 minutes each week. The exercise should increase your heart rate and make you sweat (moderate-intensity exercise). ?Strengthening exercises at least twice a week. Get the right amount and quality of sleep. Most adults need 7 9 hours of sleep each night. Lifestyle Eat a healthy diet that includes plenty of vegetables, fruits, whole grains, low-fat dairy products, and lean protein. ?Do not eat a lot of foods that are high in fats, added sugars, or salt (sodium). Make choices that simplify your life. Do not use any products that contain nicotine or tobacco. These products include cigarettes, chewing tobacco, and vaping devices, such as e-cigarettes. If you need help quitting, ask your health care provider. Avoid caffeine, alcohol, and certain lfbb-dvz-wodogqi cold medicines. These may make you feel worse. Ask your pharmacist which medicines to avoid. General instructions Take qtel-zsn-iiesjsq and prescription medicines only as told by your health care provider. Keep all follow-up visits. This is important. Where to find support You can get help and support from these sources: Self-help groups. Online and community organizations. A trusted spiritual leader. Couples counseling. Family education classes. Family therapy. Where to find more information You may find that joining a support group helps you deal with your anxiety. The following sources can help you locate counselors or support groups near you: Mental Health [place]: www.mentalhealthamerica.net Anxiety and Depression Association of [place] (ADAA): www.adaa.org National [place] on Mental Illness ([place]): www.johnathon.org Contact a health care provider if: You have a hard time staying focused or finishing daily tasks. You spend many hours a day feeling worried about everyday life. You become exhausted by worry. You start to have headaches or frequently feel tense. You develop chronic nausea or diarrhea. Get help right away if: You have a racing heart and shortness of breath. You have thoughts of hurting yourself or others. If you ever feel like you may hurt yourself or others, or have thoughts about taking your own life, get help right away. Go to your nearest emergency department or: Call your local emergency services (991 in the [place] Call a suicide crisis helpline, such as the National Suicide Prevention Lifeline at or 731 in the [place] This is open 24 hours a day in the [place] Text the Crisis Text Line at 903800 (in the [place] Summary Taking steps to learn and use tension reduction techniques can help calm you and help prevent triggering an anxiety reaction. When used together, medicines, psychotherapy, and tension reduction techniques may be the most effective treatment. Family, friends, and partners can play a big part in supporting you. This information is not intended to replace advice given to you by your health care provider. Make sure you discuss any questions you have with your health care provider. Document Revised: 03/29/2022 Document Reviewed: 12/25/2021 [employer] Patient Education 2022 [employer] Follow Up Care 03/16/2023 17:10:56 With:Candice Kim Address: [address] [facility] [place] [address]- When:Within 6 Month(s) Comments:[facility] Primary Care 03-16-2023 Hospital Discharge instructions Patient Education 03/16/2023 17:16:23 Shortness of Breath, Adult Shortness of Breath, Adult Shortness of breath is when a person has trouble breathing or when a person feels like she or he is having trouble breathing in enough air. Shortness of breath could be a sign of a medical problem. Follow these instructions at home: Pollutants Do not use any products that contain nicotine or tobacco. These products include cigarettes, chewing tobacco, and vaping devices, such as e-cigarettes. This also includes cigars and pipes. If you need help quitting, ask your health care provider. Avoid things that can irritate your airways, including: ?Smoke. This includes campfire smoke, forest fire smoke, and secondhand smoke from tobacco products. Do not smoke or allow others to smoke in your home. ?Mold. ?Dust. ?Air pollution. ?Chemical fumes. ?Things that can give you an allergic reaction (allergens) if you have allergies. Common allergens include pollen from grasses or trees and animal dander. Keep your living space clean and free of mold and dust. General instructions Pay attention to any changes in your symptoms. Take hkfg-rld-bsjmsig and prescription medicines only as told by your health care provider. This includes oxygen therapy and inhaled medicines. Rest as needed. Return to your normal activities as told by your health care provider. Ask your health care provider what activities are safe for you. Keep all follow-up visits. This is important. Contact a health care provider if: Your condition does not improve as soon as expected. You have a hard time doing your normal activities, even after you rest. You have new symptoms. You cannot walk up stairs or exercise the way that you normally do. Get help right away if: Your shortness of breath gets worse. You have shortness of breath when you are resting. You feel light-headed or you faint. You have a cough that is not controlled with medicines. You cough up blood. You have pain with breathing. You have pain in your chest, arms, shoulders, or abdomen. You have a fever. These symptoms may be an emergency. Get help right away. Call 911. Do not wait to see if the symptoms will go away. Do not drive yourself to the hospital. Summary Shortness of breath is when a person has trouble breathing enough air. It can be a sign of a medical problem. Avoid things that irritate your lungs, such as smoking, pollution, mold, and dust. Pay attention to changes in your symptoms and contact your health care provider if you have a hard time completing daily activities because of shortness of breath. This information is not intended to replace advice given to you by your health care provider. Make sure you discuss any questions you have with your health care provider. Document Revised: 04/22/2022 Document Reviewed: 04/22/2022 [employer] Patient Education 2022 [employer]. 03/16/2023 17:16:19 Managing Anxiety, Adult Managing Anxiety, Adult After being diagnosed with anxiety, you may be relieved to know why you have felt or behaved a certain way. You may also feel overwhelmed about the treatment ahead and what it will mean for your life. With care and support, you can manage this condition. How to manage lifestyle changes Managing stress and anxiety Stress is your body's reaction to life changes and events, both good and bad. Most stress will last just a few hours, but stress can be ongoing and can lead to more than just stress. Although stress can play a major role in anxiety, it is not the same as anxiety. Stress is usually caused by something external, such as a deadline, test, or competition. Stress normally passes after the triggering event has ended. Anxiety is caused by something internal, such as imagining a terrible outcome or worrying that something will go wrong that will devastate you. Anxiety often does not go away even after the triggering event is over, and it can become long-term (chronic) worry. It is important to understand the differences between stress and anxiety and to manage your stress effectively so that it does not lead to an anxious response. Talk with your health care provider or a counselor to learn more about reducing anxiety and stress. He or she may suggest tension reduction techniques, such as: Music therapy. Spend time creating or listening to music that you enjoy and that inspires you. Mindfulness-based meditation. Practice being aware of your normal breaths while not trying to control your breathing. It can be done while sitting or walking. Centering prayer. This involves focusing on a word, phrase, or sacred image that means something to you and brings you peace. Deep breathing. To do this, expand your stomach and inhale slowly through your nose. Hold your breath for 3 5 seconds. Then exhale slowly, letting your stomach muscles relax. Self-talk. Learn to notice and identify thought patterns that lead to anxiety reactions and change those patterns to thoughts that feel peaceful. Muscle relaxation. Taking time to tense muscles and then relax them. Choose a tension reduction technique that fits your lifestyle and personality. These techniques take time and practice. Set aside 5 15 minutes a day to do them. Therapists can offer counseling and training in these techniques. The training to help with anxiety may be covered by some insurance plans. Other things you can do to manage stress and anxiety include: Keeping a stress diary. This can help you learn what triggers your reaction and then learn ways to manage your response. Thinking about how you react to certain situations. You may not be able to control everything, but you can control your response. Making time for activities that help you relax and not feeling guilty about spending your time in this way. Doing visual imagery. This involves imagining or creating mental pictures to help you relax. Practicing yoga. Through yoga poses, you can lower tension and promote relaxation. Medicines Medicines can help ease symptoms. Medicines for anxiety include: Antidepressant medicines. These are usually prescribed for long-term daily control. Anti-anxiety medicines. These may be added in severe cases, especially when panic attacks occur. Medicines will be prescribed by a health care provider. When used together, medicines, psychotherapy, and tension reduction techniques may be the most effective treatment. Relationships Relationships can play a big part in helping you recover. Try to spend more time connecting with trusted friends and family members. Consider going to couples counseling if you have a partner, taking family education classes, or going to family therapy. Therapy can help you and others better understand your condition. How to recognize changes in your anxiety Everyone responds differently to treatment for anxiety. Recovery from anxiety happens when symptoms decrease and stop interfering with your daily activities at home or work. This may mean that you will start to: Have better concentration and focus. Worry will interfere less in your daily thinking. Sleep better. Be less irritable. Have more energy. Have improved memory. It is also important to recognize when your condition is getting worse. Contact your health care provider if your symptoms interfere with home or work and you feel like your condition is not improving. Follow these instructions at home: Activity Exercise. Adults should do the following: ?Exercise for at least 150 minutes each week. The exercise should increase your heart rate and make you sweat (moderate-intensity exercise). ?Strengthening exercises at least twice a week. Get the right amount and quality of sleep. Most adults need 7 9 hours of sleep each night. Lifestyle Eat a healthy diet that includes plenty of vegetables, fruits, whole grains, low-fat dairy products, and lean protein. ?Do not eat a lot of foods that are high in fats, added sugars, or salt (sodium). Make choices that simplify your life. Do not use any products that contain nicotine or tobacco. These products include cigarettes, chewing tobacco, and vaping devices, such as e-cigarettes. If you need help quitting, ask your health care provider. Avoid caffeine, alcohol, and certain fmnh-emc-ggumglx cold medicines. These may make you feel worse. Ask your pharmacist which medicines to avoid. General instructions Take xcjq-vyk-wxfqfbo and prescription medicines only as told by your health care provider. Keep all follow-up visits. This is important. Where to find support You can get help and support from these sources: Self-help groups. Online and community organizations. A trusted spiritual leader. Couples counseling. Family education classes. Family therapy. Where to find more information You may find that joining a support group helps you deal with your anxiety. The following sources can help you locate counselors or support groups near you: Mental Health [place]: www.mentalhealth[place].net Anxiety and Depression Association of [place] (ADAA): www.adaa.org [place] on Mental Illness ([place]): www.[place].org Contact a health care provider if: You have a hard time staying focused or finishing daily tasks. You spend many hours a day feeling worried about everyday life. You become exhausted by worry. You start to have headaches or frequently feel tense. You develop chronic nausea or diarrhea. Get help right away if: You have a racing heart and shortness of breath. You have thoughts of hurting yourself or others. If you ever feel like you may hurt yourself or others, or have thoughts about taking your own life, get help right away. Go to your nearest emergency department or: Call your local emergency services (420 in the [place] Call a suicide crisis helpline, such as the National Suicide Prevention Lifeline at or 911 in the [place] This is open 24 hours a day in the [place] Text the Crisis Text Line at 675156 (in the [place] Summary Taking steps to learn and use tension reduction techniques can help calm you and help prevent triggering an anxiety reaction. When used together, medicines, psychotherapy, and tension reduction techniques may be the most effective treatment. Family, friends, and partners can play a big part in supporting you. This information is not intended to replace advice given to you by your health care provider. Make sure you discuss any questions you have with your health care provider. Document Revised: 03/29/2022 Document Reviewed: 12/25/2021 [employer] Patient Education 2022 [employer] 03/16/2023 17:16:16 BMI for Adults BMI for Adults What is BMI? Body mass index (BMI) is a number that is calculated from a person's weight and height. BMI can help estimate how much of a person's weight is composed of fat. BMI does not measure body fat directly. Rather, it is an alternative to procedures that directly measure body fat, which can be difficult and expensive. BMI can help identify people who may be at higher risk for certain medical problems. What are BMI measurements used for? BMI is used as a screening tool to identify possible weight problems. It helps determine whether a person is obese, overweight, a healthy weight, or underweight. BMI is useful for: Identifying a weight problem that may be related to a medical condition or may increase the risk for medical problems. Promoting changes, such as changes in diet and exercise, to help reach a healthy weight. BMI screening can be repeated to see if these changes are working. How is BMI calculated? BMI involves measuring your weight in relation to your height. Both height and weight are measured, and the BMI is calculated from those numbers. This can be done either in [place] ([place] or metric measurements. Note that charts and online BMI calculators are available to help you find your BMI quickly and easily without having to do these calculations yourself. To calculate your BMI in [place] ([place] measurements: 1.Measure your weight in pounds (lb). 2.Multiply the number of pounds by 703. For example, for a person who weighs 180 lb, multiply that number by 703, which equals 126,540. 3.Measure your height in inches. Then multiply that number by itself to get a measurement called inches squared. For example, for a person who is 70 inches tall, the inches squared measurement is 70 inches x 70 inches, which equals 4,900 inches squared. 4.Divide the total from step 2 (number of lb x 703) by the total from step 3 (inches squared): 126,540 4,900 = 25.8. This is your BMI. To calculate your BMI in metric measurements: 1.Measure your weight in kilograms (kg). 2.Measure your height in meters (m). Then multiply that number by itself to get a measurement called meters squared. For example, for a person who is 1.75 m tall, the meters squared measurement is 1.75 m x 1.75 m, which is equal to 3.1 meters squared. 3.Divide the number of kilograms (your weight) by the meters squared number. In this example: 70 3.1 = 22.6. This is your BMI. What do the results mean? BMI charts are used to identify whether you are underweight, normal weight, overweight, or obese. The following guidelines will be used: Underweight: BMI less than 18.5. Normal weight: BMI between 18.5 and 24.9. Overweight: BMI between 25 and 29.9. Obese: BMI of 30 or above. Keep these notes in mind: Weight includes both fat and muscle, so someone with a muscular build, such as an athlete, may have a BMI that is higher than 24.9. In cases like these, BMI is not an accurate measure of body fat. To determine if excess body fat is the cause of a BMI of 25 or higher, further assessments may need to be done by a health care provider. BMI is usually interpreted in the same way for men and women. Where to find more information For more information about BMI, including tools to quickly calculate your BMI, go to these websites: Centers for Disease Control and Prevention: www.cdc.gov [place] Heart Association: www.heart.org National Heart, Lung, and Blood [place]: www.nhlbi.nih.gov Summary Body mass index (BMI) is a number that is calculated from a person's weight and height. BMI may help estimate how much of a person's weight is composed of fat. BMI can help identify those who may be at higher risk for certain medical problems. BMI can be measured using [place] measurements or metric measurements. BMI charts are used to identify whether you are underweight, normal weight, overweight, or obese. This information is not intended to replace advice given to you by your health care provider. Make sure you discuss any questions you have with your health care provider. Document Revised: 05/26/2020 Document Reviewed: 04/02/2020 [employer] Patient Education 2022 [employer] Follow Up Care 01/10/2023 16:45:10 With:Candice Kim Address: [address] [place] [address], [facility] [place] [address]- When:Within 3 Month(s) Comments:f/u DWAYNE [facility] Primary Care 01-10-2023 Hospital Discharge instructions Patient Education 01/10/2023 16:15:18 Generalized Anxiety Disorder, Adult Generalized Anxiety Disorder, Adult Generalized anxiety disorder (DWAYNE) is a mental health condition. Unlike normal worries, anxiety related to DWAYNE is not triggered by a specific event. These worries do not fade or get better with time. DWAYNE interferes with relationships, work, and school. DWAYNE symptoms can vary from mild to severe. People with severe DWAYNE can have intense waves of anxiety with physical symptoms that are similar to panic attacks. What are the causes? The exact cause of DWAYNE is not known, but the following are believed to have an impact: Differences in natural brain chemicals. Genes passed down from parents to children. Differences in the way threats are perceived. Development and stress during childhood. Personality. What increases the risk? The following factors may make you more likely to develop this condition: Being female. Having a family history of anxiety disorders. Being very shy. Experiencing very stressful life events, such as the of a loved one. Having a very stressful family environment. What are the signs or symptoms? People with DWAYNE often worry excessively about many things in their lives, such as their health and family. Symptoms may also include: Mental and emotional symptoms: ?Worrying excessively about natural disasters. ?Fear of being late. ?Difficulty concentrating. ?Fears that others are judging your performance. Physical symptoms: ?Fatigue. ?Headaches, muscle tension, muscle twitches, trembling, or feeling shaky. ?Feeling like your heart is pounding or beating very fast. ?Feeling out of breath or like you cannot take a deep breath. ?Having trouble falling asleep or staying asleep, or experiencing restlessness. ?Sweating. ?Nausea, diarrhea, or irritable bowel syndrome (IBS). Behavioral symptoms: ?Experiencing erratic moods or irritability. ?Avoidance of new situations. ?Avoidance of people. ?Extreme difficulty making decisions. How is this diagnosed? This condition is diagnosed based on your symptoms and medical history. You will also have a physical exam. Your health care provider may perform tests to rule out other possible causes of your symptoms. To be diagnosed with DWAYNE, a person must have anxiety that: Is out of his or her control. Affects several different aspects of his or her life, such as work and relationships. Causes distress that makes him or her unable to take part in normal activities. Includes at least three symptoms of DWAYNE, such as restlessness, fatigue, trouble concentrating, irritability, muscle tension, or sleep problems. Before your health care provider can confirm a diagnosis of DWAYNE, these symptoms must be present more days than they are not, and they must last for 6 months or longer. How is this treated? This condition may be treated with: Medicine. Antidepressant medicine is usually prescribed for long-term daily control. Anti-anxiety medicines may be added in severe cases, especially when panic attacks occur. Talk therapy (psychotherapy). Certain types of talk therapy can be helpful in treating DWAYNE by providing support, education, and guidance. Options include: ?Cognitive behavioral therapy (CBT). People learn coping skills and self-calming techniques to ease their physical symptoms. They learn to identify unrealistic thoughts and behaviors and to replace them with more appropriate thoughts and behaviors. ?Acceptance and commitment therapy (ACT). This treatment teaches people how to be mindful as a way to cope with unwanted thoughts and feelings. ?Biofeedback. This process trains you to manage your body's response (physiological response) through breathing techniques and relaxation methods. You will work with a therapist while machines are used to monitor your physical symptoms. Stress management techniques. These include yoga, meditation, and exercise. A mental health specialist can help determine which treatment is best for you. Some people see improvement with one type of therapy. However, other people require a combination of therapies. Follow these instructions at home: Lifestyle Maintain a consistent routine and schedule. Anticipate stressful situations. Create a plan and allow extra time to work with your plan. Practice stress management or self-calming techniques that you have learned from your therapist or your health care provider. Exercise regularly and spend time outdoors. Eat a healthy diet that includes plenty of vegetables, fruits, whole grains, low-fat dairy products, and lean protein. ?Do not eat a lot of foods that are high in fat, added sugar, or salt (sodium). ?Drink plenty of water. Avoid alcohol. Alcohol can increase anxiety. Avoid caffeine and certain ouud-wzm-iuuhyoi cold medicines. These may make you feel worse. Ask your pharmacist which medicines to avoid. General instructions Take tici-vxh-zdxcmzq and prescription medicines only as told by your health care provider. Understand that you are likely to have setbacks. Accept this and be kind to yourself as you persist to take better care of yourself. Anticipate stressful situations. Create a plan and allow extra time to work with your plan. Recognize and accept your accomplishments, even if you groover operator them as small. Spend time with people who care about you. Keep all follow-up visits. This is important. Where to find more information National [place] of Mental Health: www.nimh.nih.gov Substance Abuse and Mental Health Services: www.samhsa.gov Contact a health care provider if: Your symptoms do not get better. Your symptoms get worse. You have signs of depression, such as: ?A persistently sad or irritable mood. ?Loss of enjoyment in activities that used to bring you luis. ?Change in weight or eating. ?Changes in sleeping habits. Get help right away if: You have thoughts about hurting yourself or others. If you ever feel like you may hurt yourself or others, or have thoughts about taking your own life, get help right away. Go to your nearest emergency department or: Call your local emergency services (236 in the [place] Call a suicide crisis helpline, such as the National Suicide Prevention Lifeline at or 759 in the [place] This is open 24 hours a day in the [place] Text the Crisis Text Line at 757266 (in the [place] Summary Generalized anxiety disorder (DWAYNE) is a mental health condition that involves worry that is not triggered by a specific event. People with DWAYNE often worry excessively about many things in their lives, such as their health and family. DWAYNE may cause symptoms such as restlessness, trouble concentrating, sleep problems, frequent sweating, nausea, diarrhea, headaches, and trembling or muscle twitching. A mental health specialist can help determine which treatment is best for you. Some people see improvement with one type of therapy. However, other people require a combination of therapies. This information is not intended to replace advice given to you by your health care provider. Make sure you discuss any questions you have with your health care provider. Document Revised: 03/29/2022 Document Reviewed: 12/25/2021 [employer] Patient Education 2022 [employer]. 01/10/2023 16:15:14 Chest Wall Pain Chest Wall Pain Chest wall pain is pain in or around the bones and muscles of your chest. Sometimes, an injury causes this pain. Excessive coughing or overuse of arm and chest muscles may also cause chest wall pain. Sometimes, the cause may not be known. This pain may take several weeks or longer to get better. Follow these instructions at home: Managing pain, stiffness, and swelling If directed, put ice on the painful area: ?Put ice in a plastic bag. ?Place a towel between your skin and the bag. ?Leave the ice on for 20 minutes, 2 3 times per day. Activity Rest as told by your health care provider. Avoid activities that cause pain. These include any activities that use your chest muscles or your abdominal and side muscles to lift heavy items. Ask your health care provider what activities are safe for you. General instructions Take ibbx-cnp-dswtqxe and prescription medicines only as told by your health care provider. Do not use any products that contain nicotine or tobacco, such as cigarettes, e-cigarettes, and chewing tobacco. These can delay healing after injury. If you need help quitting, ask your health care provider. Keep all follow-up visits as told by your health care provider. This is important. Contact a health care provider if: You have a fever. Your chest pain becomes worse. You have new symptoms. Get help right away if: You have nausea or vomiting. You feel sweaty or light-headed. You have a cough with mucus from your lungs (sputum) or you cough up blood. You develop shortness of breath. These symptoms may represent a serious problem that is an emergency. Do not wait to see if the symptoms will go away. Get medical help right away. Call your local emergency services (911 in the [place] Do not drive yourself to the hospital. Summary Chest wall pain is pain in or around the bones and muscles of your chest. Depending on the cause, it may be treated with ice, rest, medicines, and avoiding activities that cause pain. Contact a health care provider if you have a fever, worsening chest pain, or new symptoms. Get help right away if you feel light-headed or you develop shortness of breath. These symptoms may be an emergency. This information is not intended to replace advice given to you by your health care provider. Make sure you discuss any questions you have with your health care provider. Document Revised: 11/18/2021 Document Reviewed: 11/18/2021 [employer] Patient Education 2022 [employer]. 01/10/2023 16:15:11 Acute Pain, Adult Acute Pain, Adult Acute pain is a type of sudden pain that may last for just a few days or for as long as six months. It is often related to an illness, injury, or medical procedure. Acute pain may be mild, moderate, or severe. Pain can make it hard for you to do your normal, daily activities. It can cause anxiety and lead to other problems if it is left untreated. Treatment depends on the cause and severity of your pain. Acute pain usually goes away once your injury has healed or you are no longer ill. Follow these instructions at home: Medicines Take wguf-zmk-suozurh and prescription medicines only as told by your health care provider. Take the lowest dose of medicine for the shortest amount of time needed to relieve the pain. If you are taking prescription pain medicine: ?Do not stop taking the medicine suddenly. Talk to your health care provider about how and when to discontinue prescription medicine. ?Do not take more pills than told by your health care provider even if your pain is severe. ?Do not take other ewlg-xiw-agpvwzx pain medicines in addition to prescription pain medicine unless told by your health care provider. ?Ask your health care provider if the medicine requires you to avoid driving or using heavy machinery. ?Ask your health care provider if the medicine can cause constipation. You may need to take these actions to prevent or treat constipation: ?Drink enough fluid to keep your urine pale yellow. ?Eat foods that are high in fiber, such as beans, whole grains, and fresh fruits and vegetables. ?Take owyr-quq-rndtubo or prescription medicines. ?Limit foods that are high in fat and processed sugars, such as fried or sweet foods. Managing pain, stiffness, and swelling If directed, put ice on the affected area. To do this: Put ice in a plastic bag. Place a towel between your skin and the bag. Leave the ice on for 20 minutes, 2 3 times a day. If directed, apply heat to the affected area as often as told by your health care provider. Use the heat source that your health care provider recommends, such as a moist heat pack or a heating pad. Place a towel between your skin and the heat source. Leave the heat on for 20 30 minutes. Remove the heat if your skin turns bright red. This is especially important if you are unable to feel pain, heat, or cold. You may have a greater risk of getting burned. Activity Rest as told by your health care provider. Return to your normal activities as told by your health care provider. Ask your health care provider what activities are safe for you. General instructions Check your pain level as told by your health care provider. Ask your health care provider if other strategies such as distraction, relaxation, or physical therapies can help your pain. Keep all follow-up visits as told by your health care provider. This is important. Contact a health care provider if: Your pain is not controlled by medicine. Your pain does not improve or gets worse. You have side effects from pain medicines, such as vomiting or confusion. Get help right away if you: Have severe pain. Have trouble breathing. Lose consciousness. Have chest pain or pressure that lasts for more than a few minutes, or if you have other symptoms along with chest pain, including if you: ?Have pain or discomfort in one or both arms, your back, neck, jaw, or stomach. ?Have shortness of breath. ?Break out in a cold sweat. ?Feel nauseous. ?Become light-headed. These symptoms may represent a serious problem that is an emergency. Do not wait to see if the symptoms will go away. Get medical help right away. Call your local emergency services (911 in the [place] Do not drive yourself to the hospital. Summary Acute pain may be mild, moderate, or severe. It usually goes away once your injury has healed or you are no longer ill. Take ornz-drp-luehxna and prescription medicines only as told by your health care provider. Ask your health care provider if the medicine prescribed to you can cause constipation. Contact a health care provider if your pain is not controlled by medicine. This information is not intended to replace advice given to you by your health care provider. Make sure you discuss any questions you have with your health care provider. Document Revised: 01/19/2020 Document Reviewed: 01/19/2020 [employer] Patient Education 2022 [employer]. 01/10/2023 16:15:10 Managing Anxiety, Adult Managing Anxiety, Adult After being diagnosed with anxiety, you may be relieved to know why you have felt or behaved a certain way. You may also feel overwhelmed about the treatment ahead and what it will mean for your life. With care and support, you can manage this condition. How to manage lifestyle changes Managing stress and anxiety Stress is your body's reaction to life changes and events, both good and bad. Most stress will last just a few hours, but stress can be ongoing and can lead to more than just stress. Although stress can play a major role in anxiety, it is not the same as anxiety. Stress is usually caused by something external, such as a deadline, test, or competition. Stress normally passes after the triggering event has ended. Anxiety is caused by something internal, such as imagining a terrible outcome or worrying that something will go wrong that will devastate you. Anxiety often does not go away even after the triggering event is over, and it can become long-term (chronic) worry. It is important to understand the differences between stress and anxiety and to manage your stress effectively so that it does not lead to an anxious response. Talk with your health care provider or a counselor to learn more about reducing anxiety and stress. He or she may suggest tension reduction techniques, such as: Music therapy. Spend time creating or listening to music that you enjoy and that inspires you. Mindfulness-based meditation. Practice being aware of your normal breaths while not trying to control your breathing. It can be done while sitting or walking. Centering prayer. This involves focusing on a word, phrase, or sacred image that means something to you and brings you peace. Deep breathing. To do this, expand your stomach and inhale slowly through your nose. Hold your breath for 3 5 seconds. Then exhale slowly, letting your stomach muscles relax. Self-talk. Learn to notice and identify thought patterns that lead to anxiety reactions and change those patterns to thoughts that feel peaceful. Muscle relaxation. Taking time to tense muscles and then relax them. Choose a tension reduction technique that fits your lifestyle and personality. These techniques take time and practice. Set aside 5 15 minutes a day to do them. Therapists can offer counseling and training in these techniques. The training to help with anxiety may be covered by some insurance plans. Other things you can do to manage stress and anxiety include: Keeping a stress diary. This can help you learn what triggers your reaction and then learn ways to manage your response. Thinking about how you react to certain situations. You may not be able to control everything, but you can control your response. Making time for activities that help you relax and not feeling guilty about spending your time in this way. Doing visual imagery. This involves imagining or creating mental pictures to help you relax. Practicing yoga. Through yoga poses, you can lower tension and promote relaxation. Medicines Medicines can help ease symptoms. Medicines for anxiety include: Antidepressant medicines. These are usually prescribed for long-term daily control. Anti-anxiety medicines. These may be added in severe cases, especially when panic attacks occur. Medicines will be prescribed by a health care provider. When used together, medicines, psychotherapy, and tension reduction techniques may be the most effective treatment. Relationships Relationships can play a big part in helping you recover. Try to spend more time connecting with trusted friends and family members. Consider going to couples counseling if you have a partner, taking family education classes, or going to family therapy. Therapy can help you and others better understand your condition. How to recognize changes in your anxiety Everyone responds differently to treatment for anxiety. Recovery from anxiety happens when symptoms decrease and stop interfering with your daily activities at home or work. This may mean that you will start to: Have better concentration and focus. Worry will interfere less in your daily thinking. Sleep better. Be less irritable. Have more energy. Have improved memory. It is also important to recognize when your condition is getting worse. Contact your health care provider if your symptoms interfere with home or work and you feel like your condition is not improving. Follow these instructions at home: Activity Exercise. Adults should do the following: ?Exercise for at least 150 minutes each week. The exercise should increase your heart rate and make you sweat (moderate-intensity exercise). ?Strengthening exercises at least twice a week. Get the right amount and quality of sleep. Most adults need 7 9 hours of sleep each night. Lifestyle Eat a healthy diet that includes plenty of vegetables, fruits, whole grains, low-fat dairy products, and lean protein. ?Do not eat a lot of foods that are high in fats, added sugars, or salt (sodium). Make choices that simplify your life. Do not use any products that contain nicotine or tobacco. These products include cigarettes, chewing tobacco, and vaping devices, such as e-cigarettes. If you need help quitting, ask your health care provider. Avoid caffeine, alcohol, and certain ouex-ivq-dyasbyc cold medicines. These may make you feel worse. Ask your pharmacist which medicines to avoid. General instructions Take xzlt-oqx-sjodukc and prescription medicines only as told by your health care provider. Keep all follow-up visits. This is important. Where to find support You can get help and support from these sources: Self-help groups. Online and community organizations. A trusted spiritual leader. Couples counseling. Family education classes. Family therapy. Where to find more information You may find that joining a support group helps you deal with your anxiety. The following sources can help you locate counselors or support groups near you: Mental Health [place]: www.mentalhealth[place].net Anxiety and Depression Association of [place] (ADAA): www.adaa.org [employer] [place] on Mental Illness ([place]): www.[place].org Contact a health care provider if: You have a hard time staying focused or finishing daily tasks. You spend many hours a day feeling worried about everyday life. You become exhausted by worry. You start to have headaches or frequently feel tense. You develop chronic nausea or diarrhea. Get help right away if: You have a racing heart and shortness of breath. You have thoughts of hurting yourself or others. If you ever feel like you may hurt yourself or others, or have thoughts about taking your own life, get help right away. Go to your nearest emergency department or: Call your local emergency services (911 in the [place] Call a suicide crisis helpline, such as the National Suicide Prevention Lifeline at or 974 in the [place] This is open 24 hours a day in the [place] Text the Crisis Text Line at 138851 (in the [place] Summary Taking steps to learn and use tension reduction techniques can help calm you and help prevent triggering an anxiety reaction. When used together, medicines, psychotherapy, and tension reduction techniques may be the most effective treatment. Family, friends, and partners can play a big part in supporting you. This information is not intended to replace advice given to you by your health care provider. Make sure you discuss any questions you have with your health care provider. Document Revised: 03/29/2022 Document Reviewed: 12/25/2021 [employer] Patient Education 2022 [employer]. Follow Up Care 01/04/2023 10:49:27 With:Candice Kim Address: [address] [place] [address] [address] [place] [phone] When:Within 1 Month(s) Comments:f/u DWAYNE, chacorta stark [facility] Primary Care 01-03-2023 Evaluation + Plan note Extrac faheem from: Title:ED Note Author:Manuelito Duckworth DO Date: Acute chest pain (R07.9: [address]ia st pain, unspecified) Orders: famotidine, 20 mg = 1 tab(s), Oral, BID, # 30 tab(s), Refills(s) 0, Pharmacy: [facility] #[id number], 165, cm, 01/03/23 9:28:00 EDT, Height/Length Dosing, 54, kg, 01/03/23 9:28:00 EDT, Weight Dosing Automated Diff Basic Metabolic Panel CBC w/ Auto Diff ECG 12 Lead Adult ED Cardiac Monitoring eGFR Extra SST Tube Hepatic Function Panel Lipase Level Oxygen Saturation Oxygen Therapy PT & PTT Saline Lock Insert Troponin 0 Hr. U Beta Hcg Qual UA With Cult Reflex XR Chest Single View Future Appointments Appointment Date:01/04/2023 03:00:00 PM Scheduled Provider:Cynthia OTOOLE, Ameya Fuentes Location:[facility]iology [facility] Appointment Type:Cardiology ED Follow Up ([facility]) Future Scheduled Tests Laboratory* Glucose Fasting 06/09/22 [facility]04-19-2023 Hospital Discharge instructions Patient Education 01/03/2023 10:52:17 Nonspecific Chest Pain, Adult Nonspecific Chest Pain, Adult Chest pain is an uncomfortable, tight, or painful feeling in the chest. The pain can feel like a crushing, aching, or squeezing pressure. A person can feel a burning or tingling sensation. Chest paincan also be felt in your back, neck, jaw, shoulder, or arm. This pain can be worse when you move, sneeze, or take a deep breath. Chest pain can be caused by a condition that is life-threatening. This must be treated right away. It can also be caused by something that is not life- threatening. If you have chest pain, it can be hard to know the difference, so it is important to get help right away to make sure that you do not have a serious condition. Some life-threatening causes of chest pain include: Heart attack. A tear in the body's main blood vessel (aortic dissection). Inflammation around your heart (pericarditis). A problem in the lungs, such as a blood clot (pulmonary embolism) or a collapsed lung (pneumothorax). Some non life-threatening causes of chest pain include: Heartburn. Anxiety or stress. Damage to the bones, muscles, and cartilage that make up your chest wall. Pneumonia or bronchitis. Shingles infection (varicella-zoster virus). Your chest pain may come and go. It may also be constant. Your health care provider will do tests and other studies to find the cause of your pain. Treatment will depend on the cause of your chest pain. Follow these instructions at home: Medicines Take ajur-mfn-fpwazht and prescription medicines only as told by your health care provider. If you were prescribed an antibiotic medicine, take it as told by your health care provider. Do notstop taking the antibiotic even if you start to feel better. Activity Avoid any activities that cause chest pain. Do not lift anything that is heavier than 10 lb (4.5 kg), or the limit that you are told, until your health care provider says that it is safe. Rest as directed by your health care provider. Return to your normal activities only as told by your health care provider. Ask your health care provider what activities are safe for you. Lifestyle Do not use any products that contain nicotine or tobacco, such as cigarettes, e- cigarettes, and chewing tobacco. If you need help quitting, ask your health care provider. Do not drink alcohol. Make healthy lifestyle changes as recommended. These may include: ?Getting regular exercise. Ask your health care provider to suggest some exercises that are safe for you. ?Eating a heart-healthy diet. This includes plenty of fresh fruits and vegetables, whole grains, low-fat (lean) protein, and low-fat dairy products. A dietitian can help you find healthy eating options. ?Maintaining a healthy weight. ?Managing any other health conditions you may have, such as high blood pressure (hypertension) or diabetes. ?Reducing stress, such as with yoga or relaxation techniques. General instructions Pay attention to any changes in your symptoms. It is up to you to get the results of any tests that were done. Ask your health care provider, or the department that is doing the tests, when your results will be ready. Keep all follow-up visits as told by your health care provider. This is important. You may be asked to go for further testing if your chest pain does not go away. Contact a health care provider if: Your chest pain does not go away. You feel depressed. You have a fever. You notice changes in your symptoms or develop new symptoms. Get help right away if: Your chest pain gets worse. You have a cough that gets worse, or you cough up blood. You have severe pain in your abdomen. You faint. You have sudden, unexplained chest discomfort. You have sudden, unexplained discomfort in your arms, back, neck, or jaw. You have shortness of breath at any time. You suddenly start to sweat, or your skin gets clammy. You feel nausea or you vomit. You suddenly feel lightheaded or dizzy. You have severe weakness, or unexplained weakness or fatigue. Your heart begins to beat quickly, or it feels like it is skipping beats. These symptoms may represent a serious problem that is an emergency. Do not wait to see if the symptoms will go away. Get medical help right away. Call your local emergency services (911 in the [place] Do not drive yourself to the hospital. Summary Chest pain can be caused by a condition that is serious and requires urgent treatment. It may also be caused by something that is not life-threatening. Your health care provider may do lab tests and other studies to find the cause of your pain. Follow your health care provider's instructions on taking medicines, making lifestyle changes, and getting emergency treatment if symptoms become worse. Keep all follow-up visits as told by your health care provider. This includes visits for any further testing if your chest pain does not go away. This information is not intended to replace advice given to you by your health care provider. Make sure you discuss any questions you have with your health care provider. Document Revised: 11/17/2021 Document Reviewed: 11/17/2021 [employer] Patient Education 2022 [employer] Follow Up Care 01/03/2023 09:22:59 With:Ameya Marie Address: [address] [place] [address] [facility] (1) When:01/06/2023 10:50:11 Comments:Call to establish appointment for a stress test With:Mello LÓPEZ Address: [address] [facility] [place] [address] Business (1) When:01/06/2023 10:49:58 Comments:Call the office of your primary care doctor to arrange for follow-up within the above-stated timeframe. Follow-up with your primary care doctor about this ED visit. You should review your labs, imaging, and diagnoses from this ED visit with your primary care physician. There are occasionally non-emergent findings that require additional follow-up after your ED visit. If you were prescribed medications you should discuss possible side-effects and drug interactions with your pharmacist. Call 911 or go to the nearest Emergency Department if you develop any new or worsening symptoms.Seek immediate medical attention if you develop: worsening chest pain, new chest pain, nausea, vomiting, weakness, numbness, tingling, excessive sweating, shortness of breath, difficulty breathing, loss of motion in your arms or legs, or any new or worsening symptoms. [facility]03-27-2023 Hospital Discharge instructions Patient Education 12/11/2022 16:06:55 COVID-19: How to Protect Yourself and Others - [facility] COVID-19: How to Protect Yourself and Others Know how it spreads There is currently no vaccine to prevent coronavirus disease 2019 (COVID-19). The best way to prevent illness is to avoid being exposed to this virus. The virus is thought to spread mainly from xvpzrb-sh-cdyrqb. ?Between people who are in close contact with one another (within about 6 feet). ?Through respiratory droplets produced when an infected person coughs, sneezes or talks. ?These droplets can land in the mouths or noses of people who are nearby or possibly be inhaled into the lungs. ?Some recent studies have suggested that COVID-19 may be spread by people who are not showing symptoms. Everyone should Clean your hands often Wash your hands often with soap and water for at least 20 seconds especially after you have been noel public place, or after blowing your nose, coughing, or sneezing. If soap and water are not readily available, use a hand physician ophthalmologist that contains at least 60% alcohol. Cover all surfaces of your hands and rub them together until they feel dry. Avoid touching your eyes, nose, and mouth with unwashed hands. Avoid close contact Limit contact with others as much as possible. Avoid close contact with people who are sick. Put distance between yourself and other people. ?Remember that some people without symptoms may be able to spread virus. ?This is especially important for people who are at higher risk of getting very sick.www.cdc.gov/cor onavirus/2019-ncov/rctf-vgkku-dbsafxqnmlm/jwjjrl-qc-uhthom-risk.html Cover your mouth and nose with a cloth face cover when around others You could spread COVID-19 to others even if you do not feel sick. Everyone should wear a cloth face covering in public settings and when around people not living in their household, especially when social distancing is difficult to maintain. ?Cloth face coverings should not be placed on young children under age 2, anyone who has trouble breathing, or is unconscious, incapacitated or otherwise unable to remove the mask without assistance. The cloth face cover is meant to protect other people in case you are infected. Do NOT use a facemask meant for a healthcare worker. Continue to keep about 6 feet between yourself and others. The cloth face cover is not a substitutefor social distancing. Cover coughs and sneezes Always cover your mouth and nose with a tissue when you cough or sneeze or use the inside of your elbow. Throw used tissues in the trash. Immediately wash your hands with soap and water for at least 20 seconds. If soap and water are not readily available, clean your hands with a hand physician ophthalmologist that contains at least 60% alcohol. Clean and disinfect Clean AND disinfect frequently touched surfaces daily. This includes tables, doorknobs, light switches, countertops, handles, desks, phones, keyboards, toilets, faucets, and sinks. www.cdc.gov/coronav irus/2019-ncov/hobwwjt-rjladmz-qqdu/btykzdjnnhrc-mvdj-qnmh.html If surfaces are dirty, clean them: Use detergent or soap and water prior to disinfection. Then, use a household disinfectant. You can see a list of EPA-registered household disinfectants here. cdc.gov/coronavirus 03/16/2020 This information is not intended to replace advice given to you by your health care provider. Make sure you discuss any questions you have with your health care provider. Document Released: 12/30/2019 Document Revised: 03/25/2020 Document Reviewed: 03/25/2020 [employer] Patient Education 2019 [employer]. 12/11/2022 16:06:54 COVID-19 Frequently Asked Questions COVID-19 Frequently Asked Questions COVID-19 (coronavirus disease) is an infection that is caused by a large family of viruses. Some viruses cause illness in people and others cause illness in animals like camels, cats, and bats. In some cases, the viruses that cause illness in animals can spread to humans. Where did the coronavirus come from? In August 2019, [place] told the World Health Organization (WHO) of several cases of lung disease (human respiratory illness). These cases were linked to an open seafood and livestock market [facility]. The link to the seafood and livestock market suggests that the virus may have spread from animals to humans. However, since that first outbreak in August, the virus has also been shownto spread from person to person. What is the name of the disease and the virus? Disease name Early on, this disease was called novel coronavirus. This is because scientists determined that thedisease was caused by a new (novel) respiratory virus. The World Health Organization (WHO) has now named the disease COVID-19, or coronavirus disease. Virus name The virus that causes the disease is called severe acute respiratory syndrome coronavirus 2 (SARS-CoV-2). More information on disease and virus naming World Health Organization (WHO): www.who.int/emergencies/diseases/avobk-xwljqczbrfx-0066/technical-g uidance/nidbpe-gnu-axirojkmpfy-disease-(covid-2019)-pcp-lbu-glqna-wamc-mnkdiv-oa Who is at risk for complications from coronavirus disease? Some people may be at higher risk for complications from coronavirus disease. This includes older adults and people who have chronic diseases, such as heart disease, diabetes, and lung disease. If you are at higher risk for complications, take these extra precautions: Avoid close contact with people who are sick or have a fever or cough. Stay at least 3 6 ft (1 2 m)away from them, if possible. Wash your hands often with soap and water for at least 20 seconds. Avoid touching your face, mouth, nose, or eyes. Keep supplies on hand at home, such as food, medicine, and cleaning supplies. Stay home as much as possible. Avoid social gatherings and travel. How does coronavirus disease spread? The virus that causes coronavirus disease spreads easily from person to person (is contagious). There are also cases of community-spread disease. This means the disease has spread to: People who have no known contact with other infected people. People who have not traveled to areas where there are known cases. It appears to spread from one person to another through droplets from coughing or sneezing. Can I get the virus from touching surfaces or objects? There is still a lot that we do not know about the virus that causes coronavirus disease. Scientists are basing a lot of information on what they know about similar viruses, such as: Viruses cannot generally survive on surfaces for long. They need a human body (host) to survive. It is more likely that the virus is spread by close contact with people who are sick (direct contact), such as through: ?Shaking hands or hugging. ?Breathing in respiratory droplets that travel through the air. This can happen when an infected person coughs or sneezes on or near other people. It is less likely that the virus is spread when a person touches a surface or object that has the virus on it (indirect contact). The virus may be able to enter the body if the person touches a surface or object and then touches his or her face, eyes, nose, or mouth. Can a person spread the virus without having symptoms of the disease? It may be possible for the virus to spread before a person has symptoms of the disease, but this ismost likely not the main way the virus is spreading. It is more likely for the virus to spread by being in close contact with people who are sick and breathing in the respiratory droplets of a sick person's cough or sneeze. What are the symptoms of coronavirus disease? Symptoms vary from person to person and can range from mild to severe. Symptoms may include: Fever. Cough. Tiredness, weakness, or fatigue. Fast breathing or feeling short of breath. These symptoms can appear anywhere from 2 to 14 days after you have been exposed to the virus. If you develop symptoms, call your health care provider. People with severe symptoms may need hospital care. If I am exposed to the virus, how long does it take before symptoms start? Symptoms of coronavirus disease may appear anywhere from 2 to 14 days after a person has been exposed to the virus. If you develop symptoms, call your health care provider. Should I be tested for this virus? Your health care provider will decide whether to test you based on your symptoms, history of exposure, and your risk factors. How does a health care provider test for this virus? Health care providers will collect samples to send for testing. Samples may include: Taking a swab of fluid from the nose. Taking fluid from the lungs by having you cough up mucus (sputum) into a sterile cup. Taking a blood sample. Taking a stool or urine sample. Is there a treatment or vaccine for this virus? Currently, there is no vaccine to prevent coronavirus disease. Also, there are no medicines like antibiotics or antivirals to treat the virus. A person who becomes sick is given supportive care, which means rest and fluids. A person may also relieve his or her symptoms by using cvjc-mjn-mkukcrk medicines that treat sneezing, coughing, and runny nose. These are the same medicines that a person takes for the common cold. If you develop symptoms, call your health care provider. People with severe symptoms may need hospital care. What can I do to protect myself and my family from this virus? You can protect yourself and your family by taking the same actions that you would take to prevent the spread of other viruses. Take the following actions: Wash your hands often with soap and water for at least 20 seconds. If soap and water are not available, use alcohol-based hand physician ophthalmologist. Avoid touching your face, mouth, nose, or eyes. Cough or sneeze into a tissue, sleeve, or elbow. Do not cough or sneeze into your hand or the air. ?If you cough or sneeze into a tissue, throw it away immediately and wash your hands. Disinfect objects and surfaces that you frequently touch every day. Avoid close contact with people who are sick or have a fever or cough. Stay at least 3 6 ft (1 2 m)away from them, if possible. Stay home if you are sick, except to get medical care. Call your health care provider before you get medical care. Make sure your vaccines are up to date. Ask your health care provider what vaccines you need. What should I do if I need to travel? Follow travel recommendations from your local health authority, the CDC, and WHO. Travel information and advice Centers for Disease Control and Prevention (CDC): www.cdc.gov/coronavirus/2019-ncov/travelers/index.html World Health Organization (WHO): www.who.int/emergencies/diseases/pgupf-ykwxffoyfvs-8255/travel-advice Know the risks and take action to protect your health You are at higher risk of getting coronavirus disease if you are traveling to areas with an outbreak or if you are exposed to travelers from areas with an outbreak. Wash your hands often and practice good hygiene to lower the risk of catching or spreading the virus. What should I do if I am sick? General instructions to stop the spread of infection Wash your hands often with soap and water for at least 20 seconds. If soap and water are not available, use alcohol-based hand physician ophthalmologist. Cough or sneeze into a tissue, sleeve, or elbow. Do not cough or sneeze into your hand or the air. If you cough or sneeze into a tissue, throw it away immediately and wash your hands. Stay home unless you must get medical care. Call your health care provider or local health authority before you get medical care. Avoid public areas. Do not take public transportation, if possible. If you can, wear a mask if you must go out of the house or if you are in close contact with someonewho is not sick. Keep your home clean Disinfect objects and surfaces that are frequently touched every day. This may include: ?Counters and tables. ?Doorknobs and light switches. ?Sinks and faucets. ?Electronics such as phones, remote controls, keyboards, computers, and tablets. Wash dishes in hot, soapy water or use a sas statistical programmer. Air-dry your dishes. Wash laundry in hot water. Prevent infecting other household members Let healthy household members care for children and pets, if possible. If you have to care for children or pets, wash your hands often and wear a mask. Sleep in a different bedroom or bed, if possible. Do not share personal items, such as razors, toothbrushes, deodorant, parker, brushes, towels, and washcloths. Where to find more information Centers for Disease Control and Prevention (CDC) Information and news updates: www.cdc.gov/coronavirus/2019-ncov World Health Organization (WHO) Information and news updates: www.who.int/emergencies/diseases/zydyi-emaazhjhngd-2857 Coronavirus health topic: www.who.int/health-topics/coronavirus Questions and answers on COVID-19: www.who.int/news-room/q-a-detail/r-h-bscxownkdqsay Global tracker: who.Pro[employer]et.Mirror [employer] [place] [employer]s (AAP) Information for families: www.healthychildren.org/Angolan/health-issues/conditions/chest-lungs/Pages /3359-Smvvw-Hjtetmvtmvj.aspx The coronavirus situation is changing rapidly. Check your local health authority website or the CDCand WHO websites for updates and news. When should I contact a health care provider? Contact your health care provider if you have symptoms of an infection, such as fever or cough, andyou: ?Have been near anyone who is known to have coronavirus disease. ?Have come into contact with a person who is suspected to have coronavirus disease. ?Have traveled outside of the country. When should I get emergency medical care? Get help right away by calling your local emergency services (911 in the [place] if you have: ?Trouble breathing. ?Pain or pressure in your chest. ?Confusion. ?Blue-tinged lips and fingernails. ?Difficulty waking from sleep. ?Symptoms that get worse. Let the emergency medical personnel know if you think you have coronavirus disease. Summary A new respiratory virus is spreading from person to person and causing COVID-19 (coronavirus disease). The virus that causes COVID-19 appears to spread easily. It spreads from one person to another through droplets from coughing or sneezing. Older adults and those with chronic diseases are at higher risk of disease. If you are at higher risk for complications, take extra precautions. There is currently no vaccine to prevent coronavirus disease. There are no medicines, such as antibiotics or antivirals, to treat the virus. You can protect yourself and your family by washing your hands often, avoiding touching your face, and covering your coughs and sneezes. This information is not intended to replace advice given to you by your health care provider. Make sure you discuss any questions you have with your health care provider. Document Released: 12/30/2019 Document Revised: 12/30/2019 Document Reviewed: 12/30/2019 [employer] Patient Education 2020 [employer]. 12/11/2022 16:06:53 COVID-19 COVID-19 COVID-19 is a respiratory infection that is caused by a virus called severe acute respiratory syndrome coronavirus 2 (SARS-CoV-2). The disease is also known as coronavirus disease or novel coronavirus. In some people, the virus may not cause any symptoms. In others, it may cause a serious infection. The infection can get worse quickly and can lead to complications, such as: Pneumonia, or infection of the lungs. Acute respiratory distress syndrome or ARDS. This is fluid build-up in the lungs. Acute respiratory failure. This is a condition in which there is not enough oxygen passing from thelungs to the body. Sepsis or septic shock. This is a serious bodily reaction to an infection. Blood clotting problems. Secondary infections due to bacteria or fungus. The virus that causes COVID-19 is contagious. This means that it can spread from person to person through droplets from coughs and sneezes (respiratory secretions). What are the causes? This illness is caused by a virus. You may catch the virus by: Breathing in droplets from an infected person's cough or sneeze. Touching something, like a table or a doorknob, that was exposed to the virus (contaminated) and then touching your mouth, nose, or eyes. What increases the risk? Risk for infection You are more likely to be infected with this virus if you: Live in or travel to an area with a COVID-19 outbreak. Come in contact with a sick person who recently traveled to an area with a COVID-19 outbreak. Provide care for or live with a person who is infected with COVID-19. Risk for serious illness You are more likely to become seriously ill from the virus if you: Are 65 years of age or older. Have a long-term disease that lowers your body's ability to fight infection (immunocompromised). Live in a fci or long-term care facility. Have a long-term (chronic) disease such as: ?Chronic lung disease, including chronic obstructive pulmonary disease or asthma ?Heart disease. ?Diabetes. ?Chronic kidney disease. ?Liver disease. Are obese. What are the signs or symptoms? Symptoms of this condition can range from mild to severe. Symptoms may appear any time from 2 to 14days after being exposed to the virus. They include: A fever. A cough. Difficulty breathing. Chills. Muscle pains. A sore throat. Loss of taste or smell. Some people may also have stomach problems, such as nausea, vomiting, or diarrhea. Other people may not have any symptoms of COVID-19. How is this diagnosed? This condition may be diagnosed based on: Your signs and symptoms, especially if: ?You live in an area with a COVID-19 outbreak. ?You recently traveled to or from an area where the virus is common. ?You provide care for or live with a person who was diagnosed with COVID-19. A physical exam. Lab tests, which may include: ?A nasal swab to take a sample of fluid from your nose. ?A throat swab to take a sample of fluid from your throat. ?A sample of mucus from your lungs (sputum). ?Blood tests. Imaging tests, which may include, X-rays, CT scan, or ultrasound. How is this treated? At present, there is no medicine to treat COVID-19. Medicines that treat other diseases are being used on a trial basis to see if they are effective against COVID-19. Your health care provider will talk with you about ways to treat your symptoms. For most people, the infection is mild and can be managed at home with rest, fluids, and zqnk-uea-uyrpmbc medicines. Treatment for a serious infection usually takes places in a hospital intensive care unit (ICU). It may include one or more of the following treatments. These treatments are given until your symptoms improve. Receiving fluids and medicines through an IV. Supplemental oxygen. Extra oxygen is given through a tube in the nose, a face mask, or a martinez. Positioning you to lie on your stomach (prone position). This makes it easier for oxygen to get into the lungs. Continuous positive airway pressure (CPAP) or bi-level positive airway pressure (BPAP) machine. This treatment uses mild air pressure to keep the airways open. A tube that is connected to a motor delivers oxygen to the body. Ventilator. This treatment moves air into and out of the lungs by using a tube that is placed in your windpipe. Tracheostomy. This is a procedure to create a hole in the neck so that a breathing tube can be inserted. Extracorporeal membrane oxygenation (ECMO). This procedure gives the lungs a chance to recover by taking over the functions of the heart and lungs. It supplies oxygen to the body and removes carbon dioxide. Follow these instructions at home: Lifestyle If you are sick, stay home except to get medical care. Your health care provider will tell you how long to stay home. Call your health care provider before you go for medical care. Rest at home as told by your health care provider. Do not use any products that contain nicotine or tobacco, such as cigarettes, e- cigarettes, and chewing tobacco. If you need help quitting, ask your health care provider. Return to your normal activities as told by your health care provider. Ask your health care provider what activities are safe for you. General instructions Take jqsx-shv-hecxqih and prescription medicines only as told by your health care provider. Drink enough fluid to keep your urine pale yellow. Keep all follow-up visits as told by your health care provider. This is important. How is this prevented? There is no vaccine to help prevent COVID-19 infection. However, there are steps you can take to protect yourself and others from this virus. To protect yourself: Do not travel to areas where COVID-19 is a risk. The areas where COVID-19 is reported change often.To identify high-risk areas and travel restrictions, check the CDC travel website: wwwnc.cdc.gov/travel/notices If you live in, or must travel to, an area where COVID-19 is a risk, take precautions to avoid infection. ?Stay away from people who are sick. ?Wash your hands often with soap and water for 20 seconds. If soap and water are not available, usean alcohol-based hand physician ophthalmologist. ?Avoid touching your mouth, face, eyes, or nose. ?Avoid going out in public, follow guidance from your state and local health authorities. ?If you must go out in public, wear a cloth face covering or face mask. ?Disinfect objects and surfaces that are frequently touched every day. This may include: ?Counters and tables. ?Doorknobs and light switches. ?Sinks and faucets. ?Electronics, such as phones, remote controls, keyboards, computers, and tablets. To protect others: If you have symptoms of COVID-19, take steps to prevent the virus from spreading to others. If you think you have a COVID-19 infection, contact your health care provider right away. Tell yourhealth care team that you think you may have a COVID-19 infection. Stay home. Leave your house only to seek medical care. Do not use public transport. Do not travel while you are sick. Wash your hands often with soap and water for 20 seconds. If soap and water are not available, use alcohol-based hand physician ophthalmologist. Stay away from other members of your household. Let healthy household members care for children andpets, if possible. If you have to care for children or pets, wash your hands often and wear a mask.If possible, stay in your own room, separate from others. Use a different bathroom. Make sure that all people in your household wash their hands well and often. Cough or sneeze into a tissue or your sleeve or elbow. Do not cough or sneeze into your hand or into the air. Wear a cloth face covering or face mask. Where to find more information Centers for Disease Control and Prevention: www.cdc.gov/coronavirus/2019-ncov/index.html World Health Organization: www.who.int/health-topics/coronavirus Contact a health care provider if: You live in or have traveled to an area where COVID-19 is a risk and you have symptoms of the infection. You have had contact with someone who has COVID-19 and you have symptoms of the infection. Get help right away if: You have trouble breathing. You have pain or pressure in your chest. You have confusion. You have bluish lips and fingernails. You have difficulty waking from sleep. You have symptoms that get worse. These symptoms may represent a serious problem that is an emergency. Do not wait to see if the symptoms will go away. Get medical help right away. Call your local emergency services (911 in the [place] Do not drive yourself to the hospital. Let the emergency medical personnel know if you think you have COVID-19. Summary COVID-19 is a respiratory infection that is caused by a virus. It is also known as coronavirus disease or novel coronavirus. It can cause serious infections, such as pneumonia, acute respiratory distress syndrome, acute respiratory failure, or sepsis. The virus that causes COVID-19 is contagious. This means that it can spread from person to person through droplets from coughs and sneezes. You are more likely to develop a serious illness if you are 65 years of age or older, have a weak immunity, live in a fci, or have chronic disease. There is no medicine to treat COVID-19. Your health care provider will talk with you about ways to treat your symptoms. Take steps to protect yourself and others from infection. Wash your hands often and disinfect objects and surfaces that are frequently touched every day. Stay away from people who are sick and wear amask if you are sick. This information is not intended to replace advice given to you by your health care provider. Make sure you discuss any questions you have with your health care provider. Document Released: 10/09/2019 Document Revised: 01/29/2020 Document Reviewed: 10/09/2019 [employer] Patient Education 2019 [employer]. Follow Up Care 12/11/2022 15:27:48 With:DUGLAS BRAND FAAFP, Mello Quezada, EMMA, PED Address: [address], [place] [address]- When: Unknown [facility] 10-07-2022 Hospital Discharge instructions Patient Education 06/23/2022 13:40:15 Steps to Quit Smoking, Obcv-vx-Qojr Steps to Quit Smoking Smoking tobacco is the leading cause of preventable . It can affect almost every organ in the body. Smoking puts you and people around you at risk for many serious, long-lasting (chronic) diseases. Quitting smoking can be hard, but it is one of the best things that you can do for your health. It is never too late to quit. How do I get ready to quit? When you decide to quit smoking, make a plan to help you succeed. Before you quit: Pick a date to quit. Set a date within the next 2 weeks to give you time to prepare. Write down the reasons why you are quitting. Keep this list in places where you will see it often. Tell your family, friends, and co-workers that you are quitting. Their support is important. Talk with your doctor about the choices that may help you quit. Find out if your health insurance will pay for these treatments. Know the people, places, things, and activities that make you want to smoke (triggers). Avoid them. What first steps can I take to quit smoking? Throw away all cigarettes at home, at work, and in your car. Throw away the things that you use when you smoke, such as ashtrays and lighters. Clean your car. Make sure to empty the ashtray. Clean your home, including curtains and carpets. What can I do to help me quit smoking? Talk with your doctor about taking medicines and seeing a counselor at the same time. You are more likely to succeed when you do both. If you are or , talk with your doctor about counseling or other ways to quit smoking. Do not take medicine to help you quit smoking unless your doctor tells you to do so. To quit smoking: Quit right away Quit smoking totally, instead of slowly cutting back on how much you smoke over a period of time. Go to counseling. You are more likely to quit if you go to counseling sessions regularly. Take medicine You may take medicines to help you quit. Some medicines need a prescription, and some you can buy [id number]. Some medicines may contain a drug called nicotine to replace the nicotine in cigarettes. Medicines may: Help you to stop having the desire to smoke (cravings). Help to stop the problems that come when you stop smoking (withdrawal symptoms). Your doctor may ask you to use: Nicotine patches, gum, or lozenges. Nicotine inhalers or sprays. Non-nicotine medicine that is taken by mouth. Find resources Find resources and other ways to help you quit smoking and remain smoke-free after you quit. These resources are most helpful when you use them often. They include: Online chats with a counselor. Phone quitlines. Printed self-help materials. Support groups or group counseling. Text messaging programs. Mobile phone apps. Use apps on your mobile phone or tablet that can help you stick to your quit plan. There are many free apps for mobile phones and tablets as well as websites. Examples include QuitGuide from the [employer] and smokefree.gov What things can I do to make it easier to quit? Talk to your family and friends. Ask them to support and encourage you. Call a phone quitline (8-519-NBZJ-NOW), reach out to support groups, or work with a counselor. Ask people who smoke to not smoke around you. Avoid places that make you want to smoke, such as: ?Bars. ?Parties. ?Smoke-break areas at work. Spend time with people who do not smoke. Lower the stress in your life. Stress can make you want to smoke. Try these things to help your stress: ?Getting regular exercise. ?Doing deep-breathing exercises. ?Doing yoga. ?Meditating. ?Doing a body scan. To do this, close your eyes, focus on one area of your body at a time from headto toe. Notice which parts of your body are tense. Try to relax the muscles in those areas. How will I feel when I quit smoking? Day 1 to 3 weeks Within the first 24 hours, you may start to have some problems that come from quitting tobacco. These problems are very bad 2 3 days after you quit, but they do not often last for more than 2 3 weeks. You may get these symptoms: Mood swings. Feeling restless, nervous, angry, or annoyed. Trouble concentrating. Dizziness. Strong desire for high-sugar foods and nicotine. Weight gain. Trouble pooping (constipation). Feeling like you may vomit (nausea). Coughing or a sore throat. Changes in how the medicines that you take for other issues work in your body. Depression. Trouble sleeping (insomnia). Week 3 and afterward After the first 2 3 weeks of quitting, you may start to notice more positive results, such as: Better sense of smell and taste. Less coughing and sore throat. Slower heart rate. Lower blood pressure. Clearer skin. Better breathing. Fewer sick days. Quitting smoking can be hard. Do not give up if you fail the first time. Some people need to try a few times before they succeed. Do your best to stick to your quit plan, and talk with your doctor ifyou have any questions or concerns. Summary Smoking tobacco is the leading cause of preventable . Quitting smoking can be hard, but it is one of the best things that you can do for your health. When you decide to quit smoking, make a plan to help you succeed. Quit smoking right away, not slowly over a period of time. When you start quitting, seek help from your doctor, family, or friends. This information is not intended to replace advice given to you by your health care provider. Make sure you discuss any questions you have with your health care provider. Document Released: 06/30/2010 Document Revised: 11/21/2019 Document Reviewed: 11/22/2019 [employer] Patient Education 2020 [employer]. Follow Up Care 05/05/2022 13:06:51 With:Mello LÓPEZ DO, FAAFP, FAM, PED Address: [address] [place] [address]- When:Within 1 Year(s) [facility] Primary Care 09-23-2022 Evaluation + Plan note Future Scheduled Tests Laboratory* Glucose Fasting 06/09/22 [facility] Primary Care 07-18-2022 Hospital Discharge instructions Follow Up Care 04/03/2022 09:32:00 With:Mello LÓPEZ DO, FAAFP, FAM, PED Address: [address] [place] [address]- When:Within 6 Week(s) [facility] Primary Care Evaluation + Plan note Future Appointments Appointment Date:05/16/2022 12:20:00 PM Scheduled Provider:Mello LÓPEZ DO, FAAFP Location:[facility] Appointment Type:FM Open [facility] Primary Care Evaluation + Plan note Future Appointments Appointment Date:01/10/2023 04:20:00 PM Scheduled Provider:Candice Kim Location:[facility] Appointment Type:FM Open Future Scheduled Tests Laboratory* Glucose [facility]ments Appointment Date:02/05/2023 12:45:00 PM Scheduled Provider:Ameya Marie MD [facility] Type:Cardiology Follow Up (FT) Appointment Date:02/09/2023 08:40:00 AM Scheduled Provider:Mello LÓPEZ DO, FAAFP Location:[facility] Appointment Type: Open Future Scheduled Tests Laboratory* TSH With T4fr Reflex 01/10/23 * Glucose Fasting 06/09/22 * Comprehensive Metabolic Panel 01/10/23 Radiology* EC Stress Echo Complete w/ Contrast 01/05/23 * Echo Transthoracic Complete 01/05/23 [facility] Primary Care Evaluation + Plan note Future Appointments Appointment Date:02/15/2023 04:30:00 PM Scheduled Provider:Ameya Marie MD [facility] Type:Cardiology Follow Up (FT) Appointment Date:03/13/2023 04:00:00 PM Scheduled Provider:Candice Kim Location:[facility] Appointment Type: Open Future Scheduled Tests Laboratory* TSH With T4fr Reflex 01/10/23 * Glucose Fasting 06/09/22 * Comprehensive Metabolic Panel [facility]10/[facility] App[facility]ments Appointment Date:03/13/2023 04:00:00 PM Scheduled Provider:Candice Kim Location:[facility] Appointment Type:FM Open Future Scheduled Tests Laboratory* TSH With T4fr Reflex 01/10/23 * Glucose Fasting 06/09/22 * Comprehensive Metabolic Panel 01/10/23 [facility] Future App[facility]ments Appointment Date:06/11/2023 10:40:00 AM Scheduled Provider:Candice Kim Location:[facility] Appointment Type:FM Open Appointment Date:06/25/2023 09:40:00 AM Scheduled Provider:Mello LÓPEZ DO, FAAFP Location:[facility] Appointment Type:FM Preventative Visit Future Scheduled Tests Laboratory* TSH With T4fr Reflex 01/10/23 * Glucose Fasting 06/09/22 * Comprehensive Metabolic Panel 01/10/23 [facility] Primary Care Evaluation + Plan note Future Appointments Appointment Date:06/25/2023 09:40:00 AM Scheduled Provider:Mello LÓPEZ DO, FAAFP Location:[facility] Appointment Type: Preventative Visit Appointment Date:12/10/2023 07:40:00 AM Scheduled Provider:Candice Kim Location:[facility] Appointment Type:FM Open Future Scheduled Tests Laboratory* TSH With T4fr Reflex 01/10/23 * Basic Metabolic Panel 06/11/23 * CBC w/ Auto Diff 06/11/23 * Comprehensive Metabolic Panel 01/10/23 * Hepatic Function Panel 06/11/23 * Lipid Panel 06/11/23 [facility] Primary Care evaluation + Plan note Future Appointments Appointment Date:06/25/2023 09:40:00 AM Scheduled Provider:Mello LÓPEZ DO, FAAFP Location:[facility] Appointment Type:FM Preventative Visit Appointment Date:07/13/2023 04:00:00 PM Scheduled Provider:Kiesha Pena Location:[facility] Appointment Type:BH Therapy New Patient Appointment Date:12/10/2023 07:40:00 AM Scheduled Provider:Candice Kim Location:[facility] Appointment Type: Open Future Scheduled Tests Laboratory* Basic Metabolic Panel 06/11/23 * CBC w/ Auto Diff 06/11/23 * Hepatic Function Panel 06/11/23 * Lipid Panel 06/11/23 [facility] Future Appointments Appointment Date:07/19/2023 03:00:00 PM Scheduled Provider:Kiesha Pena Location:[facility] [place] Appointment Type:BH Therapy 60 Appointment Date:07/27/2023 02:00:00 PM Scheduled Provider:Kiesha Pena Location:[facility] Appointment Type:BH Therapy 60 Appointment Date:12/10/2023 07:40:00 AM Scheduled Provider:Candice Kim Location:[facility] Appointment Type:FM Open Appointment Date:04/21/2024 02:40:00 PM Scheduled Provider:Mello LÓPEZ DO, FAAFP Location:[facility] Appointment Type:FM Open Future Scheduled Tests Laboratory* Basic Metabolic Panel 06/11/23 * CBC w/ Auto Diff 06/11/23 * Hepatic Function Panel 06/11/23 * Lipid Panel 06/11/23 [facility] Behavioral Health evaluation + Plan note Future Appointments Appointment Date:08/24/2023 08:00:00 AM Scheduled Provider:Kiesha Pena Location:[facility] Appointment Type:BH Therapy 60 Appointment Date:09/07/2023 08:00:00 AM Scheduled Provider:Kiesha Pena Location:[facility] Appointment Type:BH Therapy 60 Appointment Date:09/21/2023 08:00:00 AM Scheduled Provider:Kiesha Pena Location:[facility] Appointment Type:BH Therapy 60 Appointment Date:10/05/2023 08:00:00 AM Scheduled Provider:Kiesha Pena Location:[facility] Appointment Type:BH Therapy 60 Appointment Date:12/10/2023 07:40:00 AM Scheduled Provider:Candice Kim Location:[facility] Appointment Type:FM Open Appointment Date:04/21/2024 02:40:00 PM Scheduled Provider:Mello LÓPEZ DO, FAAFP Location:[facility] Appointment Type:FM Open Future Scheduled Tests Laboratory* Basic Metabolic Panel 06/11/23 * CBC w/ Auto Diff 06/11/23 * Hepatic Function Panel 06/11/23 * Lipid Panel 06/11/23 [facility] Behavioral Health evaluation + Plan note Future Appointments Appointment Date:09/07/2023 08:00:00 AM Scheduled Provider:Kiesha Pena Location:[facility] Behavioral Health [facility] Appointment Type:BH Therapy 60 Appointment Date:09/21/2023 08:00:00 AM Scheduled Provider:Kiesha Pena Location:[facility] Appointment Type:BH Therapy 60 Appointment Date:10/05/2023 08:00:00 AM Scheduled Provider:Kiesha Pena Location:[facility] Behavioral [facility] Appointment Type:BH Therapy 60 Appointment Date:12/10/2023 07:40:00 AM Scheduled Provider:Candice Kim Location:[facility] Appointment Type:FM Open Appointment Date:04/21/2024 02:40:00 PM Scheduled Provider:Mello LÓPEZ DO, FAAFP Location:[facility] Appointment Type:FM Open Future Scheduled Tests Laboratory* Basic Metabolic Panel 06/11/23 * CBC w/ Auto Diff 06/11/23 * Hepatic Function Panel 06/11/23 * Lipid Panel 06/11/23 [facility] Behavioral Health evaluation + Plan note Future Appointments Appointment Date:10/08/2023 08:00:00 AM Scheduled Provider:Kiesha Pena Location:[facility] Behavioral Health [facility] Appointment Type:BH Therapy 60 Appointment Date:10/22/2023 08:00:00 AM Scheduled Provider:Kiesha Pena Location:[facility] Behavioral [facility] Appointment Type:BH Therapy 60 Appointment Date:12/10/2023 07:40:00 AM Scheduled Provider:Candice Kim Location:[facility] Appointment Type:FM Open Appointment Date:04/21/2024 02:40:00 PM Scheduled Provider:Mello LÓPEZ DO, FAAFP Location:[facility] Appointment Type:FM Open Future Scheduled Tests Laboratory* Basic Metabolic Panel 06/11/23 * CBC w/ Auto Diff 06/11/23 * Hepatic Function Panel 06/11/23 * Lipid Panel 06/11/23 [facility] Behavioral Health evaluation + Plan note Future Appointments Appointment Date:04/10/2024 07:00:00 AM Scheduled Provider:Ruth Huffman Location:[facility] Appointment Type:FM Open Appointment Date:04/21/2024 02:40:00 PM Scheduled Provider:Mello LÓPEZ DO, FAAFP Location:[facility] Appointment Type:FM Open Future Scheduled Tests Laboratory* TIBC Calculated 12/10/23 * Vitamin D 25 Hydroxy 12/10/23 * Basic Metabolic Panel 06/11/23 * CBC w/ Auto Diff 06/11/23 * Hepatic Function Panel 06/11/23 * Iron Percent Saturation 12/10/23 * Lipid Panel 06/11/23 * T3 Free 12/10/23 * Thyroid Stimulating Hormone 12/10/23 * Free T4 12/10/23 * Vitamin B12 Level 12/10/23 [facility] Primary Care Evaluation + Plan note Future Appointments Appointment Date:04/10/2024 07:00:00 AM Scheduled Provider:Ruth Huffman Location:[facility] Appointment Type:FM Open Appointment Date:04/21/2024 02:40:00 PM Scheduled Provider:Mello LÓPEZ DO, FAAFP Location:[facility] Appointment Type: Open Diagnostic Tests Pending * T3 Free 12/14/23 [facility] App[facility]ments Appointment Date:04/10/2024 07:00:00 AM Scheduled Provider:Ruth Huffman Location:[facility] Appointment Type:FM Open Appointment Date:04/21/2024 02:40:00 PM Scheduled Provider:Mello LÓPEZ DO, FAAFP Location:[facility] App[facility]ment Type:FM Open [facility] Future Appointments Appointment Date:06/23/2024 03:20:00 PM Scheduled Provider:Mello LÓPEZ DO, FAAFP Location:[facility] Appointment Type:FM Open Appointment Date:10/07/2024 01:00:00 PM Scheduled Provider:Candice Kim Location:[facility] Appointment Type:FM Open [facility] Primary Care Evaluation + Plan note Future Appointments Appointment Date:10/07/2024 01:00:00 PM Scheduled Provider:Candice Kim Location:[facility] Appointment Type:FM Open Future Scheduled Tests Laboratory* HCV Antibody RFX to Quant PCR 06/23/24 * HCV Antibody RFX to Quant PCR 06/23/24 * HIV Screen 4th Generation wRfx 06/23/24 [facility] Primary Care Evaluation + Plan note Future Appointments Appointment Date:10/07/2024 01:00:00 PM Scheduled Provider:Candice Kim Location:[facility] Appointment Type:FM Open Future Scheduled Tests Laboratory* HCV Antibody RFX to Quant PCR 06/23/24 * HCV Antibody RFX to Quant PCR 06/23/24 * HIV Screen 4th Generation wRfx 06/23/24 Radiology* XR Abdomen 1 View 07/14/24 [facility] Primary Care Evaluation + Plan note Future Appointments Appointment Date:10/07/2024 01:00:00 PM Scheduled Provider:Candice Kim Location:[facility] Appointment Type:FM Open Future Scheduled Tests Laboratory* HCV Antibody RFX to Quant PCR 06/23/24 * HCV Antibody RFX to Quant PCR 06/23/24 * HIV Screen 4th Generation wRfx 06/23/24 Radiology* XR Abdomen 1 View 07/14/24 * US Bladder 08/04/24 * CT Abdomen/Pelvis w/ Contrast 08/04/24 [facility] [place] Evaluation + Plan note Future Appointments Appointment Date:10/07/2024 01:00:00 PM Scheduled Provider:Candice Kim Location:[facility] Appointment Type:FM Open Diagnostic Tests Pending * Chlamydia/Gonococcus, FREDDY 08/04/24 Future Scheduled Tests Laboratory* HCV Antibody RFX to Quant PCR 06/23/24 * HCV Antibody RFX to Quant PCR 06/23/24 * HIV Screen 4th Generation wRfx 06/23/24 Radiology* XR Abdomen 1 View 07/14/24 * US Bladder 08/04/24 * CT Abdomen/Pelvis w/ Contrast 08/04/24 [facility] evaluation + Plan note Future Appointments Appointment Date:08/18/2024 03:00:00 PM Scheduled Provider: Location[facility] Appointment Type:CT Abdomen/Pelvis Combo () Appointment Date:10/07/2024 01:00:00 PM Scheduled Provider:Candice Kim Location:[facility] Appointment Type:FM Open Future Scheduled Tests Laboratory* HCV Antibody RFX to Quant PCR 06/23/24 * HCV Antibody RFX to Quant PCR 06/23/24 * HIV Screen 4th Generation wRfx 06/23/24 Radiology* XR Abdomen 1 View 07/14/24 * CT Abdomen/Pelvis w/ Contrast 08/18/24 [facility] evaluation + Plan note Future Appointments Appointment Date:04/21/2025 08:00:00 AM Scheduled Provider:Candice Kim Location:[facility] Appointment Type:FM Open Future Scheduled Tests Laboratory* HCV Antibody RFX to Quant PCR 06/23/24 * HCV Antibody RFX to Quant PCR 06/23/24 * HIV Screen 4th Generation wRfx 06/23/24 * Vitamin D 25 Hydroxy 10/07/24 Radiology* XR Abdomen 1 View 07/14/24 [facility] Primary Care evaluation + Plan note Future Appointments Appointment Date:04/21/2025 08:00:00 AM Scheduled Provider:Candice Kim Location:[facility] Appointment Type:FM Open Diagnostic Tests Pending * Urine Culture 10/29/24 Future Scheduled Tests Laboratory* HCV Antibody RFX to Quant PCR 06/23/24 * HCV Antibody RFX to Quant PCR 06/23/24 * HIV Screen 4th Generation wRfx 06/23/24 * Vitamin D 25 Hydroxy 10/07/24 Radiology* XR Abdomen 1 View 07/14/24 [facility] evaluation + Plan note Future Appointments Appointment Date:05/27/2025 11:20:00 AM Scheduled Provider:Candice Kim Location:[facility] Appointment Type:FM Open Future Scheduled Tests Laboratory* HCV Antibody RFX to Quant PCR 06/23/24 * HCV Antibody RFX to Quant PCR 06/23/24 * HIV Screen 4th Generation wRfx 06/23/24 * Vitamin D 25 Hydroxy 10/07/24 Radiology* XR Abdomen 1 View 07/14/24 [facility] Convenient Care Evaluation + Plan note Future Appointments Appointment Date:05/26/2025 10:00:00 AM Scheduled Provider: Location:[facility] Services Appointment Type:Surgery FT Appointment Date:05/27/2025 11:20:00 AM Scheduled Provider:Candice Kim Location:[facility] Appointment Type:FM Open Future Scheduled Tests Laboratory* HgbA1c 05/18/25 * TSH With T4fr Reflex 05/18/25 * HCV Antibody RFX to Quant PCR 06/23/24 * HCV Antibody RFX to Quant PCR 06/23/24 * HIV Screen 4th Generation wRfx 06/23/24 * Vitamin D 25 Hydroxy 10/07/24 * CBC w/ Auto Diff 05/18/25 * Comprehensive Metabolic Panel 05/18/25 * Lipid Panel 05/18/25 Radiology* XR Abdomen 1 View 07/14/24 * US Abdomen, Limited 05/19/25 [facility] Digestive Health Evaluation + Plan note Future Appointments Appointment Date:05/28/2025 07:30:00 AM Scheduled Provider: Location[facility] Appointment Type:US Abdominal/Pelvis (FT) Appointment Date:06/01/2026 11:00:00 AM Scheduled Provider:Candice Kim Location:[facility] Appointment Type:FM Preventative Visit Future Scheduled Tests Laboratory* HCV Antibody RFX to Quant PCR 06/23/24 * HCV Antibody RFX to Quant PCR 06/23/24 * HIV Screen 4th Generation wRfx 06/23/24 Radiology* XR Abdomen 1 View 07/14/24 * US Abdomen, Limited 05/28/25 [facility] Primary Care Evaluation + Plan note Future Appointments Appointment Date:06/17/2025 02:15:00 PM Scheduled Provider:Nannette Bell MD Location:[facility] Digestive [facility] Appointment Type:[facility] Follow Up Appointment Date:06/01/2026 11:00:00 AM Scheduled Provider:Candice Kim Location:[facility] Appointment Type: Preventative Visit Future Scheduled Tests Laboratory* HCV Antibody RFX to Quant PCR 06/23/24 * HCV Antibody RFX to Quant PCR 06/23/24 * HIV Screen 4th Generation wRfx 06/23/24 Radiology* XR Abdomen 1 View 07/14/24 [facility] Con[facility] Evaluation + Plan note Future Appointments Appointment Date:06/17/2025 02:15:00 PM Scheduled Provider:Nannette Bell MD Location:[facility] Digestive [facility] Appointment Type:[facility] Follow Up Appointment Date:06/29/2025 10:30:00 AM Scheduled Provider: Location:[facility] Surgical Services Appointment Type:Surgery CALL PAT FT Appointment Date:07/01/2025 11:00:00 AM Scheduled Provider: Location:[facility] Appointment Type:Surgery FT Appointment Date:07/10/2025 11:40:00 AM Scheduled Provider:Kael Main MD Location:[facility] Appointment Type:GS Post Op 15 Appointment Date:06/01/2026 11:00:00 AM Scheduled Provider:Candice Kim Location:[facility] Appointment Type:FM Preventative Visit Future Scheduled Tests Laboratory* HCV Antibody RFX to Quant PCR 06/23/24 * HCV Antibody RFX to Quant PCR 06/23/24 * HIV Screen 4th Generation wRfx 06/23/24 Radiology* XR Abdomen 1 View 07/14/24 [facility] General Surgery [place] Evaluation note* Diagnosis Migraine without aura and without status migrainosus, not intractable (CMS/HCC)- Primary documented [facility] encounter [facility]* 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) documented in this encounter [facility] HealthcareEvaluation note* Diagnosis Well woman exam with routine gynecological exam Routine gynecological examination documented in this encounter [facility] HealthcareEvaluation note* Diagnosis Well woman exam with routine gynecological exam Routine gynecological examination Encounter for screening mammogram for malignant neoplasm of breast documented in this encounter [facility] HealthcareHospital course Narrative No data available for this section [facility] Primary Care Hospital Discharge instructions No data available for this section [facility] No data available for this section [facility] Primary Care Summary Purpose Family History No Family History Records Found No data available for this section No data available for this section No data available for this section No data available for this section No data available for this section No data available for this section No data available for this section No data available for this section No data available for this section No Family History Records FoundNo Family History Records FoundNo Family History Records FoundNo Family History Records FoundNo Family History Records Found No data available for this section No data available for this section No data available for this section No data available for this section No data available for this section No data available for this section No data available for this section No data available for this section No Family History Records Found No data available for this section No Family History Records Found No data available for this section No data available for this section No Family History Records FoundNo Family History Records FoundNo Family History Records FoundNo Family History Records FoundNo Family History Records FoundNo Family History Records FoundNo Family History Records FoundNo Family History Records FoundNo Family History Records FoundNo Family History Records Found No data available for this section No data available for this section No Family History Records FoundNo Family History Records FoundNo Family History Records FoundNo Family History Records FoundNo Family History Records FoundNo Family History Records FoundNo Family History Records Found No data available for this section No Family History Records FoundNo Family History Records Found No data available for this section No Family History Records FoundNo Family History Records FoundNo Family History Records FoundNo Family History Records Found No data available for this section Advance Directives No Advanced Directives Records FoundNo Advanced Directives Records FoundNo Advanced Directives Records FoundNo Advanced Directives Records FoundNo Advanced Directives Records FoundNo Advanced Directives Records FoundNo Advanced Directives Records FoundNo Advanced Directives Records FoundNo Advanced Directives Records FoundNo Advanced Directives Records FoundNo Advanced Directives Records FoundNo Advanced Directives Records FoundNo Advanced Directives Records FoundNo Advanced Directives Records FoundNo Advanced Directives Records FoundNo Advanced Directives Records FoundNo Advanced Directives Records FoundNo Advanced Directives Records FoundNo Advanced Directives Records FoundNo Advanced Directives Records FoundNo Advanced Directives Records FoundNo Advanced Directives Records FoundNo Advanced Directives Records FoundNo Advanced Directives Records FoundNo Advanced Directives Records FoundNo Advanced Directives Records FoundNo Advanced Directives Records FoundNo Advanced Directives Records FoundNo Advanced Directives Records FoundNo Advanced Directives Records FoundNo Advanced Directiv es Records Found Additional Source Comments Care Team (unrecognized sect ion and content) Sales Representative [employer] Relationship Specialty Start Date End Date Mello López MD [address] [place] [address] PCP - General Family Medicine 01/28/24 Daniel Sandoval MD [address] [place] [address] Referring Physician Neurology 08/25/24 Sales Representative [employer] Relationship Specialty Start Date End Date Mello López MD [address] [place] [address] PCP - General Family Medicine 01/28/24 Daniel Sandoval MD [address] [place] [address] Referring Physician Neurology 08/25/24 Sales Representative [employer] Relationship Specialty Start Date End Date Mello López MD [address] [place] [address] PCP - General Family Medicine 01/28/24 Sales Representative [employer] Relationship Specialty Start Date End Date Mello López MD [address] [place] [address] PCP - General Family Medicine 01/28/24 Sales Representative [employer] Relationship Specialty Start Date End Date Mello López MD [address] [facility] [place] [address] PCP - General Family Medicine 01/28/24 Sales Representative [employer] Relationship Specialty Start Date End Date Mello López MD [address] [facility] [place] [address] PCP - General Family Medicine 01/28/24 Daniel Sandoval MD [address] [facility] [place] [address] Referring Physician Neurology 08/25/24 Sales Representative [employer] Relationship Specialty Start Date End Date Mello López MD [address] [facility] [place] [address] PCP - General Family Medicine 01/28/24 Daniel Sandoval MD [address] [facility] [place] [address] Referring Physician Neurology 08/25/24 INFORMATION SOURCE (unrecogn ized section and content) DATE CREATED AUTHOR 12/15/2022 [facility] DATE CREATED AUTHOR AUTHOR'S ORGANIZ ATION 06/20/2024 [facility] DATE CREATED AUTHOR AUTHOR'S ORGANIZ ATION 08/31/2024 [facility] DATE CREATED AUTHOR AUTHOR'S ORGANIZ ATION 10/09/2024 [facility] DATE CREATED AUTHOR AUTHOR'S ORGANIZ ATION 11/02/2024 [facility] DATE CREATED AUTHOR AUTHOR'S ORGANIZ ATION 12/04/[address] [facility] DATE CREATED AUTHOR AUTHOR'S ORGANIZ ATION 04/27/2025 [facility] DATE CREATED AUTHOR AUTHOR'S ORGANIZ ATION 04/28/2025 [facility] DATE CREATED AUTHOR AUTHOR'S ORGANIZ ATION 04/29/2025 [facility] DATE CREATED AUTHOR AUTHOR'S ORGANIZ ATION 04/30/2025 [facility] DATE CREATED AUTHOR AUTHOR'S ORGANIZ ATION 05/25/2025 [facility] DATE CREATED AUTHOR AUTHOR'S ORGANIZ ATION 05/26/2025 [facility] DATE CREATED AUTHOR AUTHOR'S ORGANIZ ATION 05/30/2025 [facility] DATE CREATED AUTHOR AUTHOR'S ORGANIZ ATION 05/31/2025 [facility] DATE CREATED AUTHOR AUTHOR'S ORGANIZ ATION 06/05/2025 [facility] DATE CREATED AUTHOR AUTHOR'S ORGANIZ ATION 06/06/2025 [facility] DATE CREATED AUTHOR AUTHOR'S ORGANIZ ATION 06/07/2025 [facility] DATE CREATED AUTHOR AUTHOR'S ORGANIZ ATION 06/08/2025 [facility] Reason for Visit (unrecogniz ed section and content) Reason Comments Migraine Reason Comments Colposcopy Reason Comments Well Women Visit Reason Comments Gynecologic Exam FOR RECORDS PERTAINING TO PATIENTS WHO ARE OR HAVE BEEN ENROLLED IN A CHEMICAL DEPENDENCY/SUBSTANCEABUSE PROGRAM, SOME INFORMATION MAY BE OMITTED. This clinical summary was aggregated from multiple sources. Caution should be exercised in using it in the provision of clinical care. This summary normalizes information from multiple sources, and as a consequence, information in this document may materially change the coding, format and clinical context of patient data. In addition, data may be omitted in some cases. CLINICAL DECISIONS SHOULD BE BASED ON THE PRIMARY CLINICAL RECORDS. [facility] [employer] provides no warranty or guarantee of the accuracy or completeness of information in this document.
[2025-06-15 15:08] LABS: Age Gdln ACOG Testing Note (.); IGP, Aptima HPV, rfx 16/18,45 Note (.)
== END 2025-06-09 12:11 | disposition home or self-care (01) ==
LOC: LAB 12:10
PROVIDERS: Visit Provider Obstetrics & Gynecology
DX: Z01.419 Encounter for gynecological examination (general) (routine) without abnormal findings (principal)
CPT/HCPCS: 87624; 88175